=== PATIENT | male | born 1955 | race American Indian/Alaskan Native ===

== ENCOUNTER 2017-03-30 18:09 | Inpatient (IN) | payer OTHER ==
[2017-03-30] MEDS ORDERED: Sodium Chloride 0.9% 1,000 ML IV STA (18:20)
[2017-03-30 18:43] LABS: ALB/GLOB RATIO 1.3 (1.1-1.8); ALKALINE PHOSPHATASE 87 U/L (38-126); ALT/SGPT 97 U/L (7-56); AST/SGOT 128 U/L (17-59); BILIRUBIN,DIRECT 0.4 mg/dL (0.0-0.4); BILIRUBIN,TOTAL 0.6 mg/dL (0.2-1.3); BLOOD UREA NITROGEN 23 mg/dL (7-21); CALCIUM 9.1 mg/dL (8.4-10.5); CARBON DIOXIDE 16 mmol/L (21-33); CHLORIDE 108 mmol/L (98-107); GFR AFRICAN-AMERICAN 58; GLUCOSE,RANDOM 203 mg/dL (70-110); LIPASE 433 U/L (23-300); MAGNESIUM 2.6 mg/dL (1.7-2.2); PHOSPHOROUS 8.8 mg/dL (2.5-4.5); POTASSIUM 3.7 mmol/L (3.6-5.0); SODIUM 145 mmol/L (132-148); TOTAL PROTEIN 6.7 g/dL (5.8-8.3)
[2017-03-30 18:46] LABS: ALCOHOL SERUM < 10 mg/dL (0-10); BASO # 0.03 K/mm3 (0.0-2.0); BASO % 0.3 % (0.0-3.0); EOS # 0.2 (0.0-0.7); EOS % 1.4 % (1.5-5.0); GRAN # 6.51 (1.4-6.5); GRAN % 55.3 % (50.0-68.0); HEMATOCRIT 43.8 % (42.0-52.0); LYMPH # 4.8 (1.2-3.4); LYMPH % 40.4 % (22.0-35.0); MEAN CELL VOLUME 87.3 fl (80.0-105.0); MEAN CORPUSCULAR HEMOGLOBIN 28.9 pg (25.0-35.0); MEAN CORPUSCULAR HGB CONC 33.1 g/dl (31.0-37.0); MEAN PLATELET VOLUME 9.6 fl (7.0-11.0); MONO # 0.3 (0.1-0.6); MONO % 2.6 % (1.0-6.0); RED CELL DISTRIBUTION WIDTH 14.4 % (11.5-14.5); WHITE BLOOD COUNT 11.8 10^3/ul (4.5-11.0)
[2017-03-30 18:50] LABS: INR 1.13 (0.93-1.08); PARTIAL THROMBOPLASTIN TIME 59.7 Seconds (23.7-30.8)
[2017-03-30 18:54] LABS: TROPONIN I < 0.01 ng/mL
[2017-03-30 19:04] LABS: ABG MECHANICAL RATE 18; ARTERIAL BLOOD GAS HCO3 15.7 mmol/L (21-28); ATERIAL BLOOD GAS PEEP 5
[2017-03-30] MEDS ORDERED: Piperacillin/Tazobact 3.375 gm 100 ML IVPB STA (19:09)
[2017-03-30] MEDS ORDERED: Sodium Chloride 0.9% 1,200 ML IV STA (19:09)
--- NOTE | 2017-03-30 19:43 | ED PDOC ---
Arrival/HPI - General Chief Complaint: Cardiac Arrest Time Seen by Provider: 03/30/17 18:17 Historian: Family, EMS - History of Present Illness Narrative History of Present Illness (Text): 03/30/17 19:40 A 61 year old male, whose past medical history includes chronic back pain on Oxycodone, brought into the emergency department by EMS after cardiac arrest. According to family, patient was out shopping with family and later went to help his boss move things. When patient returned home he complained of feeling tired, thirsty and a burning sensation in his feet. gave patient vitamin water and grapes. She reports while patient was eating he appeared very uncomfortable and seemed to have difficulty breathing. Family believed patient was potentially choking on a grape so they tired compressions on the abdomen/ chest which caused him to vomit. They noted the vomit was the same color as the vitamin water and appeared to include residue of grapes. EMS was called and they arrived at 17:34. As per EMS, patient was breathing on his own but agonally. Patient eventually lost pulse and went into cardiac arrest. He was given 2 mg of narcan without any response, a total of 3 epinephrine, 1 bicarbonate and intubated. There was return of spontaneous circulation in the field. Upon arrival to in the ambulance bay, patient lost pulse again and chest compressions were restarted. Upon arrival in the ED, patient regained pulse but remained unresponsive. EMS arrived at 18:11 and patient was evaluated immediately. ROS and further HPI limited due to acuity of condition. PMD: Dr. Pritchard Past Medical History - Provider Review Nursing Documentation Reviewed: Yes - Infectious Disease Hx of Infectious Diseases: None - Cardiac Other/Comment: multiple scars to bilat arm as per unk if pt is using substances - Musculoskeletal/Rheumatological Hx Back Pain: Yes - Psychiatric Hx Substance Use: No (unk) - Anesthesia Hx Anesthesia Reactions: No Family/Social History - Physician Review Nursing Documentation Reviewed: Yes Family/Social History: No Known Family HX Smoking Status: Current Some Days Smoker Hx Alcohol Use: No Hx Substance Use: No (unk) Allergies/Home Meds Allergies/Adverse Reactions: Allergies No Known Allergies Allergy (Verified 03/30/17 19:25) Home Medications: Home Meds Medication Instructions Recorded Confirmed Alprazolam [Xanax] 2 mg PO HS 03/30/17 03/30/17 oxyCODONE [oxyCODONE Immediate 30 mg PO QID 03/30/17 03/30/17 Release Tab] Review of Systems - Review of Systems Systems not reviewed;Unavailable: Acuity of Condition Physical Exam Vital Signs Reviewed: Yes Vital Signs Temp Pulse Resp BP Pulse Ox 03/30/17 21:27 84 19 124/75 100 03/30/17 20:22 88 109/72 100 03/30/17 18:11 96.7 F L 145 H 18 93/43 L 97 Temperature: Afebrile Blood Pressure: Hypotensive (initially) Pulse: Tachycardic Respiratory Rate: Normal Appearance: Positive for: Ill-Appearing, Other (unresponsive) Pain Distress: None Mental Status: Positive for: Comatose Finger Stick Blood Glucose: 215 - Systems Exam Head: Present: Atraumatic, Normocephalic Pupils: Present: Sluggish (4 mm b/L) Mouth: Present: Other (ET tube in place) Respiratory/Chest: Present: Other (no spontaneous BS; equal b/L with bagging). No: Respiratory Distress, Accessory Muscle Use, Decreased Breath Sounds Cardiovascular: Present: Normal S1, S2, Tachycardic. No: Murmurs Abdomen: Present: Normal Bowel Sounds. No: Tenderness, Distention, Peritoneal Signs Upper Extremity: Present: Normal Inspection, Other (Possible track ramirez). No: Cyanosis, Edema Lower Extremity: Present: Normal Inspection. No: Edema Neurological: No: GCS=15 (GCS of 3) Skin: Present: Warm, Dry, Normal Color. No: Rashes Psychiatric: Present: Other (comatose). No: Alert, Oriented x 3 Medical Decision Making ED Course and Treatment: 03/30/17 19:39 Impression: A 61 year old male brought in after cardiac arrest; ROSC obtained in the field but patient is comatose in the ED and remains unresponsive. Total unresponsive time prior to ED arrival was approximately 30 minutes. Plan: -- Head CT -- Chest xray -- Labs -- -Blood and Urine culture - Urinalysis -- IV fluids, Vancomycin and Zosyn -- Reassess and disposition Progress Notes: Report Date : 03/30/2017 20:48:00 EXAM: CT Head Without Intravenous Contrast Dictator : Ajit Maynard MD IMPRESSION: 1. There is a diffuse decrease in the johnson-white differentiation, concerning for global hypoxic ischemic injury. If further evaluation is clinically indicated, an MRI of the brain is recommended. 2. No acute intracranial hemorrhage. 3. Mild atrophy. 4. Paranasal sinus disease is noted above. 5. Additional CT findings described above. 03/30/17 21:14 Patient in the ED with noted history; intubated in the field. ET tube confirmed in place; CXR and labs are nondiagnostic. Initial EKG was rapid afib which spontaneously reverted to normal sinus rhythm in the ED. Lactic acid was elevated at 6.1; code sepsis was called and broad spectrum antibiotics were given and additional IVF given per protocol. CT brain showing possible anoxic brain injury. R femoral central line was placed on inital assessment. Case was discussed with Dr. Matteo Pritchard who will admit the patient to his service. Case also discussed with Dr. Jacobs, ICU attending for ICU admission. - Lab Interpretations Lab Results: 03/30/17 18:16 03/30/17 18:16 Lab Results 03/30/17 19:01: pCO2 43, pO2 637.0 H, HCO3 15.7 L, ABG pH 7.17 L*, ABG Total CO2 17.0 L, ABG O2 Saturation 100.6 H, ABG Base Excess -12.4 L, ABG Potassium 3.6, Glucose 210 H, Lactate 6.1 H*, Mechanical Rate 18, FiO2 100.0, Tidal Volume 500, PEEP 5, Sodium 140.0, Chloride 110.0 H, Arterial Blood Potassium 3.6 03/30/17 18:28: POC Glucose (mg/dL) 215 H 03/30/17 18:16: Salicylates < 1 L, Acetaminophen < 10.0 L 03/30/17 18:16: TSH 3rd Generation 10.80 H, Alcohol, Quantitative < 10 03/30/17 18:16: Sodium 145, Potassium 3.7, Chloride 108 H, Carbon Dioxide 16 L, Anion Gap 25 H, BUN 23 H, Creatinine 1.5, Est GFR ( Amer) 58, Est GFR ( Non-Af Amer) 48, Random Glucose 203 H, Calcium 9.1, Phosphorus 8.8 H, Magnesium 2.6 H, Total Bilirubin 0.6, Direct Bilirubin 0.4, AST 128 H, ALT 97 H, Alkaline Phosphatase 87, Lactate Dehydrogenase 1230 H, Total Creatine Kinase 189, Troponin I < 0.01, Total Protein 6.7, Albumin 3.8, Globulin 3.0, Albumin/ Globulin Ratio 1.3, Lipase 433 H 03/30/17 18:16: PT 12.2 H, INR 1.13 H, APTT 59.7 H 03/30/17 18:16: WBC 11.8 H, RBC 5.02, Hgb 14.5, Hct 43.8, MCV 87.3, MCH 28.9, MCHC 33.1, RDW 14.4, Plt Count 256, MPV 9.6, Gran % 55.3, Lymph % (Auto) 40.4 H , [place] % (Auto) 2.6, Eos % (Auto) 1.4 L, Baso % (Auto) 0.3, Gran # 6.51 H, Lymph # 4.8 H, [place] # 0.3, Eos # 0.2, Baso # 0.03 I have reviewed the lab results: Yes - RAD Interpretation Radiology Orders: 03/30/17 18:18 HEAD W/O CONTRAST [CT] Stat 03/30/17 18:19 CHEST PORTABLE [RAD] Stat - Medication Orders Current Medication Orders: Discontinued Medications Sodium Chloride (Sodium Chloride 0.9%) 1,000 mls @ 999 mls/hr IV .Q1H1M STA Stop: 03/30/17 19:20 Last Admin: 03/30/17 19:51 Dose: 999 mls/hr eMAR Start Stop Document 03/30/17 19:51 EQ (Rec: 03/30/17 19:51 EQ [facility] [id number]) Intravenous Solution Start Date 03/30/17 Start Time 19:51 Vancomycin HCl 1 gm/ Sodium (Chloride) 250 mls @ 133.333 mls/hr IV STAT STA PRN Reason: Protocol Stop: 03/30/17 21:00 Piperacillin Sod/Tazobactam Sod (Zosyn 3.375 In Ns 100ml) 100 mls @ 200 mls/hr IVPB STAT STA PRN Reason: Protocol Stop: 03/30/17 19:38 Last Admin: 03/30/17 19:52 Dose: 200 mls/hr eMAR Start Stop Document 03/30/17 19:52 EQ (Rec: 03/30/17 19:53 EQ [facility] [id number]) Intravenous Solution Start Date 03/30/17 Start Time 19:52 Sodium Chloride (Sodium Chloride 0.9%) 1,200 mls @ 999 mls/hr IV .Q1H13M STA Stop: 03/30/17 20:21 Last Admin: 03/30/17 19:51 Dose: 999 mls/hr eMAR Start Stop Document 03/30/17 19:51 EQ (Rec: 03/30/17 19:51 EQ [id number]) Intravenous Solution Start Date 03/30/17 Start Time 19:51 - Scribe Statement The provider has reviewed the documentation as recorded by the Fernando Real Provider Scribe Attestation: All medical record entries made by the Scribe were at my direction and personally dictated by me. I have reviewed the chart and agree that the record accurately reflects my personal performance of the history, physical exam, medical decision making, and the department course for this patient. I have also personally directed, reviewed, and agree with the discharge instructions and disposition. Disposition/Present on Arrival - Present on Arrival Any Indicators Present on Arrival: No History of DVT/PE: No History of Uncontrolled Diabetes: No Urinary Catheter: No History of Decub. Ulcer: No History Surgical Site Infection Following: None - Disposition Have Diagnosis and Disposition been Completed?: Yes Diagnosis: Cardiac arrest Disposition: HOSPITALIZED Disposition Time: 19:30 Patient Plan: Admission, ICU Condition: CRITICAL Proc: Central Venous Access - Time Performed Time Performed: 18:30 - Time Out Time Out: Side verified, Site verified, Sterile procedures obs. - Procedure Procedure: Central Line placement: Right Technique:: Seldinger technique, Femoral vein (Right side) - Consent obtained Consent obtained: Emergent consent implied - Performed by Performed by: Attending Physician (with resident Dr. Rojo) - Indications Indication(s):: Mult.intravenous meds, Centrally admin. meds, Rapid fluid infusion Contraindications: None Tube type:: Triple lumen - Local Anesthetic Local Anesthetic: Lidocaine: none; patient comatose - Number of Attempts Attempts: 2 - Line sutured in place Line sutured in place:: Yes - Patient tolerated procedure Patient Tolerated Procedure:: Well
[2017-03-30 20:33] LABS: ARTERIAL BLOOD GAS PH 7.17 (7.35-7.45)
--- NOTE | 2017-03-30 20:49 | CT ---
EXAM: CT Head Without Intravenous Contrast EXAM DATE/TIME: 03/30/2017 6:18 PM CLINICAL HISTORY: The patient age is 61 years old and is male; Condition or disease; Other: Cardiac arrest; Additional info: [facility] Facility exam id and description: Ct heads head w/o contrast TECHNIQUE: Axial computed tomography images of the head/brain without intravenous contrast. All CT scans at this facility use one or more dose reduction techniques, viz.: automated exposure control; ma/kV adjustment per patient size (including targeted exams where dose is matched to indication; i.e. head); or iterative reconstruction technique. COMPARISON: No relevant prior studies available. FINDINGS: Artifacts: There is motion artifact on the study. Brain: There is a diffuse decrease in the johnson-white differentiation, concerning for global hypoxic ischemic injury. There is mild prominence of the sulci, compatible with atrophy. No acute intracranial hemorrhage is seen. Midline shift: There is no midline shift. Ventricles: No ventriculomegaly. Bones/joints: The calvarium demonstrates no evidence for a depressed fracture. Soft tissues: No acute abnormality. Vasculature: There is atherosclerotic calcification of the cavernous internal carotid arteries. Sinuses: Air-fluid levels are identified within the bilateral sphenoid sinuses, maxillary sinuses, and frontal sinuses. Mucosal thickening/effusions are identified within the ethmoid air cells. A mucous retention cyst or polyp is visualized within the right maxillary sinus. Mastoid air cells: Effusions are visualized within the left mastoid air cells and aditus ad antrum. Tubes, lines and devices: A feeding tube is visualized within the nasal cavity and pharynx. Fluid is seen within the nasopharynx. IMPRESSION: 1. There is a diffuse decrease in the johnson-white differentiation, concerning for global hypoxic ischemic injury. If further evaluation is clinically indicated, an MRI of the brain is recommended. 2. No acute intracranial hemorrhage. 3. Mild atrophy. 4. Paranasal sinus disease is noted above. 5. Additional CT findings described above. THIS REPORT CONTAINS FINDINGS THAT MAY BE CRITICAL TO PATIENT CARE. The findings were verbally communicated via telephone conference with Jeimy Almonte at 8:47 PM EDT on 03/30/2017. The findings were acknowledged and understood.
--- NOTE | 2017-03-30 21:08 | CP.PCM.CON ---
Addendum entered and electronically signed by Andrez Saldaña DO 03/30/17 22:15 : ICU Consult Note Original Note: <Andrez Saldaña - Last Filed: 03/30/17 22:13> History of Present Illness - History of Present Illness History of Present Illness: CC: Cardiac arrest History as per prior notes and patient family at bedside: 61M with pmh of chronic back pain on oxycodone and restless leg syn presents with cardiac arrest. As per family, the patient was shopping in the morning when his boss called him to help him move some boxes. He went to help for 1-2 hours and when he came home he reportedly had some trouble breathing, very diaphoretic, thirsty, and complained of foot pain. His gave him some vitamin water and grapes as well as Oxycodone for his back pain. She than realized him holding his neck as if he was choking. At this point they called EMS and started doing compressions, and mouth to mouth. Pt chey turned purple and vomited some grape and vitamin water colored vomit. As per EMS and prior notes upon arrival pt was breathing on his own but agonal. Pt chey lost his pulse and went into cardiac arrest. On the field he was given Narcan 2mg, Epi x 3, bicarb x 1, and intubated the patient. Pt lost his pulse on route to the ED and chest compressions was started. Upon arrival patient regained pulse but was unresponsive. ROS is limited due to acuity of condition. PMH: Chronic back pain, Restless legs PSH: None Med: Ativan, Xanax ALL: NKA FH: Brother and sister with DM, No family hx of NM or CVA SH: Former smoker of half PPD for >25 years, Denies any etoh abuse or drugs Review of Systems - Review of Systems Systems not reviewed;Unavailable: Acuity of Condition Past Patient History - Infectious Disease Hx of Infectious Diseases: None - Past Social History Smoking Status: Current Some Days Smoker - CARDIAC Other/Comment: multiple scars to bilat arm as per unk if pt is using substances - MUSCULOSKELETAL/RHEUMATOLOGICAL Hx Back Pain: Yes - PSYCHIATRIC Hx Substance Use: No (unk) - ANESTHESIA Hx Anesthesia Reactions: No Meds Allergies/Adverse Reactions: Allergies Allergy/AdvReac Type Severity Reaction Status Date / Time No Known Allergies Allergy Verified 03/30/17 19:25 Physical Exam - Constitutional Appears: No Acute Distress - Head Exam Head Exam: ATRAUMATIC, NORMOCEPHALIC - Eye Exam Eye Exam: PERRL Pupil Exam: NORMAL ACCOMODATION - ENT Exam ENT Exam: Mucous Membranes Moist - Respiratory Exam Respiratory Exam: Clear to Auscultation Bilateral. absent: Rales, Wheezes - Cardiovascular Exam Cardiovascular Exam: REGULAR RHYTHM, +S1, +S2 - GI/Abdominal Exam GI & Abdominal Exam: Normal Bowel Sounds, Soft. absent: Tenderness - Skin Skin Exam: Dry, Intact, Warm Additional comments: Track ramirez appears on forearm Results - Vital Signs Recent Vital Signs: Last Vital Signs Temp 96.7 F L 03/30/17 18:11 Pulse 88 03/30/17 20:22 Resp 18 03/30/17 18:11 BP 109/72 03/30/17 20:22 Pulse Ox 100 03/30/17 20:22 - Labs Result Diagrams: 03/30/17 18:16 03/30/17 18:16 Assessment & Plan - Assessment and Plan (Free Text) Assessment: 61M with pmh of chronic back pain on oxycodone and restless leg syn presents to the ED with cardiac arrest s/p intubation, Epi x 3 , bicarb x1 with ROSC - Possibly 2/2 NM, choking, CVA, or drug overdose. Neuro: - Currently unresponsive - F/u CT head - diffuse decrease in the johnson-white differentiation, concerning for global hypoxicischemic injury. No acute intracranial hemorrhage. - Neuro consulted for recs CV: - Hemodynamically stable - Maintain MAP >65 - Trops x 1 negative - Cardiology consult for recs - Serial trops and EKG Pulm: - Currently intubated for airway protection - Will wean as tolerated GI: - Stable - Monitor and trend transaminitis - Protonix for ppx Endo: - Maintain blood sugars 140-180 - Elevated TSH - Will repeat in AM Renal: - Stable - Monitor I and O - Replete electrolytes an needed Heme: - Stable ID: - Vanc & Zosyn - Consult ID for recs - F/u septic work up GI/DVT ppx - Protonix and Lovenox / SCDs Case and plan was reviewed and discussed in detail with Dr Jacobs. <Arlene GUSMAN,Pedro Luis - Last Filed: 03/31/17 06:56> Meds - Medications Medications: Current Medications Aspirin (Aspirin Chewable) 81 mg PO DAILY [facility] Clopidogrel Bisulfate (Plavix) 75 mg PO DAILY [facility] Sodium Chloride (Sodium Chloride 0.9%) 1,000 mls @ 125 mls/hr IV .Q8H EMA Last Admin: 03/31/17 06:13 Dose: 125 mls/hr Heparin Sodium/Dextrose (Heparin 25,000 Units/250ml In D5w) 25,000 units in 250 mls @ 7.62 mls/hr IV .Q24H EMA; 12 UNITS/KG/HR PRN Reason: Protocol Last Admin: 03/31/17 03:03 Dose: 12 units/kg/hr, 7.62 mls/hr Sodium Chloride (Sodium Chloride 0.9%) 500 mls @ 500 mls/hr IV .Q1H STA Stop: 03/31/17 07:13 Last Admin: 03/31/17 06:32 Dose: 500 mls/hr Potassium Phosphate 15 mmole/ (Dextrose) 255 mls @ 42.5 mls/hr IVPB ONCE ONE Stop: 03/31/17 12:46 Pantoprazole Sodium (Protonix Inj) 40 mg IVP DAILY [facility] Results - Vital Signs Recent Vital Signs: Last Vital Signs Temp 99.5 F 03/31/17 06:30 Pulse 84 03/31/17 06:30 Resp 21 03/31/17 06:30 BP 115/68 03/31/17 06:00 Pulse Ox 100 03/31/17 06:30 - Labs Result Diagrams: 03/30/17 18:16 03/31/17 00:30 Labs: Laboratory Results - last 24 hr 03/30/17 03/30/17 03/30/17 20:15 20:15 20:50 PT INR APTT pCO2 pO2 HCO3 ABG pH ABG Total CO2 ABG O2 Saturation ABG O2 Content ABG Base Excess ABG Hemoglobin ABG Carboxyhemoglobin POC ABG HHb (Measured) ABG Methemoglobin ABG O2 Capacity VBG pH VBG pCO2 VBG HCO3 VBG Total CO2 VBG O2 Sat (Calc) VBG Base Excess VBG Potassium Hgb O2 Saturation Sodium Chloride Glucose Lactate FiO2 Potassium Carbon Dioxide Anion Gap BUN Creatinine Est GFR ( Amer) Est GFR (Non-Af Amer) Random Glucose Calcium Phosphorus Magnesium Ammonia 12 Troponin I Venous Blood Potassium Urine Color Yellow Urine Appearance Cloudy Urine pH 6.0 Ur Specific [place] >= 1.030 Urine Protein >=300 H Urine Glucose (UA) 100 H Urine Ketones Negative Urine Blood Large H Urine Nitrate Positive H Urine Bilirubin Negative Urine Urobilinogen 1.0 H Ur Leukocyte Esterase Negative Urine RBC 25 - 30 Urine WBC 2 - 5 Ur Epithelial Cells 6 - 8 Urine Bacteria Large Urine Opiates Screen Positive H Urine Methadone Screen Negative Ur Barbiturates Screen Negative Ur Phencyclidine Scrn Negative Ur Amphetamines Screen Negative U Benzodiazepines Scrn Positive H U Oth Cocaine Metabols Positive H U Cannabinoids Screen Negative 03/30/17 03/30/17 03/31/17 20:50 22:37 00:30 PT INR APTT pCO2 pO2 179 H 41 HCO3 ABG pH ABG Total CO2 ABG O2 Saturation ABG O2 Content ABG Base Excess ABG Hemoglobin ABG Carboxyhemoglobin POC ABG HHb (Measured) ABG Methemoglobin ABG O2 Capacity VBG pH 7.10 L* 7.24 L VBG pCO2 22.0 L 47.0 VBG HCO3 6.8 L 20.1 L VBG Total CO2 7.5 L 21.5 L VBG O2 Sat (Calc) 100.6 H 85.0 H VBG Base Excess -21.2 L -7.3 L VBG Potassium 1.0 L* 2.9 L Hgb O2 Saturation Sodium 150.0 H 142.0 Chloride 137.0 H 112.0 H Glucose 26 L* D 105 Lactate 1.7 3.9 H FiO2 21.0 21.0 Potassium Carbon Dioxide Anion Gap BUN Creatinine Est GFR ( Amer) Est GFR (Non-Af Amer) Random Glucose Calcium Phosphorus Magnesium Ammonia Troponin I 1.70 H* D Venous Blood Potassium 1.0 L* 2.9 L Urine Color Urine Appearance Urine pH Ur Specific [place] Urine Protein Urine Glucose (UA) Urine Ketones Urine Blood Urine Nitrate Urine Bilirubin Urine Urobilinogen Ur Leukocyte Esterase Urine RBC Urine WBC Ur Epithelial Cells Urine Bacteria Urine Opiates Screen Urine Methadone Screen Ur Barbiturates Screen Ur Phencyclidine Scrn Ur Amphetamines Screen U Benzodiazepines Scrn U Oth Cocaine Metabols U Cannabinoids Screen 03/31/17 03/31/17 03/31/17 00:30 00:30 00:45 PT INR APTT pCO2 35 pO2 552.0 H HCO3 17.6 L ABG pH 7.31 L ABG Total CO2 18.7 L ABG O2 Saturation 100.0 H ABG O2 Content 22.1 ABG Base Excess -7.8 L ABG Hemoglobin 15.0 ABG Carboxyhemoglobin 1.3 POC ABG HHb (Measured) 0 ABG Methemoglobin 1.1 ABG O2 Capacity 22.1 VBG pH VBG pCO2 VBG HCO3 VBG Total CO2 VBG O2 Sat (Calc) VBG Base Excess VBG Potassium Hgb O2 Saturation 97.7 Sodium 145 Chloride 110 H Glucose Lactate FiO2 100.0 Potassium 3.0 L Carbon Dioxide 22 Anion Gap 16 BUN 26 H Creatinine 1.5 Est GFR ( Amer) 58 Est GFR (Non-Af Amer) 48 Random Glucose 133 H Calcium 8.8 Phosphorus 2.0 L Magnesium 2.1 Ammonia Troponin I Venous Blood Potassium Urine Color Urine Appearance Urine pH Ur Specific [place] Urine Protein Urine Glucose (UA) Urine Ketones Urine Blood Urine Nitrate Urine Bilirubin Urine Urobilinogen Ur Leukocyte Esterase Urine RBC Urine WBC Ur Epithelial Cells Urine Bacteria Urine Opiates Screen Urine Methadone Screen Ur Barbiturates Screen Ur Phencyclidine Scrn Ur Amphetamines Screen U Benzodiazepines Scrn U Oth Cocaine Metabols U Cannabinoids Screen 03/31/17 02:00 PT 14.4 H INR 1.33 H APTT 35.0 H pCO2 pO2 HCO3 ABG pH ABG Total CO2 ABG O2 Saturation ABG O2 Content ABG Base Excess ABG Hemoglobin ABG Carboxyhemoglobin POC ABG HHb (Measured) ABG Methemoglobin ABG O2 Capacity VBG pH VBG pCO2 VBG HCO3 VBG Total CO2 VBG O2 Sat (Calc) VBG Base Excess VBG Potassium Hgb O2 Saturation Sodium Chloride Glucose Lactate FiO2 Potassium Carbon Dioxide Anion Gap BUN Creatinine Est GFR ( Amer) Est GFR (Non-Af Amer) Random Glucose Calcium Phosphorus Magnesium Ammonia Troponin I Venous Blood Potassium Urine Color Urine Appearance Urine pH Ur Specific [place] Urine Protein Urine Glucose (UA) Urine Ketones Urine Blood Urine Nitrate Urine Bilirubin Urine Urobilinogen Ur Leukocyte Esterase Urine RBC Urine WBC Ur Epithelial Cells Urine Bacteria Urine Opiates Screen Urine Methadone Screen Ur Barbiturates Screen Ur Phencyclidine Scrn Ur Amphetamines Screen U Benzodiazepines Scrn U Oth Cocaine Metabols U Cannabinoids Screen Attending/Attestation - Attestation I have personally seen and examined this patient.: Yes I have fully participated in the care of the patient.: Yes I have reviewed all pertinent clinical information: Yes Notes (Text): -I agree with the above ICU consult note completed by the resident physician, with the following additions and/or changes: -The patient is a 61 year old man with a history of chronic low back pain and restless leg syndrome, who is admitted to the ICU for cardiac arrest (PEA) (s/p cardiac resuscitation per ACLS protocol in the field) and sepsis due to UTI. After arrival to the ICU, pt also found to have evidence of anoxic brain injury on CT-head, a urine toxicology positive for cocain and an increasing troponin ( 1.6). Consequently, overnight, Heparin drip (per ACS protocol), ASA and Plavix were started. Since ROCS in the field, he has never regained consciousness. Because of sepsis, he was excluded from the hypothermia protocol. We will check serial trop's and EKG's. Both neurology and cardiology have been consulted. Empiric IV antibiotics have been started and procalcitonin ordered.
[2017-03-30 21:09] LABS: URINE BILIRUBIN NEGATIVE (NEGATIVE); URINE BLOOD LARGE (NEGATIVE); URINE GLUCOSE (UA) 100 mg/dL (NEGATIVE); URINE KETONE NEGATIVE (NEGATIVE); URINE LEUKOCYTE ESTERASE NEGATIVE Leu/uL (NEGATIVE); URINE PROTEIN >=300 mg/dL (<30 mg/dL)
[2017-03-30 21:18] LABS: URINE APPEARANCE CLOUDY (CLEAR); URINE COLOR YELLOW (YELLOW)
[2017-03-30 21:20] LABS: VENOUS BLOOD GAS BASE EXCESS -21.2 mmol/L (0.0-2.0)
[2017-03-30 21:23] LABS: URINE BACTERIA LARGE (NEG); URINE RBC 25 - 30 /hpf (0-2)
[2017-03-30 22:42] LABS: VENOUS BLOOD GAS BASE EXCESS -7.3 mmol/L (0.0-2.0); VENOUS BLOOD PH 7.24 (7.32-7.43)
[2017-03-30 23:47] VITALS: BMI 20.8
[2017-03-31] MEDS: Sodium Chloride 0.9% 1,000 ML IV SCH ×4 (00:06→23:00)
--- NOTE | 2017-03-31 00:45 | PCM.SEPTIC ---
Sepsis Progress Note - Reassessment Type Date of Evaluation: 03/31/17 Time of Evaluation: 00:44 Reassessment Type: Non-invasive reassessment - Non Invasive Reassessment Were the most recent vital sign reviewed: Yes Vital Sign (Latest): Temp Pulse Resp BP Pulse Ox 97.3 F L 86 20 120/72 99 03/30/17 22:27 03/30/17 23:47 03/30/17 22:27 03/30/17 22:27 03/30/17 22:27 Cardiovascular: Yes: Regular Rate, Rhythm. No: Gallop, JVD, Murmur Respiratory: Yes: Normal Breath Sounds, Other (Intubated). No: Accessory Muscle Use, Crackles, Rales, Rhonchi, Respiratory Distress Capillary Refill: Normal (Less than 2 sec) Pulses: Normal Radial, Normal Dorsalis Pedis, Normal Posterior Tibialis Skin: Warm, Dry
[2017-03-31 01:02] LABS: ARTERIAL BLOOD GAS HCO3 17.6 mmol/L (21-28); ARTERIAL BLOOD GAS O2 CAPACITY 22.1 mL/dl (16-24); ARTERIAL BLOOD GAS O2 CONTENT 22.1 ML/dl (15-23); ARTERIAL BLOOD GAS PH 7.31 (7.35-7.45); ARTERIAL BLOOD HGB O2 SAT 97.7 % (95.0-98.0); CARBOXYHEMOGLOBIN 1.3 % (0.5-1.5); HHB 0 % (0-5); METHEMOGLOBIN 1.1 % (0.0-3.0)
[2017-03-31 01:19] LABS: CALCIUM 8.8 mg/dL (8.4-10.5)
[2017-03-31] MEDS ORDERED: Heparin 25,000units in D5W 25,000 UNITS/250 ML BAG IV SCH (02:00)
[2017-03-31 02:11] LABS: MAGNESIUM 2.1 mg/dL (1.7-2.2)
[2017-03-31 02:26] LABS: INR 1.33 (0.93-1.08)
[2017-03-31] MEDS ORDERED: Heparin 25,000units in D5W/250 ML BAG IV SCH (03:00)
[2017-03-31] MEDS ORDERED: Sodium Chloride 0.9% 500 ML IV STA (06:14)
[2017-03-31] MEDS ORDERED: Potassium Phosphate 15 MMOLE in Dextrose 5% In Water 250 ML IVPB ONE (06:47)
[2017-03-31 07:19] LABS: ALB/GLOB RATIO 1.2 (1.1-1.8); ALKALINE PHOSPHATASE 97 U/L (38-126); ALT/SGPT 178 U/L (7-56); AST/SGOT 209 U/L (17-59); BILIRUBIN,TOTAL 0.4 mg/dL (0.2-1.3); BLOOD UREA NITROGEN 26 mg/dL (7-21); CALCIUM 8.7 mg/dL (8.4-10.5); CARBON DIOXIDE 22 mmol/L (21-33); CHLORIDE 111 mmol/L (98-107); CHOLESTEROL 97 mg/dL (130-200); GFR AFRICAN-AMERICAN > 60; GLUCOSE,RANDOM 163 mg/dL (70-110); POTASSIUM 4.2 mmol/L (3.6-5.0); SODIUM 146 mmol/L (132-148); TOTAL PROTEIN 6.7 g/dL (5.8-8.3)
[2017-03-31 07:34] LABS: TROPONIN I 1.48 ng/mL
--- NOTE | 2017-03-31 07:52 | RAD ---
HISTORY: cardiac arrest; ROSC COMPARISON: Not available FINDINGS: LUNGS: No pulmonary infiltrate. Mild diffuse interstitial prominence, nonspecific. PLEURA: No evidence of pleural effusion. Right costophrenic angle not included on this film. CARDIOVASCULAR: No significant congestive change. ET tube positioned 5.1 cm above the tracheal teagan. Nasogastric tube extends to left upper quadrant of the abdomen. OSSEOUS STRUCTURES: No significant abnormalities. VISUALIZED UPPER ABDOMEN: Normal. OTHER FINDINGS: None. IMPRESSION: No acute infiltrate. ET tube and NG tube are appropriately positioned. Mild diffuse interstitial prominence.
[2017-03-31 09:16] LABS: BASO # 0.02 K/mm3 (0.0-2.0); BASO % 0.1 % (0.0-3.0); GRAN # 28.87 (1.4-6.5); GRAN % 92.6 % (50.0-68.0); HEMATOCRIT 42.1 % (42.0-52.0); LYMPH % 3.2 % (22.0-35.0); MEAN CELL VOLUME 81.4 fl (80.0-105.0); MEAN CORPUSCULAR HEMOGLOBIN 29.2 pg (25.0-35.0); MEAN CORPUSCULAR HGB CONC 35.9 g/dl (31.0-37.0); MEAN PLATELET VOLUME 8.9 fl (7.0-11.0); MONO # 1.3 (0.1-0.6); MONO % 4.1 % (1.0-6.0); PLATELET COUNT 277 10^3/uL (120.0-450.0); RED CELL DISTRIBUTION WIDTH 13.9 % (11.5-14.5)
[2017-03-31 09:19] LABS: WHITE BLOOD COUNT 31.2 10^3/ul (4.5-11.0)
[2017-03-31 09:37] LABS: INR 1.21 (0.93-1.08); PARTIAL THROMBOPLASTIN TIME 68.6 Seconds (23.7-30.8)
[2017-03-31] MEDS ORDERED: Enoxaparin 40 mg Syringe SC SCH (10:00)
[2017-03-31 10:53] LABS: BAND 3 % (0-2); NEUTROPHIL 91 % (50.0-70.0)
--- NOTE | 2017-03-31 10:53 | CARD ---
APPROVED REPORT EKG Measurement Heart [id number] CO 142P81 [id number] <Conclusion> Normal sinus rhythm Prolonged QT Tall P Wave - Ch.Lung Disease?
[2017-03-31 10:54] LABS: ANISOCYTOSIS SLIGHT; PLATELET ESTIMATE NORMAL (NORMAL)
--- NOTE | 2017-03-31 11:07 | CARD ---
APPROVED REPORT EKG Measurement Heart [id number] [place] 140P86 [id number] [id number] <Conclusion> Normal sinus rhythm Right atrial enlargement Prolonged QT Tall P Waves- Ch.Lung Disease?
[2017-03-31] MEDS ORDERED: levETIRAcetam 500 MG in Sodium Chloride 0.9% 100 ML IV SCH (11:15)
--- NOTE | 2017-03-31 11:15 | CARD ---
APPROVED REPORT EKG Measurement Heart [id number] <Conclusion> Atrial fibrillation with rapid ventricular response Marked ST abnormality, Correlate Clinically.
--- NOTE | 2017-03-31 11:32 | CP.PCM.CON ---
<Clemencia Pena - Last Filed: 03/31/17 11:21> History of Present Illness - History of Present Illness History of Present Illness: Neurology Consult Note for Cat Ponce PGY2 Reason for consult: Anoxic brain injury This is a 61Y M with PMH chronic back pain and restless legs syndrome who was admitted for cardiac arrest. is at bedside to obtain history. She reports the patient went to go help his boss move boxes for 1-2 hours. When the patient returned home, he was sweating and complaining of SOB, increased thirst and foot pain. His then gave him his prescription Oxycodone for his back pain. The patient was then holding onto his neck as if he were choking. EMS was called and CPR was initiated. During that time, patient had facial discoloration and vomiting. Patient was having agonal breathing and then went into cardiac arrest. In the field he was intubated and given Epi x 3, Bicarb x 1 and Narcan 2mg with return of spontaneous circulation. His pulse was once again lost on the way to the ED. CPR was restarted. In ED, patient had a pulse, but was unresponsive. Head CT showed diffuse decreased bauer-white matter differentiation which is consistent with global hypoxic ischemic injury. Utox was positive for opiates, benzo and cocaine. 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 FH: Siblings- DM Review of Systems - Review of Systems Systems not reviewed;Unavailable: Intubated Past Patient History - Infectious Disease Hx of Infectious Diseases: None - Past Social History Smoking Status: Light Smoker < 10 Cigarettes Daily - CARDIAC Hx Cardiac Disorders: No Other/Comment: multiple scars to bilat arm as per unk if pt is using substances - PULMONARY Hx Respiratory Disorders: No - NEUROLOGICAL Hx Neurological Disorder: No - HEENT Hx HEENT Problems: No - RENAL Hx Chronic Kidney Disease: No - ENDOCRINE/METABOLIC Hx Endocrine Disorders: No - HEMATOLOGICAL/ONCOLOGICAL Hx Blood Disorders: No - INTEGUMENTARY Hx Dermatological Problems: No - MUSCULOSKELETAL/RHEUMATOLOGICAL Hx Back Pain: Yes (chronic) Hx Falls: No Other/Comment: Restless legs- takes Xanax for sleep. Chronic knee pain. foot spurs -injected last month - GASTROINTESTINAL Hx Gastrointestinal Disorders: No - GENITOURINARY/GYNECOLOGICAL Other/Comment: c/o urinary problems today - took AZO pill - PSYCHIATRIC Hx Psychophysiologic Disorder: No Hx Anxiety: No Hx Depression: No Hx Emotional Abuse: No Hx Panic Symptoms: No Hx Substance Use: No - SURGICAL HISTORY Hx Surgeries: No - ANESTHESIA Hx Anesthesia Reactions: No Meds Allergies/Adverse Reactions: Allergies Allergy/AdvReac Type Severity Reaction Status Date / Time No Known Allergies Allergy Verified 03/30/17 19:25 - Medications Medications: Current Medications Aspirin (Aspirin Chewable) 81 mg PO DAILY [facility] Last Admin: 03/31/17 09:53 Dose: 81 mg Clopidogrel Bisulfate (Plavix) 75 mg PO DAILY [facility] Last Admin: 03/31/17 09:53 Dose: 75 mg Sodium Chloride (Sodium Chloride 0.9%) 1,000 mls @ 125 mls/hr IV .Q8H [facility] Last Admin: 03/31/17 06:13 Dose: 125 mls/hr Heparin Sodium/Dextrose (Heparin 25,000 Units/250ml In D5w) 25,000 units in 250 mls @ 7.62 mls/hr IV .Q24H EMA; 12 UNITS/KG/HR PRN Reason: Protocol Last Titration: 03/31/17 09:50 Dose: 0 units/kg/hr, 0 mls/hr Potassium Phosphate 15 mmole/ (Dextrose) 255 mls @ 42.5 mls/hr IVPB ONCE ONE Stop: 03/31/17 12:46 Last Admin: 03/31/17 07:53 Dose: 42.5 mls/hr Levetiracetam 500 mg/ Sodium (Chloride) 105 mls @ 460 mls/hr IV Q12 EMA Pantoprazole Sodium (Protonix Inj) 40 mg IVP DAILY [facility] Last Admin: 03/31/17 09:40 Dose: 40 mg Physical Exam - Constitutional Appears: No Acute Distress - Head Exam Head Exam: ATRAUMATIC, NORMAL INSPECTION, NORMOCEPHALIC - Eye Exam Eye Exam: absent: PERRL Pupil Exam: Fixed (pinpoint). absent: PERRL - ENT Exam ENT Exam: Mucous Membranes Moist - Respiratory Exam Respiratory Exam: NORMAL BREATHING PATTERN. absent: Rales, Rhonchi, Wheezes - Cardiovascular Exam Cardiovascular Exam: REGULAR RHYTHM, +S1, +S2. absent: Gallop, Rubs, Systolic Murmur - GI/Abdominal Exam GI & Abdominal Exam: Normal Bowel Sounds, Soft. absent: Rebound, Rigid, Tenderness - Extremities Exam Extremities exam: Negative for: pedal edema - Neurological Exam Additional comments: Negative for brain stem reflexes which includes pupillary, corneal, gag, and dolls eye reflex. No withdrawal to pain. Patient is moving is mouth but not to sound or speech. - Skin Skin Exam: Dry, Warm Results - Vital Signs Recent Vital Signs: Last Vital Signs Temp 99.7 F H 03/31/17 08:30 Pulse 81 03/31/17 08:30 Resp 20 03/31/17 07:20 BP 149/74 03/31/17 08:00 Pulse Ox 100 03/31/17 08:30 - Labs Result Diagrams: 03/31/17 09:13 03/31/17 06:00 Labs: Laboratory Results - last 24 hr 03/30/17 03/30/17 03/30/17 20:15 20:15 20:50 WBC RBC Hgb Hct MCV MCH MCHC RDW Plt Count MPV Gran % Lymph % (Auto) [place] % (Auto) Eos % (Auto) Baso % (Auto) Gran # Lymph # [place] # Eos # Baso # Neutrophils % (Manual) Band Neutrophils % Lymphocytes % (Manual) Monocytes % (Manual) Platelet Evaluation Anisocytosis (manual) PT INR APTT pCO2 pO2 HCO3 ABG pH ABG Total CO2 ABG O2 Saturation ABG O2 Content ABG Base Excess ABG Hemoglobin ABG Carboxyhemoglobin POC ABG HHb (Measured) ABG Methemoglobin ABG O2 Capacity VBG pH VBG pCO2 VBG HCO3 VBG Total CO2 VBG O2 Sat (Calc) VBG Base Excess VBG Potassium Hgb O2 Saturation Sodium Chloride Glucose Lactate FiO2 Potassium Carbon Dioxide Anion Gap BUN Creatinine Est GFR ( Amer) Est GFR (Non-Af Amer) Random Glucose Calcium Phosphorus Magnesium Total Bilirubin AST ALT Alkaline Phosphatase Ammonia 12 Troponin I Total Protein Albumin Globulin Albumin/Globulin Ratio Triglycerides Cholesterol LDL Cholesterol Direct HDL Cholesterol TSH 3rd Generation Venous Blood Potassium Urine Color Yellow Urine Appearance Cloudy Urine pH 6.0 Ur Specific [place] >= 1.030 Urine Protein >=300 H Urine Glucose (UA) 100 H Urine Ketones Negative Urine Blood Large H Urine Nitrate Positive H Urine Bilirubin Negative Urine Urobilinogen 1.0 H Ur Leukocyte Esterase Negative Urine RBC 25 - 30 Urine WBC 2 - 5 Ur Epithelial Cells 6 - 8 Urine Bacteria Large Urine Opiates Screen Positive H Urine Methadone Screen Negative Ur Barbiturates Screen Negative Ur Phencyclidine Scrn Negative Ur Amphetamines Screen Negative U Benzodiazepines Scrn Positive H U Oth Cocaine Metabols Positive H U Cannabinoids Screen Negative 03/30/17 03/30/17 03/31/17 20:50 22:37 00:30 WBC RBC Hgb Hct MCV MCH MCHC RDW Plt Count MPV Gran % Lymph % (Auto) [place] % (Auto) Eos % (Auto) Baso % (Auto) Gran # Lymph # [place] # Eos # Baso # Neutrophils % (Manual) Band Neutrophils % Lymphocytes % (Manual) Monocytes % (Manual) Platelet Evaluation Anisocytosis (manual) PT INR APTT pCO2 pO2 179 H 41 HCO3 ABG pH ABG Total CO2 ABG O2 Saturation ABG O2 Content ABG Base Excess ABG Hemoglobin ABG Carboxyhemoglobin POC ABG HHb (Measured) ABG Methemoglobin ABG O2 Capacity VBG pH 7.10 L* 7.24 L VBG pCO2 22.0 L 47.0 VBG HCO3 6.8 L 20.1 L VBG Total CO2 7.5 L 21.5 L VBG O2 Sat (Calc) 100.6 H 85.0 H VBG Base Excess -21.2 L -7.3 L VBG Potassium 1.0 L* 2.9 L Hgb O2 Saturation Sodium 150.0 H 142.0 Chloride 137.0 H 112.0 H Glucose 26 L* D 105 Lactate 1.7 3.9 H FiO2 21.0 21.0 Potassium Carbon Dioxide Anion Gap BUN Creatinine Est GFR ( Amer) Est GFR (Non-Af Amer) Random Glucose Calcium Phosphorus Magnesium Total Bilirubin AST ALT Alkaline Phosphatase Ammonia Troponin I 1.70 H* D Total Protein Albumin Globulin Albumin/Globulin Ratio Triglycerides Cholesterol LDL Cholesterol Direct HDL Cholesterol TSH 3rd Generation Venous Blood Potassium 1.0 L* 2.9 L Urine Color Urine Appearance Urine pH Ur Specific [place] Urine Protein Urine Glucose (UA) Urine Ketones Urine Blood Urine Nitrate Urine Bilirubin Urine Urobilinogen Ur Leukocyte Esterase Urine RBC Urine WBC Ur Epithelial Cells Urine Bacteria Urine Opiates Screen Urine Methadone Screen Ur Barbiturates Screen Ur Phencyclidine Scrn Ur Amphetamines Screen U Benzodiazepines Scrn U Oth Cocaine Metabols U Cannabinoids Screen 03/31/17 03/31/17 03/31/17 00:30 00:30 00:45 WBC RBC Hgb Hct MCV MCH MCHC RDW Plt Count MPV Gran % Lymph % (Auto) [place] % (Auto) Eos % (Auto) Baso % (Auto) Gran # Lymph # [place] # Eos # Baso # Neutrophils % (Manual) Band Neutrophils % Lymphocytes % (Manual) Monocytes % (Manual) Platelet Evaluation Anisocytosis (manual) PT INR APTT pCO2 35 pO2 552.0 H HCO3 17.6 L ABG pH 7.31 L ABG Total CO2 18.7 L ABG O2 Saturation 100.0 H ABG O2 Content 22.1 ABG Base Excess -7.8 L ABG Hemoglobin 15.0 ABG Carboxyhemoglobin 1.3 POC ABG HHb (Measured) 0 ABG Methemoglobin 1.1 ABG O2 Capacity 22.1 VBG pH VBG pCO2 VBG HCO3 VBG Total CO2 VBG O2 Sat (Calc) VBG Base Excess VBG Potassium Hgb O2 Saturation 97.7 Sodium 145 Chloride 110 H Glucose Lactate FiO2 100.0 Potassium 3.0 L Carbon Dioxide 22 Anion Gap 16 BUN 26 H Creatinine 1.5 Est GFR ( Amer) 58 Est GFR (Non-Af Amer) 48 Random Glucose 133 H Calcium 8.8 Phosphorus 2.0 L Magnesium 2.1 Total Bilirubin AST ALT Alkaline Phosphatase Ammonia Troponin I Total Protein Albumin Globulin Albumin/Globulin Ratio Triglycerides Cholesterol LDL Cholesterol Direct HDL Cholesterol TSH 3rd Generation Venous Blood Potassium Urine Color Urine Appearance Urine pH Ur Specific [place] Urine Protein Urine Glucose (UA) Urine Ketones Urine Blood Urine Nitrate Urine Bilirubin Urine Urobilinogen Ur Leukocyte Esterase Urine RBC Urine WBC Ur Epithelial Cells Urine Bacteria Urine Opiates Screen Urine Methadone Screen Ur Barbiturates Screen Ur Phencyclidine Scrn Ur Amphetamines Screen U Benzodiazepines Scrn U Oth Cocaine Metabols U Cannabinoids Screen 03/31/17 03/31/17 03/31/17 02:00 06:00 06:00 WBC RBC Hgb Hct MCV MCH MCHC RDW Plt Count MPV Gran % Lymph % (Auto) [place] % (Auto) Eos % (Auto) Baso % (Auto) Gran # Lymph # [place] # Eos # Baso # Neutrophils % (Manual) Band Neutrophils % Lymphocytes % (Manual) Monocytes % (Manual) Platelet Evaluation Anisocytosis (manual) PT 14.4 H INR 1.33 H APTT 35.0 H pCO2 pO2 HCO3 ABG pH ABG Total CO2 ABG O2 Saturation ABG O2 Content ABG Base Excess ABG Hemoglobin ABG Carboxyhemoglobin POC ABG HHb (Measured) ABG Methemoglobin ABG O2 Capacity VBG pH VBG pCO2 VBG HCO3 VBG Total CO2 VBG O2 Sat (Calc) VBG Base Excess VBG Potassium Hgb O2 Saturation Sodium 146 Chloride 111 H Glucose Lactate FiO2 Potassium 4.2 Carbon Dioxide 22 Anion Gap 17 BUN 26 H Creatinine 1.4 Est GFR ( Amer) > 60 Est GFR (Non-Af Amer) 52 Random Glucose 163 H Calcium 8.7 Phosphorus Magnesium Total Bilirubin 0.4 AST 209 H D ALT 178 H Alkaline Phosphatase 97 Ammonia Troponin I 1.48 H* Total Protein 6.7 Albumin 3.7 Globulin 3.0 Albumin/Globulin Ratio 1.2 Triglycerides 44 Cholesterol 97 L LDL Cholesterol Direct 33 HDL Cholesterol 50 TSH 3rd Generation 1.06 Venous Blood Potassium Urine Color Urine Appearance Urine pH Ur Specific [place] Urine Protein Urine Glucose (UA) Urine Ketones Urine Blood Urine Nitrate Urine Bilirubin Urine Urobilinogen Ur Leukocyte Esterase Urine RBC Urine WBC Ur Epithelial Cells Urine Bacteria Urine Opiates Screen Urine Methadone Screen Ur Barbiturates Screen Ur Phencyclidine Scrn Ur Amphetamines Screen U Benzodiazepines Scrn U Oth Cocaine Metabols U Cannabinoids Screen 03/31/17 03/31/17 09:13 09:13 WBC 31.2 H* D RBC 5.17 Hgb 15.1 Hct 42.1 MCV 81.4 D MCH 29.2 MCHC 35.9 RDW 13.9 Plt Count 277 MPV 8.9 Gran % 92.6 H Lymph % (Auto) 3.2 L [place] % (Auto) 4.1 Eos % (Auto) 0.0 L Baso % (Auto) 0.1 Gran # 28.87 H Lymph # 1.0 L [place] # 1.3 H Eos # 0.0 Baso # 0.02 Neutrophils % (Manual) 91 H Band Neutrophils % 3 H Lymphocytes % (Manual) 4 L Monocytes % (Manual) 2 Platelet Evaluation Normal Anisocytosis (manual) Slight PT 13.1 H INR 1.21 H APTT 68.6 H pCO2 pO2 HCO3 ABG pH ABG Total CO2 ABG O2 Saturation ABG O2 Content ABG Base Excess ABG Hemoglobin ABG Carboxyhemoglobin POC ABG HHb (Measured) ABG Methemoglobin ABG O2 Capacity VBG pH VBG pCO2 VBG HCO3 VBG Total CO2 VBG O2 Sat (Calc) VBG Base Excess VBG Potassium Hgb O2 Saturation Sodium Chloride Glucose Lactate FiO2 Potassium Carbon Dioxide Anion Gap BUN Creatinine Est GFR ( Amer) Est GFR (Non-Af Amer) Random Glucose Calcium Phosphorus Magnesium Total Bilirubin AST ALT Alkaline Phosphatase Ammonia Troponin I Total Protein Albumin Globulin Albumin/Globulin Ratio Triglycerides Cholesterol LDL Cholesterol Direct HDL Cholesterol TSH 3rd Generation Venous Blood Potassium Urine Color Urine Appearance Urine pH Ur Specific [place] Urine Protein Urine Glucose (UA) Urine Ketones Urine Blood Urine Nitrate Urine Bilirubin Urine Urobilinogen Ur Leukocyte Esterase Urine RBC Urine WBC Ur Epithelial Cells Urine Bacteria Urine Opiates Screen Urine Methadone Screen Ur Barbiturates Screen Ur Phencyclidine Scrn Ur Amphetamines Screen U Benzodiazepines Scrn U Oth Cocaine Metabols U Cannabinoids Screen Assessment & Plan - Assessment and Plan (Free Text) Assessment: This is a 61Y M with PMH chronic back pain and restless legs syndrome who was admitted for cardiac arrest. Head CT showed diffuse decreased bauer-white matter differentiation which is consistent with global hypoxic ischemic injury. Utox was positive for opiates, benzo and cocaine. Plan: - Will order MRI to further evaluate anoxic brain injury - EEG ordered - Keppra 500mg BID for seizure prophylaxis After results of MRI and EEG obtained, we will be able to prognosticate the patient. Case seen, discussed and reviewed with Dr. Rico. Cat Pena PGY2 - Date & Time Date: 03/31/17 Time: 11:36 <Ezio Rico - Last Filed: 03/31/17 12:32> Meds - Medications Medications: Current Medications Aspirin (Aspirin Chewable) 81 mg PO DAILY [facility] Last Admin: 03/31/17 09:53 Dose: 81 mg Clopidogrel Bisulfate (Plavix) 75 mg PO DAILY [facility] Last Admin: 03/31/17 09:53 Dose: 75 mg Sodium Chloride (Sodium Chloride 0.9%) 1,000 mls @ 125 mls/hr IV .Q8H [facility] Last Admin: 03/31/17 06:13 Dose: 125 mls/hr Potassium Phosphate 15 mmole/ (Dextrose) 255 mls @ 42.5 mls/hr IVPB ONCE ONE Stop: 03/31/17 12:46 Last Admin: 03/31/17 07:53 Dose: 42.5 mls/hr Levetiracetam 500 mg/ Sodium (Chloride) 105 mls @ 460 mls/hr IV Q12 EMA Last Admin: 03/31/17 11:50 Dose: 460 mls/hr Dexmedetomidine HCl (Precedex 4 Mcg/Ml (100 Ml)) 400 mcg in 100 mls @ 3.175 mls /hr IV .Q24H PRN; Protocol; 0.2 MCG/KG/HR PRN Reason: Sedation Vancomycin HCl (Vancomycin 1gm) 1 gm in 250 mls @ 167 mls/hr IVPB DAILY EMA PRN Reason: Protocol Cefepime HCl (Maxipime 1gm) 1 gm in 100 mls @ 100 mls/hr IVPB Q12 EMA PRN Reason: Protocol Pantoprazole Sodium (Protonix Inj) 40 mg IVP DAILY EMA Last Admin: 03/31/17 09:40 Dose: 40 mg Results - Vital Signs Recent Vital Signs: Last Vital Signs Temp 99.7 F H 03/31/17 08:30 Pulse 81 03/31/17 08:30 Resp 20 03/31/17 07:20 BP 149/74 03/31/17 08:00 Pulse Ox 100 03/31/17 08:30 - Labs Result Diagrams: 03/31/17 09:13 03/31/17 06:00 Labs: Laboratory Results - last 24 hr 03/30/17 03/30/17 03/30/17 20:15 20:15 20:50 WBC RBC Hgb Hct MCV MCH MCHC RDW Plt Count MPV Gran % Lymph % (Auto) [place] % (Auto) Eos % (Auto) Baso % (Auto) Gran # Lymph # [place] # Eos # Baso # Neutrophils % (Manual) Band Neutrophils % Lymphocytes % (Manual) Monocytes % (Manual) Platelet Evaluation Anisocytosis (manual) PT INR APTT pCO2 pO2 HCO3 ABG pH ABG Total CO2 ABG O2 Saturation ABG O2 Content ABG Base Excess ABG Hemoglobin ABG Carboxyhemoglobin POC ABG HHb (Measured) ABG Methemoglobin ABG O2 Capacity VBG pH VBG pCO2 VBG HCO3 VBG Total CO2 VBG O2 Sat (Calc) VBG Base Excess VBG Potassium Hgb O2 Saturation Sodium Chloride Glucose Lactate FiO2 Potassium Carbon Dioxide Anion Gap BUN Creatinine Est GFR ( Amer) Est GFR (Non-Af Amer) Random Glucose Hemoglobin A1c Calcium Phosphorus Magnesium Total Bilirubin AST ALT Alkaline Phosphatase Ammonia 12 Troponin I Total Protein Albumin Globulin Albumin/Globulin Ratio Triglycerides Cholesterol LDL Cholesterol Direct HDL Cholesterol Procalcitonin TSH 3rd Generation Venous Blood Potassium Urine Color Yellow Urine Appearance Cloudy Urine pH 6.0 Ur Specific [place] >= 1.030 Urine Protein >=300 H Urine Glucose (UA) 100 H Urine Ketones Negative Urine Blood Large H Urine Nitrate Positive H Urine Bilirubin Negative Urine Urobilinogen 1.0 H Ur Leukocyte Esterase Negative Urine RBC 25 - 30 Urine WBC 2 - 5 Ur Epithelial Cells 6 - 8 Urine Bacteria Large Urine Opiates Screen Positive H Urine Methadone Screen Negative Ur Barbiturates Screen Negative Ur Phencyclidine Scrn Negative Ur Amphetamines Screen Negative U Benzodiazepines Scrn Positive H U Oth Cocaine Metabols Positive H U Cannabinoids Screen Negative 03/30/17 03/30/17 03/31/17 20:50 22:37 00:30 WBC RBC Hgb Hct MCV MCH MCHC RDW Plt Count MPV Gran % Lymph % (Auto) [place] % (Auto) Eos % (Auto) Baso % (Auto) Gran # Lymph # [place] # Eos # Baso # Neutrophils % (Manual) Band Neutrophils % Lymphocytes % (Manual) Monocytes % (Manual) Platelet Evaluation Anisocytosis (manual) PT INR APTT pCO2 pO2 179 H 41 HCO3 ABG pH ABG Total CO2 ABG O2 Saturation ABG O2 Content ABG Base Excess ABG Hemoglobin ABG Carboxyhemoglobin POC ABG HHb (Measured) ABG Methemoglobin ABG O2 Capacity VBG pH 7.10 L* 7.24 L VBG pCO2 22.0 L 47.0 VBG HCO3 6.8 L 20.1 L VBG Total CO2 7.5 L 21.5 L VBG O2 Sat (Calc) 100.6 H 85.0 H VBG Base Excess -21.2 L -7.3 L VBG Potassium 1.0 L* 2.9 L Hgb O2 Saturation Sodium 150.0 H 142.0 Chloride 137.0 H 112.0 H Glucose 26 L* D 105 Lactate 1.7 3.9 H FiO2 21.0 21.0 Potassium Carbon Dioxide Anion Gap BUN Creatinine Est GFR ( Amer) Est GFR (Non-Af Amer) Random Glucose Hemoglobin A1c Calcium Phosphorus Magnesium Total Bilirubin AST ALT Alkaline Phosphatase Ammonia Troponin I 1.70 H* D Total Protein Albumin Globulin Albumin/Globulin Ratio Triglycerides Cholesterol LDL Cholesterol Direct HDL Cholesterol Procalcitonin TSH 3rd Generation Venous Blood Potassium 1.0 L* 2.9 L Urine Color Urine Appearance Urine pH Ur Specific [place] Urine Protein Urine Glucose (UA) Urine Ketones Urine Blood Urine Nitrate Urine Bilirubin Urine Urobilinogen Ur Leukocyte Esterase Urine RBC Urine WBC Ur Epithelial Cells Urine Bacteria Urine Opiates Screen Urine Methadone Screen Ur Barbiturates Screen Ur Phencyclidine Scrn Ur Amphetamines Screen U Benzodiazepines Scrn U Oth Cocaine Metabols U Cannabinoids Screen 03/31/17 03/31/17 03/31/17 00:30 00:30 00:45 WBC RBC Hgb Hct MCV MCH MCHC RDW Plt Count MPV Gran % Lymph % (Auto) [place] % (Auto) Eos % (Auto) Baso % (Auto) Gran # Lymph # [place] # Eos # Baso # Neutrophils % (Manual) Band Neutrophils % Lymphocytes % (Manual) Monocytes % (Manual) Platelet Evaluation Anisocytosis (manual) PT INR APTT pCO2 35 pO2 552.0 H HCO3 17.6 L ABG pH 7.31 L ABG Total CO2 18.7 L ABG O2 Saturation 100.0 H ABG O2 Content 22.1 ABG Base Excess -7.8 L ABG Hemoglobin 15.0 ABG Carboxyhemoglobin 1.3 POC ABG HHb (Measured) 0 ABG Methemoglobin 1.1 ABG O2 Capacity 22.1 VBG pH VBG pCO2 VBG HCO3 VBG Total CO2 VBG O2 Sat (Calc) VBG Base Excess VBG Potassium Hgb O2 Saturation 97.7 Sodium 145 Chloride 110 H Glucose Lactate FiO2 100.0 Potassium 3.0 L Carbon Dioxide 22 Anion Gap 16 BUN 26 H Creatinine 1.5 Est GFR ( Amer) 58 Est GFR (Non-Af Amer) 48 Random Glucose 133 H Hemoglobin A1c Calcium 8.8 Phosphorus 2.0 L Magnesium 2.1 Total Bilirubin AST ALT Alkaline Phosphatase Ammonia Troponin I Total Protein Albumin Globulin Albumin/Globulin Ratio Triglycerides Cholesterol LDL Cholesterol Direct HDL Cholesterol Procalcitonin TSH 3rd Generation Venous Blood Potassium Urine Color Urine Appearance Urine pH Ur Specific [place] Urine Protein Urine Glucose (UA) Urine Ketones Urine Blood Urine Nitrate Urine Bilirubin Urine Urobilinogen Ur Leukocyte Esterase Urine RBC Urine WBC Ur Epithelial Cells Urine Bacteria Urine Opiates Screen Urine Methadone Screen Ur Barbiturates Screen Ur Phencyclidine Scrn Ur Amphetamines Screen U Benzodiazepines Scrn U Oth Cocaine Metabols U Cannabinoids Screen 03/31/17 03/31/17 03/31/17 02:00 06:00 06:00 WBC RBC Hgb Hct MCV MCH MCHC RDW Plt Count MPV Gran % Lymph % (Auto) [place] % (Auto) Eos % (Auto) Baso % (Auto) Gran # Lymph # [place] # Eos # Baso # Neutrophils % (Manual) Band Neutrophils % Lymphocytes % (Manual) Monocytes % (Manual) Platelet Evaluation Anisocytosis (manual) PT 14.4 H INR 1.33 H APTT 35.0 H pCO2 pO2 HCO3 ABG pH ABG Total CO2 ABG O2 Saturation ABG O2 Content ABG Base Excess ABG Hemoglobin ABG Carboxyhemoglobin POC ABG HHb (Measured) ABG Methemoglobin ABG O2 Capacity VBG pH VBG pCO2 VBG HCO3 VBG Total CO2 VBG O2 Sat (Calc) VBG Base Excess VBG Potassium Hgb O2 Saturation Sodium 146 Chloride 111 H Glucose Lactate FiO2 Potassium 4.2 Carbon Dioxide 22 Anion Gap 17 BUN 26 H Creatinine 1.4 Est GFR ( Amer) > 60 Est GFR (Non-Af Amer) 52 Random Glucose 163 H Hemoglobin A1c 4.9 Calcium 8.7 Phosphorus Magnesium Total Bilirubin 0.4 AST 209 H D ALT 178 H Alkaline Phosphatase 97 Ammonia Troponin I 1.48 H* Total Protein 6.7 Albumin 3.7 Globulin 3.0 Albumin/Globulin Ratio 1.2 Triglycerides 44 Cholesterol 97 L LDL Cholesterol Direct 33 HDL Cholesterol 50 Procalcitonin TSH 3rd Generation Venous Blood Potassium Urine Color Urine Appearance Urine pH Ur Specific [place] Urine Protein Urine Glucose (UA) Urine Ketones Urine Blood Urine Nitrate Urine Bilirubin Urine Urobilinogen Ur Leukocyte Esterase Urine RBC Urine WBC Ur Epithelial Cells Urine Bacteria Urine Opiates Screen Urine Methadone Screen Ur Barbiturates Screen Ur Phencyclidine Scrn Ur Amphetamines Screen U Benzodiazepines Scrn U Oth Cocaine Metabols U Cannabinoids Screen 03/31/17 03/31/17 03/31/17 06:00 06:00 09:13 WBC RBC Hgb Hct MCV MCH MCHC RDW Plt Count MPV Gran % Lymph % (Auto) [place] % (Auto) Eos % (Auto) Baso % (Auto) Gran # Lymph # [place] # Eos # Baso # Neutrophils % (Manual) Band Neutrophils % Lymphocytes % (Manual) Monocytes % (Manual) Platelet Evaluation Anisocytosis (manual) PT 13.1 H INR 1.21 H APTT 68.6 H pCO2 pO2 HCO3 ABG pH ABG Total CO2 ABG O2 Saturation ABG O2 Content ABG Base Excess ABG Hemoglobin ABG Carboxyhemoglobin POC ABG HHb (Measured) ABG Methemoglobin ABG O2 Capacity VBG pH VBG pCO2 VBG HCO3 VBG Total CO2 VBG O2 Sat (Calc) VBG Base Excess VBG Potassium Hgb O2 Saturation Sodium Chloride Glucose Lactate FiO2 Potassium Carbon Dioxide Anion Gap BUN Creatinine Est GFR ( Amer) Est GFR (Non-Af Amer) Random Glucose Hemoglobin A1c Calcium Phosphorus Magnesium Total Bilirubin AST ALT Alkaline Phosphatase Ammonia Troponin I Total Protein Albumin Globulin Albumin/Globulin Ratio Triglycerides Cholesterol LDL Cholesterol Direct HDL Cholesterol Procalcitonin 36.04 H TSH 3rd Generation 1.06 Venous Blood Potassium Urine Color Urine Appearance Urine pH Ur Specific [place] Urine Protein Urine Glucose (UA) Urine Ketones Urine Blood Urine Nitrate Urine Bilirubin Urine Urobilinogen Ur Leukocyte Esterase Urine RBC Urine WBC Ur Epithelial Cells Urine Bacteria Urine Opiates Screen Urine Methadone Screen Ur Barbiturates Screen Ur Phencyclidine Scrn Ur Amphetamines Screen U Benzodiazepines Scrn U Oth Cocaine Metabols U Cannabinoids Screen 03/31/17 09:13 WBC 31.2 H* D RBC 5.17 Hgb 15.1 Hct 42.1 MCV 81.4 D MCH 29.2 MCHC 35.9 RDW 13.9 Plt Count 277 MPV 8.9 Gran % 92.6 H Lymph % (Auto) 3.2 L [place] % (Auto) 4.1 Eos % (Auto) 0.0 L Baso % (Auto) 0.1 Gran # 28.87 H Lymph # 1.0 L [place] # 1.3 H Eos # 0.0 Baso # 0.02 Neutrophils % (Manual) 91 H Band Neutrophils % 3 H Lymphocytes % (Manual) 4 L Monocytes % (Manual) 2 Platelet Evaluation Normal Anisocytosis (manual) Slight PT INR APTT pCO2 pO2 HCO3 ABG pH ABG Total CO2 ABG O2 Saturation ABG O2 Content ABG Base Excess ABG Hemoglobin ABG Carboxyhemoglobin POC ABG HHb (Measured) ABG Methemoglobin ABG O2 Capacity VBG pH VBG pCO2 VBG HCO3 VBG Total CO2 VBG O2 Sat (Calc) VBG Base Excess VBG Potassium Hgb O2 Saturation Sodium Chloride Glucose Lactate FiO2 Potassium Carbon Dioxide Anion Gap BUN Creatinine Est GFR ( Amer) Est GFR (Non-Af Amer) Random Glucose Hemoglobin A1c Calcium Phosphorus Magnesium Total Bilirubin AST ALT Alkaline Phosphatase Ammonia Troponin I Total Protein Albumin Globulin Albumin/Globulin Ratio Triglycerides Cholesterol LDL Cholesterol Direct HDL Cholesterol Procalcitonin TSH 3rd Generation Venous Blood Potassium Urine Color Urine Appearance Urine pH Ur Specific Boling Urine Protein Urine Glucose (UA) Urine Ketones Urine Blood Urine Nitrate Urine Bilirubin Urine Urobilinogen Ur Leukocyte Esterase Urine RBC Urine WBC Ur Epithelial Cells Urine Bacteria Urine Opiates Screen Urine Methadone Screen Ur Barbiturates Screen Ur Phencyclidine Scrn Ur Amphetamines Screen U Benzodiazepines Scrn U Oth Cocaine Metabols U Cannabinoids Screen Attending/Attestation - Attestation I have personally seen and examined this patient.: Yes I have fully participated in the care of the patient.: Yes I have reviewed all pertinent clinical information: Yes
--- NOTE | 2017-03-31 11:39 | CP.PCM.PN ---
Subjective - Date & Time of Evaluation Date of Evaluation: 03/31/17 Time of Evaluation: 07:10 - Subjective Subjective: Patient seen and examined. Signou received from overnight Dr Jacobs, Patient is 61yo male with chronic back problem on opiates, presented s/p cardiac arrest, PEA arrest, unknown down time or CPR time. Currently intubated, not on any sedation, with poor neurological function; no gag reflex, no corneal reflex, Dolls eyes. Does over breath the ventilator Objective - Vital Signs/Intake and Output Vital Signs (last 24 hours): Temp Pulse Resp BP Pulse Ox 99.7 F H 81 20 149/74 100 03/31/17 08:30 03/31/17 08:30 03/31/17 07:20 03/31/17 08:00 03/31/17 08:30 Intake and Output: 03/31/17 03/31/17 06:59 18:59 Intake Total 1530 150 Output Total 100 Balance 1430 150 - Medications Medications: Current Medications Aspirin (Aspirin Chewable) 81 mg PO DAILY [facility] Last Admin: 03/31/17 09:53 Dose: 81 mg Clopidogrel Bisulfate (Plavix) 75 mg PO DAILY [facility] Last Admin: 03/31/17 09:53 Dose: 75 mg Sodium Chloride (Sodium Chloride 0.9%) 1,000 mls @ 125 mls/hr IV .Q8H EMA Last Admin: 03/31/17 06:13 Dose: 125 mls/hr Heparin Sodium/Dextrose (Heparin 25,000 Units/250ml In D5w) 25,000 units in 250 mls @ 7.62 mls/hr IV .Q24H EMA; 12 UNITS/KG/HR PRN Reason: Protocol Last Titration: 03/31/17 09:50 Dose: 0 units/kg/hr, 0 mls/hr Potassium Phosphate 15 mmole/ (Dextrose) 255 mls @ 42.5 mls/hr IVPB ONCE ONE Stop: 03/31/17 12:46 Last Admin: 03/31/17 07:53 Dose: 42.5 mls/hr Levetiracetam 500 mg/ Sodium (Chloride) 105 mls @ 460 mls/hr IV Q12 EMA Pantoprazole Sodium (Protonix Inj) 40 mg IVP DAILY [facility] Last Admin: 03/31/17 09:40 Dose: 40 mg - Labs Labs: 03/31/17 09:13 03/31/17 06:00 PT 13.1 Seconds (9.9-11.8) H 03/31/17 09:13 INR 1.21 (0.93-1.08) H 03/31/17 09:13 APTT 68.6 Seconds (23.7-30.8) H 03/31/17 09:13 - Constitutional Appears: Well, Non-toxic, No Acute Distress - Head Exam Head Exam: NORMAL INSPECTION - Eye Exam Eye Exam: Normal appearance Additional comments: no corneal reflex - ENT Exam ENT Exam: Mucous Membranes Moist - Respiratory Exam Respiratory Exam: Clear to Ausculation Bilateral, NORMAL BREATHING PATTERN - Cardiovascular Exam Cardiovascular Exam: REGULAR RHYTHM, RRR, +S1, +S2 - GI/Abdominal Exam GI & Abdominal Exam: Soft, Normal Bowel Sounds - Extremities Exam Extremities Exam: Normal Inspection - Neurological Exam Additional comments: NO Corneal, NO gag reflex Overbreathes ventilator +Dolls Eyes Assessment and Plan - Assessment and Plan (Free Text) Assessment: 61yo male a/w sp Cardiac Arrest, Severe Sepsis Cardiac Arrest x 2 (PEA) s/p ROSC Sepsis UTI Polysubstance Abuse (+cocaine, BZD, Opiates) Elevated Troponin - currently afebrile, HD stable, off pressors - good oxygenation on ventilator, over breathes the ventilator - unclear etiology of PEA arrest, ?drug use - elevated troponin, EKG non sichemic, likely 2/2 CPR, cardiac arrest - neurological exam with poor function, no gag reflex, no corneals, CT head with hypoxic brain injury Recommend: - cont with ventilator support, low tidal vol ventilation, decrease FiO2 - obtain CXR today - Abx as per ID, would cover with broad spectrum abx ( fever, increasing WBC) - cardiology eval - ECHO - would consider discontinuing heparin, elevated troponin (downtrending now) likely 2/2 CPR, and cardiac arrest - replete K, Mg, Phos - Check HIV, hep panel - EEG - MRI - keep off sedation - follow up neurology - DVT ppx - GI ppx Critical care time 45 minutes
--- NOTE | 2017-03-31 11:51 | CP.PCM.PN ---
Subjective - Date & Time of Evaluation Date of Evaluation: 03/31/17 Time of Evaluation: 07:10 - Subjective Subjective: ADDENDUM to daily progress note: Patient with cardiac arrest yesterday at ~1800, no hypothermic protocol initiated 2/2 severe sepsis (fever, WBC 31k, +UA). Objective - Vital Signs/Intake and Output Vital Signs (last 24 hours): Temp Pulse Resp BP Pulse Ox 99.7 F H 81 20 149/74 100 03/31/17 08:30 03/31/17 08:30 03/31/17 07:20 03/31/17 08:00 03/31/17 08:30 Intake and Output: 03/31/17 03/31/17 06:59 18:59 Intake Total 1530 150 Output Total 100 Balance 1430 150 - Medications Medications: Current Medications Aspirin (Aspirin Chewable) 81 mg PO DAILY [facility] Last Admin: 03/31/17 09:53 Dose: 81 mg Clopidogrel Bisulfate (Plavix) 75 mg PO DAILY [facility] Last Admin: 03/31/17 09:53 Dose: 75 mg Sodium Chloride (Sodium Chloride 0.9%) 1,000 mls @ 125 mls/hr IV .Q8H EMA Last Admin: 03/31/17 06:13 Dose: 125 mls/hr Heparin Sodium/Dextrose (Heparin 25,000 Units/250ml In D5w) 25,000 units in 250 mls @ 7.62 mls/hr IV .Q24H EMA; 12 UNITS/KG/HR PRN Reason: Protocol Last Titration: 03/31/17 09:50 Dose: 0 units/kg/hr, 0 mls/hr Potassium Phosphate 15 mmole/ (Dextrose) 255 mls @ 42.5 mls/hr IVPB ONCE ONE Stop: 03/31/17 12:46 Last Admin: 03/31/17 07:53 Dose: 42.5 mls/hr Levetiracetam 500 mg/ Sodium (Chloride) 105 mls @ 460 mls/hr IV Q12 EMA Pantoprazole Sodium (Protonix Inj) 40 mg IVP DAILY [facility] Last Admin: 03/31/17 09:40 Dose: 40 mg - Labs Labs: 03/31/17 09:13 03/31/17 06:00 PT 13.1 Seconds (9.9-11.8) H 03/31/17 09:13 INR 1.21 (0.93-1.08) H 03/31/17 09:13 APTT 68.6 Seconds (23.7-30.8) H 03/31/17 09:13
[2017-03-31] MEDS ORDERED: Dexmedetomidine HCl 4mcg/ml 400 MCG/100 ML BOTTLE IV PRN (12:09)
[2017-03-31] MEDS ORDERED: Vancomycin 1gm in NS 250ml 1 GM/250 ML BAG IVPB SCH (12:15)
[2017-03-31] MEDS: Cefepime 1gm in NS 100ml 1 GM/100 ML BAG IVPB SCH ×2 (12:31→21:49)
--- NOTE | 2017-03-31 13:59 | RAD ---
HISTORY: intubated, f/u COMPARISON: 03/30/2017 FINDINGS: LUNGS: No active pulmonary disease. PLEURA: No significant pleural effusion identified, no pneumothorax apparent. CARDIOVASCULAR: Normal. OSSEOUS STRUCTURES: No significant abnormalities. VISUALIZED UPPER ABDOMEN: Normal. OTHER FINDINGS: Endotracheal and nasogastric tubes in satisfactory position IMPRESSION: No active disease.
--- NOTE | 2017-03-31 15:12 | HP ---
HISTORY OF PRESENT ILLNESS: The patient is a 61-year-old male who presented to the Emergency Department on 03/30/2017 after cardiac arrest. The patient was intubated in the field. He is now in the Intensive Care Unit on mechanical ventilation. He is unresponsive. No history can be obtained. PAST MEDICAL HISTORY: Negative for diabetes, hypertension, heart disease or cancer. The patient has a history of degenerative joint disease with chronic pain of the shoulders and herniated disks of the lumbar spine. PAST SURGICAL HISTORY: The patient has no significant past surgical history. MEDICATIONS: He was currently taking oxycodone 30 mg 4 times daily for pain. ALLERGIES: THE PATIENT HAS NO KNOWN DRUG ALLERGIES. SOCIAL HISTORY: He has a history of smoking one-half pack per day for greater than 30 years. No history of alcohol or drug abuse. FAMILY HISTORY: Significant only for his father having cancer of the prostate. PHYSICAL EXAMINATION GENERAL: The patient is a thin black male, on the ventilator, unresponsive. VITAL SIGNS: Blood pressure 149/74, temperature 99.7, pulse 75, respiratory rate 14. HEENT: Pupils are nonreactive. NECK: Supple. No thyromegaly, no adenopathy. LUNGS: Showed good air entry bilaterally. Endotracheal tube is intact. The patient is on the ventilator. ABDOMEN: Soft. Bowel sounds are hypoactive. EXTREMITIES: Without cyanosis, clubbing or edema. NEUROLOGIC: The patient is unresponsive to deep painful stimuli. SKIN: Warm and dry. LABORATORY DATA: WBC is 31.2, hemoglobin 15.1, hematocrit 42.1. Sodium 146, potassium 4.2, chloride 111, CO2 of 22, BUN 26, creatinine 1.4, glucose is 163. AST 209, ALT 178. Troponin is elevated at 1.48. Procalcitonin 36.04. Toxicology screen was positive for opiates, benzodiazepines and cocaine metabolites. Chest x-ray showed no active disease. CT scan of the head showed no bleed. There was diffuse decrease in johnson-white differentiation consistent with possible global hypoxic ischemic brain injury. IMPRESSION: 1. Cardiac arrest. 2. Possible sepsis, rule out urosepsis. 3. History of chronic obstructive pulmonary disease secondary to tobacco. 4. Degenerative joint disease with opioid dependence, possible substance abuse positive for cocaine. PLAN: The patient remains intubated, continue supportive care, IV antibiotics, Infectious Disease and ICU consultation. Prognosis is very poor. Family is aware. CYDNEY Duff MD
--- NOTE | 2017-03-31 21:14 | CON ---
DATE: REASON FOR CONSULTATION: Cardiac arrest. HISTORY OF PRESENT ILLNESS: The patient is a 61-year-old -[place] male who according to has no prior cardiac history. The patient was witnessed to have cardia arrest by his . The patient was called by his boss at work to come and do few hours of lifting boxes, after the patient finished work he went home, and he reported to his that his weak and diaphoretic, the brought him some grape to eat, however, he choked on grape, became unresponsive. His stepson was doing Heimlich maneuver and the started CPR, EMS was activated, the patient was intubated, and brought to the emergency room. The patient tested positive for opiates, benzodiazepine, and cocaine. SOCIAL HISTORY: The patient is a smoker. MEDICATIONS: Aspirin 81 mg once a day, intravenous heparin infusion and a therapeutic regimen for acute coronary syndrome, Plavix 75 mg once a day, potassium phosphate given as intravenous dose of 15 mmol, Protonix 40 mg at 10 mL daily, and normal saline 25 mL an hour. REVIEW OF SYSTEMS: No reported seizures, no reported ventricular tachycardia. PHYSICAL EXAMINATION GENERAL: The patient is a middle-aged male who is unresponsive on event. VITAL SIGNS: Blood pressure 149/74, heart rate 80, temperature 99.5. HEENT: No pallor or icterus. CHEST: Minimal rhonchi. HEART: S1 and S2 regular. ABDOMEN: Positive bowel sounds. EXTREMITIES: No edema. LABORATORY DATA: SMA-7; sodium 146, potassium 4.2, chloride 111, CO2 22, glucose 168, BUN 26, creatinine 1.4, and troponin is 1.7 and 1.48. Lipid profile is within normal limit except for LDL direct, cholesterol of 97. Urine drug screen is positive for opiates, benzodiazepine, and cocaine. Hemoglobin and hematocrit 15.1 and 42.1, white count 31.2000, platelet count 177. EKG revealed sinus rhythm and prolonged QT interval. CT scan without contrast revealed diffuse in the johnson and white differentiation concerning for global hypoxic ischemic injury. No acute intracranial hemorrhage. ASSESSMENT: 1. Status post cardiac arrest. The patient was resuscitated after total three doses of IV epinephrine and one dose of sodium bicarbonate. However, respiratory arrest preceded cardiac arrest. 2. Borderline troponin elevation rule out infraction. 3. Prolonged QT interval. 4. Cocaine abuse. 5. Consider underlying sepsis. 6. Rule out ischemic cardiomyopathy. RECOMMENDATIONS: Continue current aspirin, Plavix, and intravenous heparin. The patient is also a good candidate for beta-blockers. Obtain at bedside echocardiography study. Neurology consult will be followed. Frankie Macias MD
[2017-03-31] MEDS: levETIRAcetam 500mg IVPB 500 MG/100 ML BAG IV SCH (21:50)
--- NOTE | 2017-04-01 00:19 | CON ---
DATE: 03/31/2017 LOCATION: The patient is seen earlier today; 129, bed 7. CHIEF COMPLAINT: Respiratory failure and cardiac arrest. HISTORY OF PRESENT ILLNESS: This 61-year-old male with a history of chronic back pain, who is on oxycodone, was brought to the emergency room, cardiac arrest. The patient is intubated on a ventilator. History is reviewed. The patient had another cardiac arrest and currently intubated on a ventilator, unresponsive. PAST MEDICAL HISTORY: Significant for chronic back pain. PAST SURGICAL HISTORY: Noncontributory. ALLERGIES: THE PATIENT HAS NO KNOWN ALLERGIES. MEDICATIONS AT HOME: Reveals the patient to be on Xanax and oxycodone. PHYSICAL EXAMINATION: GENERAL: The patient is intubated on a ventilator, unresponsive. VITAL SIGNS: Temperature of 99.7; pulse is 78; blood pressure is 140/70, it was 93/43; respiratory rate, on a vent. HEENT: Reveals ET tube to be in place. NECK: Supple. LUNGS: Have decreased breath sounds. HEART: Normal S1, S2. ABDOMEN: Soft, nontender. No organomegaly. No rebound or guarding. LABORATORY EXAMINATION: Reveals a white count of 31,000, it was 11,800. The patient has 92% granulocytosis and 3% bandemia. Coagulation is noted. Chemistries reveal a BUN of 26, creatinine of 1.5. The patient has elevated LFTs. Troponin is 1.48 and procalcitonin is 36. Urinalysis reveals 2 to 5 wbc's, large bacteria. Toxicology reveals opiates are positive, cocaine is positive, benzodiazepine is positive. The patient has a chest x-ray from yesterday. No infiltrates noted. ASSESSMENT AND PLAN: This is a 61-year-old male with chronic back pain, on oxycodone and Xanax, admitted after cardiac arrest with cocaine with #1, SIRS, systemic inflammatory response syndrome with respiratory failure, intubated on the ventilator with cardiac arrest after cocaine use. Currently blood cultures and urine cultures are ordered. The patient was perfectly well up to the time that the patient had the incidence. The patient is currently on cefepime and a dose of vancomycin was given. We will check on the pancultures, HIV. Overall prognosis quite poor. From the history and examination, the patient has less likely the infectious etiology and cardiac arrest post-cocaine use; however, he is at risk for developing nosocomial infections. We will follow closely with you. Prognosis is quite poor. Jose Daniel Milner MD
[2017-04-01 06:37] LABS: BASO # 0.01 K/mm3 (0.0-2.0); BASO % 0.1 % (0.0-3.0); EOS % 0.1 % (1.5-5.0); GRAN # 17.43 (1.4-6.5); GRAN % 89.2 % (50.0-68.0); HEMATOCRIT 33.8 % (42.0-52.0); LYMPH # 1.1 (1.2-3.4); LYMPH % 5.4 % (22.0-35.0); MEAN CELL VOLUME 79.7 fl (80.0-105.0); MEAN CORPUSCULAR HEMOGLOBIN 28.3 pg (25.0-35.0); MEAN CORPUSCULAR HGB CONC 35.5 g/dl (31.0-37.0); MEAN PLATELET VOLUME 9.6 fl (7.0-11.0); MONO % 5.2 % (1.0-6.0); RED CELL DISTRIBUTION WIDTH 13.9 % (11.5-14.5); WHITE BLOOD COUNT 19.5 10^3/ul (4.5-11.0)
[2017-04-01 06:54] LABS: ARTERIAL BLOOD GAS HCO3 17.8 mmol/L (21-28); ARTERIAL BLOOD GAS O2 CAPACITY 17.1 mL/dl (16-24); ARTERIAL BLOOD GAS O2 CONTENT 16.9 ML/dl (15-23); ARTERIAL BLOOD GAS PH 7.46 (7.35-7.45); ARTERIAL BLOOD HGB O2 SAT 95.7 % (95.0-98.0); CARBOXYHEMOGLOBIN 1.7 % (0.5-1.5); HHB 1.1 % (0-5); METHEMOGLOBIN 1.6 % (0.0-3.0)
[2017-04-01 07:00] LABS: ALKALINE PHOSPHATASE 75 U/L (38-126); ALT/SGPT 842 U/L (7-56); BILIRUBIN,TOTAL 0.5 mg/dL (0.2-1.3); BLOOD UREA NITROGEN 20 mg/dL (7-21); CALCIUM 8.5 mg/dL (8.4-10.5); CARBON DIOXIDE 20 mmol/L (21-33); CHLORIDE 119 mmol/L (98-107); GFR AFRICAN-AMERICAN > 60; GLUCOSE,RANDOM 108 mg/dL (70-110); MAGNESIUM 2.1 mg/dL (1.7-2.2); PHOSPHOROUS 2.4 mg/dL (2.5-4.5); POTASSIUM 3.7 mmol/L (3.6-5.0); SODIUM 147 mmol/L (132-148); TOTAL PROTEIN 5.6 g/dL (5.8-8.3)
[2017-04-01 07:22] LABS: AST/SGOT 1019 U/L (17-59)
[2017-04-01] MEDS: Sodium Chloride 0.9% 1,000 ML IV SCH (08:26)
[2017-04-01] MEDS: Sodium Chloride 0.45% 1,000 ML IV SCH ×2 (10:00→21:43)
[2017-04-01] MEDS: levETIRAcetam 500mg IVPB 500 MG/100 ML BAG IV SCH ×2 (10:03→21:43)
[2017-04-01] MEDS: Cefepime 1gm in NS 100ml 1 GM/100 ML BAG IVPB SCH ×2 (10:04→21:43)
--- NOTE | 2017-04-01 10:43 | RAD ---
HISTORY: intubated, f/u COMPARISON: 03/31/2017 FINDINGS: LUNGS: Minimal infiltrate and effusion at the left lung base. PLEURA: No significant pleural effusion identified, no pneumothorax apparent. CARDIOVASCULAR: Normal. OSSEOUS STRUCTURES: No significant abnormalities. VISUALIZED UPPER ABDOMEN: Normal. OTHER FINDINGS: Endotracheal and nasogastric tube in satisfactory position IMPRESSION: Minimal infiltrate and effusion at the left lung base
--- NOTE | 2017-04-01 11:14 | CP.PCM.PN ---
Subjective - Date & Time of Evaluation Date of Evaluation: 04/01/17 Time of Evaluation: 10:40 - Subjective Subjective: remains unresponsive on ventilator Objective - Vital Signs/Intake and Output Vital Signs (last 24 hours): Temp Pulse Resp BP Pulse Ox 97.0 F L 70 30 H 113/63 100 04/01/17 08:00 04/01/17 08:00 03/31/17 13:00 04/01/17 08:00 04/01/17 08:00 Intake and Output: 04/01/17 04/01/17 06:59 18:59 Intake Total 1700 Output Total 450 Balance 1250 - Medications Medications: Current Medications Aspirin (Aspirin Chewable) 81 mg PO DAILY [facility] Last Admin: 04/01/17 10:03 Dose: 81 mg Clopidogrel Bisulfate (Plavix) 75 mg PO DAILY [facility] Last Admin: 04/01/17 10:03 Dose: 75 mg Sodium Chloride (Sodium Chloride 0.9%) 1,000 mls @ 125 mls/hr IV .Q8H [facility] Last Admin: 04/01/17 08:26 Dose: 125 mls/hr Dexmedetomidine HCl (Precedex 4 Mcg/Ml (100 Ml)) 400 mcg in 100 mls @ 3.175 mls /hr IV .Q24H PRN; Protocol; 0.2 MCG/KG/HR PRN Reason: Sedation Cefepime HCl (Maxipime 1gm) 1 gm in 100 mls @ 100 mls/hr IVPB Q12 EMA PRN Reason: Protocol Last Admin: 04/01/17 10:04 Dose: 100 mls/hr Levetiracetam (Keppra 500mg Ivpb) 500 mg in 100 mls @ 460 mls/hr IV Q12 [facility] Last Admin: 04/01/17 10:03 Dose: 460 mls/hr Sodium Chloride (Sodium Chloride 0.45%) 1,000 mls @ 100 mls/hr IV .Q10H [facility] Last Admin: 04/01/17 10:00 Dose: 100 mls/hr Pantoprazole Sodium (Protonix Inj) 40 mg IVP DAILY [facility] Last Admin: 04/01/17 10:03 Dose: 40 mg - Labs Labs: 04/01/17 05:30 04/01/17 05:30 PT 13.1 Seconds (9.9-11.8) H 03/31/17 09:13 INR 1.21 (0.93-1.08) H 03/31/17 09:13 APTT 68.6 Seconds (23.7-30.8) H 03/31/17 09:13 - Respiratory Exam Respiratory Exam: Rhonchi - Cardiovascular Exam Cardiovascular Exam: REGULAR RHYTHM - GI/Abdominal Exam GI & Abdominal Exam: Soft, Hypoactive Bowel Sounds - Extremities Exam Extremities Exam: Normal Inspection - Neurological Exam Neurological Exam: Altered - Skin Skin Exam: Dry, Warm Assessment and Plan (1) Cardiac arrest Status: Acute - Assessment and Plan (Free Text) Plan: continue supportive care, IV Abx, prognosis very poor
--- NOTE | 2017-04-01 11:45 | PN ---
DATE: 04/01/2017 SUBJECTIVE: The patient seen in room 129, bed 7. The patient early this morning in CCU, the patient is intubated on a ventilator, unresponsive, poor condition. PHYSICAL EXAMINATION: VITAL SIGNS: Temperature of 97, blood pressure is 116/60, respiratory rate on a vent, and heart rate of 82. HEENT: Reveals ET tube in place. NECK: Supple. LUNGS: Decreased breath sounds. HEART: Normal S1, S2. ABDOMEN: Soft, nontender. No rebound. No guarding. LABORATORY EXAMINATION: Reveals a white count is down to 19,000, hemoglobin of 12, platelets of 238. Chemistries reveal a BUN of 20, creatinine of 0.9. The troponin is elevated at 1.48. Procalcitonin is 36, and the LFTs are elevated. Urinalysis reveals 2 to 5 wbc's. Toxicology is reviewed, positive cocaine. Hepatitis profile is negative. RPR is negative. HIV is pending. Microbiology reveals the blood cultures are negative. Chest x-ray from yesterday is reported as no active pulmonary disease. Dr. Pritchard's history and physical examination is noted. Review of orders reveals the HIV is pending, urine culture is pending, MRSA screening is pending, urine for Legionella antigen is pending. The patient is on cefepime and vancomycin. ASSESSMENT AND PLAN: Reveals a 61-year-old male with chronic back pain, on oxycodone and Xanax, admitted after cardiac arrest after cocaine use with systemic inflammatory response syndrome, respiratory failure, intubated on a ventilator status post cardiac arrest; at this point, comatose, unresponsive with negative blood cultures and negative chest x-ray. We will discontinue the vancomycin. We will continue with the cefepime pending urine cultures, today is day #2 of cefepime. If the urine cultures are negative, we will discontinue the cefepime also. The patient is at risk for developing nosocomial infections. Overall prognosis quite poor for this patient who is unresponsive. Jose Daniel Milner MD
--- NOTE | 2017-04-01 13:55 | CP.CCUPN ---
<Jeremy Alfaro - Last Filed: 04/01/17 13:52> CCU Subjective - Physician Review Subjective (Free Text): 04/01/17 13:52 Patient seen and examined at bedside in the ICU. Remains intubated and unresponsive. No acute events reported overnight. Today on exam, no new notable findings, still has bilateral pinpoint pupils not responsive to light, no gag reflex, and no corneal reflex. Only sign of neurologic activity is overbreathing the ventilator. Pending MRI this AM for neurologic prognostication. CCU Objective - Vital Signs / Intake & Output Intake and Output (Last 8hrs): Intake & Output 03/31/17 04/01/17 04/01/17 22:59 06:59 14:59 Intake Total 1880 1700 Output Total 430 450 Balance 1450 1250 Intake: IV 1880 1700 Left Hand 20 Right Femoral 1860 1700 Output: Urine 430 450 2-way Urethral 430 450 Other: # Bowel Movements 0 2 - Physical Exam Physical Exam Limitations: Positive for: Other (unresponsive, not following any commands) Head: Positive for: Atraumatic, Normocephalic, Other (head rotated to right, resists attempts to rotate to neutral position or leftwards) Pupils: Positive for: Non-Reactive, Pinpoint. Negative for: PERRL Extroacular Muscles: Positive for: Other (uprolled eyes, move in line with head , no tracking of anyone in room, tries to close eyelids when manually openned, no corneal reflexes). Negative for: EOMI Conjunctiva: Positive for: Other (dirty sclera, but anicteric). Negative for: Injected, Icteric Mouth: Positive for: Moist Mucous Membranes, Other (ET tube in place) Nose (External): Positive for: Atraumatic, Other (NGT in place). Negative for: Abrasion, Contusion, Laceration Neck: Positive for: Trachea Midline. Negative for: Normal Range of Motion ( rotated to right, resists leftward motion, attempts to return head to neutral position), JVD Respiratory/Chest: Positive for: Good Air Exchange, Rhonchi (diffusely ronchorous in all auscultated galloway, inspiratory and expiratory), Other ( intubated and mechanically ventilated, able overbreath the ventilator). Negative for: Clear to Auscultation, Accessory Muscle Use, Wheezes, Decreased Breath Sounds, Rales Cardiovascular: Positive for: Regular Rate and Rhythm, Normal S1, S2. Negative for: Murmurs Abdomen: Positive for: Normal Bowel Sounds. Negative for: Tenderness, Distention, Peritoneal Signs Upper Extremity: Positive for: NORMAL PULSES (+2 radials bilaterally), Other ( Possible track ramirez along bilateral arms). Negative for: Cyanosis, Edema, Swelling, Erythema, Deformity Lower Extremity: Positive for: Normal Inspection, NORMAL PULSES (+1 dorsalis pedis bilaterally). Negative for: Edema, Cyanosis, Swelling, Erythema, Deformity Neurological: Positive for: Other (intubated, non-responsive, no voluntary or spontaneous movements, possible cerebrate positioning, holding head rotated right and resisting rotation leftward). Negative for: GCS=15 (GCS of 3 (E1 V1t M1)), CN II-XII Intact, Speech Normal, Motor Func Grossly Intact Skin: Positive for: Warm, Dry, Normal Color. Negative for: Rashes Psychiatric: Positive for: Other (intubated, unresponsive). Negative for: Alert , Oriented x 3, Normal Insight, Normal Concentration, Normal Affect, Normal Mood - Medications Active Medications: Active Medications Generic Name Dose Route Start Last Admin Trade Name Freq PRN Reason Stop Dose Admin Aspirin 81 mg 03/31/17 10:00 04/01/17 10:03 Aspirin Chewable PO 81 mg DAILY EMA Administration Clopidogrel Bisulfate 75 mg 03/31/17 10:00 04/01/17 10:03 Plavix PO 75 mg DAILY EMA Administration Dexmedetomidine HCl 400 mcg in 100 mls @ 3.175 mls/hr 03/31/17 12:09 Precedex 4 Mcg/Ml (100 Ml) IV .Q24H PRN Sedation Protocol 0.2 MCG/KG/HR Cefepime HCl 1 gm in 100 mls @ 100 mls/hr 03/31/17 12:15 04/01/17 10:04 Maxipime 1gm IVPB 100 mls/hr Q12 EMA Administration Protocol Levetiracetam 500 mg in 100 mls @ 460 mls/hr 03/31/17 17:33 04/01/17 10:03 Keppra 500mg Ivpb IV 460 mls/hr Q12 EMA Administration Sodium Chloride 1,000 mls @ 100 mls/hr 04/01/17 09:30 04/01/17 10:00 Sodium Chloride 0.45% IV 100 mls/hr .Q10H EMA Administration Pantoprazole Sodium 40 mg 03/31/17 10:00 04/01/17 10:03 Protonix Inj IVP 40 mg DAILY EMA Administration - Patient Studies Lab Studies: Microbiology Studies 03/30/17 22:44 MRSA Culture (Admit) - Final Naris MRSA NOT DETECTED Lab Studies 04/01/17 04/01/17 04/01/17 Range/Units 06:35 05:30 05:30 WBC 19.5 H D (4.5-11.0) 10^3/ul RBC 4.24 (3.5-6.1) 10^6/uL Hgb 12.0 L D (14.0-18.0) g/dL Hct 33.8 L (42.0-52.0) % MCV 79.7 L (80.0-105.0) fl MCH 28.3 (25.0-35.0) pg MCHC 35.5 (31.0-37.0) g/dl RDW 13.9 (11.5-14.5) % Plt Count 238 (120.0-450.0) 10^3/uL MPV 9.6 (7.0-11.0) fl Gran % 89.2 H (50.0-68.0) % Lymph % (Auto) 5.4 L (22.0-35.0) % Cassia % (Auto) 5.2 (1.0-6.0) % Eos % (Auto) 0.1 L (1.5-5.0) % Baso % (Auto) 0.1 (0.0-3.0) % Gran # 17.43 H (1.4-6.5) Lymph # 1.1 L (1.2-3.4) Cassia # 1.0 H (0.1-0.6) Eos # 0.0 (0.0-0.7) Baso # 0.01 (0.0-2.0) K/mm3 pCO2 25 L (35-45) mm/Hg pO2 115.0 H (80-100) mm/Hg HCO3 17.8 L (21-28) mmol/L ABG pH 7.46 H (7.35-7.45) ABG Total CO2 18.6 L (22-28) mmol.L ABG O2 Saturation 98.9 H (95-98) % ABG O2 Content 16.9 (15-23) ML/dl ABG Base Excess -4.5 L (-2.0-3.0) mmol/L ABG Hemoglobin 12.4 (11.7-17.4) g/dL ABG Carboxyhemoglobin 1.7 H (0.5-1.5) % POC ABG HHb (Measured) 1.1 (0-5) % ABG Methemoglobin 1.6 (0.0-3.0) % ABG O2 Capacity 17.1 (16-24) mL/dl Hgb O2 Saturation 95.7 (95.0-98.0) % FiO2 40.0 % Sodium 147 (132-148) mmol/L Potassium 3.7 (3.6-5.0) mmol/L Chloride 119 H (98-107) mmol/L Carbon Dioxide 20 L (21-33) mmol/L Anion Gap 12 (10-20) BUN 20 (7-21) mg/dL Creatinine 0.9 (0.8-1.5) mg/dL Est GFR ( Amer) > 60 Est GFR (Non-Af Amer) > 60 Random Glucose 108 (70-110) mg/dL Calcium 8.5 (8.4-10.5) mg/dL Phosphorus 2.4 L (2.5-4.5) mg/dL Magnesium 2.1 (1.7-2.2) mg/dL Total Bilirubin 0.5 (0.2-1.3) mg/dL AST 1019 H (17-59) U/L ALT 842 H (7-56) U/L Alkaline Phosphatase 75 (38-126) U/L Total Protein 5.6 L (5.8-8.3) g/dL Albumin 2.9 L (3.0-4.8) g/dL Globulin 2.8 gm/dL Albumin/Globulin Ratio 1.0 L (1.1-1.8) RPR (NONREACTIVE) Hepatitis A IgM Ab (NEGATIVE) Hep Bs Antigen (NEGATIVE) Hep B Core IgM Ab (NEGATIVE) Hepatitis C Antibody (NEGATIVE) Ur L.pneumophila Ag (NEGATIVE) 03/31/17 03/31/1717 Range/Units 19:52 13:02 12:12 WBC (4.5-11.0) 10^3/ul RBC (3.5-6.1) 10^6/uL Hgb (14.0-18.0) g/dL Hct (42.0-52.0) % MCV (80.0-105.0) fl MCH (25.0-35.0) pg MCHC (31.0-37.0) g/dl RDW (11.5-14.5) % Plt Count (120.0-450.0) 10^3/uL MPV (7.0-11.0) fl Gran % (50.0-68.0) % Lymph % (Auto) (22.0-35.0) % Cassia % (Auto) (1.0-6.0) % Eos % (Auto) (1.5-5.0) % Baso % (Auto) (0.0-3.0) % Gran # (1.4-6.5) Lymph # (1.2-3.4) Cassia # (0.1-0.6) Eos # (0.0-0.7) Baso # (0.0-2.0) K/mm3 pCO2 (35-45) mm/Hg pO2 (80-100) mm/Hg HCO3 (21-28) mmol/L ABG pH (7.35-7.45) ABG Total CO2 (22-28) mmol.L ABG O2 Saturation (95-98) % ABG O2 Content (15-23) ML/dl ABG Base Excess (-2.0-3.0) mmol/L ABG Hemoglobin (11.7-17.4) g/dL ABG Carboxyhemoglobin (0.5-1.5) % POC ABG HHb (Measured) (0-5) % ABG Methemoglobin (0.0-3.0) % ABG O2 Capacity (16-24) mL/dl Hgb O2 Saturation (95.0-98.0) % FiO2 % Sodium (132-148) mmol/L Potassium (3.6-5.0) mmol/L Chloride (98-107) mmol/L Carbon Dioxide (21-33) mmol/L Anion Gap (10-20) BUN (7-21) mg/dL Creatinine (0.8-1.5) mg/dL Est GFR ( Amer) Est GFR (Non-Af Amer) Random Glucose (70-110) mg/dL Calcium (8.4-10.5) mg/dL Phosphorus (2.5-4.5) mg/dL Magnesium (1.7-2.2) mg/dL Total Bilirubin (0.2-1.3) mg/dL AST (17-59) U/L ALT (7-56) U/L Alkaline Phosphatase (38-126) U/L Total Protein (5.8-8.3) g/dL Albumin (3.0-4.8) g/dL Globulin gm/dL Albumin/Globulin Ratio (1.1-1.8) RPR Nonreactive (NONREACTIVE) Hepatitis A IgM Ab Negative (NEGATIVE) Hep Bs Antigen Negative (NEGATIVE) Hep B Core IgM Ab Negative (NEGATIVE) Hepatitis C Antibody Negative (NEGATIVE) Ur L.pneumophila Ag Negative (NEGATIVE) Laboratory Results - last 24 hr 03/31/17 03/31/17 03/31/17 12:12 13:02 19:52 WBC RBC Hgb Hct MCV MCH MCHC RDW Plt Count MPV Gran % Lymph % (Auto) Cassia % (Auto) Eos % (Auto) Baso % (Auto) Gran # Lymph # Cassia # Eos # Baso # pCO2 pO2 HCO3 ABG pH ABG Total CO2 ABG O2 Saturation ABG O2 Content ABG Base Excess ABG Hemoglobin ABG Carboxyhemoglobin POC ABG HHb (Measured) ABG Methemoglobin ABG O2 Capacity Hgb O2 Saturation FiO2 Sodium Potassium Chloride Carbon Dioxide Anion Gap BUN Creatinine Est GFR ( Amer) Est GFR (Non-Af Amer) Random Glucose Calcium Phosphorus Magnesium Total Bilirubin AST ALT Alkaline Phosphatase Total Protein Albumin Globulin Albumin/Globulin Ratio RPR Nonreactive Hepatitis A IgM Ab Negative Hep Bs Antigen Negative Hep B Core IgM Ab Negative Hepatitis C Antibody Negative Ur L.pneumophila Ag Negative 04/01/17 04/01/17 04/01/17 05:30 05:30 06:35 WBC 19.5 H D RBC 4.24 Hgb 12.0 L D Hct 33.8 L MCV 79.7 L MCH 28.3 MCHC 35.5 RDW 13.9 Plt Count 238 MPV 9.6 Gran % 89.2 H Lymph % (Auto) 5.4 L Cassia % (Auto) 5.2 Eos % (Auto) 0.1 L Baso % (Auto) 0.1 Gran # 17.43 H Lymph # 1.1 L Cassia # 1.0 H Eos # 0.0 Baso # 0.01 pCO2 25 L pO2 115.0 H HCO3 17.8 L ABG pH 7.46 H ABG Total CO2 18.6 L ABG O2 Saturation 98.9 H ABG O2 Content 16.9 ABG Base Excess -4.5 L ABG Hemoglobin 12.4 ABG Carboxyhemoglobin 1.7 H POC ABG HHb (Measured) 1.1 ABG Methemoglobin 1.6 ABG O2 Capacity 17.1 Hgb O2 Saturation 95.7 FiO2 40.0 Sodium 147 Potassium 3.7 Chloride 119 H Carbon Dioxide 20 L Anion Gap 12 BUN 20 Creatinine 0.9 Est GFR ( Amer) > 60 Est GFR (Non-Af Amer) > 60 Random Glucose 108 Calcium 8.5 Phosphorus 2.4 L Magnesium 2.1 Total Bilirubin 0.5 AST 1019 H ALT 842 H Alkaline Phosphatase 75 Total Protein 5.6 L Albumin 2.9 L Globulin 2.8 Albumin/Globulin Ratio 1.0 L RPR Hepatitis A IgM Ab Hep Bs Antigen Hep B Core IgM Ab Hepatitis C Antibody Ur L.pneumophila Ag Fingerstick Blood Sugar Results: 215 Review of Systems - Review of Systems Systems not reviewed;Unavailable: Intubated Assessment/Plan - Assessment and Plan (Free Text) Assessment: This is a 61 yo M with PMH of chronic back pain on oxycodone and restless leg syndrome who went into PEA cardiac arrest at home, s/p CPR and Epi x3, bicarb x1 , and Narcanx1 with ROSC, s/p intubation, and repeat cardiac arrest on arrival to ED with ROSC after chest compressions. Arrest is likely 2/2 cocaine use, as UDS was notably positive for cocaine and opiates, and patient had likely tract ramirez on both arms, but family denies any drug use. He has remained completely unresponsive since arrival, with head CT notable for diffuse hypoxic/ischemic injury, and his prognosis is very poor. Plan: Neuro: -Remains completely unresponsive, no corneal reflex, no gag reflex, and pinpoint pupils not reactive to light; only neurologic activity noted is overbreathing the ventilator -CT head notable for diffuse decreased johnson-white differentiation, concern for global hypoxic/ischemic injury; No acute intracranial hemorrhage. -MRI brain w/wo contrast (pending scan) and EEG (obtained, pending read) as per Neuro, f/u -Neuro (Dr. Rico) consulted, appreciate all recs; poor prognosis given lack of reflexes and CT scan, obtain MRI and EEG to determine neurologic prognosis -Possible decerebrete posturing CV: -Hemodynamically stable, HR 70's-80s and MAP >65 consistently -Trops downtrending (last was 1.48, peaked at 1.70), unsurprising level in setting of cardiac arrest and CPR x2, but will obtain Echo -Cardiology consult for recs -Likely cardiac arrest 2/2 cocaine abuse Pulm: -Currently intubated for airway protection -AM ABG reviewed, acidosis resolved, mildly alkalotic today, weaned to FiO2 req of 40% -Protective lung ventilation strategies, VAP bundle, low-tidal volumes -head of bed to 30 degrees, aspiration precautions GI: -NPO -Protonix for ppx -Transaminitis worsened, possibly 2/2 substance abuse vs hepatitis vs shock liver 2/2 cardiac arrest x2; hepatitis panel negative; continue to monitor Renal: -Cr improved to 0.9 -Monitor I and Os -Replete electrolytes an needed -Switched to 1/2NS 100cc/hr Heme: -Hgb decreased to 12.0 from 15.1 -no signs of acute hemorrhage, and remains hemodynamically stable, more likely 2 /2 dilution from IVF -SCDs for DVT ppx ID: -Vanc & Cefepime for abx coverage -ID (Dr. Milner) consulted, appreciate all recs -Urine cultures pending, blood cx negative at 24hrs Endo: -Maintain blood sugars 140-180 -Elevated TSH on admit, repeat wnl so elevated TSH may just be lab error, no further workup needed Dispo: ICU, mechanically ventilated, minimal neurologic activity, pending MRI and EEG read for neurologic prognostication FEN: NPO, 1/2NS 100cc/hr Access: Peripheral IV, Femoral TLC (to be removed) Consults: Neuro, Cardio, ID Ppx: Protonix for GI, SCDs for DVT Code Status: Full Code Patient seen, reviewed, and discussed with attending, Dr. Limon. <Benito Limon - Last Filed: 04/01/17 15:24> CCU Objective - Vital Signs / Intake & Output Intake and Output (Last 8hrs): Intake & Output 04/01/17 04/01/17 04/01/17 06:59 14:59 22:59 Intake Total 1700 Output Total 450 Balance 1250 Intake: IV 1700 Right Femoral 1700 Output: Urine 450 2-way Urethral 450 Other: # Bowel Movements 2 - Medications Active Medications: Active Medications Generic Name Dose Route Start Last Admin Trade Name Freq PRN Reason Stop Dose Admin Aspirin 81 mg 03/31/17 10:00 04/01/17 10:03 Aspirin Chewable PO 81 mg DAILY EMA Administration Clopidogrel Bisulfate 75 mg 03/31/17 10:00 04/01/17 10:03 Plavix PO 75 mg DAILY EMA Administration Dexmedetomidine HCl 400 mcg in 100 mls @ 3.175 mls/hr 03/31/17 12:09 14:19 Precedex 4 Mcg/Ml (100 Ml) IV 0.2 mcg/kg/hr .Q24H PRN 3.175 mls/hr Sedation Administration Protocol 0.2 MCG/KG/HR Cefepime HCl 1 gm in 100 mls @ 100 mls/hr 03/31/17 12:15 04/01/17 10:04 Maxipime 1gm IVPB 100 mls/hr Q12 EMA Administration Protocol Levetiracetam 500 mg in 100 mls @ 460 mls/hr 03/31/17 17:33 04/01/17 10:03 Keppra 500mg Ivpb IV 460 mls/hr Q12 EMA Administration Sodium Chloride 1,000 mls @ 100 mls/hr 04/01/17 09:30 04/01/17 10:00 Sodium Chloride 0.45% IV 100 mls/hr .Q10H EMA Administration Pantoprazole Sodium 40 mg 03/31/17 10:00 04/01/17 10:03 Protonix Inj IVP 40 mg DAILY EMA Administration - Patient Studies Lab Studies: Microbiology Studies 03/30/17 22:44 MRSA Culture (Admit) - Final Naris MRSA NOT DETECTED Lab Studies 04/01/17 04/01/17 04/01/17 Range/Units 06:35 05:30 05:30 WBC 19.5 H D (4.5-11.0) 10^3/ul RBC 4.24 (3.5-6.1) 10^6/uL Hgb 12.0 L D (14.0-18.0) g/dL Hct 33.8 L (42.0-52.0) % MCV 79.7 L (80.0-105.0) fl MCH 28.3 (25.0-35.0) pg MCHC 35.5 (31.0-37.0) g/dl RDW 13.9 (11.5-14.5) % Plt Count 238 (120.0-450.0) 10^3/uL MPV 9.6 (7.0-11.0) fl Gran % 89.2 H (50.0-68.0) % Lymph % (Auto) 5.4 L (22.0-35.0) % Cassia % (Auto) 5.2 (1.0-6.0) % Eos % (Auto) 0.1 L (1.5-5.0) % Baso % (Auto) 0.1 (0.0-3.0) % Gran # 17.43 H (1.4-6.5) Lymph # 1.1 L (1.2-3.4) Cassia # 1.0 H (0.1-0.6) Eos # 0.0 (0.0-0.7) Baso # 0.01 (0.0-2.0) K/mm3 pCO2 25 L (35-45) mm/Hg pO2 115.0 H (80-100) mm/Hg HCO3 17.8 L (21-28) mmol/L ABG pH 7.46 H (7.35-7.45) ABG Total CO2 18.6 L (22-28) mmol.L ABG O2 Saturation 98.9 H (95-98) % ABG O2 Content 16.9 (15-23) ML/dl ABG Base Excess -4.5 L (-2.0-3.0) mmol/L ABG Hemoglobin 12.4 (11.7-17.4) g/dL ABG Carboxyhemoglobin 1.7 H (0.5-1.5) % POC ABG HHb (Measured) 1.1 (0-5) % ABG Methemoglobin 1.6 (0.0-3.0) % ABG O2 Capacity 17.1 (16-24) mL/dl Hgb O2 Saturation 95.7 (95.0-98.0) % FiO2 40.0 % Sodium 147 (132-148) mmol/L Potassium 3.7 (3.6-5.0) mmol/L Chloride 119 H (98-107) mmol/L Carbon Dioxide 20 L (21-33) mmol/L Anion Gap 12 (10-20) BUN 20 (7-21) mg/dL Creatinine 0.9 (0.8-1.5) mg/dL Est GFR ( Amer) > 60 Est GFR (Non-Af Amer) > 60 Random Glucose 108 (70-110) mg/dL Calcium 8.5 (8.4-10.5) mg/dL Phosphorus 2.4 L (2.5-4.5) mg/dL Magnesium 2.1 (1.7-2.2) mg/dL Total Bilirubin 0.5 (0.2-1.3) mg/dL AST 1019 H (17-59) U/L ALT 842 H (7-56) U/L Alkaline Phosphatase 75 (38-126) U/L Total Protein 5.6 L (5.8-8.3) g/dL Albumin 2.9 L (3.0-4.8) g/dL Globulin 2.8 gm/dL Albumin/Globulin Ratio 1.0 L (1.1-1.8) RPR (NONREACTIVE) Hepatitis A IgM Ab (NEGATIVE) Hep Bs Antigen (NEGATIVE) Hep B Core IgM Ab (NEGATIVE) Hepatitis C Antibody (NEGATIVE) HIV 1&2 Ag/Ab, 4th Gen (Nonreactive) Ur L.pneumophila Ag (NEGATIVE) 03/31/17 03/31/17 03/31/17 Range/Units 19:52 13:30 13:02 WBC (4.5-11.0) 10^3/ul RBC (3.5-6.1) 10^6/uL Hgb (14.0-18.0) g/dL Hct (42.0-52.0) % MCV (80.0-105.0) fl MCH (25.0-35.0) pg MCHC (31.0-37.0) g/dl RDW (11.5-14.5) % Plt Count (120.0-450.0) 10^3/uL MPV (7.0-11.0) fl Gran % (50.0-68.0) % Lymph % (Auto) (22.0-35.0) % Cassia % (Auto) (1.0-6.0) % Eos % (Auto) (1.5-5.0) % Baso % (Auto) (0.0-3.0) % Gran # (1.4-6.5) Lymph # (1.2-3.4) Cassia # (0.1-0.6) Eos # (0.0-0.7) Baso # (0.0-2.0) K/mm3 pCO2 (35-45) mm/Hg pO2 (80-100) mm/Hg HCO3 (21-28) mmol/L ABG pH (7.35-7.45) ABG Total CO2 (22-28) mmol.L ABG O2 Saturation (95-98) % ABG O2 Content (15-23) ML/dl ABG Base Excess (-2.0-3.0) mmol/L ABG Hemoglobin (11.7-17.4) g/dL ABG Carboxyhemoglobin (0.5-1.5) % POC ABG HHb (Measured) (0-5) % ABG Methemoglobin (0.0-3.0) % ABG O2 Capacity (16-24) mL/dl Hgb O2 Saturation (95.0-98.0) % FiO2 % Sodium (132-148) mmol/L Potassium (3.6-5.0) mmol/L Chloride (98-107) mmol/L Carbon Dioxide (21-33) mmol/L Anion Gap (10-20) BUN (7-21) mg/dL Creatinine (0.8-1.5) mg/dL Est GFR ( Amer) Est GFR (Non-Af Amer) Random Glucose (70-110) mg/dL Calcium (8.4-10.5) mg/dL Phosphorus (2.5-4.5) mg/dL Magnesium (1.7-2.2) mg/dL Total Bilirubin (0.2-1.3) mg/dL AST (17-59) U/L ALT (7-56) U/L Alkaline Phosphatase (38-126) U/L Total Protein (5.8-8.3) g/dL Albumin (3.0-4.8) g/dL Globulin gm/dL Albumin/Globulin Ratio (1.1-1.8) RPR (NONREACTIVE) Hepatitis A IgM Ab Negative (NEGATIVE) Hep Bs Antigen Negative (NEGATIVE) Hep B Core IgM Ab Negative (NEGATIVE) Hepatitis C Antibody Negative (NEGATIVE) HIV 1&2 Ag/Ab, 4th Gen Nonreactive (Nonreactive) Ur L.pneumophila Ag Negative (NEGATIVE) 03/31/17 Range/Units 12:12 WBC (4.5-11.0) 10^3/ul RBC (3.5-6.1) 10^6/uL Hgb (14.0-18.0) g/dL Hct (42.0-52.0) % MCV (80.0-105.0) fl MCH (25.0-35.0) pg MCHC (31.0-37.0) g/dl RDW (11.5-14.5) % Plt Count (120.0-450.0) 10^3/uL MPV (7.0-11.0) fl Gran % (50.0-68.0) % Lymph % (Auto) (22.0-35.0) % Cassia % (Auto) (1.0-6.0) % Eos % (Auto) (1.5-5.0) % Baso % (Auto) (0.0-3.0) % Gran # (1.4-6.5) Lymph # (1.2-3.4) Cassia # (0.1-0.6) Eos # (0.0-0.7) Baso # (0.0-2.0) K/mm3 pCO2 (35-45) mm/Hg pO2 (80-100) mm/Hg HCO3 (21-28) mmol/L ABG pH (7.35-7.45) ABG Total CO2 (22-28) mmol.L ABG O2 Saturation (95-98) % ABG O2 Content (15-23) ML/dl ABG Base Excess (-2.0-3.0) mmol/L ABG Hemoglobin (11.7-17.4) g/dL ABG Carboxyhemoglobin (0.5-1.5) % POC ABG HHb (Measured) (0-5) % ABG Methemoglobin (0.0-3.0) % ABG O2 Capacity (16-24) mL/dl Hgb O2 Saturation (95.0-98.0) % FiO2 % Sodium (132-148) mmol/L Potassium (3.6-5.0) mmol/L Chloride (98-107) mmol/L Carbon Dioxide (21-33) mmol/L Anion Gap (10-20) BUN (7-21) mg/dL Creatinine (0.8-1.5) mg/dL Est GFR ( Amer) Est GFR (Non-Af Amer) Random Glucose (70-110) mg/dL Calcium (8.4-10.5) mg/dL Phosphorus (2.5-4.5) mg/dL Magnesium (1.7-2.2) mg/dL Total Bilirubin (0.2-1.3) mg/dL AST (17-59) U/L ALT (7-56) U/L Alkaline Phosphatase (38-126) U/L Total Protein (5.8-8.3) g/dL Albumin (3.0-4.8) g/dL Globulin gm/dL Albumin/Globulin Ratio (1.1-1.8) RPR Nonreactive (NONREACTIVE) Hepatitis A IgM Ab (NEGATIVE) Hep Bs Antigen (NEGATIVE) Hep B Core IgM Ab (NEGATIVE) Hepatitis C Antibody (NEGATIVE) HIV 1&2 Ag/Ab, 4th Gen (Nonreactive) Ur L.pneumophila Ag (NEGATIVE) Laboratory Results - last 24 hr 03/31/17 03/31/17 03/31/17 12:12 13:02 13:30 WBC RBC Hgb Hct MCV MCH MCHC RDW Plt Count MPV Gran % Lymph % (Auto) Cassia % (Auto) Eos % (Auto) Baso % (Auto) Gran # Lymph # Cassia # Eos # Baso # pCO2 pO2 HCO3 ABG pH ABG Total CO2 ABG O2 Saturation ABG O2 Content ABG Base Excess ABG Hemoglobin ABG Carboxyhemoglobin POC ABG HHb (Measured) ABG Methemoglobin ABG O2 Capacity Hgb O2 Saturation FiO2 Sodium Potassium Chloride Carbon Dioxide Anion Gap BUN Creatinine Est GFR ( Amer) Est GFR (Non-Af Amer) Random Glucose Calcium Phosphorus Magnesium Total Bilirubin AST ALT Alkaline Phosphatase Total Protein Albumin Globulin Albumin/Globulin Ratio RPR Nonreactive Hepatitis A IgM Ab Negative Hep Bs Antigen Negative Hep B Core IgM Ab Negative Hepatitis C Antibody Negative HIV 1&2 Ag/Ab, 4th Gen Nonreactive Ur L.pneumophila Ag 03/31/17 04/01/17 04/01/17 19:52 05:30 05:30 WBC 19.5 H D RBC 4.24 Hgb 12.0 L D Hct 33.8 L MCV 79.7 L MCH 28.3 MCHC 35.5 RDW 13.9 Plt Count 238 MPV 9.6 Gran % 89.2 H Lymph % (Auto) 5.4 L Cassia % (Auto) 5.2 Eos % (Auto) 0.1 L Baso % (Auto) 0.1 Gran # 17.43 H Lymph # 1.1 L Cassia # 1.0 H Eos # 0.0 Baso # 0.01 pCO2 pO2 HCO3 ABG pH ABG Total CO2 ABG O2 Saturation ABG O2 Content ABG Base Excess ABG Hemoglobin ABG Carboxyhemoglobin POC ABG HHb (Measured) ABG Methemoglobin ABG O2 Capacity Hgb O2 Saturation FiO2 Sodium 147 Potassium 3.7 Chloride 119 H Carbon Dioxide 20 L Anion Gap 12 BUN 20 Creatinine 0.9 Est GFR ( Amer) > 60 Est GFR (Non-Af Amer) > 60 Random Glucose 108 Calcium 8.5 Phosphorus 2.4 L Magnesium 2.1 Total Bilirubin 0.5 AST 1019 H ALT 842 H Alkaline Phosphatase 75 Total Protein 5.6 L Albumin 2.9 L Globulin 2.8 Albumin/Globulin Ratio 1.0 L RPR Hepatitis A IgM Ab Hep Bs Antigen Hep B Core IgM Ab Hepatitis C Antibody HIV 1&2 Ag/Ab, 4th Gen Ur L.pneumophila Ag Negative 04/01/17 06:35 WBC RBC Hgb Hct MCV MCH MCHC RDW Plt Count MPV Gran % Lymph % (Auto) Cassia % (Auto) Eos % (Auto) Baso % (Auto) Gran # Lymph # Cassia # Eos # Baso # pCO2 25 L pO2 115.0 H HCO3 17.8 L ABG pH 7.46 H ABG Total CO2 18.6 L ABG O2 Saturation 98.9 H ABG O2 Content 16.9 ABG Base Excess -4.5 L ABG Hemoglobin 12.4 ABG Carboxyhemoglobin 1.7 H POC ABG HHb (Measured) 1.1 ABG Methemoglobin 1.6 ABG O2 Capacity 17.1 Hgb O2 Saturation 95.7 FiO2 40.0 Sodium Potassium Chloride Carbon Dioxide Anion Gap BUN Creatinine Est GFR ( Amer) Est GFR (Non-Af Amer) Random Glucose Calcium Phosphorus Magnesium Total Bilirubin AST ALT Alkaline Phosphatase Total Protein Albumin Globulin Albumin/Globulin Ratio RPR Hepatitis A IgM Ab Hep Bs Antigen Hep B Core IgM Ab Hepatitis C Antibody HIV 1&2 Ag/Ab, 4th Gen Ur L.pneumophila Ag Assessment/Plan - Assessment and Plan (Free Text) Plan: Patient seen and examined, with resident, agree with note with following additions/exceptions: 61yo male a/w sp Cardiac Arrest, Severe Sepsis Cardiac Arrest x 2 (PEA) s/p ROSC Sepsis UTI Polysubstance Abuse (+cocaine, BZD, Opiates) Elevated Troponin - currently afebrile, HD stable, off pressors - good oxygenation on ventilator, over breathes the ventilator - unclear etiology of PEA arrest, ?drug use - elevated troponin, EKG non ischemic, likely 2/2 CPR, cardiac arrest - neurological exam with poor function, no gag reflex, no corneals, CT head with hypoxic brain injury, overbreathes the ventilator awaiting MRI brain - patient did not undergo hypothermic protocol 2/2 severe sepsis Recommend: - cont with ventilator support, low tidal vol ventilation - Abx as per ID, broad spectrum abx - cardiology eval - ECHO - replete K, Mg, Phos - Check HIV, hep panel - EEG - MRI - keep off sedation - follow up neurology - advance ETT 3cm - start feeds - FS control - 1/2NS IVF - DVT ppx - GI ppx - palliative care consult - extremely poor prognosis given clinical neurological function, awaiting MRI and EEG for prognostication Critical care time 45 minutes
[2017-04-01] MEDS ORDERED: Propofol 10 mg/ml 1,000 MG/100 ML VIAL IV PRN (16:09)
[2017-04-01] MEDS ORDERED: Gadodiamide 287 MG/ML VIAL (15ML) IV ONE (16:55)
--- NOTE | 2017-04-01 18:07 | PN ---
DATE: SUBJECTIVE: No reported ventricular arrhythmia and no reported hypotension. The patient is deeply comatose. PHYSICAL EXAMINATION: VITAL SIGNS: Blood pressure 115/63, heart rate 70, temperature 97, respirations 20. HEENT: No pallor or icterus. CHEST: Diminished breath sounds over the bases. HEART: S1 and S2 regular. EXTREMITIES: No edema. LABORATORY DATA: Today's SMA-7 is within normal limits except for chloride of 119 and carbon dioxide of 20. AST and ALT are significantly elevated compared to yesterday. White count 19.5, hemoglobin and hematocrit 12 and 33.8, platelet count is 238,000. Repeat EKG yesterday revealed normal sinus rhythm. Right atrial enlargement and prolonged QT interval. ASSESSMENT: 1. Status post cardiac arrest. 2. Cocaine abuse. 3. Rule out anoxic encephalopathy. 5. Borderline troponin elevation. RECOMMENDATIONS: Continue aspirin 81 mg once a day, Keppra mg intravenously q. 12 hours, Maxipime at 1 g intravenously q. 12 hours, Plavix 75 mg once a day. The patient will undergo bedside echocardiogram today. Frankie Macias MD
--- NOTE | 2017-04-01 19:05 | MRI ---
PROCEDURE: MRI of the brain dated 04/01/2017 HISTORY: cardiac arrest COMPARISON: Comparison made with prior CT scan brain 03/30/2017 TECHNIQUE: Multiplanar, multisequence MR images of the brain were obtained with and without intravenous contrast enhancement. . Approximately 15 cc Omniscan injected for this procedure. FINDINGS: HEMORRHAGE: No evidence of acute parenchymal, subarachnoid or extra-axial hemorrhage. No hemosiderin deposition is identified on gradient echo weighted sequence. DWI: There are relatively symmetric areas of restricted diffusion seen within the medial temporal lobes bilaterally and to a lesser degree the superior colliculus. These changes are also seen on FLAIR and T2 weighted sequences however there are no mismatched on signal changes seen on ADC maps. Findings are of uncertain etiology though differential diagnosis would include sequela of chronic ischemia with shine through artifact ; rule out sequela of prior hypoxic event. Herpes encephalitis would be less likely though not excluded. Clinical correlation recommended BRAIN PARENCHYMA: There are no additional areas of abnormal signal seen throughout the remainder of the substance of the brain. No enhancing parenchymal nor extra-axial masses or collections. Ventricular and sulcal size are within range of normal for this patient's stated age. ENHANCEMENT: No abnormal intracranial enhancemen as above. T. VENTRICLES: No obstructive hydrocephalus CRANIUM: Calvarium appears grossly unremarkable ORBITS: Dysconjugate gaze PARANASAL SINUSES/MASTOIDS: There are a subtotal opacification changes of the maxillary ethmoid sinuses extending superiorly into the inferior margin of the frontal sinuses more so on the right. There is subtotal opacification of the sphenoid sinus. Changes are likely due to the presence of endotracheal tube. Ignacio VASCULAR SYSTEM: Skull base flow voids intact. OTHER FINDINGS: None . IMPRESSION: There are abnormal nonenhancing prolonged T2 signal changes within the medial temporal lobes bilaterally and also seen on diffusion imaging the there are mismatched ADC maps. Rule out chronic ischemia with shine through artifact. The possibility of a herpes encephalitis not excluded. Clinical correlation recommended. Note these findings were discussed with ICU physician contract negotiation manager at approximately 6:50 p.m. with written down and read back verification.
--- NOTE | 2017-04-01 19:29 | CARD ---
APPROVED REPORT EXAM: Two-dimensional and M-mode echocardiogram with Doppler and color Doppler. INDICATION CARDIAC ARREST 2D DIMENSIONS Left Atrium (2D)3.0 (1.6-4.0cm)IVSd1.0 (0.7-1.1cm) LVDd4.3 (3.9-5.9cm)PWd1.0 (0.7-1.1cm) LVDs2.8 (2.5-4.0cm)FS (%) 35.9 % LVEF (%)65.7 (>50%) M-Mode DIMENSIONS Aortic Root2.80 (2.2-3.7cm)Aortic Cusp Exc.1.80 (1.5-2.0cm) Aortic Valve AoV Peak Kikqifcw802.0cm/Rubi Peak GR.6mmHg Mitral Valve MV E Xvrlbpta77.6cm/sMV A Nbvtfhpc32.9cm/sE/A ratio0.9 TDI Lateral E' Peak V10.40cm/sMedial E' Peak V7.60cm/sE/Lateral E'7.0 E/Medial E'9.6 Pulmonary Valve PV Peak Xbglnrkb96.1cm/sPV Peak Grad.2mmHg Tricuspid Valve TR Peak Ciaismaq665hv/sRAP [id number] Peak Gr.21mmHg [id number] LEFT VENTRICLE The left ventricle is normal size. There is normal left ventricular wall thickness. The left ventricular function is normal.EF-65% There is normal LV segmental wall motion. Transmitral Doppler flow pattern is Grade III-reversible restrictive diastolic dysfunction. No left ventricle thrombus noted on this study. There is no ventricular septal defect visualized. There is no left ventricular aneurysm. There is no mass noted in the left ventricle. RIGHT VENTRICLE The right ventricle is normal size. There is normal right ventricular wall thickness. The right ventricular systolic function is normal. ATRIA The left atrium size is normal. The right atrium size is normal. The interatrial septum is intact with no evidence for an atrial septal defect. AORTIC VALVE The aortic valve is thickened but opens well. The aortic valve is mildly sclerotic. No aortic regurgitation is present. There is no aortic valvular stenosis. There is no aortic valvular vegetation. MITRAL VALVE The mitral valve is thickened but opens well. Mitral annular calcification is mild. Mitral regurgitation is trace. There is no mitral valve stenosis. There is no evidence of mitral valve prolapse. TRICUSPID VALVE The tricuspid valve is normal in structure. There is trace tricuspid regurgitation.RVSP-31 mmof hg. There is no tricuspid valve stenosis. There is no tricuspid valve prolapse or vegetation. PULMONIC VALVE The pulmonary valve is normal in structure. There is trace pulmonic valvular regurgitation. There is no pulmonic valvular stenosis. GREAT VESSELS The aortic root is normal in size. The ascending aorta is normal in size. The pulmonary artery is normal. The IVC is dilated. PERICARDIAL EFFUSION There is no pleural effusion. There is a trace pericardial effusion. <Conclusion> The left ventricle is normal size. There is normal left ventricular wall thickness. The left ventricular function is normal.EF-65% Mitral regurgitation is trace. There is trace tricuspid regurgitation.RVSP-31 mmof hg. The IVC is dilated. There is a trace pericardial effusion. No Vegetation noted.
[2017-04-02] MEDS: Sodium Chloride 0.45% 1,000 ML IV SCH ×2 (05:03→08:29)
[2017-04-02 06:29] LABS: EOS % 0.2 % (1.5-5.0); GRAN # 14.12 (1.4-6.5); GRAN % 87.4 % (50.0-68.0); HEMATOCRIT 32.7 % (42.0-52.0); LYMPH # 1.1 (1.2-3.4); MEAN CELL VOLUME 78.8 fl (80.0-105.0); MEAN CORPUSCULAR HEMOGLOBIN 28.4 pg (25.0-35.0); MEAN CORPUSCULAR HGB CONC 36.1 g/dl (31.0-37.0); MEAN PLATELET VOLUME 9.4 fl (7.0-11.0); MONO # 0.9 (0.1-0.6); MONO % 5.4 % (1.0-6.0); WHITE BLOOD COUNT 16.2 10^3/ul (4.5-11.0)
[2017-04-02 06:35] LABS: ALB/GLOB RATIO 1.1 (1.1-1.8); ALKALINE PHOSPHATASE 70 U/L (38-126); ALT/SGPT 787 U/L (7-56); AST/SGOT 525 U/L (17-59); BILIRUBIN,TOTAL 0.8 mg/dL (0.2-1.3); BLOOD UREA NITROGEN 19 mg/dL (7-21); CALCIUM 8.9 mg/dL (8.4-10.5); CARBON DIOXIDE 17 mmol/L (21-33); CHLORIDE 119 mmol/L (98-107); GFR AFRICAN-AMERICAN > 60; GLUCOSE,RANDOM 97 mg/dL (70-110); POTASSIUM 3.4 mmol/L (3.6-5.0); SODIUM 145 mmol/L (132-148); TOTAL PROTEIN 5.9 g/dL (5.8-8.3)
[2017-04-02 06:55] LABS: ARTERIAL BLOOD GAS HCO3 17.9 mmol/L (21-28); ARTERIAL BLOOD GAS O2 CAPACITY 16.4 mL/dl (16-24); ARTERIAL BLOOD GAS O2 CONTENT 16.3 ML/dl (15-23); ARTERIAL BLOOD GAS PH 7.48 (7.35-7.45); ARTERIAL BLOOD HGB O2 SAT 97.3 % (95.0-98.0); CARBOXYHEMOGLOBIN 1.5 % (0.5-1.5); HHB 0.5 % (0-5); METHEMOGLOBIN 0.7 % (0.0-3.0)
--- NOTE | 2017-04-02 09:57 | CP.PCM.PN ---
Subjective - Date & Time of Evaluation Date of Evaluation: 04/02/17 Time of Evaluation: 09:25 - Subjective Subjective: remains unresponsive on vent Objective - Vital Signs/Intake and Output Vital Signs (last 24 hours): Temp Pulse Resp BP Pulse Ox 96.3 F L 60 23 137/76 100 04/01/17 22:00 04/02/17 06:00 04/02/17 07:09 04/01/17 22:00 04/02/17 07:09 Intake and Output: 04/02/17 04/02/17 06:59 18:59 Intake Total 50 Balance 50 - Medications Medications: Current Medications Aspirin (Aspirin Chewable) 81 mg PO DAILY [facility] Last Admin: 04/01/17 10:03 Dose: 81 mg Clopidogrel Bisulfate (Plavix) 75 mg PO DAILY [facility] Last Admin: 04/01/17 10:03 Dose: 75 mg Dexmedetomidine HCl (Precedex 4 Mcg/Ml (100 Ml)) 400 mcg in 100 mls @ 3.175 mls /hr IV .Q24H PRN; Protocol; 0.2 MCG/KG/HR PRN Reason: Sedation Last Titration: 04/01/17 19:15 Dose: 0 mcg/kg/hr, 0 mls/hr Levetiracetam (Keppra 500mg Ivpb) 500 mg in 100 mls @ 460 mls/hr IV Q12 EMA Last Admin: 04/01/17 21:43 Dose: 460 mls/hr Sodium Chloride (Sodium Chloride 0.45%) 1,000 mls @ 100 mls/hr IV .Q10H EMA Last Admin: 04/02/17 08:29 Dose: 100 mls/hr Propofol (Diprivan) 1,000 mg in 100 mls @ 1.905 mls/hr IV .Q24H PRN; Protocol; 5 MCG/KG/MIN PRN Reason: TITRATE PER MD ORDER Last Titration: 04/01/17 17:30 Dose: 10 mcg/kg/min, 3.81 mls/hr Pantoprazole Sodium (Protonix Inj) 40 mg IVP DAILY [facility] Last Admin: 04/01/17 10:03 Dose: 40 mg - Labs Labs: 04/02/17 06:15 04/02/17 06:15 PT 13.1 Seconds (9.9-11.8) H 03/31/17 09:13 INR 1.21 (0.93-1.08) H 03/31/17 09:13 APTT 68.6 Seconds (23.7-30.8) H 03/31/17 09:13 - Respiratory Exam Respiratory Exam: Clear to Ausculation Bilateral Additional comments: endotracheal tube intact - Cardiovascular Exam Cardiovascular Exam: REGULAR RHYTHM - GI/Abdominal Exam GI & Abdominal Exam: Soft, Hypoactive Bowel Sounds, Normal Bowel Sounds - Neurological Exam Neurological Exam: Altered - Skin Skin Exam: Dry, Warm Assessment and Plan (1) Cardiac arrest Status: Acute (2) Hypoxic ischemic encephalopathy Status: Acute - Assessment and Plan (Free Text) Plan: continue supportive care, prognosis remains very poor
[2017-04-02] MEDS: levETIRAcetam 500mg IVPB 500 MG/100 ML BAG IV SCH ×2 (10:12→22:00)
--- NOTE | 2017-04-02 10:13 | RAD ---
HISTORY: intubated, f/u Open go the sabine all COMPARISON: No prior. FINDINGS: In situ ETT, tip of which lies approximately 6.9 cm above teagan. NGT is present, tip of which has not been included on this film though distal aspect does lie well below EG junction. LUNGS: Questionable mild left basilar atelectasis and small effusion. PLEURA: No significant pleural effusion identified, no pneumothorax apparent. CARDIOVASCULAR: Normal. OSSEOUS STRUCTURES: No significant abnormalities. VISUALIZED UPPER ABDOMEN: Normal. OTHER FINDINGS: None. IMPRESSION: ETT and NGT as above. Suspect mild left basilar atelectasis and small effusion.
--- NOTE | 2017-04-02 12:39 | CP.CCUPN ---
<Jeremy Alfaro - Last Filed: 04/02/17 12:50> CCU Subjective - Physician Review Subjective (Free Text): 04/02/17 12:50 Patient seen and examined at bedside in the ICU. No change in general condition ; remains intubated and unresponsive. No acute events reported overnight. Bilateral pinpoint pupils not responsive to light, no gag reflex, and no corneal reflex; only sign of neurologic activity is overbreathing the ventilator. This AM, patient experienced an episode of emesis through his NGT, vomitted up his tube-feeds. NGT set to suction, tube feeds held. No hematemesis or bilious emesis noted, abdomen still soft on palpation with some bowel sounds present. CCU Objective - Vital Signs / Intake & Output Vital Signs (Last 4 hours): Vital Signs Temp Pulse BP Pulse Ox 04/02/17 12:00 98.2 F 65 139/74 100 04/02/17 11:00 97.5 F L 61 146/72 100 04/02/17 10:08 97.5 F L 62 137/75 100 04/02/17 10:00 97.7 F 63 100 04/02/17 09:00 97.9 F 63 142/74 100 Intake and Output (Last 8hrs): Intake & Output 04/01/17 04/02/17 04/02/17 22:59 06:59 14:59 Intake Total 1634 16 Output Total 300 Balance 1334 16 Intake: IV 1614 16 Right Femoral 1522 Tube Feeding 20 Output: Urine 300 2-way Urethral 300 Other: # Bowel Movements 1 - Physical Exam Head: Positive for: Atraumatic, Normocephalic, Other Pupils: Positive for: Non-Reactive, Pinpoint. Negative for: PERRL Extroacular Muscles: Positive for: Other (uprolled eyes, move in line with head , no tracking of anyone in room, tries to close eyelids when manually openned, no corneal reflexes). Negative for: EOMI Conjunctiva: Positive for: Other (dirty sclera, but anicteric). Negative for: Injected, Icteric Mouth: Positive for: Moist Mucous Membranes, Other (ET tube in place) Nose (External): Positive for: Atraumatic, Other (NGT in place). Negative for: Abrasion, Contusion, Laceration Neck: Positive for: Trachea Midline. Negative for: Normal Range of Motion ( rotated to right, resists leftward motion, attempts to return head to neutral position), JVD Respiratory/Chest: Positive for: Good Air Exchange, Rhonchi (diffusely ronchorous in all auscultated galloway, inspiratory and expiratory), Other ( intubated and mechanically ventilated, able overbreath the ventilator). Negative for: Clear to Auscultation, Accessory Muscle Use, Wheezes, Decreased Breath Sounds, Rales Cardiovascular: Positive for: Regular Rate and Rhythm, Normal S1, S2. Negative for: Murmurs Abdomen: Positive for: Normal Bowel Sounds. Negative for: Tenderness, Distention, Peritoneal Signs Upper Extremity: Positive for: NORMAL PULSES (+2 radials bilaterally), Other ( Possible track ramirez along bilateral arms). Negative for: Cyanosis, Edema, Swelling, Erythema, Deformity Lower Extremity: Positive for: Normal Inspection, NORMAL PULSES (+1 dorsalis pedis bilaterally). Negative for: Edema, Cyanosis, Swelling, Erythema, Deformity Neurological: Positive for: Other (intubated, non-responsive, no voluntary or spontaneous movements, possible cerebrate positioning, holding head rotated right and resisting rotation leftward). Negative for: GCS=15 (GCS of 3 (E1 V1t M1)), CN II-XII Intact, Speech Normal, Motor Func Grossly Intact Skin: Positive for: Warm, Dry, Normal Color. Negative for: Rashes Psychiatric: Positive for: Other (intubated, unresponsive). Negative for: Alert , Oriented x 3, Normal Insight, Normal Concentration, Normal Affect, Normal Mood - Medications Active Medications: Active Medications Generic Name Dose Route Start Last Admin Trade Name Freq PRN Reason Stop Dose Admin Aspirin 81 mg 03/31/17 10:04/02/17 10:10 Aspirin Chewable PO Not Given DAILY [facility] Clopidogrel Bisulfate 75 mg 03/31/17 10:00 04/02/17 10:10 Plavix PO Not Given DAILY [facility] Dexmedetomidine HCl 400 mcg in 100 mls @ 3.175 mls/hr 03/31/17 12:09 19:15 Precedex 4 Mcg/Ml (100 Ml) IV 0 mcg/kg/hr .Q24H PRN 0 mls/hr Sedation Titration Protocol 0.2 MCG/KG/HR Levetiracetam 500 mg in 100 mls @ 460 mls/hr 03/31/17 17:33 04/02/17 10:12 Keppra 500mg Ivpb IV 460 mls/hr Q12 EMA Administration Sodium Chloride 1,000 mls @ 100 mls/hr 04/01/17 09:30 04/02/17 08:29 Sodium Chloride 0.45% IV 100 mls/hr .Q10H EMA Administration Propofol 1,000 mg in 100 mls @ 1.905 mls/hr 04/01/17 16:09 04/02/17 10:20 Diprivan IV 0 mcg/kg/min .Q24H PRN 0 mls/hr TITRATE PER MD ORDER Titration Protocol 5 MCG/KG/MIN Potassium Chloride 20 meq in 100 mls @ 50 mls/hr 04/02/17 10:30 04/02/17 10: 39 Potassium Chloride 20 Meq/100 Ml IVPB 04/02/17 14:29 50 mls/hr Q2H EMA Administration Pantoprazole Sodium 40 mg 03/31/17 10:00 04/02/17 10:12 Protonix Inj IVP 40 mg DAILY EMA Administration - Patient Studies Lab Studies: Microbiology Studies 04/01/17 17:45 C. difficile Antigen & Toxin A,B (M - Final Stool 03/30/17 20:45 Urine Culture - Final Urine,Singh No Growth (<1,000 CFU/ML) 03/30/17 22:44 MRSA Culture (Admit) - Final Naris MRSA NOT DETECTED Lab Studies 04/02/17 04/02/17 04/02/17 Range/Units 06:45 06:15 06:15 WBC 16.2 H (4.5-11.0) 10^3/ul RBC 4.15 (3.5-6.1) 10^6/uL Hgb 11.8 L (14.0-18.0) g/dL Hct 32.7 L (42.0-52.0) % MCV 78.8 L (80.0-105.0) fl MCH 28.4 (25.0-35.0) pg MCHC 36.1 (31.0-37.0) g/dl RDW 14.0 (11.5-14.5) % Plt Count 217 (120.0-450.0) 10^3/uL MPV 9.4 (7.0-11.0) fl Gran % 87.4 H (50.0-68.0) % Lymph % (Auto) 7.0 L (22.0-35.0) % Deuel % (Auto) 5.4 (1.0-6.0) % Eos % (Auto) 0.2 L (1.5-5.0) % Baso % (Auto) 0.0 (0.0-3.0) % Gran # 14.12 H (1.4-6.5) Lymph # 1.1 L (1.2-3.4) Deuel # 0.9 H (0.1-0.6) Eos # 0.0 (0.0-0.7) Baso # 0.00 (0.0-2.0) K/mm3 pCO2 24 L (35-45) mm/Hg pO2 114.0 H (80-100) mm/Hg HCO3 17.9 L (21-28) mmol/L ABG pH 7.48 H (7.35-7.45) ABG Total CO2 18.6 L (22-28) mmol.L ABG O2 Saturation 99.5 H (95-98) % ABG O2 Content 16.3 (15-23) ML/dl ABG Base Excess -4.1 L (-2.0-3.0) mmol/L ABG Hemoglobin 11.8 (11.7-17.4) g/dL ABG Carboxyhemoglobin 1.5 (0.5-1.5) % POC ABG HHb (Measured) 0.5 (0-5) % ABG Methemoglobin 0.7 (0.0-3.0) % ABG O2 Capacity 16.4 (16-24) mL/dl Hgb O2 Saturation 97.3 (95.0-98.0) % FiO2 40.0 % Sodium 145 (132-148) mmol/L Potassium 3.4 L (3.6-5.0) mmol/L Chloride 119 H (98-107) mmol/L Carbon Dioxide 17 L (21-33) mmol/L Anion Gap 12 (10-20) BUN 19 (7-21) mg/dL Creatinine 0.7 L (0.8-1.5) mg/dL Est GFR ( Amer) > 60 Est GFR (Non-Af Amer) > 60 POC Glucose (mg/dL) (65-110) mg/dL Random Glucose 97 (70-110) mg/dL Calcium 8.9 (8.4-10.5) mg/dL Total Bilirubin 0.8 (0.2-1.3) mg/dL AST 525 H D (17-59) U/L ALT 787 H (7-56) U/L Alkaline Phosphatase 70 (38-126) U/L Total Protein 5.9 (5.8-8.3) g/dL Albumin 3.0 (3.0-4.8) g/dL Globulin 2.8 gm/dL Albumin/Globulin Ratio 1.1 (1.1-1.8) HIV 1&2 Ag/Ab, 4th Gen (Nonreactive) 04/01/17 03/31/17 Range/Units 16:10 13:30 WBC (4.5-11.0) 10^3/ul RBC (3.5-6.1) 10^6/uL Hgb (14.0-18.0) g/dL Hct (42.0-52.0) % MCV (80.0-105.0) fl MCH (25.0-35.0) pg MCHC (31.0-37.0) g/dl RDW (11.5-14.5) % Plt Count (120.0-450.0) 10^3/uL MPV (7.0-11.0) fl Gran % (50.0-68.0) % Lymph % (Auto) (22.0-35.0) % Deuel % (Auto) (1.0-6.0) % Eos % (Auto) (1.5-5.0) % Baso % (Auto) (0.0-3.0) % Gran # (1.4-6.5) Lymph # (1.2-3.4) Deuel # (0.1-0.6) Eos # (0.0-0.7) Baso # (0.0-2.0) K/mm3 pCO2 (35-45) mm/Hg pO2 (80-100) mm/Hg HCO3 (21-28) mmol/L ABG pH (7.35-7.45) ABG Total CO2 (22-28) mmol.L ABG O2 Saturation (95-98) % ABG O2 Content (15-23) ML/dl ABG Base Excess (-2.0-3.0) mmol/L ABG Hemoglobin (11.7-17.4) g/dL ABG Carboxyhemoglobin (0.5-1.5) % POC ABG HHb (Measured) (0-5) % ABG Methemoglobin (0.0-3.0) % ABG O2 Capacity (16-24) mL/dl Hgb O2 Saturation (95.0-98.0) % FiO2 % Sodium (132-148) mmol/L Potassium (3.6-5.0) mmol/L Chloride (98-107) mmol/L Carbon Dioxide (21-33) mmol/L Anion Gap (10-20) BUN (7-21) mg/dL Creatinine (0.8-1.5) mg/dL Est GFR ( Amer) Est GFR (Non-Af Amer) POC Glucose (mg/dL) 111 H (65-110) mg/dL Random Glucose (70-110) mg/dL Calcium (8.4-10.5) mg/dL Total Bilirubin (0.2-1.3) mg/dL AST (17-59) U/L ALT (7-56) U/L Alkaline Phosphatase (38-126) U/L Total Protein (5.8-8.3) g/dL Albumin (3.0-4.8) g/dL Globulin gm/dL Albumin/Globulin Ratio (1.1-1.8) HIV 1&2 Ag/Ab, 4th Gen Nonreactive (Nonreactive) Laboratory Results - last 24 hr 03/31/17 04/01/17 04/02/17 13:30 16:10 06:15 WBC 16.2 H RBC 4.15 Hgb 11.8 L Hct 32.7 L MCV 78.8 L MCH 28.4 MCHC 36.1 RDW 14.0 Plt Count 217 MPV 9.4 Gran % 87.4 H Lymph % (Auto) 7.0 L Deuel % (Auto) 5.4 Eos % (Auto) 0.2 L Baso % (Auto) 0.0 Gran # 14.12 H Lymph # 1.1 L Deuel # 0.9 H Eos # 0.0 Baso # 0.00 pCO2 pO2 HCO3 ABG pH ABG Total CO2 ABG O2 Saturation ABG O2 Content ABG Base Excess ABG Hemoglobin ABG Carboxyhemoglobin POC ABG HHb (Measured) ABG Methemoglobin ABG O2 Capacity Hgb O2 Saturation FiO2 Sodium Potassium Chloride Carbon Dioxide Anion Gap BUN Creatinine Est GFR ( Amer) Est GFR (Non-Af Amer) POC Glucose (mg/dL) 111 H Random Glucose Calcium Total Bilirubin AST ALT Alkaline Phosphatase Total Protein Albumin Globulin Albumin/Globulin Ratio HIV 1&2 Ag/Ab, 4th Gen Nonreactive 04/02/17 04/02/17 06:15 06:45 WBC RBC Hgb Hct MCV MCH MCHC RDW Plt Count MPV Gran % Lymph % (Auto) Deuel % (Auto) Eos % (Auto) Baso % (Auto) Gran # Lymph # Deuel # Eos # Baso # pCO2 24 L pO2 114.0 H HCO3 17.9 L ABG pH 7.48 H ABG Total CO2 18.6 L ABG O2 Saturation 99.5 H ABG O2 Content 16.3 ABG Base Excess -4.1 L ABG Hemoglobin 11.8 ABG Carboxyhemoglobin 1.5 POC ABG HHb (Measured) 0.5 ABG Methemoglobin 0.7 ABG O2 Capacity 16.4 Hgb O2 Saturation 97.3 FiO2 40.0 Sodium 145 Potassium 3.4 L Chloride 119 H Carbon Dioxide 17 L Anion Gap 12 BUN 19 Creatinine 0.7 L Est GFR ( Amer) > 60 Est GFR (Non-Af Amer) > 60 POC Glucose (mg/dL) Random Glucose 97 Calcium 8.9 Total Bilirubin 0.8 AST 525 H D ALT 787 H Alkaline Phosphatase 70 Total Protein 5.9 Albumin 3.0 Globulin 2.8 Albumin/Globulin Ratio 1.1 HIV 1&2 Ag/Ab, 4th Gen Fingerstick Blood Sugar Results: 215 Review of Systems - Review of Systems Systems not reviewed;Unavailable: Intubated Assessment/Plan - Assessment and Plan (Free Text) Assessment: This is a 61 yo M with PMH of chronic back pain on oxycodone and restless leg syndrome who went into PEA cardiac arrest at home, s/p CPR and Epi x3, bicarb x1 , and Narcanx1 with ROSC, s/p intubation, and repeat cardiac arrest on arrival to ED with ROSC after chest compressions. Arrest is likely 2/2 cocaine use, as UDS was notably positive for cocaine and opiates, and patient had likely tract ramirez on both arms, but family denies any drug use. He has remained completely unresponsive since arrival, with head CT notable for diffuse hypoxic/ischemic injury, MRI notable for ischemic injury vs herpes encephalitis, and his prognosis is very poor. Plan: Neuro: -Remains completely unresponsive, no corneal reflex, no gag reflex, and pinpoint pupils not reactive to light; only neurologic activity noted is overbreathing the ventilator; unchanged from prior exams -CT head notable for diffuse decreased johnson-white differentiation, concern for global hypoxic/ischemic injury; No acute intracranial hemorrhage. -EEG obtained, pending read, f/u -MRI brain read as chronic ischemic injury vs herpes encephalitis; as per ID unlikely herpes encephalitis, pt presentation prior to this episode inconsistent with normal presentation of herpes encephalitis. -Neuro (Dr. Rico) consulted, appreciate all recs; poor prognosis given lack of reflexes and CT scan, MRI and EEG obtained to determine neurologic prognosis -Possible decerebrete posturing yesterday, absent today CV: -Hemodynamically stable, HR 70's-80s and MAP >65 consistently -Trops downtrending (last was 1.48, peaked at 1.70), unsurprising level in setting of cardiac arrest and CPR x2, but will obtain Echo -Echo notable for EF 65.7%, normal LV size/wall thickness, trace MR, trace TR with RVSP 31, dilated IVC, trace pericardial effusion,, no vegetations -Cardiology consult for recs -Likely cardiac arrest 2/2 cocaine abuse Pulm: -Currently intubated for airway protection -AM ABG reviewed, mild increase in pH from 7.46 to 7.48, otherwise unchanged -Protective lung ventilation strategies, VAP bundle, low-tidal volumes -head of bed to 30 degrees, aspiration precautions GI: -NPO -Protonix for ppx -Transaminitis improved, possibly 2/2 substance abuse vs hepatitis vs shock liver 2/2 cardiac arrest x2; hepatitis panel negative; continue to monitor -Holding tube feeds 2/2 emesis episode -C diff toxin test ordered, negative for toxin and antigen Renal: -Cr improved to 0.7 -Monitor I and Os -Replete electrolytes an needed -Switched to NS 50cc/hr Heme: -Hgb decreased from 12.0 to 11.8 -no signs of acute hemorrhage, and remains hemodynamically stable, more likely 2 /2 dilution from IVF -SCDs for DVT ppx ID: -Vanc & Cefepime for abx coverage -ID (Dr. Milner) consulted, appreciate all recs -Urine cultures pending, blood cx negative at 48hrs -C diff toxin test ordered, negative for toxin and antigen Endo: -Maintain blood sugars 140-180 -Elevated TSH on admit, repeat wnl so elevated TSH may just be lab error, no further workup needed Dispo: ICU, mechanically ventilated, minimal neurologic activity, pending Neuro' s input on MRI and EEG read for neurologic prognostication FEN: NPO, NS 50cc/hr Access: Peripheral IV, Femoral TLC (to be removed) Consults: Neuro, Cardio, ID Ppx: Protonix for GI, SCDs for DVT Code Status: Full Code Patient seen, reviewed, and discussed with attending, Dr. Wolf <Maryann GUSMAN,Counts Include [facility] H - Last Filed: 04/02/17 14:56> CCU Objective - Vital Signs / Intake & Output Vital Signs (Last 4 hours): Vital Signs Temp Pulse BP Pulse Ox 04/02/17 14:00 61 04/02/17 12:00 98.2 F 65 139/74 100 04/02/17 11:00 97.5 F L 61 146/72 100 Intake and Output (Last 8hrs): Intake & Output 04/01/17 04/02/17 04/02/17 22:59 06:59 14:59 Intake Total 1634 16 Output Total 300 Balance 1334 16 Weight 140 lb Intake: IV 1614 16 Right Femoral 1522 Tube Feeding 20 Output: Urine 300 2-way Urethral 300 Other: # Bowel Movements 1 - Medications Active Medications: Active Medications Generic Name Dose Route Start Last Admin Trade Name Freq PRN Reason Stop Dose Admin Aspirin 81 mg 03/31/17 10:00 04/02/17 10:10 Aspirin Chewable PO Not Given DAILY [facility] Chlorhexidine Gluconate 15 ml 04/02/17 14:30 Peridex PO Q4H [facility] Clopidogrel Bisulfate 75 mg 03/31/17 10:00 04/02/17 10:10 Plavix PO Not Given DAILY [facility] Enoxaparin Sodium 40 mg 04/03/17 10:00 Lovenox SC DAILY EMA Protocol Dexmedetomidine HCl 400 mcg in 100 mls @ 3.175 mls/hr 03/31/17 12:09 19:15 Precedex 4 Mcg/Ml (100 Ml) IV 0 mcg/kg/hr .Q24H PRN 0 mls/hr Sedation Titration Protocol 0.2 MCG/KG/HR Levetiracetam 500 mg in 100 mls @ 460 mls/hr 03/31/17 17:33 04/02/17 10:12 Keppra 500mg Ivpb IV 460 mls/hr Q12 EMA Administration Propofol 1,000 mg in 100 mls @ 1.905 mls/hr 04/01/17 16:09 04/02/17 10:20 Diprivan IV 0 mcg/kg/min .Q24H PRN 0 mls/hr TITRATE PER MD ORDER Titration Protocol 5 MCG/KG/MIN Sodium Chloride 1,000 mls @ 50 mls/hr 04/02/17 13:00 Sodium Chloride 0.9% IV .Q20H EMA Pantoprazole Sodium 40 mg 03/31/17 10:00 04/02/17 10:12 Protonix Inj IVP 40 mg DAILY EMA Administration - Patient Studies Lab Studies: Microbiology Studies 04/01/17 17:45 C. difficile Antigen & Toxin A,B (M - Final Stool 03/30/17 20:45 Urine Culture - Final Urine,Singh No Growth (<1,000 CFU/ML) 03/30/17 22:44 MRSA Culture (Admit) - Final Naris MRSA NOT DETECTED Lab Studies 04/02/17 04/02/17 04/02/17 Range/Units 14:23 06:45 06:15 WBC (4.5-11.0) 10^3/ul RBC (3.5-6.1) 10^6/uL Hgb (14.0-18.0) g/dL Hct (42.0-52.0) % MCV (80.0-105.0) fl MCH (25.0-35.0) pg MCHC (31.0-37.0) g/dl RDW (11.5-14.5) % Plt Count (120.0-450.0) 10^3/uL MPV (7.0-11.0) fl Gran % (50.0-68.0) % Lymph % (Auto) (22.0-35.0) % Deuel % (Auto) (1.0-6.0) % Eos % (Auto) (1.5-5.0) % Baso % (Auto) (0.0-3.0) % Gran # (1.4-6.5) Lymph # (1.2-3.4) Deuel # (0.1-0.6) Eos # (0.0-0.7) Baso # (0.0-2.0) K/mm3 pCO2 24 L (35-45) mm/Hg pO2 114.0 H (80-100) mm/Hg HCO3 17.9 L (21-28) mmol/L ABG pH 7.48 H (7.35-7.45) ABG Total CO2 18.6 L (22-28) mmol.L ABG O2 Saturation 99.5 H (95-98) % ABG O2 Content 16.3 (15-23) ML/dl ABG Base Excess -4.1 L (-2.0-3.0) mmol/L ABG Hemoglobin 11.8 (11.7-17.4) g/dL ABG Carboxyhemoglobin 1.5 (0.5-1.5) % POC ABG HHb (Measured) 0.5 (0-5) % ABG Methemoglobin 0.7 (0.0-3.0) % ABG O2 Capacity 16.4 (16-24) mL/dl Hgb O2 Saturation 97.3 (95.0-98.0) % FiO2 40.0 % Sodium 145 145 (132-148) mmol/L Potassium 3.8 3.4 L (3.6-5.0) mmol/L Chloride 118 H 119 H (98-107) mmol/L Carbon Dioxide 19 L 17 L (21-33) mmol/L Anion Gap 12 12 (10-20) BUN 18 19 (7-21) mg/dL Creatinine 0.8 0.7 L (0.8-1.5) mg/dL Est GFR ( Amer) > 60 > 60 Est GFR (Non-Af Amer) > 60 > 60 POC Glucose (mg/dL) (65-110) mg/dL Random Glucose 89 97 (70-110) mg/dL Calcium 8.7 8.9 (8.4-10.5) mg/dL Total Bilirubin 0.8 (0.2-1.3) mg/dL AST 525 H D (17-59) U/L ALT 787 H (7-56) U/L Alkaline Phosphatase 70 (38-126) U/L Total Protein 5.9 (5.8-8.3) g/dL Albumin 3.0 (3.0-4.8) g/dL Globulin 2.8 gm/dL Albumin/Globulin Ratio 1.1 (1.1-1.8) 04/02/17 04/01/17 Range/Units 06:15 16:10 WBC 16.2 H (4.5-11.0) 10^3/ul RBC 4.15 (3.5-6.1) 10^6/uL Hgb 11.8 L (14.0-18.0) g/dL Hct 32.7 L (42.0-52.0) % MCV 78.8 L (80.0-105.0) fl MCH 28.4 (25.0-35.0) pg MCHC 36.1 (31.0-37.0) g/dl RDW 14.0 (11.5-14.5) % Plt Count 217 (120.0-450.0) 10^3/uL MPV 9.4 (7.0-11.0) fl Gran % 87.4 H (50.0-68.0) % Lymph % (Auto) 7.0 L (22.0-35.0) % Deuel % (Auto) 5.4 (1.0-6.0) % Eos % (Auto) 0.2 L (1.5-5.0) % Baso % (Auto) 0.0 (0.0-3.0) % Gran # 14.12 H (1.4-6.5) Lymph # 1.1 L (1.2-3.4) Deuel # 0.9 H (0.1-0.6) Eos # 0.0 (0.0-0.7) Baso # 0.00 (0.0-2.0) K/mm3 pCO2 (35-45) mm/Hg pO2 (80-100) mm/Hg HCO3 (21-28) mmol/L ABG pH (7.35-7.45) ABG Total CO2 (22-28) mmol.L ABG O2 Saturation (95-98) % ABG O2 Content (15-23) ML/dl ABG Base Excess (-2.0-3.0) mmol/L ABG Hemoglobin (11.7-17.4) g/dL ABG Carboxyhemoglobin (0.5-1.5) % POC ABG HHb (Measured) (0-5) % ABG Methemoglobin (0.0-3.0) % ABG O2 Capacity (16-24) mL/dl Hgb O2 Saturation (95.0-98.0) % FiO2 % Sodium (132-148) mmol/L Potassium (3.6-5.0) mmol/L Chloride (98-107) mmol/L Carbon Dioxide (21-33) mmol/L Anion Gap (10-20) BUN (7-21) mg/dL Creatinine (0.8-1.5) mg/dL Est GFR ( Amer) Est GFR (Non-Af Amer) POC Glucose (mg/dL) 111 H (65-110) mg/dL Random Glucose (70-110) mg/dL Calcium (8.4-10.5) mg/dL Total Bilirubin (0.2-1.3) mg/dL AST (17-59) U/L ALT (7-56) U/L Alkaline Phosphatase (38-126) U/L Total Protein (5.8-8.3) g/dL Albumin (3.0-4.8) g/dL Globulin gm/dL Albumin/Globulin Ratio (1.1-1.8) Laboratory Results - last 24 hr 04/01/17 04/02/17 04/02/17 16:10 06:15 06:15 WBC 16.2 H RBC 4.15 Hgb 11.8 L Hct 32.7 L MCV 78.8 L MCH 28.4 MCHC 36.1 RDW 14.0 Plt Count 217 MPV 9.4 Gran % 87.4 H Lymph % (Auto) 7.0 L Deuel % (Auto) 5.4 Eos % (Auto) 0.2 L Baso % (Auto) 0.0 Gran # 14.12 H Lymph # 1.1 L Deuel # 0.9 H Eos # 0.0 Baso # 0.00 pCO2 pO2 HCO3 ABG pH ABG Total CO2 ABG O2 Saturation ABG O2 Content ABG Base Excess ABG Hemoglobin ABG Carboxyhemoglobin POC ABG HHb (Measured) ABG Methemoglobin ABG O2 Capacity Hgb O2 Saturation FiO2 Sodium 145 Potassium 3.4 L Chloride 119 H Carbon Dioxide 17 L Anion Gap 12 BUN 19 Creatinine 0.7 L Est GFR ( Amer) > 60 Est GFR (Non-Af Amer) > 60 POC Glucose (mg/dL) 111 H Random Glucose 97 Calcium 8.9 Total Bilirubin 0.8 AST 525 H D ALT 787 H Alkaline Phosphatase 70 Total Protein 5.9 Albumin 3.0 Globulin 2.8 Albumin/Globulin Ratio 1.1 04/02/17 04/02/17 06:45 14:23 WBC RBC Hgb Hct MCV MCH MCHC RDW Plt Count MPV Gran % Lymph % (Auto) Deuel % (Auto) Eos % (Auto) Baso % (Auto) Gran # Lymph # Deuel # Eos # Baso # pCO2 24 L pO2 114.0 H HCO3 17.9 L ABG pH 7.48 H ABG Total CO2 18.6 L ABG O2 Saturation 99.5 H ABG O2 Content 16.3 ABG Base Excess -4.1 L ABG Hemoglobin 11.8 ABG Carboxyhemoglobin 1.5 POC ABG HHb (Measured) 0.5 ABG Methemoglobin 0.7 ABG O2 Capacity 16.4 Hgb O2 Saturation 97.3 FiO2 40.0 Sodium 145 Potassium 3.8 Chloride 118 H Carbon Dioxide 19 L Anion Gap 12 BUN 18 Creatinine 0.8 Est GFR ( Amer) > 60 Est GFR (Non-Af Amer) > 60 POC Glucose (mg/dL) Random Glucose 89 Calcium 8.7 Total Bilirubin AST ALT Alkaline Phosphatase Total Protein Albumin Globulin Albumin/Globulin Ratio Attending/Attestation - Attestation I have personally seen and examined this patient.: Yes I have fully participated in the care of the patient.: Yes I have reviewed all pertinent clinical information: Yes Notes (Text): 04/02/17 14:50 61 y/o M s/p cardiac arrest . Intubated and off sedation. Minimal neurological response. Does initiate breaths and tolerates PS for < 10Min. No withdrawl from painful stimuli no cognitive improvement. > 48 hr Minimal neuro improvement . Minimal GAG, minimal pupilary reflex. Unlikely Herpes encephalitis. No signs of seizure like activity . Need family meeting in the event the patient does not awaken and cant be extubated. Discussion about trach / PEG placement. dvtp cc time 55 min
[2017-04-02] MEDS: Sodium Chloride 0.9% 1,000 ML IV SCH (13:00)
--- NOTE | 2017-04-02 14:30 | CARD ---
APPROVED REPORT EKG Measurement Heart [id number] <Conclusion> Normal sinus rhythm with sinus arrhythmia Normal ECG
[2017-04-02 14:41] LABS: BLOOD UREA NITROGEN 18 mg/dL (7-21); CALCIUM 8.7 mg/dL (8.4-10.5); CARBON DIOXIDE 19 mmol/L (21-33); CHLORIDE 118 mmol/L (98-107); GFR AFRICAN-AMERICAN > 60; GLUCOSE,RANDOM 89 mg/dL (70-110); POTASSIUM 3.8 mmol/L (3.6-5.0); SODIUM 145 mmol/L (132-148)
--- NOTE | 2017-04-02 14:57 | PN ---
DATE: 04/02/[address] Frankie Macias. REASON FOR CONSULTATION: Status post cardiac arrest, rule out anoxic encephalopathy, and borderline troponin positive. SUBJECTIVE: The patient remains on the vent, on IV fluid, comatose. OBJECTIVE/PHYSICAL EXAMINATION: As follows: GENERAL: Not in apparent distress, on vent. He had a recent large vomitus and remains unresponsive. VITAL SIGNS: Temperature is afebrile, heart rate is 65, and blood pressure is 139/74. HEENT: PERRLA. Extraocular muscles are intact. NECK: Supple. No carotid bruit or thyromegaly. CHEST: Clear to auscultation. HEART: S1 and S2 regular. ABDOMEN: Soft. EXTREMITIES: Clubbing and cyanosis negative. LABORATORY DATA: Blood workup as follows: WBC of 6, hemoglobin of 11.8, hematocrit of 32.7, and platelet count of 217. Chemistry shows sodium of 145, potassium of 3.4, chloride of 119, carbon dioxide of 17, anion gap of 12, BUN of 49, and creatinine is 0.7. AST is 529, ALT is 787, total protein is 5.9, albumin is 2.8 and albumin-globulin ratio is 1.1. DIAGNOSTIC DATA: The patient had echocardiography done yesterday dated 04/01/2017 that shows ejection fraction of 65%, trace mitral regurgitation, trace tricuspid regurgitation, and no vegetation noted. The patient had MRI of the brain done yesterday to rule out chronic ischemic changes, possibility of herpes encephalitis cannot be excluded. IMPRESSION: Status post cardiac arrest, respiratory failure, preserved left ventricular function, trace mitral regurgitation, trace tricuspid regurgitation, history of cocaine abuse, possible anoxic encephalopathy, toxicology screen is positive for benzodiazepine and cocaine and opiates. Troponin is 1.47 probably secondary to hemodynamic instability. RECOMMENDATIONS: The patient is getting normal saline, cut down the fluid to 75 mL an hour. Continue supportive care and supplement potassium. Repeat the lab in the morning. Follow up CPK and troponin. 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 Supportive care and possibly anoxic encephalopathy. Monitor electrolytes closely and I will follow with you. Continue broad-spectrum antibiotics and we will follow with you. Plan to start NG feeding with the patient's large vomitus, also we will hold for now and I will continue IV fluids. I will cut down the normal saline to 50 mL an hour. We will discontinue half normal 100 mL an hour. DVT prophylaxis if okay with neurologist. Thank you Dr. Pritchard for providing us the opportunity in taking care of the patient, Suresh Ramirez. Mayda Hodges MD
[2017-04-02] MEDS: Chlorhexidine 0.12% Oral Sol 480 ml Bot PO SCH ×3 (17:25→22:00)
--- NOTE | 2017-04-02 19:04 | PN ---
DATE: 04/02/2017 NEUROLOGY FOLLOWUP CHIEF COMPLAINT: Status post cardiac arrest. SUBJECTIVE: The patient seen and examined at bedside, remains intubated and unresponsive. Bilateral pinpoint pupils, no light reflex, no corneal reflex, no gag, no doll's eye. Only sign of neurological activity, still remains in the ventilator. MRI of the brain is consistent with hypoxic ischemic injury and anoxic. EEG just shows diffuse slowing with polymorphic deltas indicating severe bilateral cerebellar dysfunction. PAST MEDICAL HISTORY: History of chronic back pain and restless legs, on opiates. SOCIAL HISTORY: Currently cocaine abuse, smoker. Occasional EtOH use. REVIEW OF SYSTEMS: Difficult to obtain due to the patient's mental status. ALLERGIES: NO KNOWN DRUG ALLERGIES. MEDICATIONS: Reviewed via nurse's reconciliation sheet. PHYSICAL EXAMINATION: VITAL SIGNS: Temperature of 98.2, pulse rate of 65, blood pressure of 139/74, being med managed. GENERAL: The patient is intubated, on sedation. HEART: S1 and S2, normal rate and rhythm. No murmurs, rubs, or gallops. NECK: Supple. No JVD. No adenopathy noted. LUNGS: Diffuse breath sounds bilaterally. ABDOMEN: Soft, nontender, and nondistended. Bowel sounds are present. EXTREMITIES: No clubbing. No cyanosis. Peripheral pulses 1+ felt bilaterally. NEUROLOGIC: The patient is intubated, on sedation. Difficult to assess speech or mental at this time. The patient has no corneal, no gag, no light reflex, no doll's eye reflex. There is only trigger in the vent. No spontaneous movement of the extremities. Does not withdraw on localized or noxious stimulus at all. Toes are upgoing bilaterally. DTRs are 1+ throughout. Coordination and gait defer for now. LABORATORY DATA: Sodium 145, potassium 2.8, chloride 118, carbon dioxide of 19, BUN of 18, and creatinine 0.8, random glucose of 89. ASSESSMENT AND PLAN: This is a 61-year-old man with past medical history of chronic back pain, on oxycodone; restless legs who went into pulseless electrical activity; cardiac arrest at home, status post CPR and epi x3 and bicarb x1 with return of spontaneous circulation, status post intubation, repeated cardiac arrest on arrival in the ER, and return of spontaneous circulation after chest compressions. U-tox is positive for cocaine. Cardiac arrest is likely secondary to cocaine use and positive opiates overuse. MRI of the brain is consistent with anoxic/hypoxic ischemic injury. EEG just showed severe bilateral cerebral dysfunction with polymorphic delta. Currently, the patient's mental status is considered as anoxic/hypoxic ischemic brain injury secondary to cardiac arrest. At this time, the patient is completely unresponsive, no corneal and no gag reflex. Pinpoint pupils not reactive to light and only the thing he is doing is triggering the vent. At this time prognosis is poor. Consider palliative care. Monitor electrolytes and correct accordingly, and continue current present medical management. Ezio Rico MD
--- NOTE | 2017-04-02 19:09 | EEG ---
DATE: 04/02/2017 CONDITION OF THE RECORDING: Sleep. DIAGNOSIS: Seizure. MEDICATIONS: Reviewed via nurse reconciliation sheet. INTERPRETATION: This is a 16-channel international recording. The background activity of this tracing was composed of mostly 4 cycles per second. There was limited amount of beta activity of 16-20 cycles per second seen in this recording. There was increased amount of theta activity 5-7 cycles per seconds seen in this tracing but mostly there were periods of delta activity with polymorphic delta type. Drowsiness was characterized mostly by theta and delta and sleep was characterized by vertex transient, sleep spindle, bilateral slowing. Photic stimulation showed no change in the tracing. There was evidence of intermittent polymorphic delta. CONCLUSION: An abnormal EEG due to presence of polymorphic delta as well as diffuse slowing throughout the EEG consistent with severe bilateral cerebral dysfunction. Please clinically correlate. Thank you. Ezio Rico MD
[2017-04-03] MEDS: Chlorhexidine 0.12% Oral Sol 480 ml Bot PO SCH ×6 (02:30→22:30)
[2017-04-03 06:11] LABS: BASO # 0.01 K/mm3 (0.0-2.0); BASO % 0.1 % (0.0-3.0); EOS % 0.2 % (1.5-5.0); GRAN # 11.7 (1.4-6.5); HEMATOCRIT 32.9 % (42.0-52.0); LYMPH # 1.5 (1.2-3.4); LYMPH % 10.3 % (22.0-35.0); MEAN CELL VOLUME 78.3 fl (80.0-105.0); MEAN CORPUSCULAR HEMOGLOBIN 27.9 pg (25.0-35.0); MEAN CORPUSCULAR HGB CONC 35.6 g/dl (31.0-37.0); MEAN PLATELET VOLUME 8.9 fl (7.0-11.0); MONO # 0.9 (0.1-0.6); MONO % 6.4 % (1.0-6.0); RED CELL DISTRIBUTION WIDTH 13.8 % (11.5-14.5); WHITE BLOOD COUNT 14.1 10^3/ul (4.5-11.0)
[2017-04-03 06:22] LABS: ALKALINE PHOSPHATASE 72 U/L (38-126); ALT/SGPT 516 U/L (7-56); AST/SGOT 206 U/L (17-59); BILIRUBIN,TOTAL 0.6 mg/dL (0.2-1.3); BLOOD UREA NITROGEN 16 mg/dL (7-21); CALCIUM 8.6 mg/dL (8.4-10.5); CARBON DIOXIDE 21 mmol/L (21-33); CHLORIDE 122 mmol/L (98-107); GFR AFRICAN-AMERICAN > 60; GLUCOSE,RANDOM 101 mg/dL (70-110); POTASSIUM 3.3 mmol/L (3.6-5.0); SODIUM 150 mmol/L (132-148); TOTAL PROTEIN 5.9 g/dL (5.8-8.3)
[2017-04-03 06:31] LABS: TROPONIN I 0.04 ng/mL
[2017-04-03 06:47] LABS: ARTERIAL BLOOD GAS HCO3 17.8 mmol/L (21-28); ARTERIAL BLOOD GAS O2 CAPACITY 14.8 mL/dl (16-24); ARTERIAL BLOOD GAS O2 CONTENT 14.7 ML/dl (15-23); ARTERIAL BLOOD GAS PH 7.46 (7.35-7.45); ARTERIAL BLOOD HGB O2 SAT 96.2 % (95.0-98.0); CARBOXYHEMOGLOBIN 1.7 % (0.5-1.5); HHB 0.7 % (0-5); METHEMOGLOBIN 1.4 % (0.0-3.0)
[2017-04-03] MEDS: levETIRAcetam 500mg IVPB 500 MG/100 ML BAG IV SCH ×2 (09:27→21:55)
[2017-04-03] MEDS: Enoxaparin 40 mg Syringe SC SCH (09:27)
--- NOTE | 2017-04-03 09:32 | CP.CCUPN ---
<Jeremy Alfaro - Last Filed: 04/03/17 10:08> CCU Subjective - Physician Review Subjective (Free Text): 04/03/17 09:27 Patient seen and examined at bedside in the ICU. No change in general condition ; remains intubated and unresponsive. No acute events reported overnight. Bilateral pinpoint pupils not responsive to light, no gag reflex, and no corneal reflex; only sign of neurologic activity is overbreathing the ventilator. Attending had discussion with family at bedside regarding pt's poor prognosis, and options moving forward. Patient's family to discuss among themselves and with patient's mother, before making a decision. CCU Objective - Vital Signs / Intake & Output Vital Signs (Last 4 hours): Vital Signs Temp Pulse BP Pulse Ox 04/03/17 08:00 98.4 F 104 H 98 04/03/17 07:00 98.4 F 118 H 134/70 99 04/03/17 06:00 98.6 F 64 135/70 99 Intake and Output (Last 8hrs): Intake & Output 04/02/17 04/03/17 04/03/17 22:59 06:59 14:59 Intake Total 1502 892 Output Total 750 300 Balance 752 592 Intake: IV 1322 572 Left Hand 400 22 Right Forearm 922 550 Tube Feeding 180 20 Other 300 Output: Urine 250 300 2-way Urethral 250 300 Emesis 100 Other 400 Other: # Bowel Movements 0 - Physical Exam Head: Positive for: Atraumatic, Normocephalic, Other Pupils: Positive for: Non-Reactive, Pinpoint. Negative for: PERRL Extroacular Muscles: Positive for: Other (uprolled eyes, move in line with head , no tracking of anyone in room, no corneal reflexes). Negative for: EOMI Conjunctiva: Positive for: Other (dirty sclera, but anicteric). Negative for: Injected, Icteric Mouth: Positive for: Moist Mucous Membranes, Other (ET tube in place) Nose (External): Positive for: Atraumatic, Other (NGT in place). Negative for: Abrasion, Contusion, Laceration Neck: Positive for: Normal Range of Motion (no active ROM by patient, passive ROM intact), Trachea Midline. Negative for: JVD Respiratory/Chest: Positive for: Good Air Exchange, Rhonchi (diffusely ronchorous in all auscultated [place], inspiratory and expiratory, no change from prior exams), Other (intubated and mechanically ventilated, able overbreath the ventilator). Negative for: Clear to Auscultation, Accessory Muscle Use, Wheezes, Decreased Breath Sounds, Rales Cardiovascular: Positive for: Regular Rate and Rhythm, Normal S1, S2. Negative for: Murmurs, Irregular Rhythm, Tachycardic, Bradycardic Abdomen: Positive for: Normal Bowel Sounds. Negative for: Tenderness, Distention, Peritoneal Signs Upper Extremity: Positive for: NORMAL PULSES (+2 radials bilaterally), Other ( Possible track ramirez along bilateral arms). Negative for: Cyanosis, Edema, Swelling, Erythema, Deformity Lower Extremity: Positive for: Normal Inspection, NORMAL PULSES (+1 dorsalis pedis bilaterally). Negative for: Edema, Cyanosis, Swelling, Erythema, Deformity Neurological: Positive for: Other (intubated, non-responsive, no voluntary or spontaneous movements). Negative for: GCS=15 (GCS of 3 (E1 V1t M1)), CN II-XII Intact, Speech Normal, Motor Func Grossly Intact Skin: Positive for: Warm, Dry, Normal Color. Negative for: Rashes Psychiatric: Positive for: Other (intubated, unresponsive). Negative for: Alert , Oriented x 3, Normal Insight, Normal Concentration, Normal Affect, Normal Mood - Medications Active Medications: Active Medications Generic Name Dose Route Start Last Admin Trade Name Freq PRN Reason Stop Dose Admin Aspirin 81 mg 03/31/17 10:00 04/02/17 10:10 Aspirin Chewable PO Not Given DAILY [facility] Chlorhexidine Gluconate 15 ml 04/02/17 14:30 04/03/17 06:41 Peridex PO 15 analia Q4H EMA Administration Clopidogrel Bisulfate 75 mg 03/31/17 10:00 04/02/17 10:10 Plavix PO Not Given DAILY [facility] Enoxaparin Sodium 40 mg 04/03/17 10:00 Lovenox SC DAILY [facility] Protocol Dexmedetomidine HCl 400 mcg in 100 mls @ 3.175 mls/hr 03/31/17 12:09 19:15 Precedex 4 Mcg/Ml (100 Ml) IV 0 mcg/kg/hr .Q24H PRN 0 mls/hr Sedation Titration Protocol 0.2 MCG/KG/HR Levetiracetam 500 mg in 100 mls @ 460 mls/hr 03/31/17 17:33 04/02/17 22:00 Keppra 500mg Ivpb IV 460 mls/hr Q12 EMA Administration Propofol 1,000 mg in 100 mls @ 1.905 mls/hr 04/01/17 16:09 04/02/17 14:00 Diprivan IV 5 mcg/kg/min .Q24H PRN 1.905 mls/hr TITRATE PER MD ORDER Titration Protocol 5 MCG/KG/MIN Sodium Chloride 1,000 mls @ 50 mls/hr 04/02/17 13:00 04/02/17 13:00 Sodium Chloride 0.9% IV 50 mls/hr .Q20H EMA Administration Potassium Chloride 20 meq in 100 mls @ 50 mls/hr 04/03/17 07:45 04/03/17 08: 36 Potassium Chloride 20 Meq/100 Ml IVPB 04/03/17 11:44 50 mls/hr Q2H EMA Administration Pantoprazole Sodium 40 mg 03/31/17 10:00 04/02/17 10:12 Protonix Inj IVP 40 mg DAILY EMA Administration - Patient Studies Lab Studies: Microbiology Studies 04/01/17 17:45 C. difficile Antigen & Toxin A,B (M - Final Stool Lab Studies 04/03/17 04/03/17 04/03/17 Range/Units 06:30 05:45 05:45 WBC (4.5-11.0) 10^3/ul RBC (3.5-6.1) 10^6/uL Hgb (14.0-18.0) g/dL Hct (42.0-52.0) % MCV (80.0-105.0) fl MCH (25.0-35.0) pg MCHC (31.0-37.0) g/dl RDW (11.5-14.5) % Plt Count (120.0-450.0) 10^3/uL MPV (7.0-11.0) fl Gran % (50.0-68.0) % Lymph % (Auto) (22.0-35.0) % [place] % (Auto) (1.0-6.0) % Eos % (Auto) (1.5-5.0) % Baso % (Auto) (0.0-3.0) % Gran # (1.4-6.5) Lymph # (1.2-3.4) [place] # (0.1-0.6) Eos # (0.0-0.7) Baso # (0.0-2.0) K/mm3 pCO2 25 L (35-45) mm/Hg pO2 132.0 H (80-100) mm/Hg HCO3 17.8 L (21-28) mmol/L ABG pH 7.46 H (7.35-7.45) ABG Total CO2 18.6 L (22-28) mmol.L ABG O2 Saturation 99.3 H (95-98) % ABG O2 Content 14.7 L (15-23) ML/dl ABG Base Excess -4.8 L (-2.0-3.0) mmol/L ABG Hemoglobin 10.7 L (11.7-17.4) g/dL ABG Carboxyhemoglobin 1.7 H (0.5-1.5) % POC ABG HHb (Measured) 0.7 (0-5) % ABG Methemoglobin 1.4 (0.0-3.0) % ABG O2 Capacity 14.8 L (16-24) mL/dl Hgb O2 Saturation 96.2 (95.0-98.0) % FiO2 40.0 % Sodium 150 H (132-148) mmol/L Potassium 3.3 L (3.6-5.0) mmol/L Chloride 122 H (98-107) mmol/L Carbon Dioxide 21 (21-33) mmol/L Anion Gap 10 (10-20) BUN 16 (7-21) mg/dL Creatinine 0.8 (0.8-1.5) mg/dL Est GFR ( Amer) > 60 Est GFR (Non-Af Amer) > 60 Random Glucose 101 (70-110) mg/dL Calcium 8.6 (8.4-10.5) mg/dL Phosphorus 2.0 L (2.5-4.5) mg/dL Magnesium 2.0 (1.7-2.2) mg/dL Total Bilirubin 0.6 (0.2-1.3) mg/dL AST 206 H D (17-59) U/L ALT 516 H (7-56) U/L Alkaline Phosphatase 72 (38-126) U/L Lactate Dehydrogenase 1335 H (333-699) U/L Total Creatine Kinase 99 (35-230) U/L Troponin I 0.04 D ng/mL Total Protein 5.9 (5.8-8.3) g/dL Albumin 3.0 (3.0-4.8) g/dL Globulin 2.9 gm/dL Albumin/Globulin Ratio 1.0 L (1.1-1.8) TSH 3rd Generation 0.55 (0.46-4.68) mIU/mL Pneumocystis Source S. pneumoniae Antigen 04/03/17 04/02/17 03/31/17 Range/Units 05:45 14:23 12:09 WBC 14.1 H (4.5-11.0) 10^3/ul RBC 4.20 (3.5-6.1) 10^6/uL Hgb 11.7 L (14.0-18.0) g/dL Hct 32.9 L (42.0-52.0) % MCV 78.3 L (80.0-105.0) fl MCH 27.9 (25.0-35.0) pg MCHC 35.6 (31.0-37.0) g/dl RDW 13.8 (11.5-14.5) % Plt Count 240 (120.0-450.0) 10^3/uL MPV 8.9 (7.0-11.0) fl Gran % 83.0 H (50.0-68.0) % Lymph % (Auto) 10.3 L (22.0-35.0) % [place] % (Auto) 6.4 H (1.0-6.0) % Eos % (Auto) 0.2 L (1.5-5.0) % Baso % (Auto) 0.1 (0.0-3.0) % Gran # 11.70 H (1.4-6.5) Lymph # 1.5 (1.2-3.4) [place] # 0.9 H (0.1-0.6) Eos # 0.0 (0.0-0.7) Baso # 0.01 (0.0-2.0) K/mm3 pCO2 (35-45) mm/Hg pO2 (80-100) mm/Hg HCO3 (21-28) mmol/L ABG pH (7.35-7.45) ABG Total CO2 (22-28) mmol.L ABG O2 Saturation (95-98) % ABG O2 Content (15-23) ML/dl ABG Base Excess (-2.0-3.0) mmol/L ABG Hemoglobin (11.7-17.4) g/dL ABG Carboxyhemoglobin (0.5-1.5) % POC ABG HHb (Measured) (0-5) % ABG Methemoglobin (0.0-3.0) % ABG O2 Capacity (16-24) mL/dl Hgb O2 Saturation (95.0-98.0) % FiO2 % Sodium 145 (132-148) mmol/L Potassium 3.8 (3.6-5.0) mmol/L Chloride 118 H (98-107) mmol/L Carbon Dioxide 19 L (21-33) mmol/L Anion Gap 12 (10-20) BUN 18 (7-21) mg/dL Creatinine 0.8 (0.8-1.5) mg/dL Est GFR ( Amer) > 60 Est GFR (Non-Af Amer) > 60 Random Glucose 89 (70-110) mg/dL Calcium 8.7 (8.4-10.5) mg/dL Phosphorus (2.5-4.5) mg/dL Magnesium (1.7-2.2) mg/dL Total Bilirubin (0.2-1.3) mg/dL AST (17-59) U/L ALT (7-56) U/L Alkaline Phosphatase (38-126) U/L Lactate Dehydrogenase (333-699) U/L Total Creatine Kinase (35-230) U/L Troponin I ng/mL Total Protein (5.8-8.3) g/dL Albumin (3.0-4.8) g/dL Globulin gm/dL Albumin/Globulin Ratio (1.1-1.8) TSH 3rd Generation (0.46-4.68) mIU/mL Pneumocystis Source Serum S. pneumoniae Antigen Not detected Laboratory Results - last 24 hr 03/31/17 04/02/17 04/03/17 12:09 14:23 05:45 WBC 14.1 H RBC 4.20 Hgb 11.7 L Hct 32.9 L MCV 78.3 L MCH 27.9 MCHC 35.6 RDW 13.8 Plt Count 240 MPV 8.9 Gran % 83.0 H Lymph % (Auto) 10.3 L [place] % (Auto) 6.4 H Eos % (Auto) 0.2 L Baso % (Auto) 0.1 Gran # 11.70 H Lymph # 1.5 [place] # 0.9 H Eos # 0.0 Baso # 0.01 pCO2 pO2 HCO3 ABG pH ABG Total CO2 ABG O2 Saturation ABG O2 Content ABG Base Excess ABG Hemoglobin ABG Carboxyhemoglobin POC ABG HHb (Measured) ABG Methemoglobin ABG O2 Capacity Hgb O2 Saturation FiO2 Sodium 145 Potassium 3.8 Chloride 118 H Carbon Dioxide 19 L Anion Gap 12 BUN 18 Creatinine 0.8 Est GFR ( Amer) > 60 Est GFR (Non-Af Amer) > 60 Random Glucose 89 Calcium 8.7 Phosphorus Magnesium Total Bilirubin AST ALT Alkaline Phosphatase Lactate Dehydrogenase Total Creatine Kinase Troponin I Total Protein Albumin Globulin Albumin/Globulin Ratio TSH 3rd Generation Pneumocystis Source Serum S. pneumoniae Antigen Not detected 04/03/17 04/03/17 04/03/17 05:45 05:45 06:30 WBC RBC Hgb Hct MCV MCH MCHC RDW Plt Count MPV Gran % Lymph % (Auto) [place] % (Auto) Eos % (Auto) Baso % (Auto) Gran # Lymph # [place] # Eos # Baso # pCO2 25 L pO2 132.0 H HCO3 17.8 L ABG pH 7.46 H ABG Total CO2 18.6 L ABG O2 Saturation 99.3 H ABG O2 Content 14.7 L ABG Base Excess -4.8 L ABG Hemoglobin 10.7 L ABG Carboxyhemoglobin 1.7 H POC ABG HHb (Measured) 0.7 ABG Methemoglobin 1.4 ABG O2 Capacity 14.8 L Hgb O2 Saturation 96.2 FiO2 40.0 Sodium 150 H Potassium 3.3 L Chloride 122 H Carbon Dioxide 21 Anion Gap 10 BUN 16 Creatinine 0.8 Est GFR ( Amer) > 60 Est GFR (Non-Af Amer) > 60 Random Glucose 101 Calcium 8.6 Phosphorus 2.0 L Magnesium 2.0 Total Bilirubin 0.6 AST 206 H D ALT 516 H Alkaline Phosphatase 72 Lactate Dehydrogenase 1335 H Total Creatine Kinase 99 Troponin I 0.04 D Total Protein 5.9 Albumin 3.0 Globulin 2.9 Albumin/Globulin Ratio 1.0 L TSH 3rd Generation 0.55 Pneumocystis Source S. pneumoniae Antigen Fingerstick Blood Sugar Results: 215 Review of Systems - Review of Systems Systems not reviewed;Unavailable: Intubated Assessment/Plan - Assessment and Plan (Free Text) Assessment: This is a 61 yo M with PMH of chronic back pain on oxycodone and restless leg syndrome who went into PEA cardiac arrest at home, s/p CPR and Epi x3, bicarb x1 , and Narcanx1 with ROSC, s/p intubation, and repeat cardiac arrest on arrival to ED with ROSC after chest compressions. Arrest is likely 2/2 cocaine use, as UDS was notably positive for cocaine and opiates, and patient had likely tract ramirez on both arms, but family denies any drug use. He has remained completely unresponsive since arrival, with head CT notable for diffuse hypoxic/ischemic injury, MRI notable for ischemic injury vs herpes encephalitis, and his prognosis is very poor. Family discussing options for moving forward given this poor prognosis, pending family decision tomorrow. Plan: Neuro: -Remains completely unresponsive, no corneal reflex, no gag reflex, and pinpoint pupils not reactive to light; only neurologic activity noted is overbreathing the ventilator; unchanged from prior exams -CT head notable for diffuse decreased johnson-white differentiation, concern for global hypoxic/ischemic injury; No acute intracranial hemorrhage. -EEG obtained, pending read, f/u -MRI brain read as chronic ischemic injury vs herpes encephalitis; as per ID unlikely herpes encephalitis, pt presentation prior to this episode inconsistent with normal presentation of herpes encephalitis. -Neuro (Dr. Rico) consulted, appreciate all recs; poor prognosis given lack of reflexes and CT scan, MRI and EEG obtained to determine neurologic prognosis CV: -Hemodynamically stable, HR 70's-80s and MAP >65 consistently -Trops downtrending (last was 1.48, peaked at 1.70), unsurprising level in setting of cardiac arrest and CPR x2, but will obtain Echo -Echo notable for EF 65.7%, normal LV size/wall thickness, trace MR, trace TR with RVSP 31, dilated IVC, trace pericardial effusion,, no vegetations -Cardiology consult for recs -Likely cardiac arrest 2/2 cocaine abuse Pulm: -Currently intubated for airway protection -AM ABG reviewed, mild decrease in pH to 7.46 from 7.48, otherwise unchanged -Protective lung ventilation strategies, VAP bundle, low-tidal volumes -head of bed to 30 degrees, aspiration precautions GI: -NPO -Protonix for ppx -Transaminitis improved, possibly 2/2 substance abuse vs hepatitis vs shock liver 2/2 cardiac arrest x2; hepatitis panel negative; continue to monitor -Holding tube feeds 2/2 emesis episode -C diff toxin test ordered, negative for toxin and antigen Renal: -Cr improved, 0,8 today -Monitor I and Os -Replete electrolytes an needed -NS 50cc/hr Heme: -Hgb stable, 11.7 today -no signs of hemorrhage -SCDs for DVT ppx ID: -Vanc & Cefepime for abx coverage -ID (Dr. Milner) consulted, appreciate all recs -Urine cultures pending, blood cx negative at 72hrs -C diff toxin test ordered, negative for toxin and antigen Endo: -Maintain blood sugars 140-180 -Elevated TSH on admit, repeat wnl so elevated TSH may just be lab error, no further workup needed Dispo: ICU, mechanically ventilated, minimal neurologic activity, pending Neuro' s input on MRI and EEG read for neurologic prognostication but expected poor prognosis given no improvement of neurologic status since admission; pending family decision on whether or not to continue forward with management FEN: NPO, NS 50cc/hr Access: Peripheral IV Consults: Neuro, Cardio, ID Ppx: Protonix for GI, SCDs for DVT Code Status: Full Code Patient seen, reviewed, and discussed with attending, Dr. Wolf <Maryann GUSMAN,[facility] - Last Filed: 04/03/17 11:21> CCU Objective - Vital Signs / Intake & Output Vital Signs (Last 4 hours): Vital Signs Temp Pulse Pulse Ox 04/03/17 08:00 98.4 F 104 H 98 Intake and Output (Last 8hrs): Intake & Output 04/02/17 04/03/17 04/03/17 22:59 06:59 14:59 Intake Total 1502 892 Output Total 750 300 Balance 752 592 Intake: IV 1322 572 Left Hand 400 22 Right Forearm 922 550 Tube Feeding 180 20 Other 300 Output: Urine 250 300 2-way Urethral 250 300 Emesis 100 Other 400 Other: # Bowel Movements 0 - Medications Active Medications: Active Medications Generic Name Dose Route Start Last Admin Trade Name Freq PRN Reason Stop Dose Admin Aspirin 81 mg 03/31/17 10:00 04/03/17 09:27 Aspirin Chewable PO 81 mg DAILY EMA Administration Chlorhexidine Gluconate 15 ml 04/02/17 14:30 04/03/17 06:41 Peridex PO 15 analia Q4H EMA Administration Clopidogrel Bisulfate 75 mg 03/31/17 10:00 04/03/17 09:27 Plavix PO 75 mg DAILY EMA Administration Enoxaparin Sodium 40 mg 04/03/17 10:00 04/03/17 09:27 Lovenox SC 40 mg DAILY EMA Administration Protocol Dexmedetomidine HCl 400 mcg in 100 mls @ 3.175 mls/hr 03/31/17 12:09 19:15 Precedex 4 Mcg/Ml (100 Ml) IV 0 mcg/kg/hr .Q24H PRN 0 mls/hr Sedation Titration Protocol 0.2 MCG/KG/HR Levetiracetam 500 mg in 100 mls @ 460 mls/hr 03/31/17 17:33 04/03/17 09:27 Keppra 500mg Ivpb IV 460 mls/hr Q12 EMA Administration Propofol 1,000 mg in 100 mls @ 1.905 mls/hr 04/01/17 16:09 04/02/17 14:00 Diprivan IV 5 mcg/kg/min .Q24H PRN 1.905 mls/hr TITRATE PER MD ORDER Titration Protocol 5 MCG/KG/MIN Sodium Chloride 1,000 mls @ 50 mls/hr 04/02/17 13:00 04/02/17 13:00 Sodium Chloride 0.9% IV 50 mls/hr .Q20H EMA Administration Potassium Chloride 20 meq in 100 mls @ 50 mls/hr 04/03/17 07:45 04/03/17 08: 36 Potassium Chloride 20 Meq/100 Ml IVPB 04/03/17 11:44 50 mls/hr Q2H EMA Administration Pantoprazole Sodium 40 mg 03/31/17 10:00 04/03/17 09:27 Protonix Inj IVP 40 mg DAILY EMA Administration - Patient Studies Lab Studies: Microbiology Studies 04/01/17 17:45 C. difficile Antigen & Toxin A,B (M - Final Stool Lab Studies 04/03/17 04/03/17 04/03/17 Range/Units 06:30 05:45 05:45 WBC (4.5-11.0) 10^3/ul RBC (3.5-6.1) 10^6/uL Hgb (14.0-18.0) g/dL Hct (42.0-52.0) % MCV (80.0-105.0) fl MCH (25.0-35.0) pg MCHC (31.0-37.0) g/dl RDW (11.5-14.5) % Plt Count (120.0-450.0) 10^3/uL MPV (7.0-11.0) fl Gran % (50.0-68.0) % Lymph % (Auto) (22.0-35.0) % [place] % (Auto) (1.0-6.0) % Eos % (Auto) (1.5-5.0) % Baso % (Auto) (0.0-3.0) % Gran # (1.4-6.5) Lymph # (1.2-3.4) [place] # (0.1-0.6) Eos # (0.0-0.7) Baso # (0.0-2.0) K/mm3 pCO2 25 L (35-45) mm/Hg pO2 132.0 H (80-100) mm/Hg HCO3 17.8 L (21-28) mmol/L ABG pH 7.46 H (7.35-7.45) ABG Total CO2 18.6 L (22-28) mmol.L ABG O2 Saturation 99.3 H (95-98) % ABG O2 Content 14.7 L (15-23) ML/dl ABG Base Excess -4.8 L (-2.0-3.0) mmol/L ABG Hemoglobin 10.7 L (11.7-17.4) g/dL ABG Carboxyhemoglobin 1.7 H (0.5-1.5) % POC ABG HHb (Measured) 0.7 (0-5) % ABG Methemoglobin 1.4 (0.0-3.0) % ABG O2 Capacity 14.8 L (16-24) mL/dl Hgb O2 Saturation 96.2 (95.0-98.0) % FiO2 40.0 % Sodium 150 H (132-148) mmol/L Potassium 3.3 L (3.6-5.0) mmol/L Chloride 122 H (98-107) mmol/L Carbon Dioxide 21 (21-33) mmol/L Anion Gap 10 (10-20) BUN 16 (7-21) mg/dL Creatinine 0.8 (0.8-1.5) mg/dL Est GFR ( Amer) > 60 Est GFR (Non-Af Amer) > 60 POC Glucose (mg/dL) (65-110) mg/dL Random Glucose 101 (70-110) mg/dL Calcium 8.6 (8.4-10.5) mg/dL Phosphorus 2.0 L (2.5-4.5) mg/dL Magnesium 2.0 (1.7-2.2) mg/dL Total Bilirubin 0.6 (0.2-1.3) mg/dL AST 206 H D (17-59) U/L ALT 516 H (7-56) U/L Alkaline Phosphatase 72 (38-126) U/L Lactate Dehydrogenase 1335 H (333-699) U/L Total Creatine Kinase 99 (35-230) U/L Troponin I 0.04 D ng/mL Total Protein 5.9 (5.8-8.3) g/dL Albumin 3.0 (3.0-4.8) g/dL Globulin 2.9 gm/dL Albumin/Globulin Ratio 1.0 L (1.1-1.8) TSH 3rd Generation 0.55 (0.46-4.68) mIU/mL Pneumocystis Source S. pneumoniae Antigen 04/03/17 04/02/17 04/02/17 Range/Units 05:45 14:23 08:06 WBC 14.1 H (4.5-11.0) 10^3/ul RBC 4.20 (3.5-6.1) 10^6/uL Hgb 11.7 L (14.0-18.0) g/dL Hct 32.9 L (42.0-52.0) % MCV 78.3 L (80.0-105.0) fl MCH 27.9 (25.0-35.0) pg MCHC 35.6 (31.0-37.0) g/dl RDW 13.8 (11.5-14.5) % Plt Count 240 (120.0-450.0) 10^3/uL MPV 8.9 (7.0-11.0) fl Gran % 83.0 H (50.0-68.0) % Lymph % (Auto) 10.3 L (22.0-35.0) % [place] % (Auto) 6.4 H (1.0-6.0) % Eos % (Auto) 0.2 L (1.5-5.0) % Baso % (Auto) 0.1 (0.0-3.0) % Gran # 11.70 H (1.4-6.5) Lymph # 1.5 (1.2-3.4) [place] # 0.9 H (0.1-0.6) Eos # 0.0 (0.0-0.7) Baso # 0.01 (0.0-2.0) K/mm3 pCO2 (35-45) mm/Hg pO2 (80-100) mm/Hg HCO3 (21-28) mmol/L ABG pH (7.35-7.45) ABG Total CO2 (22-28) mmol.L ABG O2 Saturation (95-98) % ABG O2 Content (15-23) ML/dl ABG Base Excess (-2.0-3.0) mmol/L ABG Hemoglobin (11.7-17.4) g/dL ABG Carboxyhemoglobin (0.5-1.5) % POC ABG HHb (Measured) (0-5) % ABG Methemoglobin (0.0-3.0) % ABG O2 Capacity (16-24) mL/dl Hgb O2 Saturation (95.0-98.0) % FiO2 % Sodium 145 (132-148) mmol/L Potassium 3.8 (3.6-5.0) mmol/L Chloride 118 H (98-107) mmol/L Carbon Dioxide 19 L (21-33) mmol/L Anion Gap 12 (10-20) BUN 18 (7-21) mg/dL Creatinine 0.8 (0.8-1.5) mg/dL Est GFR ( Amer) > 60 Est GFR (Non-Af Amer) > 60 POC Glucose (mg/dL) 77 (65-110) mg/dL Random Glucose 89 (70-110) mg/dL Calcium 8.7 (8.4-10.5) mg/dL Phosphorus (2.5-4.5) mg/dL Magnesium (1.7-2.2) mg/dL Total Bilirubin (0.2-1.3) mg/dL AST (17-59) U/L ALT (7-56) U/L Alkaline Phosphatase (38-126) U/L Lactate Dehydrogenase (333-699) U/L Total Creatine Kinase (35-230) U/L Troponin I ng/mL Total Protein (5.8-8.3) g/dL Albumin (3.0-4.8) g/dL Globulin gm/dL Albumin/Globulin Ratio (1.1-1.8) TSH 3rd Generation (0.46-4.68) mIU/mL Pneumocystis Source S. pneumoniae Antigen 03/31/17 Range/Units 12:09 WBC (4.5-11.0) 10^3/ul RBC (3.5-6.1) 10^6/uL Hgb (14.0-18.0) g/dL Hct (42.0-52.0) % MCV (80.0-105.0) fl MCH (25.0-35.0) pg MCHC (31.0-37.0) g/dl RDW (11.5-14.5) % Plt Count (120.0-450.0) 10^3/uL MPV (7.0-11.0) fl Gran % (50.0-68.0) % Lymph % (Auto) (22.0-35.0) % [place] % (Auto) (1.0-6.0) % Eos % (Auto) (1.5-5.0) % Baso % (Auto) (0.0-3.0) % Gran # (1.4-6.5) Lymph # (1.2-3.4) [place] # (0.1-0.6) Eos # (0.0-0.7) Baso # (0.0-2.0) K/mm3 pCO2 (35-45) mm/Hg pO2 (80-100) mm/Hg HCO3 (21-28) mmol/L ABG pH (7.35-7.45) ABG Total CO2 (22-28) mmol.L ABG O2 Saturation (95-98) % ABG O2 Content (15-23) ML/dl ABG Base Excess (-2.0-3.0) mmol/L ABG Hemoglobin (11.7-17.4) g/dL ABG Carboxyhemoglobin (0.5-1.5) % POC ABG HHb (Measured) (0-5) % ABG Methemoglobin (0.0-3.0) % ABG O2 Capacity (16-24) mL/dl Hgb O2 Saturation (95.0-98.0) % FiO2 % Sodium (132-148) mmol/L Potassium (3.6-5.0) mmol/L Chloride (98-107) mmol/L Carbon Dioxide (21-33) mmol/L Anion Gap (10-20) BUN (7-21) mg/dL Creatinine (0.8-1.5) mg/dL Est GFR ( Amer) Est GFR (Non-Af Amer) POC Glucose (mg/dL) (65-110) mg/dL Random Glucose (70-110) mg/dL Calcium (8.4-10.5) mg/dL Phosphorus (2.5-4.5) mg/dL Magnesium (1.7-2.2) mg/dL Total Bilirubin (0.2-1.3) mg/dL AST (17-59) U/L ALT (7-56) U/L Alkaline Phosphatase (38-126) U/L Lactate Dehydrogenase (333-699) U/L Total Creatine Kinase (35-230) U/L Troponin I ng/mL Total Protein (5.8-8.3) g/dL Albumin (3.0-4.8) g/dL Globulin gm/dL Albumin/Globulin Ratio (1.1-1.8) TSH 3rd Generation (0.46-4.68) mIU/mL Pneumocystis Source Serum S. pneumoniae Antigen Not detected Laboratory Results - last 24 hr 03/31/17 04/02/17 04/02/17 12:09 08:06 14:23 WBC RBC Hgb Hct MCV MCH MCHC RDW Plt Count MPV Gran % Lymph % (Auto) [place] % (Auto) Eos % (Auto) Baso % (Auto) Gran # Lymph # [place] # Eos # Baso # pCO2 pO2 HCO3 ABG pH ABG Total CO2 ABG O2 Saturation ABG O2 Content ABG Base Excess ABG Hemoglobin ABG Carboxyhemoglobin POC ABG HHb (Measured) ABG Methemoglobin ABG O2 Capacity Hgb O2 Saturation FiO2 Sodium 145 Potassium 3.8 Chloride 118 H Carbon Dioxide 19 L Anion Gap 12 BUN 18 Creatinine 0.8 Est GFR ( Amer) > 60 Est GFR (Non-Af Amer) > 60 POC Glucose (mg/dL) 77 Random Glucose 89 Calcium 8.7 Phosphorus Magnesium Total Bilirubin AST ALT Alkaline Phosphatase Lactate Dehydrogenase Total Creatine Kinase Troponin I Total Protein Albumin Globulin Albumin/Globulin Ratio TSH 3rd Generation Pneumocystis Source Serum S. pneumoniae Antigen Not detected 04/03/17 04/03/17 04/03/17 05:45 05:45 05:45 WBC 14.1 H RBC 4.20 Hgb 11.7 L Hct 32.9 L MCV 78.3 L MCH 27.9 MCHC 35.6 RDW 13.8 Plt Count 240 MPV 8.9 Gran % 83.0 H Lymph % (Auto) 10.3 L [place] % (Auto) 6.4 H Eos % (Auto) 0.2 L Baso % (Auto) 0.1 Gran # 11.70 H Lymph # 1.5 [place] # 0.9 H Eos # 0.0 Baso # 0.01 pCO2 pO2 HCO3 ABG pH ABG Total CO2 ABG O2 Saturation ABG O2 Content ABG Base Excess ABG Hemoglobin ABG Carboxyhemoglobin POC ABG HHb (Measured) ABG Methemoglobin ABG O2 Capacity Hgb O2 Saturation FiO2 Sodium 150 H Potassium 3.3 L Chloride 122 H Carbon Dioxide 21 Anion Gap 10 BUN 16 Creatinine 0.8 Est GFR ( Amer) > 60 Est GFR (Non-Af Amer) > 60 POC Glucose (mg/dL) Random Glucose 101 Calcium 8.6 Phosphorus 2.0 L Magnesium 2.0 Total Bilirubin 0.6 AST 206 H D ALT 516 H Alkaline Phosphatase 72 Lactate Dehydrogenase 1335 H Total Creatine Kinase 99 Troponin I 0.04 D Total Protein 5.9 Albumin 3.0 Globulin 2.9 Albumin/Globulin Ratio 1.0 L TSH 3rd Generation 0.55 Pneumocystis Source S. pneumoniae Antigen 04/03/17 06:30 WBC RBC Hgb Hct MCV MCH MCHC RDW Plt Count MPV Gran % Lymph % (Auto) [place] % (Auto) Eos % (Auto) Baso % (Auto) Gran # Lymph # [place] # Eos # Baso # pCO2 25 L pO2 132.0 H HCO3 17.8 L ABG pH 7.46 H ABG Total CO2 18.6 L ABG O2 Saturation 99.3 H ABG O2 Content 14.7 L ABG Base Excess -4.8 L ABG Hemoglobin 10.7 L ABG Carboxyhemoglobin 1.7 H POC ABG HHb (Measured) 0.7 ABG Methemoglobin 1.4 ABG O2 Capacity 14.8 L Hgb O2 Saturation 96.2 FiO2 40.0 Sodium Potassium Chloride Carbon Dioxide Anion Gap BUN Creatinine Est GFR ( Amer) Est GFR (Non-Af Amer) POC Glucose (mg/dL) Random Glucose Calcium Phosphorus Magnesium Total Bilirubin AST ALT Alkaline Phosphatase Lactate Dehydrogenase Total Creatine Kinase Troponin I Total Protein Albumin Globulin Albumin/Globulin Ratio TSH 3rd Generation Pneumocystis Source S. pneumoniae Antigen Attending/Attestation - Attestation I have personally seen and examined this patient.: Yes I have fully participated in the care of the patient.: Yes I have reviewed all pertinent clinical information: Yes Notes (Text): 04/03/17 11:19 61 y/o M s/p cardiac arrest > 72 hrs w/o any neurological improvement. Minimal CN function and ability to to spont take breaths. Off all sedation. No signs of seizure activity. Can do EEG on Tuesday to confirm. MRi done Family meetign to take place today to determine goals of care. Palliative care, neurology following the patient. cc time 55 min
--- NOTE | 2017-04-03 09:41 | PN ---
DATE: 04/03/2017 SUBJECTIVE: The patient is in bed, in no acute distress, nontoxic. PHYSICAL EXAMINATION: GENERAL: On exam, temperature is 98.0, blood pressure is 130/60, respiratory rate of 18, heart rate of 64. HEENT: Unremarkable. NECK: Supple. LUNGS: Decreased breath sounds. HEART: Normal S1 and S2. ABDOMEN: Soft and nontender. LABORATORY EXAMINATION: Reveals a white count of 14,000, hemoglobin of 11, platelets of 240, and the chemistries are noted sodium of 150, and procalcitonin 36. C. diff is negative. Review of orders reveals the patient is off of antibiotics. Dr. Ezio Rico's note is reviewed. ASSESSMENT/PLAN: This is a 61-year-old male seen in the Intensive Care Unit/Critical Care Unit this morning unresponsive, comatose, intubated with a history of chronic back pain; on oxycodone and Xanax, admitted after a cardiac arrest after cocaine use, now with systemic inflammatory response syndrome and respiratory failure, intubated on the ventilator, unresponsive. Currently off of antibiotics. All cultures negative. No evidence of infection. MRI is noted. Herpes encephalitis as mentioned in the MRI. This patient does not have herpes encephalitis; however, he does have a very high risk of developing nosocomial infections. Overall prognosis is quite poor for this patient who is comatose, unresponsive, intubated, status post cardiac arrest secondary to cocaine use. Jose Daniel Milner MD
--- NOTE | 2017-04-03 09:51 | CP.PCM.PN ---
Subjective - Date & Time of Evaluation Date of Evaluation: 04/03/17 Time of Evaluation: 09:30 - Subjective Subjective: remains unresponsive on vent Objective - Vital Signs/Intake and Output Vital Signs (last 24 hours): Temp Pulse Resp BP Pulse Ox 98.4 F 104 H 23 134/70 98 04/03/17 08:00 04/03/17 08:00 04/02/17 07:09 04/03/17 07:00 04/03/17 08:00 Intake and Output: 04/03/17 04/03/17 06:59 18:59 Intake Total 892 Output Total 300 Balance 592 - Medications Medications: Current Medications Aspirin (Aspirin Chewable) 81 mg PO DAILY [facility] Last Admin: 04/03/17 09:27 Dose: 81 mg Chlorhexidine Gluconate (Peridex) 15 ml PO Q4H [facility] Last Admin: 04/03/17 06:41 Dose: 15 analia Clopidogrel Bisulfate (Plavix) 75 mg PO DAILY [facility] Last Admin: 04/03/17 09:27 Dose: 75 mg Enoxaparin Sodium (Lovenox) 40 mg SC DAILY [facility] PRN Reason: Protocol Last Admin: 04/03/17 09:27 Dose: 40 mg Dexmedetomidine HCl (Precedex 4 Mcg/Ml (100 Ml)) 400 mcg in 100 mls @ 3.175 mls /hr IV .Q24H PRN; Protocol; 0.2 MCG/KG/HR PRN Reason: Sedation Last Titration: 04/01/17 19:15 Dose: 0 mcg/kg/hr, 0 mls/hr Levetiracetam (Keppra 500mg Ivpb) 500 mg in 100 mls @ 460 mls/hr IV Q12 [facility] Last Admin: 04/03/17 09:27 Dose: 460 mls/hr Propofol (Diprivan) 1,000 mg in 100 mls @ 1.905 mls/hr IV .Q24H PRN; Protocol; 5 MCG/KG/MIN PRN Reason: TITRATE PER MD ORDER Last Titration: 04/02/17 14:00 Dose: 5 mcg/kg/min, 1.905 mls/hr Sodium Chloride (Sodium Chloride 0.9%) 1,000 mls @ 50 mls/hr IV .Q20H [facility] Last Admin: 04/02/17 13:00 Dose: 50 mls/hr Potassium Chloride (Potassium Chloride 20 Meq/100 Ml) 20 meq in 100 mls @ 50 mls/hr IVPB Q2H [facility] Stop: 04/03/17 11:44 Last Admin: 04/03/17 08:36 Dose: 50 mls/hr Pantoprazole Sodium (Protonix Inj) 40 mg IVP DAILY [facility] Last Admin: 04/03/17 09:27 Dose: 40 mg - Labs Labs: 04/03/17 05:45 04/03/17 05:45 PT 13.1 Seconds (9.9-11.8) H 03/31/17 09:13 INR 1.21 (0.93-1.08) H 03/31/17 09:13 APTT 68.6 Seconds (23.7-30.8) H 03/31/17 09:13 - Respiratory Exam Respiratory Exam: Clear to Ausculation Bilateral Additional comments: endotracheal tube intact, good air entry bilat - GI/Abdominal Exam GI & Abdominal Exam: Soft, Hypoactive Bowel Sounds - Extremities Exam Extremities Exam: Normal Inspection - Neurological Exam Neurological Exam: Altered - Skin Skin Exam: Dry, Warm Assessment and Plan (1) Cardiac arrest Status: Acute (2) Hypoxic ischemic encephalopathy Status: Acute - Assessment and Plan (Free Text) Plan: continue supportive care, prognosis remains very poor
--- NOTE | 2017-04-03 12:36 | RAD ---
HISTORY: intubated, f/u COMPARISON: No prior. FINDINGS: In situ ETT, tip of which lies approximately 3.97 cm above teagan. NGT is present tip of which lies left mid abdomen. LUNGS: Slightly improved opacity left lower lobe that may represent some combination of atelectasis and or infiltrate with small residual left effusion. . PLEURA: No significant pleural effusion identified, no pneumothorax apparent. CARDIOVASCULAR: Heart size is within range of normal. OSSEOUS STRUCTURES: No significant abnormalities. VISUALIZED UPPER ABDOMEN: Normal. OTHER FINDINGS: None. IMPRESSION: ETT and NGT as above. Slightly improved opacity left lower lobe that may represent some combination of atelectasis and or infiltrate with small residual left effusion. .
[2017-04-03] MEDS: Sodium Chloride 0.9% 1,000 ML IV SCH (12:56)
[2017-04-03] MEDS: Sodium Chloride 0.45% 1,000 ML IV SCH (15:40)
[2017-04-03] MEDS: Famotidine 20mg/50ml 20 MG/50 ML BAG IVPB SCH (22:17)
--- NOTE | 2017-04-03 22:31 | PN ---
DATE: 04/03/2017 COVERING: Dr. Frankie Macias. REASON FOR CONSULTATION: Status post cardiac arrest, rule out anoxic encephalopathy, and borderline troponin positive. SUBJECTIVE: The patient remains on vent, on IV fluid, comatose. Family is at the bedside. PHYSICAL EXAMINATION: VITAL SIGNS: Temperature afebrile, heart rate 50, blood pressure 152/85. HEENT: PERRLA and extraocular muscles are intact. NECK: Supple. No carotid bruit or thyromegaly. CHEST: Clear to auscultation. HEART: S1 and S2 regular. ABDOMEN: Soft. EXTREMITIES: Clubbing and cyanosis negative. LABORATORY DATA: Blood workup as follows: WBC , hemoglobin , hematocrit 32.9, platelet count 240. Chemistry shows sodium 150, potassium 3.3, chloride 130, carbon dioxide 21, anion gap of 11, BUN 16, creatinine 0.8. Troponin 0.04. IMPRESSION: Hyponatremia status post cardiac arrest, anoxic encephalopathy, history of substance abuse. The patient's echocardiography showed ejection fraction 65%, trace mitral regurgitation, trace tricuspid regurgitation, no vegetation noted. MRI of the brain done yesterday, rule out chronic ischemic changes, possibly herpes encephalitis cannot be excluded. Status post CPR, history of trace mitral and trace tricuspid regurgitation, history of substance abuse, rule out anoxic encephalopathy. RECOMMENDATIONS: Hyponatremia, change IV fluid to half normal. Supplement electrolytes as needed. Continue supportive care. Overall, the patient's condition is critical. Long-term prognosis is guarded.. Continue DVT prophylaxis. Continue aspirin and Plavix. Monitor electrolytes. We will follow with you. Critical and long-term prognosis is guarded. We will transfer care tomorrow to Dr. Macias. Thank you Dr. Macias providing us the opportunity in taking care of the patient, Suresh. Mayda Hodges MD
[2017-04-04] MEDS: Chlorhexidine 0.12% Oral Sol 480 ml Bot PO SCH ×6 (02:30→21:53)
[2017-04-04] MEDS: Sodium Chloride 0.45% 1,000 ML IV SCH ×2 (05:45→18:49)
[2017-04-04 06:34] LABS: ARTERIAL BLOOD GAS HCO3 20.1 mmol/L (21-28); ARTERIAL BLOOD GAS O2 CAPACITY 16.1 mL/dl (16-24); ARTERIAL BLOOD GAS O2 CONTENT 15.6 ML/dl (15-23); ARTERIAL BLOOD GAS PH 7.48 (7.35-7.45); ARTERIAL BLOOD HGB O2 SAT 94.1 % (95.0-98.0); CARBOXYHEMOGLOBIN 1.7 % (0.5-1.5); HHB 3.3 % (0-5); METHEMOGLOBIN 0.9 % (0.0-3.0)
[2017-04-04 07:52] LABS: EOS # 0.1 (0.0-0.7); EOS % 1.1 % (1.5-5.0); GRAN # 10.08 (1.4-6.5); GRAN % 81.7 % (50.0-68.0); HEMATOCRIT 35.4 % (42.0-52.0); LYMPH # 1.3 (1.2-3.4); LYMPH % 10.9 % (22.0-35.0); MEAN CELL VOLUME 78.7 fl (80.0-105.0); MEAN CORPUSCULAR HGB CONC 35.6 g/dl (31.0-37.0); MEAN PLATELET VOLUME 9.4 fl (7.0-11.0); MONO # 0.8 (0.1-0.6); MONO % 6.3 % (1.0-6.0); RED CELL DISTRIBUTION WIDTH 13.9 % (11.5-14.5); WHITE BLOOD COUNT 12.3 10^3/ul (4.5-11.0)
[2017-04-04 08:03] LABS: CHLORIDE 122 mmol/L (98-107)
[2017-04-04 08:05] LABS: ALKALINE PHOSPHATASE 75 U/L (38-126); ALT/SGPT 343 U/L (7-56); AST/SGOT 135 U/L (17-59); BILIRUBIN,TOTAL 0.7 mg/dL (0.2-1.3); BLOOD UREA NITROGEN 17 mg/dL (7-21); CALCIUM 8.7 mg/dL (8.4-10.5); CARBON DIOXIDE 24 mmol/L (21-33); GFR AFRICAN-AMERICAN > 60; GLUCOSE,RANDOM 94 mg/dL (70-110); POTASSIUM 3.4 mmol/L (3.6-5.0); SODIUM 154 mmol/L (132-148); TOTAL PROTEIN 6.1 g/dL (5.8-8.3)
[2017-04-04 08:14] LABS: TROPONIN I 0.02 ng/mL
--- NOTE | 2017-04-04 08:46 | RAD ---
HISTORY: intubated, f/u COMPARISON: 04/03/2017 FINDINGS: LUNGS: Evaluation somewhat limited due to oblique positioning. No infiltrate. PLEURA: No significant pleural effusion identified, no pneumothorax apparent. CARDIOVASCULAR: Normal heart size. ET tube and NG tube unchanged. OSSEOUS STRUCTURES: No significant abnormalities. VISUALIZED UPPER ABDOMEN: Normal. OTHER FINDINGS: None. IMPRESSION: No active disease.
[2017-04-04] MEDS: levETIRAcetam 500mg IVPB 500 MG/100 ML BAG IV SCH ×2 (09:39→21:49)
[2017-04-04] MEDS: Enoxaparin 40 mg Syringe SC SCH (09:39)
[2017-04-04] MEDS: Famotidine 20mg/50ml 20 MG/50 ML BAG IVPB SCH ×2 (09:39→22:41)
--- NOTE | 2017-04-04 10:05 | PN ---
DATE: 04/02/2017 SUBJECTIVE: The patient was seen in the CCU 129, bed 7. The patient is unresponsive and comatose. PHYSICAL EXAMINATION: VITAL SIGNS: On exam, temperature is 96, blood pressure is 130/70, and respiratory rate on the vent. HEENT: Examination of HEENT reveals ET tube in place. NECK: Supple. LUNGS: Have decreased breath sounds. HEART: Normal S1 and S2. GASTROINTESTINAL: Abdominal examination is soft. LABORATORY DATA: Examination reveals a white count of 16,200, hemoglobin of 11, and platelets of 217. The patient's BUN is 19 and creatinine of 0.7. LFTs are improving. Procalcitonin is noted and toxicology is noted. Microbiology reveals the blood cultures are negative. Urine cultures are negative. DIAGNOSTIC DATA: The patient had an MRI of the and yesterday which was read by Dr. Rolo Roldan and review of the MRI reveals restricted diffusion, temporal lobes bilaterally and chronic ischemia and most likely from hypoxic events, herpes encephalitis would be less likely, though not excluded. ASSESSMENT AND PLAN: This is a 61-year-old male with chronic back pain, on oxycodone and Xanax with a cardiac arrest after cocaine use with systemic inflammatory response syndrome and respiratory failure, intubated at this point, unresponsive after cardiac arrest and the cultures are negative. I highly doubt herpes encephalitis, MRI findings, the history is not consistent and this is not a behavior herpes encephalitis patient. The patient was fine until the day of admission when he had cocaine and a cardiac arrest. He had no central nervous systems complaints that day and so far the blood cultures and urine cultures are negative. Overall prognosis quite poor for this patient who was comatose and status post cardiac arrest. We will discontinue the cefepime and case discussed with Dr. Jeremy Alfaro. The patient is at high risk of developing nosocomial infections. This is not herpes encephalitis. Jose Daniel Milner MD
--- NOTE | 2017-04-04 10:26 | CP.PCM.CON ---
History of Present Illness - History of Present Illness History of Present Illness: Palliative consult requested by Dr Jayshree Pritchard Reason: Goals of care 61 year old male with history of back pain, substance abuse who had difficulty breathing and became unresponsive at home. Intubated in the field, lost pulse twice during ACLS. CT of head showed diffuse decrease in white/bauer matter consistent with global anoxia. MRI of Brain revealed abnormal non enhancing prolonged T2 signal changes within temporal lobes, also seen mismatched ADC maps. EEG reports abnormal polymorphic delta waves and diffuse slowing through out study consistent with severer bilateral cerebral dysfunction. The patient has no gag or corneal reflex, pupils are fixed. PMHx: multiple substance abuse, former alcoholic, restless leg syndrome, chronic back pain. Social History: Former smoker, former alcoholic, multiple substance abuse. , lives with spouse and youngest son. Family History: Non contributory. Advance Care Planning: The patient did not have an Advanced Directive Reviews of Systems: As per HPI, unable to obtain intubated, anoxic encephalopathy Past Patient History - Infectious Disease Hx of Infectious Diseases: None - Past Social History Smoking Status: Light Smoker < 10 Cigarettes Daily - CARDIAC Hx Cardiac Disorders: No Other/Comment: multiple scars to bilat arm as per unk if pt is using substances - PULMONARY Hx Respiratory Disorders: No - NEUROLOGICAL Hx Neurological Disorder: No - HEENT Hx HEENT Problems: No - RENAL Hx Chronic Kidney Disease: No - ENDOCRINE/METABOLIC Hx Endocrine Disorders: No - HEMATOLOGICAL/ONCOLOGICAL Hx Blood Disorders: No - INTEGUMENTARY Hx Dermatological Problems: No - MUSCULOSKELETAL/RHEUMATOLOGICAL Hx Back Pain: Yes (chronic) Hx Falls: No Other/Comment: Restless legs- takes Xanax for sleep. Chronic knee pain. foot spurs -injected last month - GASTROINTESTINAL Hx Gastrointestinal Disorders: No - GENITOURINARY/GYNECOLOGICAL Other/Comment: c/o urinary problems today - took AZO pill - PSYCHIATRIC Hx Psychophysiologic Disorder: No Hx Anxiety: No Hx Depression: No Hx Emotional Abuse: No Hx Panic Symptoms: No Hx Substance Use: No - SURGICAL HISTORY Hx Surgeries: No - ANESTHESIA Hx Anesthesia Reactions: No Meds Allergies/Adverse Reactions: Allergies Allergy/AdvReac Type Severity Reaction Status Date / Time No Known Allergies Allergy Verified 03/30/17 19:25 - Medications Medications: Current Medications Aspirin (Aspirin Chewable) 81 mg PO DAILY [facility] Last Admin: 04/04/17 09:39 Dose: 81 mg Chlorhexidine Gluconate (Peridex) 15 ml PO Q4H [facility] Last Admin: 04/04/17 06:08 Dose: 15 analia Clopidogrel Bisulfate (Plavix) 75 mg PO DAILY [facility] Last Admin: 04/04/17 09:39 Dose: 75 mg Enoxaparin Sodium (Lovenox) 40 mg SC DAILY [facility] PRN Reason: Protocol Last Admin: 04/04/17 09:39 Dose: 40 mg Dexmedetomidine HCl (Precedex 4 Mcg/Ml (100 Ml)) 400 mcg in 100 mls @ 3.175 mls /hr IV .Q24H PRN; Protocol; 0.2 MCG/KG/HR PRN Reason: Sedation Last Titration: 04/01/17 19:15 Dose: 0 mcg/kg/hr, 0 mls/hr Levetiracetam (Keppra 500mg Ivpb) 500 mg in 100 mls @ 460 mls/hr IV Q12 [facility] Last Admin: 04/04/17 09:39 Dose: 460 mls/hr Propofol (Diprivan) 1,000 mg in 100 mls @ 1.905 mls/hr IV .Q24H PRN; Protocol; 5 MCG/KG/MIN PRN Reason: TITRATE PER MD ORDER Last Titration: 04/03/17 11:15 Dose: 0 mcg/kg/min, 0 mls/hr Sodium Chloride (Sodium Chloride 0.45%) 1,000 mls @ 75 mls/hr IV .[id number] [facility] Last Admin: 04/04/17 05:45 Dose: 75 mls/hr Famotidine (Pepcid 20mg/50ml Premix) 20 mg in 50 mls @ 100 mls/hr IVPB Q12 [facility] Last Admin: 04/04/17 09:39 Dose: 100 mls/hr Potassium Chloride (Potassium Chloride 20 Meq/100 Ml) 20 meq in 100 mls @ 50 mls/hr IVPB Q2H [facility] Stop: 04/04/17 13:44 Last Admin: 04/04/17 10:09 Dose: 50 mls/hr Physical Exam - Constitutional Appears: Chronically Ill - Head Exam Head Exam: NORMAL INSPECTION - Eye Exam Pupil Exam: Fixed Additional comments: not responsive to light - ENT Exam ENT Exam: Mucous Membranes Moist Additional comments: no gag reflex - Neck Exam Neck exam: Positive for: Normal Inspection - Respiratory Exam Respiratory Exam: Clear to Auscultation Bilateral - Cardiovascular Exam Cardiovascular Exam: REGULAR RHYTHM, +S1, +S2 - GI/Abdominal Exam GI & Abdominal Exam: Diminished Bowel Sounds, Soft - Extremities Exam Extremities exam: Positive for: normal capillary refill, normal inspection - Back Exam Back exam: NORMAL INSPECTION - Skin Skin Exam: Dry, Warm - Additional Findings Additional findings: Pallaitve performance scale rating Results - Vital Signs Recent Vital Signs: Last Vital Signs Temp 98.2 F 04/04/17 04:00 Pulse 57 L 04/04/17 06:00 Resp 23 04/02/17 07:09 BP 159/80 H 04/04/17 04:00 Pulse Ox 99 04/04/17 04:00 - Labs Result Diagrams: 04/04/17 07:00 04/04/17 07:38 Labs: Laboratory Results - last 24 hr 04/02/17 04/04/17 04/04/17 08:06 06:24 07:00 WBC 12.3 H RBC 4.50 Hgb 12.6 L Hct 35.4 L MCV 78.7 L MCH 28.0 MCHC 35.6 RDW 13.9 Plt Count 270 MPV 9.4 Gran % 81.7 H Lymph % (Auto) 10.9 L [place] % (Auto) 6.3 H Eos % (Auto) 1.1 L Baso % (Auto) 0.0 Gran # 10.08 H Lymph # 1.3 [place] # 0.8 H Eos # 0.1 Baso # 0.00 pCO2 27 L pO2 62.0 L HCO3 20.1 L ABG pH 7.48 H ABG Total CO2 20.9 L ABG O2 Saturation 96.6 ABG O2 Content 15.6 ABG Base Excess -2.3 L ABG Hemoglobin 11.8 ABG Carboxyhemoglobin 1.7 H POC ABG HHb (Measured) 3.3 ABG Methemoglobin 0.9 ABG O2 Capacity 16.1 Hgb O2 Saturation 94.1 L FiO2 35.0 Sodium Potassium Chloride Carbon Dioxide Anion Gap BUN Creatinine Est GFR ( Amer) Est GFR (Non-Af Amer) POC Glucose (mg/dL) 77 Random Glucose Calcium Total Bilirubin AST ALT Alkaline Phosphatase Lactate Dehydrogenase Total Creatine Kinase Troponin I Total Protein Albumin Globulin Albumin/Globulin Ratio 04/04/17 07:38 WBC RBC Hgb Hct MCV MCH MCHC RDW Plt Count MPV Gran % Lymph % (Auto) [place] % (Auto) Eos % (Auto) Baso % (Auto) Gran # Lymph # [place] # Eos # Baso # pCO2 pO2 HCO3 ABG pH ABG Total CO2 ABG O2 Saturation ABG O2 Content ABG Base Excess ABG Hemoglobin ABG Carboxyhemoglobin POC ABG HHb (Measured) ABG Methemoglobin ABG O2 Capacity Hgb O2 Saturation FiO2 Sodium 154 H Potassium 3.4 L Chloride 122 H Carbon Dioxide 24 Anion Gap 11 BUN 17 Creatinine 0.8 Est GFR ( Amer) > 60 Est GFR (Non-Af Amer) > 60 POC Glucose (mg/dL) Random Glucose 94 Calcium 8.7 Total Bilirubin 0.7 AST 135 H D ALT 343 H Alkaline Phosphatase 75 Lactate Dehydrogenase 1645 H Total Creatine Kinase 113 Troponin I 0.02 D Total Protein 6.1 Albumin 3.1 Globulin 3.0 Albumin/Globulin Ratio 1.0 L Assessment & Plan - Assessment and Plan (Free Text) Assessment: 61 year old male with history of substance abuse, back pain who was admitted s/ p cardiopulmonary arrest with severe anoxic brain injury,respiratory failure, seizure disorder. The patient has no corneal or gag reflex, pupils are pinpoint. He does not respond to painful stimuli. He does over breath the ventilator. Patients Melissa at bedside. and I had a very lengthy discussion regarding her husbands illness. She verbalized understanding that meaningful hope for recovery is slim. She understands that at best her will be bed bound, totally dependent on others for daily living needs and that he will require ventilator and feeding tube. I affirmed that he will have to be cared for in a LTAC. states she knows this but that her would have wanted to continue all life prolonging measures even in this situation. I did explain that hospice/ end of life care was also an option in the future if she felt the burdens of care outweigh the benefit of prolonging life. Encouraged / family to align with a palliative care provider within LTAC for future guidance and counseling. Psychosocial support given. Spiritual support offered. Time spent in goals of care discussion and palliative counseling, 40 minutes Plan: Palliative counseling, goals of care planning
--- NOTE | 2017-04-04 11:28 | CP.PCM.PN ---
Subjective - Date & Time of Evaluation Date of Evaluation: 04/04/17 Time of Evaluation: 11:20 - Subjective Subjective: Continues to be on the ventilator, no fevers overnight. Objective - Vital Signs/Intake and Output Vital Signs (last 24 hours): Temp Pulse Resp BP Pulse Ox 98.2 F 57 L 23 159/80 H 99 04/04/17 04:00 04/04/17 06:00 04/02/17 07:09 04/04/17 04:00 04/04/17 04:00 Intake and Output: 04/04/17 04/04/17 06:59 18:59 Intake Total 1450 Output Total 150 Balance 1300 - Medications Medications: Current Medications Aspirin (Aspirin Chewable) 81 mg PO DAILY [facility] Last Admin: 04/04/17 09:39 Dose: 81 mg Chlorhexidine Gluconate (Peridex) 15 ml PO Q4H [facility] Last Admin: 04/04/17 06:08 Dose: 15 analia Clopidogrel Bisulfate (Plavix) 75 mg PO DAILY [facility] Last Admin: 04/04/17 09:39 Dose: 75 mg Enoxaparin Sodium (Lovenox) 40 mg SC DAILY [facility] PRN Reason: Protocol Last Admin: 04/04/17 09:39 Dose: 40 mg Dexmedetomidine HCl (Precedex 4 Mcg/Ml (100 Ml)) 400 mcg in 100 mls @ 3.175 mls /hr IV .Q24H PRN; Protocol; 0.2 MCG/KG/HR PRN Reason: Sedation Last Titration: 04/01/17 19:15 Dose: 0 mcg/kg/hr, 0 mls/hr Levetiracetam (Keppra 500mg Ivpb) 500 mg in 100 mls @ 460 mls/hr IV Q12 [facility] Last Admin: 04/04/17 09:39 Dose: 460 mls/hr Propofol (Diprivan) 1,000 mg in 100 mls @ 1.905 mls/hr IV .Q24H PRN; Protocol; 5 MCG/KG/MIN PRN Reason: TITRATE PER MD ORDER Last Titration: 04/03/17 11:15 Dose: 0 mcg/kg/min, 0 mls/hr Sodium Chloride (Sodium Chloride 0.45%) 1,000 mls @ 75 mls/hr IV .[id number] [facility] Last Admin: 04/04/17 05:45 Dose: 75 mls/hr Famotidine (Pepcid 20mg/50ml Premix) 20 mg in 50 mls @ 100 mls/hr IVPB Q12 [facility] Last Admin: 04/04/17 09:39 Dose: 100 mls/hr - Labs Labs: 04/04/17 07:00 04/04/17 07:38 PT 13.1 Seconds (9.9-11.8) H 03/31/17 09:13 INR 1.21 (0.93-1.08) H 03/31/17 09:13 APTT 68.6 Seconds (23.7-30.8) H 03/31/17 09:13 - Constitutional Appears: Other (Intubated, sedated) - ENT Exam Additional comments: ET tube in place - Neck Exam Neck Exam: absent: Meningismus - Respiratory Exam Respiratory Exam: Decreased Breath Sounds - Cardiovascular Exam Cardiovascular Exam: +S1, +S2 - GI/Abdominal Exam GI & Abdominal Exam: Soft. absent: Tenderness Assessment and Plan - Assessment and Plan (Free Text) Plan: Assessment Systemic Inflammatory Response Syndrome, probably stress reaction after cardiac arrest related to cocaine use, currently with ventilator-dependent respiratory failure chronic back pain Plan Will continue to monitor off antibiotics since he is at risk for nosocomial infections MRI brain findings noted - medial temporal lobe affectation more likely ischemic in nature, unlikely herpes encephalitis - no treatment for herpes necessary at the moment Overall prognosis is poor
--- NOTE | 2017-04-04 11:54 | CP.PCM.PN ---
<Clemencia Pena - Last Filed: 04/04/17 11:50> Subjective - Date & Time of Evaluation Date of Evaluation: 04/04/17 Time of Evaluation: 11:50 - Subjective Subjective: Neurology Progress Note for Cat Ponce PGY2 Patient seen and examined at bedside. As per nursing, there were no acute overnight events. Patient is intubated and not sedated. ROS could not be obtained. As per family, they would like to proceed with trach and peg after long discussion about prognosis. Objective - Vital Signs/Intake and Output Vital Signs (last 24 hours): Temp Pulse Resp BP Pulse Ox 97.5 F L 57 L 25 H 143/64 100 04/04/17 11:00 04/04/17 11:00 04/04/17 10:00 04/04/17 11:00 04/04/17 11:00 Intake and Output: 04/04/17 04/04/17 06:59 18:59 Intake Total 1450 Output Total 150 Balance 1300 - Medications Medications: Current Medications Aspirin (Aspirin Chewable) 81 mg PO DAILY [facility] Last Admin: 04/04/17 09:39 Dose: 81 mg Chlorhexidine Gluconate (Peridex) 15 ml PO Q4H [facility] Last Admin: 04/04/17 10:49 Dose: 1 analia Clopidogrel Bisulfate (Plavix) 75 mg PO DAILY [facility] Last Admin: 04/04/17 09:39 Dose: 75 mg Enoxaparin Sodium (Lovenox) 40 mg SC DAILY [facility] PRN Reason: Protocol Last Admin: 04/04/17 09:39 Dose: 40 mg Dexmedetomidine HCl (Precedex 4 Mcg/Ml (100 Ml)) 400 mcg in 100 mls @ 3.175 mls /hr IV .Q24H PRN; Protocol; 0.2 MCG/KG/HR PRN Reason: Sedation Last Titration: 04/01/17 19:15 Dose: 0 mcg/kg/hr, 0 mls/hr Levetiracetam (Keppra 500mg Ivpb) 500 mg in 100 mls @ 460 mls/hr IV Q12 [facility] Last Admin: 04/04/17 09:39 Dose: 460 mls/hr Propofol (Diprivan) 1,000 mg in 100 mls @ 1.905 mls/hr IV .Q24H PRN; Protocol; 5 MCG/KG/MIN PRN Reason: TITRATE PER MD ORDER Last Titration: 04/03/17 11:15 Dose: 0 mcg/kg/min, 0 mls/hr Sodium Chloride (Sodium Chloride 0.45%) 1,000 mls @ 75 mls/hr IV .[id number] [facility] Last Admin: 04/04/17 05:45 Dose: 75 mls/hr Famotidine (Pepcid 20mg/50ml Premix) 20 mg in 50 mls @ 100 mls/hr IVPB Q12 [facility] Last Admin: 04/04/17 09:39 Dose: 100 mls/hr Potassium Chloride (Potassium Chloride 20 Meq/100 Ml) 20 meq in 100 mls @ 50 mls/hr IVPB Q2H [facility] Stop: 04/04/17 13:44 Last Admin: 04/04/17 10:09 Dose: 50 mls/hr - Labs Labs: 04/04/17 07:00 04/04/17 07:38 PT 13.1 Seconds (9.9-11.8) H 03/31/17 09:13 INR 1.21 (0.93-1.08) H 03/31/17 09:13 APTT 68.6 Seconds (23.7-30.8) H 03/31/17 09:13 - Constitutional Appears: No Acute Distress - Head Exam Head Exam: ATRAUMATIC, NORMAL INSPECTION, NORMOCEPHALIC - Eye Exam Pupil Exam: Fixed - ENT Exam ENT Exam: Mucous Membranes Moist - Respiratory Exam Respiratory Exam: Clear to Ausculation Bilateral, NORMAL BREATHING PATTERN. absent: Rales, Rhonchi, Wheezes - Cardiovascular Exam Cardiovascular Exam: REGULAR RHYTHM, +S1, +S2. absent: Gallop, Rubs, Murmur - GI/Abdominal Exam GI & Abdominal Exam: Soft, Normal Bowel Sounds. absent: Tenderness - Neurological Exam Neurological Exam: absent: Alert, Awake Additional comments: Negative for brain stem reflexes which includes pupillary, corneal, gag, and dolls eye reflex. No withdrawal to pain. Assessment and Plan - Assessment and Plan (Free Text) Assessment: This is a 61Y M with PMH chronic back pain and restless legs syndrome who was admitted for cardiac arrest. Head CT showed diffuse decreased bauer-white matter differentiation which is consistent with global hypoxic ischemic injury. Utox was positive for opiates, benzo and cocaine. EEG showed severe bilateral cerebral dysfunction. MRI brain showed anoxic brain injury. Plan: - Continue Keppra 500mg BID - Palliative care consulted - Proceed with trach and peg as per family Patient is in persistent vegetative state. The likelihood of meaningful recovery is unlikely. Prognosis is poor. Case seen, discussed and reviewed with Dr. Rico. Cat Pena PGY2 <Ezio Rico - Last Filed: 04/04/17 13:09> Objective - Vital Signs/Intake and Output Vital Signs (last 24 hours): Temp Pulse Resp BP Pulse Ox 97.5 F L 57 L 25 H 143/64 100 04/04/17 11:00 04/04/17 11:00 04/04/17 10:00 04/04/17 11:00 04/04/17 11:00 Intake and Output: 04/04/17 04/04/17 06:59 18:59 Intake Total 1450 Output Total 150 Balance 1300 - Medications Medications: Current Medications Aspirin (Aspirin Chewable) 81 mg PO DAILY [facility] Last Admin: 04/04/17 09:39 Dose: 81 mg Chlorhexidine Gluconate (Peridex) 15 ml PO Q4H [facility] Last Admin: 04/04/17 10:49 Dose: 1 analia Clopidogrel Bisulfate (Plavix) 75 mg PO DAILY [facility] Last Admin: 04/04/17 09:39 Dose: 75 mg Enoxaparin Sodium (Lovenox) 40 mg SC DAILY [facility] PRN Reason: Protocol Last Admin: 04/04/17 09:39 Dose: 40 mg Dexmedetomidine HCl (Precedex 4 Mcg/Ml (100 Ml)) 400 mcg in 100 mls @ 3.175 mls /hr IV .Q24H PRN; Protocol; 0.2 MCG/KG/HR PRN Reason: Sedation Last Titration: 04/01/17 19:15 Dose: 0 mcg/kg/hr, 0 mls/hr Levetiracetam (Keppra 500mg Ivpb) 500 mg in 100 mls @ 460 mls/hr IV Q12 [facility] Last Admin: 04/04/17 09:39 Dose: 460 mls/hr Propofol (Diprivan) 1,000 mg in 100 mls @ 1.905 mls/hr IV .Q24H PRN; Protocol; 5 MCG/KG/MIN PRN Reason: TITRATE PER MD ORDER Last Titration: 04/03/17 11:15 Dose: 0 mcg/kg/min, 0 mls/hr Sodium Chloride (Sodium Chloride 0.45%) 1,000 mls @ 75 mls/hr IV .[id number] [facility] Last Admin: 04/04/17 05:45 Dose: 75 mls/hr Famotidine (Pepcid 20mg/50ml Premix) 20 mg in 50 mls @ 100 mls/hr IVPB Q12 [facility] Last Admin: 04/04/17 09:39 Dose: 100 mls/hr Potassium Chloride (Potassium Chloride 20 Meq/100 Ml) 20 meq in 100 mls @ 50 mls/hr IVPB Q2H [facility] Stop: 04/04/17 13:44 Last Admin: 04/04/17 10:09 Dose: 50 mls/hr - Labs Labs: 04/04/17 07:00 04/04/17 07:38 PT 13.1 Seconds (9.9-11.8) H 03/31/17 09:13 INR 1.21 (0.93-1.08) H 03/31/17 09:13 APTT 68.6 Seconds (23.7-30.8) H 03/31/17 09:13 Attending/Attestation - Attestation I have personally seen and examined this patient.: Yes I have fully participated in the care of the patient.: Yes I have reviewed all pertinent clinical information, including history, physical exam and plan: Yes
--- NOTE | 2017-04-04 12:53 | CP.CCUPN ---
<Jeremy Alfaro - Last Filed: 04/04/17 12:49> CCU Subjective - Physician Review Subjective (Free Text): 04/04/17 12:49 Patient seen and examined at bedside in the ICU. No change in general condition ; remains intubated and unresponsive. No acute events reported overnight. Bilateral pinpoint pupils not responsive to light, no gag reflex, and no corneal reflex; only sign of neurologic activity is overbreathing the ventilator. As per family discussion, family wishes to pursue all measures; Surgery consulted for Trach/G-tube. CCU Objective - Vital Signs / Intake & Output Vital Signs (Last 4 hours): Vital Signs Temp Pulse Resp BP Pulse Ox 04/04/17 11:00 97.5 F L 57 L 143/64 100 04/04/17 10:00 97.5 F L 55 L 25 H 135/72 100 04/04/17 09:00 97.5 F L 56 L 26 H 139/73 99 Intake and Output (Last 8hrs): Intake & Output 04/03/17 04/04/17 04/04/17 22:59 06:59 14:59 Intake Total 1004 1450 Output Total 75 150 Balance 929 1300 Intake: IV 1004 825 Left Hand 4 Right Forearm 1000 825 Oral 275 Other 350 Output: Urine 75 150 2-way Urethral 75 150 Other: # Bowel Movements 1 1 - Physical Exam Head: Positive for: Atraumatic, Normocephalic, Other Pupils: Positive for: Non-Reactive, Pinpoint. Negative for: PERRL Extroacular Muscles: Positive for: Other (uprolled eyes, move in line with head , no tracking of anyone in room, no corneal reflexes). Negative for: EOMI Conjunctiva: Positive for: Other (dirty sclera, but anicteric). Negative for: Injected, Icteric Mouth: Positive for: Moist Mucous Membranes, Other (ET tube in place) Nose (External): Positive for: Atraumatic, Other (NGT in place). Negative for: Abrasion, Contusion, Laceration Neck: Positive for: Normal Range of Motion (no active ROM by patient, passive ROM intact), Trachea Midline. Negative for: JVD Respiratory/Chest: Positive for: Good Air Exchange, Rhonchi (diffusely ronchorous in all auscultated galloway, inspiratory and expiratory, no change from prior exams), Other (intubated and mechanically ventilated, able overbreath the ventilator). Negative for: Clear to Auscultation, Accessory Muscle Use, Wheezes, Decreased Breath Sounds, Rales Cardiovascular: Positive for: Regular Rate and Rhythm, Normal S1, S2. Negative for: Murmurs, Irregular Rhythm, Tachycardic, Bradycardic Abdomen: Positive for: Normal Bowel Sounds. Negative for: Tenderness, Distention, Peritoneal Signs Upper Extremity: Positive for: NORMAL PULSES (+2 radials bilaterally), Other ( Possible track ramirez along bilateral arms). Negative for: Cyanosis, Edema, Swelling, Erythema, Deformity Lower Extremity: Positive for: Normal Inspection, NORMAL PULSES (+1 dorsalis pedis bilaterally). Negative for: Edema, Cyanosis, Swelling, Erythema, Deformity Neurological: Positive for: Other (intubated, non-responsive, no voluntary or spontaneous movements). Negative for: GCS=15 (GCS of 3 (E1 V1t M1)), CN II-XII Intact, Speech Normal, Motor Func Grossly Intact Skin: Positive for: Warm, Dry, Normal Color. Negative for: Rashes Psychiatric: Positive for: Other (intubated, unresponsive). Negative for: Alert , Oriented x 3, Normal Insight, Normal Concentration, Normal Affect, Normal Mood - Medications Active Medications: Active Medications Generic Name Dose Route Start Last Admin Trade Name Freq PRN Reason Stop Dose Admin Aspirin 81 mg 03/31/17 10:00 04/04/17 09:39 Aspirin Chewable PO 81 mg DAILY [facility] Administration Chlorhexidine Gluconate 15 ml 04/02/17 14:30 04/04/17 10:49 Peridex PO 1 analia Q4H [facility] Administration Clopidogrel Bisulfate 75 mg 03/31/17 10:00 04/04/17 09:39 Plavix PO 75 mg DAILY [facility] Administration Enoxaparin Sodium 40 mg 04/03/17 10:00 04/04/17 09:39 Lovenox SC 40 mg DAILY [facility] Administration Protocol Dexmedetomidine HCl 400 mcg in 100 mls @ 3.175 mls/hr 03/31/17 12:09 19:15 Precedex 4 Mcg/Ml (100 Ml) IV 0 mcg/kg/hr .Q24H PRN 0 mls/hr Sedation Titration Protocol 0.2 MCG/KG/HR Levetiracetam 500 mg in 100 mls @ 460 mls/hr 03/31/17 17:33 04/04/17 09:39 Keppra 500mg Ivpb IV 460 mls/hr Q12 E[facility] Administration Propofol 1,000 mg in 100 mls @ 1.905 mls/hr 04/01/17 16:09 04/03/17 11:15 Diprivan IV 0 mcg/kg/min .Q24H PRN 0 mls/hr TITRATE PER MD ORDER Titration Protocol 5 MCG/KG/MIN Sodium Chloride 1,000 mls @ 75 mls/hr 04/03/17 15:15 04/04/17 05:45 Sodium Chloride 0.45% IV 75 mls/hr .[id number] E[facility] Administration Famotidine 20 mg in 50 mls @ 100 mls/hr 04/03/17 22:00 04/04/17 09:39 Pepcid 20mg/50ml Premix IVPB 100 mls/hr Q12 E[facility] Administration Potassium Chloride 20 meq in 100 mls @ 50 mls/hr 04/04/17 09:45 04/04/17 10: 09 Potassium Chloride 20 Meq/100 Ml IVPB 04/04/17 13:44 50 mls/hr Q2H E[facility] Administration - Patient Studies Lab Studies: Lab Studies 04/04/17 04/04/17 04/04/17 Range/Units 07:38 07:00 06:24 WBC 12.3 H (4.5-11.0) 10^3/ul RBC 4.50 (3.5-6.1) 10^6/uL Hgb 12.6 L (14.0-18.0) g/dL Hct 35.4 L (42.0-52.0) % MCV 78.7 L (80.0-105.0) fl MCH 28.0 (25.0-35.0) pg MCHC 35.6 (31.0-37.0) g/dl RDW 13.9 (11.5-14.5) % Plt Count 270 (120.0-450.0) 10^3/uL MPV 9.4 (7.0-11.0) fl Gran % 81.7 H (50.0-68.0) % Lymph % (Auto) 10.9 L (22.0-35.0) % Benzie % (Auto) 6.3 H (1.0-6.0) % Eos % (Auto) 1.1 L (1.5-5.0) % Baso % (Auto) 0.0 (0.0-3.0) % Gran # 10.08 H (1.4-6.5) Lymph # 1.3 (1.2-3.4) Benzie # 0.8 H (0.1-0.6) Eos # 0.1 (0.0-0.7) Baso # 0.00 (0.0-2.0) K/mm3 pCO2 27 L (35-45) mm/Hg pO2 62.0 L (80-100) mm/Hg HCO3 20.1 L (21-28) mmol/L ABG pH 7.48 H (7.35-7.45) ABG Total CO2 20.9 L (22-28) mmol.L ABG O2 Saturation 96.6 (95-98) % ABG O2 Content 15.6 (15-23) ML/dl ABG Base Excess -2.3 L (-2.0-3.0) mmol/L ABG Hemoglobin 11.8 (11.7-17.4) g/dL ABG Carboxyhemoglobin 1.7 H (0.5-1.5) % POC ABG HHb (Measured) 3.3 (0-5) % ABG Methemoglobin 0.9 (0.0-3.0) % ABG O2 Capacity 16.1 (16-24) mL/dl Hgb O2 Saturation 94.1 L (95.0-98.0) % FiO2 35.0 % Sodium 154 H (132-148) mmol/L Potassium 3.4 L (3.6-5.0) mmol/L Chloride 122 H (98-107) mmol/L Carbon Dioxide 24 (21-33) mmol/L Anion Gap 11 (10-20) BUN 17 (7-21) mg/dL Creatinine 0.8 (0.8-1.5) mg/dL Est GFR ( Amer) > 60 Est GFR (Non-Af Amer) > 60 Random Glucose 94 (70-110) mg/dL Calcium 8.7 (8.4-10.5) mg/dL Total Bilirubin 0.7 (0.2-1.3) mg/dL AST 135 H D (17-59) U/L ALT 343 H (7-56) U/L Alkaline Phosphatase 75 (38-126) U/L Lactate Dehydrogenase 1645 H (333-699) U/L Total Creatine Kinase 113 (35-230) U/L Troponin I 0.02 D ng/mL Total Protein 6.1 (5.8-8.3) g/dL Albumin 3.1 (3.0-4.8) g/dL Globulin 3.0 gm/dL Albumin/Globulin Ratio 1.0 L (1.1-1.8) Laboratory Results - last 24 hr 04/04/17 04/04/17 04/04/17 06:24 07:00 07:38 WBC 12.3 H RBC 4.50 Hgb 12.6 L Hct 35.4 L MCV 78.7 L MCH 28.0 MCHC 35.6 RDW 13.9 Plt Count 270 MPV 9.4 Gran % 81.7 H Lymph % (Auto) 10.9 L Benzie % (Auto) 6.3 H Eos % (Auto) 1.1 L Baso % (Auto) 0.0 Gran # 10.08 H Lymph # 1.3 Benzie # 0.8 H Eos # 0.1 Baso # 0.00 pCO2 27 L pO2 62.0 L HCO3 20.1 L ABG pH 7.48 H ABG Total CO2 20.9 L ABG O2 Saturation 96.6 ABG O2 Content 15.6 ABG Base Excess -2.3 L ABG Hemoglobin 11.8 ABG Carboxyhemoglobin 1.7 H POC ABG HHb (Measured) 3.3 ABG Methemoglobin 0.9 ABG O2 Capacity 16.1 Hgb O2 Saturation 94.1 L FiO2 35.0 Sodium 154 H Potassium 3.4 L Chloride 122 H Carbon Dioxide 24 Anion Gap 11 BUN 17 Creatinine 0.8 Est GFR ( Amer) > 60 Est GFR (Non-Af Amer) > 60 Random Glucose 94 Calcium 8.7 Total Bilirubin 0.7 AST 135 H D ALT 343 H Alkaline Phosphatase 75 Lactate Dehydrogenase 1645 H Total Creatine Kinase 113 Troponin I 0.02 D Total Protein 6.1 Albumin 3.1 Globulin 3.0 Albumin/Globulin Ratio 1.0 L Fingerstick Blood Sugar Results: 215 Review of Systems - Review of Systems Systems not reviewed;Unavailable: Intubated Assessment/Plan - Assessment and Plan (Free Text) Assessment: This is a 61 yo M with PMH of chronic back pain on oxycodone and restless leg syndrome who went into PEA cardiac arrest at home, s/p CPR and Epi x3, bicarb x1 , and Narcanx1 with ROSC, s/p intubation, and repeat cardiac arrest on arrival to ED with ROSC after chest compressions. Arrest is likely 2/2 cocaine use, as UDS was notably positive for cocaine and opiates, and patient had likely tract ramirez on both arms, but family denies any drug use. He has remained completely unresponsive since arrival, with head CT notable for diffuse hypoxic/ischemic injury, MRI notable for ischemic injury vs herpes encephalitis, and his prognosis is very poor. Family wishes to pursue all measures, pending Trach/G- tube, possibly tomorrow. 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 -EEG notable for diffuse slowing consistent with bilateral cerebral dysfxn. -MRI brain read as chronic ischemic injury vs herpes encephalitis; as per ID unlikely herpes encephalitis, pt presentation prior to this episode inconsistent with normal presentation of herpes encephalitis. -Neuro (Dr. Rico) consulted, appreciate all recs; poor prognosis given lack of reflexes and CT scan, MRI and EEG obtained to determine neurologic prognosis CV: -Hemodynamically stable, HR 70's-80s and MAP >65 consistently -Trops downtrending (last was 1.48, peaked at 1.70), unsurprising level in setting of cardiac arrest and CPR x2, but will obtain Echo -Echo notable for EF 65.7%, normal LV size/wall thickness, trace MR, trace TR with RVSP 31, dilated IVC, trace pericardial effusion,, no vegetations -Cardiology consult for recs -Likely cardiac arrest 2/2 cocaine abuse Pulm: -Currently intubated for airway protection -AM ABG reviewed, mild decrease in pH to 7.46 from 7.48, otherwise unchanged -Protective lung ventilation strategies, VAP bundle, low-tidal volumes -head of bed to 30 degrees, aspiration precautions GI: -NPO -Protonix for ppx -Transaminitis improved, possibly 2/2 substance abuse vs hepatitis vs shock liver 2/2 cardiac arrest x2; hepatitis panel negative; continue to monitor -Holding tube feeds 2/2 emesis episode -C diff toxin test ordered, negative for toxin and antigen Renal: -Cr stable at 0.8 -Monitor I and Os -Replete electrolytes an needed -1/2NS 75cc/hr Heme: -Hgb stable, 12.6 today -no signs of hemorrhage -SCDs for DVT ppx ID: -Vanc & Cefepime for empiric abx coverage -ID (Dr. Milner) consulted, appreciate all recs -Urine culture negative, blood cx negative at 4 days -C diff toxin test ordered, negative for toxin and antigen Endo: -Maintain blood sugars 140-180 -Elevated TSH on admit, repeat wnl so elevated TSH may just be lab error, no further workup needed Dispo: ICU, mechanically ventilated, minimal neurologic activity, pending Neuro' s input on MRI and EEG read for neurologic prognostication but expected poor prognosis given no improvement of neurologic status since admission; forward with management FEN: NPO, NS 50cc/hr Access: Peripheral IV Consults: Neuro, Cardio, ID Ppx: Protonix for GI, SCDs for DVT Code Status: Full Code Patient seen, reviewed, and discussed with attending, Dr. Christopher <Tc Liang - Last Filed: 04/04/17 18:56> CCU Objective - Vital Signs / Intake & Output Vital Signs (Last 4 hours): Vital Signs Temp Pulse BP Pulse Ox 04/04/17 16:00 51 L 157/106 H 100 04/04/17 15:00 97.7 F 56 L 131/76 99 Intake and Output (Last 8hrs): Intake & Output 04/04/17 04/04/17 04/04/17 06:59 14:59 22:59 Intake Total 1450 Output Total 150 Balance 1300 Intake: IV 825 Right Forearm 825 Oral 275 Other 350 Output: Urine 150 2-way Urethral 150 Other: # Bowel Movements 1 - Medications Active Medications: Active Medications Generic Name Dose Route Start Last Admin Trade Name Freq PRN Reason Stop Dose Admin Aspirin 81 mg 03/31/17 10:00 04/04/17 09:39 Aspirin Chewable PO 81 mg DAILY [facility] Administration Chlorhexidine Gluconate 15 ml 04/02/17 14:30 04/04/17 13:52 Peridex PO 1 analia Q4H [facility] Administration Clopidogrel Bisulfate 75 mg 03/31/17 10:00 04/04/17 09:39 Plavix PO 75 mg DAILY [facility] Administration Enoxaparin Sodium 40 mg 04/03/17 10:00 04/04/17 09:39 Lovenox SC 40 mg DAILY [facility] Administration Protocol Dexmedetomidine HCl 400 mcg in 100 mls @ 3.175 mls/hr 03/31/17 12:09 19:15 Precedex 4 Mcg/Ml (100 Ml) IV 0 mcg/kg/hr .Q24H PRN 0 mls/hr Sedation Titration Protocol 0.2 MCG/KG/HR Levetiracetam 500 mg in 100 mls @ 460 mls/hr 03/31/17 17:33 04/04/17 09:39 Keppra 500mg Ivpb IV 460 mls/hr Q12 EMA Administration Propofol 1,000 mg in 100 mls @ 1.905 mls/hr 04/01/17 16:09 04/03/17 11:15 Diprivan IV 0 mcg/kg/min .Q24H PRN 0 mls/hr TITRATE PER MD ORDER Titration Protocol 5 MCG/KG/MIN Sodium Chloride 1,000 mls @ 75 mls/hr 04/03/17 15:15 04/04/17 05:45 Sodium Chloride 0.45% IV 75 mls/hr .[id number] EMA Administration Famotidine 20 mg in 50 mls @ 100 mls/hr 04/03/17 22:00 04/04/17 09:39 Pepcid 20mg/50ml Premix IVPB 100 mls/hr Q12 EMA Administration - Patient Studies Lab Studies: Lab Studies 04/04/17 04/04/17 04/04/17 Range/Units 07:38 07:00 06:24 WBC 12.3 H (4.5-11.0) 10^3/ul RBC 4.50 (3.5-6.1) 10^6/uL Hgb 12.6 L (14.0-18.0) g/dL Hct 35.4 L (42.0-52.0) % MCV 78.7 L (80.0-105.0) fl MCH 28.0 (25.0-35.0) pg MCHC 35.6 (31.0-37.0) g/dl RDW 13.9 (11.5-14.5) % Plt Count 270 (120.0-450.0) 10^3/uL MPV 9.4 (7.0-11.0) fl Gran % 81.7 H (50.0-68.0) % Lymph % (Auto) 10.9 L (22.0-35.0) % Benzie % (Auto) 6.3 H (1.0-6.0) % Eos % (Auto) 1.1 L (1.5-5.0) % Baso % (Auto) 0.0 (0.0-3.0) % Gran # 10.08 H (1.4-6.5) Lymph # 1.3 (1.2-3.4) Benzie # 0.8 H (0.1-0.6) Eos # 0.1 (0.0-0.7) Baso # 0.00 (0.0-2.0) K/mm3 pCO2 27 L (35-45) mm/Hg pO2 62.0 L (80-100) mm/Hg HCO3 20.1 L (21-28) mmol/L ABG pH 7.48 H (7.35-7.45) ABG Total CO2 20.9 L (22-28) mmol.L ABG O2 Saturation 96.6 (95-98) % ABG O2 Content 15.6 (15-23) ML/dl ABG Base Excess -2.3 L (-2.0-3.0) mmol/L ABG Hemoglobin 11.8 (11.7-17.4) g/dL ABG Carboxyhemoglobin 1.7 H (0.5-1.5) % POC ABG HHb (Measured) 3.3 (0-5) % ABG Methemoglobin 0.9 (0.0-3.0) % ABG O2 Capacity 16.1 (16-24) mL/dl Hgb O2 Saturation 94.1 L (95.0-98.0) % FiO2 35.0 % Sodium 154 H (132-148) mmol/L Potassium 3.4 L (3.6-5.0) mmol/L Chloride 122 H (98-107) mmol/L Carbon Dioxide 24 (21-33) mmol/L Anion Gap 11 (10-20) BUN 17 (7-21) mg/dL Creatinine 0.8 (0.8-1.5) mg/dL Est GFR ( Amer) > 60 Est GFR (Non-Af Amer) > 60 Random Glucose 94 (70-110) mg/dL Calcium 8.7 (8.4-10.5) mg/dL Total Bilirubin 0.7 (0.2-1.3) mg/dL AST 135 H D (17-59) U/L ALT 343 H (7-56) U/L Alkaline Phosphatase 75 (38-126) U/L Lactate Dehydrogenase 1645 H (333-699) U/L Total Creatine Kinase 113 (35-230) U/L Troponin I 0.02 D ng/mL Total Protein 6.1 (5.8-8.3) g/dL Albumin 3.1 (3.0-4.8) g/dL Globulin 3.0 gm/dL Albumin/Globulin Ratio 1.0 L (1.1-1.8) Laboratory Results - last 24 hr 04/04/17 04/04/17 04/04/17 06:24 07:00 07:38 WBC 12.3 H RBC 4.50 Hgb 12.6 L Hct 35.4 L MCV 78.7 L MCH 28.0 MCHC 35.6 RDW 13.9 Plt Count 270 MPV 9.4 Gran % 81.7 H Lymph % (Auto) 10.9 L Benzie % (Auto) 6.3 H Eos % (Auto) 1.1 L Baso % (Auto) 0.0 Gran # 10.08 H Lymph # 1.3 Benzie # 0.8 H Eos # 0.1 Baso # 0.00 pCO2 27 L pO2 62.0 L HCO3 20.1 L ABG pH 7.48 H ABG Total CO2 20.9 L ABG O2 Saturation 96.6 ABG O2 Content 15.6 ABG Base Excess -2.3 L ABG Hemoglobin 11.8 ABG Carboxyhemoglobin 1.7 H POC ABG HHb (Measured) 3.3 ABG Methemoglobin 0.9 ABG O2 Capacity 16.1 Hgb O2 Saturation 94.1 L FiO2 35.0 Sodium 154 H Potassium 3.4 L Chloride 122 H Carbon Dioxide 24 Anion Gap 11 BUN 17 Creatinine 0.8 Est GFR ( Amer) > 60 Est GFR (Non-Af Amer) > 60 Random Glucose 94 Calcium 8.7 Total Bilirubin 0.7 AST 135 H D ALT 343 H Alkaline Phosphatase 75 Lactate Dehydrogenase 1645 H Total Creatine Kinase 113 Troponin I 0.02 D Total Protein 6.1 Albumin 3.1 Globulin 3.0 Albumin/Globulin Ratio 1.0 L Attending/Attestation - Attestation I have personally seen and examined this patient.: Yes I have fully participated in the care of the patient.: Yes I have reviewed all pertinent clinical information: Yes Notes (Text): 04/04/17 18:55 61 yo male with s/p cardiac arrest, now in vent dependent respiratory failure. waiting for trach/peg. protective lung ventilation strategy. HOB>35. maintain euvolemia, euglycemia, normothermia. ccm time 40 min
--- NOTE | 2017-04-04 13:54 | PN ---
DATE: SUBJECTIVE: The patient is still deeply comatose. PHYSICAL EXAMINATION: VITAL SIGNS: Blood pressure of 159/80, heart rate of 67, and temperature of 98.2. HEENT: No pallor or icterus. CHEST: Bilateral rhonchi. HEART: S1 and S2 regular. EXTREMITIES: No edema. LABORATORY DATA: SMA-7; sodium of 154, potassium of 3.4, chloride of 122, CO2 of 24, glucose of 94, BUN of 17, and creatinine of 0.8. Hemoglobin and hematocrit of 12.6 and 35.4, white count of 12.3, and platelet count of 170,000. DIAGNOSTIC DATA: Today's chest x-ray; no active disease. EEG presence of polymorphic delta as well as diffuse slowing throughout the EEG consistent with severe bilateral cerebral dysfunction. Echocardiographic study, normal ejection fraction. ASSESSMENT: 1. Status post cardiorespiratory arrest. 2. Cocaine abuse. 3. Anoxic encephalopathy. CONDITION: Continue current aspirin, Keppra, subcutaneous Lovenox, half normal saline at 75 mL per hour as well as potassium replacement 40 mEq today. The plan is to perform tracheostomy as well as gastrostomy tube feeding. Frankie Macias MD
--- NOTE | 2017-04-04 14:32 | CP.PCM.CON ---
History of Present Illness - History of Present Illness History of Present Illness: Surgery 61M w PMH of Polysubstance abuse, Smoker is admitted in ICU for ischemic brain injury. Surgery is consulted to evaluate for tracheostomy and gatrostomy tube. History is taken from chart and family. Per family, Pt was choking after eating grapes. CPR is performed. Pt is brought to ED. Pt was found to have IL, CVA. Pt has been intubated since 03/30. CT of head showed diffuse decrease in white/ bauer matter consistent with global anoxia. MRI of Brain revealed abnormal non enhancing prolonged T2 signal changes within temporal lobes, also seen mismatched ADC maps. EEG reports abnormal polymorphic delta waves and diffuse slowing through out study consistent with severer bilateral cerebral dysfunction. Family agreed for tracheostomy and gastrostomy tube for feeding and signed consent. Review of Systems - Review of Systems Systems not reviewed;Unavailable: Altered Mental Status, Intubated Past Patient History - Infectious Disease Hx of Infectious Diseases: None - Past Social History Smoking Status: Light Smoker < 10 Cigarettes Daily - CARDIAC Hx Cardiac Disorders: No Other/Comment: multiple scars to bilat arm as per unk if pt is using substances - PULMONARY Hx Respiratory Disorders: No - NEUROLOGICAL Hx Neurological Disorder: No - HEENT Hx HEENT Problems: No - RENAL Hx Chronic Kidney Disease: No - ENDOCRINE/METABOLIC Hx Endocrine Disorders: No - HEMATOLOGICAL/ONCOLOGICAL Hx Blood Disorders: No - INTEGUMENTARY Hx Dermatological Problems: No - MUSCULOSKELETAL/RHEUMATOLOGICAL Hx Back Pain: Yes (chronic) Hx Falls: No Other/Comment: Restless legs- takes Xanax for sleep. Chronic knee pain. foot spurs -injected last month - GASTROINTESTINAL Hx Gastrointestinal Disorders: No - GENITOURINARY/GYNECOLOGICAL Other/Comment: c/o urinary problems today - took AZO pill - PSYCHIATRIC Hx Psychophysiologic Disorder: No Hx Anxiety: No Hx Depression: No Hx Emotional Abuse: No Hx Panic Symptoms: No Hx Substance Use: No - SURGICAL HISTORY Hx Surgeries: No - ANESTHESIA Hx Anesthesia Reactions: No Meds Allergies/Adverse Reactions: Allergies Allergy/AdvReac Type Severity Reaction Status Date / Time No Known Allergies Allergy Verified 03/30/17 19:25 - Medications Medications: Current Medications Aspirin (Aspirin Chewable) 81 mg PO DAILY [facility] Last Admin: 04/04/17 09:39 Dose: 81 mg Chlorhexidine Gluconate (Peridex) 15 ml PO Q4H [facility] Last Admin: 04/04/17 13:52 Dose: 1 analia Clopidogrel Bisulfate (Plavix) 75 mg PO DAILY [facility] Last Admin: 04/04/17 09:39 Dose: 75 mg Enoxaparin Sodium (Lovenox) 40 mg SC DAILY [facility] PRN Reason: Protocol Last Admin: 04/04/17 09:39 Dose: 40 mg Dexmedetomidine HCl (Precedex 4 Mcg/Ml (100 Ml)) 400 mcg in 100 mls @ 3.175 mls /hr IV .Q24H PRN; Protocol; 0.2 MCG/KG/HR PRN Reason: Sedation Last Titration: 04/01/17 19:15 Dose: 0 mcg/kg/hr, 0 mls/hr Levetiracetam (Keppra 500mg Ivpb) 500 mg in 100 mls @ 460 mls/hr IV Q12 [facility] Last Admin: 04/04/17 09:39 Dose: 460 mls/hr Propofol (Diprivan) 1,000 mg in 100 mls @ 1.905 mls/hr IV .Q24H PRN; Protocol; 5 MCG/KG/MIN PRN Reason: TITRATE PER MD ORDER Last Titration: 04/03/17 11:15 Dose: 0 mcg/kg/min, 0 mls/hr Sodium Chloride (Sodium Chloride 0.45%) 1,000 mls @ 75 mls/hr IV .[id number] [facility] Last Admin: 04/04/17 05:45 Dose: 75 mls/hr Famotidine (Pepcid 20mg/50ml Premix) 20 mg in 50 mls @ 100 mls/hr IVPB Q12 [facility] Last Admin: 04/04/17 09:39 Dose: 100 mls/hr Physical Exam - Constitutional Appears: In Acute Distress - Head Exam Head Exam: ATRAUMATIC, NORMAL INSPECTION, NORMOCEPHALIC - ENT Exam ENT Exam: Mucous Membranes Moist Additional comments: Intubated. - Neck Exam Neck exam: Positive for: Normal Inspection - Respiratory Exam Respiratory Exam: Respiratory Distress Additional comments: Intubated. - Cardiovascular Exam Cardiovascular Exam: REGULAR RHYTHM, +S1, +S2 - GI/Abdominal Exam GI & Abdominal Exam: Soft. absent: Distended, Tenderness - Extremities Exam Extremities exam: Positive for: normal inspection - Back Exam Back exam: NORMAL INSPECTION - Neurological Exam Neurological exam: Altered Results - Vital Signs Recent Vital Signs: Last Vital Signs Temp 97.5 F L 04/04/17 13:18 Pulse 57 L 04/04/17 13:18 Resp 27 H 04/04/17 13:18 BP 123/67 04/04/17 13:18 Pulse Ox 99 04/04/17 13:18 - Labs Result Diagrams: 04/04/17 07:00 04/04/17 07:38 Labs: Laboratory Results - last 24 hr 04/04/17 04/04/17 04/04/17 06:24 07:00 07:38 WBC 12.3 H RBC 4.50 Hgb 12.6 L Hct 35.4 L MCV 78.7 L MCH 28.0 MCHC 35.6 RDW 13.9 Plt Count 270 MPV 9.4 Gran % 81.7 H Lymph % (Auto) 10.9 L [place] % (Auto) 6.3 H Eos % (Auto) 1.1 L Baso % (Auto) 0.0 Gran # 10.08 H Lymph # 1.3 [place] # 0.8 H Eos # 0.1 Baso # 0.00 pCO2 27 L pO2 62.0 L HCO3 20.1 L ABG pH 7.48 H ABG Total CO2 20.9 L ABG O2 Saturation 96.6 ABG O2 Content 15.6 ABG Base Excess -2.3 L ABG Hemoglobin 11.8 ABG Carboxyhemoglobin 1.7 H POC ABG HHb (Measured) 3.3 ABG Methemoglobin 0.9 ABG O2 Capacity 16.1 Hgb O2 Saturation 94.1 L FiO2 35.0 Sodium 154 H Potassium 3.4 L Chloride 122 H Carbon Dioxide 24 Anion Gap 11 BUN 17 Creatinine 0.8 Est GFR ( Amer) > 60 Est GFR (Non-Af Amer) > 60 Random Glucose 94 Calcium 8.7 Total Bilirubin 0.7 AST 135 H D ALT 343 H Alkaline Phosphatase 75 Lactate Dehydrogenase 1645 H Total Creatine Kinase 113 Troponin I 0.02 D Total Protein 6.1 Albumin 3.1 Globulin 3.0 Albumin/Globulin Ratio 1.0 L Assessment & Plan - Assessment and Plan (Free Text) Assessment: Ischemic brain injury, respiratory failure s/p intubation since 03/30 on vent Will plan OR this week for tracheostomy and gastrostomy tube ICU managment AYDEE Helton
--- NOTE | 2017-04-04 15:33 | CP.PCM.PN ---
Subjective - Date & Time of Evaluation Date of Evaluation: 04/04/17 Time of Evaluation: 09:30 - Subjective Subjective: remains unresponsive on vent Objective - Vital Signs/Intake and Output Vital Signs (last 24 hours): Temp Pulse Resp BP Pulse Ox 97.5 F L 57 L 27 H 123/67 99 04/04/17 13:18 04/04/17 13:18 04/04/17 13:18 04/04/17 13:18 04/04/17 13:18 Intake and Output: 04/04/17 04/04/17 06:59 18:59 Intake Total 1450 Output Total 150 Balance 1300 - Medications Medications: Current Medications Aspirin (Aspirin Chewable) 81 mg PO DAILY [facility] Last Admin: 04/04/17 09:39 Dose: 81 mg Chlorhexidine Gluconate (Peridex) 15 ml PO Q4H [facility] Last Admin: 04/04/17 13:52 Dose: 1 analia Clopidogrel Bisulfate (Plavix) 75 mg PO DAILY [facility] Last Admin: 04/04/17 09:39 Dose: 75 mg Enoxaparin Sodium (Lovenox) 40 mg SC DAILY [facility] PRN Reason: Protocol Last Admin: 04/04/17 09:39 Dose: 40 mg Dexmedetomidine HCl (Precedex 4 Mcg/Ml (100 Ml)) 400 mcg in 100 mls @ 3.175 mls /hr IV .Q24H PRN; Protocol; 0.2 MCG/KG/HR PRN Reason: Sedation Last Titration: 04/01/17 19:15 Dose: 0 mcg/kg/hr, 0 mls/hr Levetiracetam (Keppra 500mg Ivpb) 500 mg in 100 mls @ 460 mls/hr IV Q12 [facility] Last Admin: 04/04/17 09:39 Dose: 460 mls/hr Propofol (Diprivan) 1,000 mg in 100 mls @ 1.905 mls/hr IV .Q24H PRN; Protocol; 5 MCG/KG/MIN PRN Reason: TITRATE PER MD ORDER Last Titration: 04/03/17 11:15 Dose: 0 mcg/kg/min, 0 mls/hr Sodium Chloride (Sodium Chloride 0.45%) 1,000 mls @ 75 mls/hr IV .[id number] [facility] Last Admin: 04/04/17 05:45 Dose: 75 mls/hr Famotidine (Pepcid 20mg/50ml Premix) 20 mg in 50 mls @ 100 mls/hr IVPB Q12 [facility] Last Admin: 04/04/17 09:39 Dose: 100 mls/hr - Labs Labs: 04/04/17 07:00 04/04/17 07:38 PT 13.1 Seconds (9.9-11.8) H 03/31/17 09:13 INR 1.21 (0.93-1.08) H 03/31/17 09:13 APTT 68.6 Seconds (23.7-30.8) H 03/31/17 09:13 - Respiratory Exam Respiratory Exam: Clear to Ausculation Bilateral Additional comments: endotracheal tube intact, good air entry bilaterally - Cardiovascular Exam Cardiovascular Exam: REGULAR RHYTHM - GI/Abdominal Exam GI & Abdominal Exam: Soft, Normal Bowel Sounds Additional comments: NGT intact, enteral feeding infusing - Extremities Exam Extremities Exam: Normal Inspection - Neurological Exam Neurological Exam: Altered - Skin Skin Exam: Dry, Warm Assessment and Plan (1) Cardiac arrest Status: Acute (2) Hypoxic ischemic encephalopathy Status: Acute - Assessment and Plan (Free Text) Plan: continue supportive care, prognosis remains very poor, family aware
[2017-04-04 19:50] LABS: BLOOD UREA NITROGEN 19 mg/dL (7-21); CALCIUM 9.1 mg/dL (8.4-10.5); CARBON DIOXIDE 23 mmol/L (21-33); CHLORIDE 120 mmol/L (95-110); GFR AFRICAN-AMERICAN > 60; GLUCOSE,RANDOM 108 mg/dL (70-110); POTASSIUM 3.6 mmol/L (3.6-5.0); SODIUM 151 mmol/L (132-148)
[2017-04-05] MEDS: Chlorhexidine 0.12% Oral Sol 480 ml Bot PO SCH ×6 (02:30→22:23)
[2017-04-05 06:25] LABS: EOS # 0.4 (0.0-0.7); EOS % 3.2 % (1.5-5.0); GRAN # 9.11 (1.4-6.5); GRAN % 77.8 % (50.0-68.0); LYMPH # 1.4 (1.2-3.4); MEAN CELL VOLUME 78.8 fl (80.0-105.0); MEAN CORPUSCULAR HEMOGLOBIN 28.1 pg (25.0-35.0); MEAN CORPUSCULAR HGB CONC 35.6 g/dl (31.0-37.0); MEAN PLATELET VOLUME 9.5 fl (7.0-11.0); MONO # 0.8 (0.1-0.6); WHITE BLOOD COUNT 11.7 10^3/ul (4.5-11.0)
[2017-04-05 06:42] LABS: ALKALINE PHOSPHATASE 75 U/L (38-126); ALT/SGPT 265 U/L (7-56); AST/SGOT 115 U/L (17-59); BILIRUBIN,TOTAL 0.6 mg/dL (0.2-1.3); BLOOD UREA NITROGEN 19 mg/dL (7-21); CALCIUM 8.7 mg/dL (8.4-10.5); CARBON DIOXIDE 24 mmol/L (21-33); CHLORIDE 119 mmol/L (98-107); GFR AFRICAN-AMERICAN > 60; GLUCOSE,RANDOM 102 mg/dL (70-110); POTASSIUM 3.3 mmol/L (3.6-5.0); SODIUM 151 mmol/L (132-148); TOTAL PROTEIN 5.9 g/dL (5.8-8.3)
[2017-04-05 06:53] LABS: TROPONIN I 0.02 ng/mL
[2017-04-05] MEDS ORDERED: Potassium Chloride 40 mEq/30 ml LIQ UD PO ONE (07:55)
[2017-04-05 08:18] LABS: ARTERIAL BLOOD GAS HCO3 23.1 mmol/L (21-28); ARTERIAL BLOOD GAS O2 CAPACITY 15.9 mL/dl (16-24); ARTERIAL BLOOD GAS O2 CONTENT 15.8 ML/dl (15-23); ARTERIAL BLOOD GAS PH 7.48 (7.35-7.45); CARBOXYHEMOGLOBIN 1.6 % (0.5-1.5); HHB 0.5 % (0-5); METHEMOGLOBIN 0.9 % (0.0-3.0)
[2017-04-05 08:48] LABS: PHOSPHOROUS 3.3 mg/dL (2.5-4.5)
[2017-04-05] MEDS: Enoxaparin 40 mg Syringe SC SCH (09:22)
[2017-04-05] MEDS: levETIRAcetam 500mg IVPB 500 MG/100 ML BAG IV SCH ×2 (09:24→21:42)
[2017-04-05] MEDS: Famotidine 20mg/50ml 20 MG/50 ML BAG IVPB SCH ×2 (09:24→21:41)
--- NOTE | 2017-04-05 09:48 | RAD ---
HISTORY: intubated, f/u COMPARISON: 04/04/2017 FINDINGS: LUNGS: Pneumomediastinum is now seen. There is also air in the right supraclavicular fossa. This is most likely due to barotrauma related to intubation and ventilation. The endotracheal tube and nasogastric tube are in satisfactory position. There is no evidence of pneumothorax. PLEURA: No significant pleural effusion identified, no pneumothorax apparent. CARDIOVASCULAR: Normal. OSSEOUS STRUCTURES: No significant abnormalities. VISUALIZED UPPER ABDOMEN: Normal. OTHER FINDINGS: None. IMPRESSION: Pneumomediastinum is now seen. There is also air in the right supraclavicular fossa. This is most likely due to barotrauma related to intubation and ventilation. The endotracheal tube and nasogastric tube are in satisfactory position. There is no evidence of pneumothorax.
--- NOTE | 2017-04-05 10:46 | CP.PCM.PN ---
Subjective - Date & Time of Evaluation Date of Evaluation: 04/05/17 Time of Evaluation: 09:50 - Subjective Subjective: Continues to be intubated and sedated, no fevers overnight. Objective - Vital Signs/Intake and Output Vital Signs (last 24 hours): Temp Pulse Resp BP Pulse Ox 98.4 F 60 27 H 124/68 100 04/05/17 03:00 04/05/17 04:34 04/04/17 13:18 04/05/17 03:00 04/05/17 03:00 - Medications Medications: Current Medications Aspirin (Aspirin Chewable) 81 mg PO DAILY [facility] Last Admin: 04/04/17 09:39 Dose: 81 mg Chlorhexidine Gluconate (Peridex) 15 ml PO Q4H [facility] Last Admin: 04/04/17 21:53 Dose: 15 analia Clopidogrel Bisulfate (Plavix) 75 mg PO DAILY [facility] Last Admin: 04/04/17 09:39 Dose: 75 mg Enoxaparin Sodium (Lovenox) 40 mg SC DAILY [facility] PRN Reason: Protocol Last Admin: 04/04/17 09:39 Dose: 40 mg Dexmedetomidine HCl (Precedex 4 Mcg/Ml (100 Ml)) 400 mcg in 100 mls @ 3.175 mls /hr IV .Q24H PRN; Protocol; 0.2 MCG/KG/HR PRN Reason: Sedation Last Titration: 04/01/17 19:15 Dose: 0 mcg/kg/hr, 0 mls/hr Levetiracetam (Keppra 500mg Ivpb) 500 mg in 100 mls @ 460 mls/hr IV Q12 [facility] Last Admin: 04/04/17 21:49 Dose: 460 mls/hr Propofol (Diprivan) 1,000 mg in 100 mls @ 1.905 mls/hr IV .Q24H PRN; Protocol; 5 MCG/KG/MIN PRN Reason: TITRATE PER MD ORDER Last Titration: 04/03/17 11:15 Dose: 0 mcg/kg/min, 0 mls/hr Sodium Chloride (Sodium Chloride 0.45%) 1,000 mls @ 75 mls/hr IV .[id number] [facility] Last Admin: 04/04/17 18:49 Dose: 75 mls/hr Famotidine (Pepcid 20mg/50ml Premix) 20 mg in 50 mls @ 100 mls/hr IVPB Q12 [facility] Last Admin: 04/04/17 22:41 Dose: 100 mls/hr - Labs Labs: 04/05/17 05:20 04/05/17 05:20 PT 13.1 Seconds (9.9-11.8) H 03/31/17 09:13 INR 1.21 (0.93-1.08) H 03/31/17 09:13 APTT 68.6 Seconds (23.7-30.8) H 03/31/17 09:13 - Constitutional Appears: Other (intubated, sedated) - ENT Exam Additional comments: ET tube in place - Respiratory Exam Respiratory Exam: Decreased Breath Sounds - Cardiovascular Exam Cardiovascular Exam: +S1, +S2 - GI/Abdominal Exam GI & Abdominal Exam: Soft. absent: Tenderness Assessment and Plan - Assessment and Plan (Free Text) Plan: Assessment Systemic Inflammatory Response Syndrome, probably stress reaction after cardiac arrest related to cocaine use, currently with ventilator-dependent respiratory failure chronic back pain Plan Will continue to monitor off antibiotics since he is at risk for hospital- acquired infections MRI brain findings noted - medial temporal lobe affectation more likely ischemic in nature, unlikely herpes encephalitis - no treatment for herpes necessary at the moment Overall prognosis is poor
--- NOTE | 2017-04-05 11:28 | CP.CCUPN ---
<Jeremy Alfaro - Last Filed: 04/05/17 15:09> CCU Subjective - Physician Review Subjective (Free Text): 04/05/17 11:01 Patient seen and examined at bedside in the ICU. No change in general condition ; remains intubated and unresponsive, off sedation for ~48 hrs. No acute events reported overnight. Bilateral pinpoint pupils not responsive to light, no gag reflex, and no corneal reflex; only sign of neurologic activity is overbreathing the ventilator. Was pending Trach/G-tube today, but was found to have Pneumomediastinum on CXR today, Surgical team notified. CCU Objective - Vital Signs / Intake & Output Vital Signs (Last 4 hours): Vital Signs Resp Pulse Ox 04/05/17 08:36 22 100 Intake and Output (Last 8hrs): Intake & Output 04/04/17 04/05/17 04/05/17 22:59 06:59 14:59 Intake Total 1600 1255 Output Total 1050 310 Balance 550 945 Weight 63.503 kg Intake: IV 1150 825 Left Hand 200 Right Forearm 950 825 Tube Feeding 450 TPN/PPN 180 Other 250 Output: Urine 850 300 2-way Urethral 850 300 Emesis 0 Other 200 10 Other: # Bowel Movements 1 1 - Physical Exam Head: Positive for: Atraumatic, Normocephalic, Other Pupils: Positive for: Non-Reactive, Pinpoint. Negative for: PERRL Extroacular Muscles: Positive for: Other (uprolled eyes, move in line with head , no tracking of anyone in room, no corneal reflexes). Negative for: EOMI Conjunctiva: Positive for: Other (dirty sclera, but anicteric). Negative for: Injected, Icteric Mouth: Positive for: Moist Mucous Membranes, Other (ET tube in place) Nose (External): Positive for: Atraumatic, Other (NGT in place). Negative for: Abrasion, Contusion, Laceration Neck: Positive for: Normal Range of Motion (no active ROM by patient, passive ROM intact), Trachea Midline. Negative for: JVD Respiratory/Chest: Positive for: Good Air Exchange, Rhonchi (diffusely ronchorous in all auscultated galloway, inspiratory and expiratory, no change from prior exams), Other (intubated and mechanically ventilated, able overbreath the ventilator). Negative for: Clear to Auscultation, Accessory Muscle Use, Wheezes, Decreased Breath Sounds, Rales Cardiovascular: Positive for: Normal S1, S2, Peripheal Pulses Present (+2 radials/+1 dorsalis pedis bilaterally), Bradycardic (55's on bedside monitor, baseline for patient is mid-50's to low 70's.), Other (No Althea's sign). Negative for: Murmurs, Irregular Rhythm, Tachycardic, Rub, Gallop Abdomen: Positive for: Normal Bowel Sounds. Negative for: Tenderness, Distention, Peritoneal Signs Upper Extremity: Positive for: NORMAL PULSES (+2 radials bilaterally), Other ( Possible track ramirez along bilateral arms). Negative for: Cyanosis, Edema, Swelling, Erythema, Deformity Lower Extremity: Positive for: Normal Inspection, NORMAL PULSES (+1 dorsalis pedis bilaterally). Negative for: Edema, Cyanosis, Swelling, Erythema, Deformity Neurological: Positive for: Other (intubated, non-responsive, no voluntary or spontaneous movements). Negative for: GCS=15 (GCS of 3 (E1 V1t M1)), CN II-XII Intact, Speech Normal, Motor Func Grossly Intact Skin: Positive for: Warm, Dry, Normal Color. Negative for: Rashes Psychiatric: Positive for: Other (intubated, unresponsive). Negative for: Alert , Oriented x 3, Normal Insight, Normal Concentration, Normal Affect, Normal Mood - Medications Active Medications: Active Medications Generic Name Dose Route Start Last Admin Trade Name Freq PRN Reason Stop Dose Admin Aspirin 81 mg 03/31/17 10:00 04/05/17 09:22 Aspirin Chewable PO Not Given DAILY [facility] Chlorhexidine Gluconate 15 ml 04/02/17 14:30 04/05/17 06:30 Peridex PO 15 analia Q4H [facility] Administration Clopidogrel Bisulfate 75 mg 03/31/17 10:00 04/05/17 09:22 Plavix PO Not Given DAILY [facility] Enoxaparin Sodium 40 mg 04/03/17 10:00 04/05/17 09:22 Lovenox SC Not Given DAILY [facility] Protocol Levetiracetam 500 mg in 100 mls @ 460 mls/hr 03/31/17 17:33 04/05/17 09:24 Keppra 500mg Ivpb IV 460 mls/hr Q12 EMA Administration Famotidine 20 mg in 50 mls @ 100 mls/hr 04/03/17 22:00 04/05/17 09:24 Pepcid 20mg/50ml Premix IVPB 100 mls/hr Q12 EMA Administration Potassium Chloride 20 meq in 100 mls @ 50 mls/hr 04/05/17 08:00 04/05/17 08: 27 Potassium Chloride 20 Meq/100 Ml IVPB 04/05/17 11:59 50 mls/hr Q2H EMA Administration Dextrose 1,000 mls @ 100 mls/hr 04/05/17 08:00 04/05/17 08:25 Dextrose 5% In Water 1000 Ml IV 100 mls/hr .Q10H EMA Administration - Patient Studies Lab Studies: Lab Studies 04/05/17 04/05/17 04/05/17 Range/Units 08:30 08:16 05:20 WBC (4.5-11.0) 10^3/ul RBC (3.5-6.1) 10^6/uL Hgb (14.0-18.0) g/dL Hct (42.0-52.0) % MCV (80.0-105.0) fl MCH (25.0-35.0) pg MCHC (31.0-37.0) g/dl RDW (11.5-14.5) % Plt Count (120.0-450.0) 10^3/uL MPV (7.0-11.0) fl Gran % (50.0-68.0) % Lymph % (Auto) (22.0-35.0) % Metcalfe % (Auto) (1.0-6.0) % Eos % (Auto) (1.5-5.0) % Baso % (Auto) (0.0-3.0) % Gran # (1.4-6.5) Lymph # (1.2-3.4) Metcalfe # (0.1-0.6) Eos # (0.0-0.7) Baso # (0.0-2.0) K/mm3 pCO2 31 L (35-45) mm/Hg pO2 131.0 H (80-100) mm/Hg HCO3 23.1 (21-28) mmol/L ABG pH 7.48 H (7.35-7.45) ABG Total CO2 24.1 (22-28) mmol.L ABG O2 Saturation 99.5 H (95-98) % ABG O2 Content 15.8 (15-23) ML/dl ABG Base Excess 0.2 (-2.0-3.0) mmol/L ABG Hemoglobin 11.4 L (11.7-17.4) g/dL ABG Carboxyhemoglobin 1.6 H (0.5-1.5) % POC ABG HHb (Measured) 0.5 (0-5) % ABG Methemoglobin 0.9 (0.0-3.0) % ABG O2 Capacity 15.9 L (16-24) mL/dl Hgb O2 Saturation 97.0 (95.0-98.0) % FiO2 40.0 % Sodium 151 H (132-148) mmol/L Potassium 3.3 L (3.6-5.0) mmol/L Chloride 119 H (95-110) mmol/L Carbon Dioxide 24 (21-33) mmol/L Anion Gap 11 (10-20) BUN 19 (7-21) mg/dL Creatinine 0.8 (0.8-1.5) mg/dL Est GFR ( Amer) > 60 Est GFR (Non-Af Amer) > 60 Random Glucose 102 (70-110) mg/dL Calcium 8.7 (8.4-10.5) mg/dL Phosphorus 3.3 (2.5-4.5) mg/dL Magnesium 2.0 (1.7-2.2) mg/dL Total Bilirubin 0.6 (0.2-1.3) mg/dL AST 115 H (17-59) U/L ALT 265 H (7-56) U/L Alkaline Phosphatase 75 (38-126) U/L Lactate Dehydrogenase 1611 H (333-699) U/L Total Creatine Kinase 192 (35-230) U/L Troponin I 0.02 ng/mL Total Protein 5.9 (5.8-8.3) g/dL Albumin 3.0 (3.0-4.8) g/dL Globulin 3.0 gm/dL Albumin/Globulin Ratio 1.0 L (1.1-1.8) 04/05/17 04/04/17 Range/Units 05:20 19:25 WBC 11.7 H (4.5-11.0) 10^3/ul RBC 4.06 (3.5-6.1) 10^6/uL Hgb 11.4 L (14.0-18.0) g/dL Hct 32.0 L (42.0-52.0) % MCV 78.8 L (80.0-105.0) fl MCH 28.1 (25.0-35.0) pg MCHC 35.6 (31.0-37.0) g/dl RDW 14.0 (11.5-14.5) % Plt Count 274 (120.0-450.0) 10^3/uL MPV 9.5 (7.0-11.0) fl Gran % 77.8 H (50.0-68.0) % Lymph % (Auto) 12.0 L (22.0-35.0) % Metcalfe % (Auto) 7.0 H (1.0-6.0) % Eos % (Auto) 3.2 (1.5-5.0) % Baso % (Auto) 0.0 (0.0-3.0) % Gran # 9.11 H (1.4-6.5) Lymph # 1.4 (1.2-3.4) Metcalfe # 0.8 H (0.1-0.6) Eos # 0.4 (0.0-0.7) Baso # 0.00 (0.0-2.0) K/mm3 pCO2 (35-45) mm/Hg pO2 (80-100) mm/Hg HCO3 (21-28) mmol/L ABG pH (7.35-7.45) ABG Total CO2 (22-28) mmol.L ABG O2 Saturation (95-98) % ABG O2 Content (15-23) ML/dl ABG Base Excess (-2.0-3.0) mmol/L ABG Hemoglobin (11.7-17.4) g/dL ABG Carboxyhemoglobin (0.5-1.5) % POC ABG HHb (Measured) (0-5) % ABG Methemoglobin (0.0-3.0) % ABG O2 Capacity (16-24) mL/dl Hgb O2 Saturation (95.0-98.0) % FiO2 % Sodium 151 H (132-148) mmol/L Potassium 3.6 (3.6-5.0) mmol/L Chloride 120 H (95-110) mmol/L Carbon Dioxide 23 (21-33) mmol/L Anion Gap 12 (10-20) BUN 19 (7-21) mg/dL Creatinine 0.8 (0.8-1.5) mg/dL Est GFR ( Amer) > 60 Est GFR (Non-Af Amer) > 60 Random Glucose 108 (70-110) mg/dL Calcium 9.1 (8.4-10.5) mg/dL Phosphorus (2.5-4.5) mg/dL Magnesium (1.7-2.2) mg/dL Total Bilirubin (0.2-1.3) mg/dL AST (17-59) U/L ALT (7-56) U/L Alkaline Phosphatase (38-126) U/L Lactate Dehydrogenase (333-699) U/L Total Creatine Kinase (35-230) U/L Troponin I ng/mL Total Protein (5.8-8.3) g/dL Albumin (3.0-4.8) g/dL Globulin gm/dL Albumin/Globulin Ratio (1.1-1.8) Laboratory Results - last 24 hr 04/04/17 04/05/17 04/05/17 19:25 05:20 05:20 WBC 11.7 H RBC 4.06 Hgb 11.4 L Hct 32.0 L MCV 78.8 L MCH 28.1 MCHC 35.6 RDW 14.0 Plt Count 274 MPV 9.5 Gran % 77.8 H Lymph % (Auto) 12.0 L Metcalfe % (Auto) 7.0 H Eos % (Auto) 3.2 Baso % (Auto) 0.0 Gran # 9.11 H Lymph # 1.4 Metcalfe # 0.8 H Eos # 0.4 Baso # 0.00 pCO2 pO2 HCO3 ABG pH ABG Total CO2 ABG O2 Saturation ABG O2 Content ABG Base Excess ABG Hemoglobin ABG Carboxyhemoglobin POC ABG HHb (Measured) ABG Methemoglobin ABG O2 Capacity Hgb O2 Saturation FiO2 Sodium 151 H 151 H Potassium 3.6 3.3 L Chloride 120 H 119 H Carbon Dioxide 23 24 Anion Gap 12 11 BUN 19 19 Creatinine 0.8 0.8 Est GFR ( Amer) > 60 > 60 Est GFR (Non-Af Amer) > 60 > 60 Random Glucose 108 102 Calcium 9.1 8.7 Phosphorus Magnesium Total Bilirubin 0.6 AST 115 H ALT 265 H Alkaline Phosphatase 75 Lactate Dehydrogenase 1611 H Total Creatine Kinase 192 Troponin I 0.02 Total Protein 5.9 Albumin 3.0 Globulin 3.0 Albumin/Globulin Ratio 1.0 L 04/05/17 04/05/17 08:16 08:30 WBC RBC Hgb Hct MCV MCH MCHC RDW Plt Count MPV Gran % Lymph % (Auto) Metcalfe % (Auto) Eos % (Auto) Baso % (Auto) Gran # Lymph # Metcalfe # Eos # Baso # pCO2 31 L pO2 131.0 H HCO3 23.1 ABG pH 7.48 H ABG Total CO2 24.1 ABG O2 Saturation 99.5 H ABG O2 Content 15.8 ABG Base Excess 0.2 ABG Hemoglobin 11.4 L ABG Carboxyhemoglobin 1.6 H POC ABG HHb (Measured) 0.5 ABG Methemoglobin 0.9 ABG O2 Capacity 15.9 L Hgb O2 Saturation 97.0 FiO2 40.0 Sodium Potassium Chloride Carbon Dioxide Anion Gap BUN Creatinine Est GFR ( Amer) Est GFR (Non-Af Amer) Random Glucose Calcium Phosphorus 3.3 Magnesium 2.0 Total Bilirubin AST ALT Alkaline Phosphatase Lactate Dehydrogenase Total Creatine Kinase Troponin I Total Protein Albumin Globulin Albumin/Globulin Ratio Fingerstick Blood Sugar Results: 215 Review of Systems - Review of Systems Systems not reviewed;Unavailable: Intubated Assessment/Plan - Assessment and Plan (Free Text) Assessment: This is a 61 yo M with PMH of chronic back pain on oxycodone and restless leg syndrome on xanax who went into PEA cardiac arrest at home, s/p CPR and Epi x3, bicarb x1, and Narcan x1 with ROSC, s/p intubation, and repeat cardiac arrest on arrival to ED with ROSC after chest compressions. Arrest is likely 2/2 cocaine use, as UDS was notably positive for cocaine, opiates, and benzos, and patient had likely tract ramirez on both arms. He has remained completely unresponsive since arrival, with head CT notable for diffuse hypoxic/ischemic injury, MRI notable for ischemic injury vs herpes encephalitis, and his prognosis is very poor. Was pending Trach/G-tube, but now found to have pneumomediastinum on AM CXR. 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 -EEG notable for diffuse slowing consistent with bilateral cerebral dysfxn. -MRI brain read as chronic ischemic injury vs herpes encephalitis; as per ID unlikely herpes encephalitis, pt presentation prior to this episode inconsistent with normal presentation of herpes encephalitis. -Neuro (Dr. Rico) consulted, appreciate all recs; poor prognosis given lack of reflexes and CT scan, MRI and EEG obtained to determine neurologic prognosis CV: -Hemodynamically stable, HR 70's-80s and MAP >65 consistently -Trops downtrending (last was 1.48, peaked at 1.70), unsurprising level in setting of cardiac arrest and CPR x2, but will obtain Echo -Echo notable for EF 65.7%, normal LV size/wall thickness, trace MR, trace TR with RVSP 31, dilated IVC, trace pericardial effusion,, no vegetations -Cardiology consult for recs -Likely cardiac arrest 2/2 cocaine abuse Pulm: -Currently intubated for airway protection -AM ABG reviewed, improved oxygenation on 40% FiO2 vs 35% FiO2, pO2 now 131 ( was 62) -CXR today reviewed, read as pneumomediastinum without pneumothorax, and air in the right supraclavicular fossa, likely 2/2 barotrauma from intubation and mechanical ventilation; Surgery notified, no Trach/G-tube today, recs consulting CT Surgery -CT Surgery (Dr. Rosales) consulted, appreciate all recs -Protective lung ventilation strategies, VAP bundle, low-tidal volumes -head of bed to 30 degrees, aspiration precautions GI: -NPO -Protonix for ppx -Transaminitis improved, possibly 2/2 substance abuse vs hepatitis vs shock liver 2/2 cardiac arrest x2; hepatitis panel negative; continue to monitor -Tube feeds held in light of current radiologic findings -C diff toxin test ordered, negative for toxin and antigen Renal: -Cr stable at 0.8 -Hypernatremia improved to 151, switched from 1/2NS to D5W 100cc/hr -Monitor I and Os -Replete electrolytes as needed Heme: -Hgb stable, 11.4 today -no signs of hemorrhage -SCDs for DVT ppx ID: -ID (Dr. Milner) consulted, appreciate all recs; monitor off abx for now -Urine culture negative, blood cx negative at 5 days -Negative for C. Diff toxin and antigen Endo: -Maintain blood sugars 140-180 Dispo: ICU, mechanically ventilated, minimal neurologic activity, pending Trach/ G-tube and then fci placement as per family's wishes; now found to have Pneumomediastinum on CXR, Trach/G-tube on hold, pending CT Surgeon's input FEN: NPO, D5W 100cc/hr, holding all tube feeds at present Access: Peripheral IV Consults: Neuro, Cardio, ID Ppx: Protonix for GI, SCDs for DVT Code Status: Full Code Patient seen, reviewed, and discussed with attending, Dr. Wolf. <Maryann GUSMAN,[facility] - Last Filed: 04/05/17 15:57> CCU Objective - Vital Signs / Intake & Output Vital Signs (Last 4 hours): Vital Signs Temp Pulse 04/05/17 13:00 97.9 F 04/05/17 12:00 55 L Intake and Output (Last 8hrs): Intake & Output 04/05/17 04/05/17 04/05/17 06:59 14:59 22:59 Intake Total 1255 Output Total 310 Balance 945 Weight 140 lb Intake: IV 825 Right Forearm 825 TPN/PPN 180 Other 250 Output: Urine 300 2-way Urethral 300 Emesis 0 Other 10 Other: # Bowel Movements 1 - Medications Active Medications: Active Medications Generic Name Dose Route Start Last Admin Trade Name Freq PRN Reason Stop Dose Admin Aspirin 81 mg 03/31/17 10:00 04/05/17 09:22 Aspirin Chewable PO Not Given DAILY [facility] Chlorhexidine Gluconate 15 ml 04/02/17 14:30 04/05/17 11:28 Peridex PO 1 analia Q4H E[facility] Administration Clopidogrel Bisulfate 75 mg 03/31/17 10:00 04/05/17 09:22 Plavix PO Not Given DAILY [facility] Enoxaparin Sodium 40 mg 04/03/17 10:00 04/05/17 09:22 Lovenox SC Not Given DAILY [facility] Protocol Levetiracetam 500 mg in 100 mls @ 460 mls/hr 03/31/17 17:33 04/05/17 09:24 Keppra 500mg Ivpb IV 460 mls/hr Q12 EMA Administration Famotidine 20 mg in 50 mls @ 100 mls/hr 04/03/17 22:00 04/05/17 09:24 Pepcid 20mg/50ml Premix IVPB 100 mls/hr Q12 EMA Administration Dextrose 1,000 mls @ 100 mls/hr 04/05/17 08:00 04/05/17 08:25 Dextrose 5% In Water 1000 Ml IV 100 mls/hr .Q10H EMA Administration - Patient Studies Lab Studies: Lab Studies 04/05/17 04/05/17 04/05/17 Range/Units 08:30 08:16 05:20 WBC (4.5-11.0) 10^3/ul RBC (3.5-6.1) 10^6/uL Hgb (14.0-18.0) g/dL Hct (42.0-52.0) % MCV (80.0-105.0) fl MCH (25.0-35.0) pg MCHC (31.0-37.0) g/dl RDW (11.5-14.5) % Plt Count (120.0-450.0) 10^3/uL MPV (7.0-11.0) fl Gran % (50.0-68.0) % Lymph % (Auto) (22.0-35.0) % Metcalfe % (Auto) (1.0-6.0) % Eos % (Auto) (1.5-5.0) % Baso % (Auto) (0.0-3.0) % Gran # (1.4-6.5) Lymph # (1.2-3.4) Metcalfe # (0.1-0.6) Eos # (0.0-0.7) Baso # (0.0-2.0) K/mm3 pCO2 31 L (35-45) mm/Hg pO2 131.0 H (80-100) mm/Hg HCO3 23.1 (21-28) mmol/L ABG pH 7.48 H (7.35-7.45) ABG Total CO2 24.1 (22-28) mmol.L ABG O2 Saturation 99.5 H (95-98) % ABG O2 Content 15.8 (15-23) ML/dl ABG Base Excess 0.2 (-2.0-3.0) mmol/L ABG Hemoglobin 11.4 L (11.7-17.4) g/dL ABG Carboxyhemoglobin 1.6 H (0.5-1.5) % POC ABG HHb (Measured) 0.5 (0-5) % ABG Methemoglobin 0.9 (0.0-3.0) % ABG O2 Capacity 15.9 L (16-24) mL/dl Hgb O2 Saturation 97.0 (95.0-98.0) % FiO2 40.0 % Sodium 151 H (132-148) mmol/L Potassium 3.3 L (3.6-5.0) mmol/L Chloride 119 H (95-110) mmol/L Carbon Dioxide 24 (21-33) mmol/L Anion Gap 11 (10-20) BUN 19 (7-21) mg/dL Creatinine 0.8 (0.8-1.5) mg/dL Est GFR ( Amer) > 60 Est GFR (Non-Af Amer) > 60 Random Glucose 102 (70-110) mg/dL Calcium 8.7 (8.4-10.5) mg/dL Phosphorus 3.3 (2.5-4.5) mg/dL Magnesium 2.0 (1.7-2.2) mg/dL Total Bilirubin 0.6 (0.2-1.3) mg/dL AST 115 H (17-59) U/L ALT 265 H (7-56) U/L Alkaline Phosphatase 75 (38-126) U/L Lactate Dehydrogenase 1611 H (333-699) U/L Total Creatine Kinase 192 (35-230) U/L Troponin I 0.02 ng/mL Total Protein 5.9 (5.8-8.3) g/dL Albumin 3.0 (3.0-4.8) g/dL Globulin 3.0 gm/dL Albumin/Globulin Ratio 1.0 L (1.1-1.8) 04/05/17 04/04/17 Range/Units 05:20 19:25 WBC 11.7 H (4.5-11.0) 10^3/ul RBC 4.06 (3.5-6.1) 10^6/uL Hgb 11.4 L (14.0-18.0) g/dL Hct 32.0 L (42.0-52.0) % MCV 78.8 L (80.0-105.0) fl MCH 28.1 (25.0-35.0) pg MCHC 35.6 (31.0-37.0) g/dl RDW 14.0 (11.5-14.5) % Plt Count 274 (120.0-450.0) 10^3/uL MPV 9.5 (7.0-11.0) fl Gran % 77.8 H (50.0-68.0) % Lymph % (Auto) 12.0 L (22.0-35.0) % Metcalfe % (Auto) 7.0 H (1.0-6.0) % Eos % (Auto) 3.2 (1.5-5.0) % Baso % (Auto) 0.0 (0.0-3.0) % Gran # 9.11 H (1.4-6.5) Lymph # 1.4 (1.2-3.4) Metcalfe # 0.8 H (0.1-0.6) Eos # 0.4 (0.0-0.7) Baso # 0.00 (0.0-2.0) K/mm3 pCO2 (35-45) mm/Hg pO2 (80-100) mm/Hg HCO3 (21-28) mmol/L ABG pH (7.35-7.45) ABG Total CO2 (22-28) mmol.L ABG O2 Saturation (95-98) % ABG O2 Content (15-23) ML/dl ABG Base Excess (-2.0-3.0) mmol/L ABG Hemoglobin (11.7-17.4) g/dL ABG Carboxyhemoglobin (0.5-1.5) % POC ABG HHb (Measured) (0-5) % ABG Methemoglobin (0.0-3.0) % ABG O2 Capacity (16-24) mL/dl Hgb O2 Saturation (95.0-98.0) % FiO2 % Sodium 151 H (132-148) mmol/L Potassium 3.6 (3.6-5.0) mmol/L Chloride 120 H (95-110) mmol/L Carbon Dioxide 23 (21-33) mmol/L Anion Gap 12 (10-20) BUN 19 (7-21) mg/dL Creatinine 0.8 (0.8-1.5) mg/dL Est GFR ( Amer) > 60 Est GFR (Non-Af Amer) > 60 Random Glucose 108 (70-110) mg/dL Calcium 9.1 (8.4-10.5) mg/dL Phosphorus (2.5-4.5) mg/dL Magnesium (1.7-2.2) mg/dL Total Bilirubin (0.2-1.3) mg/dL AST (17-59) U/L ALT (7-56) U/L Alkaline Phosphatase (38-126) U/L Lactate Dehydrogenase (333-699) U/L Total Creatine Kinase (35-230) U/L Troponin I ng/mL Total Protein (5.8-8.3) g/dL Albumin (3.0-4.8) g/dL Globulin gm/dL Albumin/Globulin Ratio (1.1-1.8) Laboratory Results - last 24 hr 04/04/17 04/05/17 04/05/17 19:25 05:20 05:20 WBC 11.7 H RBC 4.06 Hgb 11.4 L Hct 32.0 L MCV 78.8 L MCH 28.1 MCHC 35.6 RDW 14.0 Plt Count 274 MPV 9.5 Gran % 77.8 H Lymph % (Auto) 12.0 L Metcalfe % (Auto) 7.0 H Eos % (Auto) 3.2 Baso % (Auto) 0.0 Gran # 9.11 H Lymph # 1.4 Metcalfe # 0.8 H Eos # 0.4 Baso # 0.00 pCO2 pO2 HCO3 ABG pH ABG Total CO2 ABG O2 Saturation ABG O2 Content ABG Base Excess ABG Hemoglobin ABG Carboxyhemoglobin POC ABG HHb (Measured) ABG Methemoglobin ABG O2 Capacity Hgb O2 Saturation FiO2 Sodium 151 H 151 H Potassium 3.6 3.3 L Chloride 120 H 119 H Carbon Dioxide 23 24 Anion Gap 12 11 BUN 19 19 Creatinine 0.8 0.8 Est GFR ( Amer) > 60 > 60 Est GFR (Non-Af Amer) > 60 > 60 Random Glucose 108 102 Calcium 9.1 8.7 Phosphorus Magnesium Total Bilirubin 0.6 AST 115 H ALT 265 H Alkaline Phosphatase 75 Lactate Dehydrogenase 1611 H Total Creatine Kinase 192 Troponin I 0.02 Total Protein 5.9 Albumin 3.0 Globulin 3.0 Albumin/Globulin Ratio 1.0 L 04/05/17 04/05/17 08:16 08:30 WBC RBC Hgb Hct MCV MCH MCHC RDW Plt Count MPV Gran % Lymph % (Auto) Metcalfe % (Auto) Eos % (Auto) Baso % (Auto) Gran # Lymph # Metcalfe # Eos # Baso # pCO2 31 L pO2 131.0 H HCO3 23.1 ABG pH 7.48 H ABG Total CO2 24.1 ABG O2 Saturation 99.5 H ABG O2 Content 15.8 ABG Base Excess 0.2 ABG Hemoglobin 11.4 L ABG Carboxyhemoglobin 1.6 H POC ABG HHb (Measured) 0.5 ABG Methemoglobin 0.9 ABG O2 Capacity 15.9 L Hgb O2 Saturation 97.0 FiO2 40.0 Sodium Potassium Chloride Carbon Dioxide Anion Gap BUN Creatinine Est GFR ( Amer) Est GFR (Non-Af Amer) Random Glucose Calcium Phosphorus 3.3 Magnesium 2.0 Total Bilirubin AST ALT Alkaline Phosphatase Lactate Dehydrogenase Total Creatine Kinase Troponin I Total Protein Albumin Globulin Albumin/Globulin Ratio Attending/Attestation - Attestation I have personally seen and examined this patient.: Yes I have fully participated in the care of the patient.: Yes I have reviewed all pertinent clinical information: Yes Notes (Text): 04/05/17 15:55 61 y/o M s/p cardiac arrest w/ anoxic brain injury Minimal cranial nerve functions restored. Ability to briefly PS.. appx 10 minutes. Off sedation for > 48 hrs. Family aware of the poor prognosis . Awaiting Trach / PEG placement. Incidental finding of Pneumomediastinum on CT chest. No intervention needed. No PTX. Surgery aware, wants to hold off on Trach placement. CT surgery consulted, unclear if they are available. dvt p ppi cc time 55 min
--- NOTE | 2017-04-05 13:07 | CP.PCM.PN ---
Subjective - Date & Time of Evaluation Date of Evaluation: 04/05/17 Time of Evaluation: 09:30 - Subjective Subjective: remains unresponsive on vent Objective - Vital Signs/Intake and Output Vital Signs (last 24 hours): Temp Pulse Resp BP Pulse Ox 97.5 F L 56 L 22 132/78 100 04/05/17 07:00 04/05/17 07:00 04/05/17 08:36 04/05/17 07:00 04/05/17 08:36 Intake and Output: 04/05/17 04/05/17 06:59 18:59 Intake Total 1255 Output Total 310 Balance 945 - Medications Medications: Current Medications Aspirin (Aspirin Chewable) [address] [facility] Last Admin: 04/05/17 09:22 Dose: Not Given Chlorhexidine Gluconate (Peridex) [address] [facility] Last Admin: 04/05/17 11:28 Dose: 1 analia Clopidogrel Bisulfate (Plavix) [address] [facility] Last Admin: 04/05/17 09:22 Dose: Not Given Enoxaparin Sodium (Lovenox) [address] [facility] PRN Reason: Protocol Last Admin: 04/05/17 09:22 Dose: Not Given Levetiracetam (Keppra 500mg Ivpb) 500 mg in 100 mls @ 460 mls/hr IV Q12 EMA Last Admin: 04/05/17 09:24 Dose: 460 mls/hr Famotidine (Pepcid 20mg/50ml Premix) 20 mg in 50 mls @ 100 mls/hr IVPB Q12 EMA Last Admin: 04/05/17 09:24 Dose: 100 mls/hr Dextrose (Dextrose 5% In Water 1000 Ml) 1,000 mls @ 100 mls/hr IV .Q10H EMA Last Admin: 04/05/17 08:25 Dose: 100 mls/hr - Labs Labs: 04/05/17 05:20 04/05/17 05:20 PT 13.1 Seconds (9.9-11.8) H 03/31/17 09:13 INR 1.21 (0.93-1.08) H 03/31/17 09:13 APTT 68.6 Seconds (23.7-30.8) H 03/31/17 09:13 - Respiratory Exam Respiratory Exam: Clear to Ausculation Bilateral Additional comments: endotracheal tube intact, good air entry bilaterally - GI/Abdominal Exam GI & Abdominal Exam: Soft, Normal Bowel Sounds Additional comments: nasogastric tube intact, enteral feeding infusing - Extremities Exam Extremities Exam: Pedal Edema - Neurological Exam Neurological Exam: Altered - Skin Skin Exam: Dry, Warm Assessment and Plan (1) Cardiac arrest Status: Acute (2) Hypoxic ischemic encephalopathy Status: Acute - Assessment and Plan (Free Text) Plan: continue supportive care, possible trach, LTACH eval, prognosis remains very poor, family aware
--- NOTE | 2017-04-05 14:25 | CT ---
PROCEDURE: CT Chest without contrast HISTORY: pneumomediastinum COMPARISON: None. TECHNIQUE: Contiguous axial images were obtained through the chest without intravenous contrast enhancement. Sagittal and coronal reconstructions were performed. Radiation dose (DLP): 481.58 mGy-cm. This CT exam was performed using one or more of the following dose reduction techniques: Automated exposure control, adjustment of the mA and/or kV according to patient size, and/or use of iterative reconstruction technique. FINDINGS: LUNGS: There is no pulmonary consolidation. There is no pulmonary mass. MEDIASTINUM: Unremarkable thoracic aorta. No aneurysm. Normal sized heart. Main pulmonary artery unremarkable. No vascular congestion. No lymphadenopathy. Endotracheal tube terminates approximately 4.7 cm above the tracheal teagan. Nasogastric tube noted PLEURA: Small left pneumothorax both at the lung apex and at the left lung base anteriorly. There is a pneumomediastinum. There is gas dissecting from the mediastinum cephalad into the subcutaneous soft tissues of the neck, surrounding the great vessels. There is subcutaneous gas seen about the superior chest wall. Gas also dissects anteriorly into the peritoneal cavity, anterior to the left lobe of the liver, likely through fascial planes of the anterior chest/abdominal wall. This does not raise concern for bowel perforation. There is small left pleural effusion. There is subsegmental atelectasis of the left lower lobe. There is trace fluid about the left lung apex. BONES: Multiple nondisplaced right rib fractures including the 4th through 7th ribs, anteriorly. UPPER ABDOMEN: Pneumoperitoneum as described above. Noncalcified gallstone. Nasogastric tube extends to gastric lumen. OTHER FINDINGS: None. IMPRESSION: Pneumomediastinum. Small left pneumothorax. Subcutaneous emphysema of the upper chest wall and neck. Strongly suspect pneumoperitoneum dissecting along the anterior chest/abdominal wall from the pneumomediastinum. Multiple nondisplaced right rib fractures anteriorly, including the 4th through 7th ribs. ETT and NG tube in appropriate position. These findings were discussed by telephone with Dr. Alfaro in the CCU at 2:20 p.m. on 04/05/2017.
--- NOTE | 2017-04-05 14:55 | CP.PCM.PN ---
Subjective - Date & Time of Evaluation Date of Evaluation: 04/05/17 Time of Evaluation: 07:30 - Subjective Subjective: General Surgery Consult Note for Dr. Helton Patient seen and examined at bedside. No acute event overnight. Patient intubated and on vent support. Patient had Chest CT which showed pneumomediastinum/pneumothorax/pneumoperitonium. Chest tube being placed for pneumothorax. Objective - Vital Signs/Intake and Output Vital Signs (last 24 hours): Temp Pulse Resp BP Pulse Ox 97.9 F 55 L 22 132/78 100 04/05/17 13:00 04/05/17 12:00 04/05/17 08:36 04/05/17 07:00 04/05/17 08:36 Intake and Output: 04/05/17 04/05/17 06:59 18:59 Intake Total 1255 Output Total 310 Balance 945 - Medications Medications: Current Medications Aspirin (Aspirin Chewable) 81 mg PO DAILY [facility] Last Admin: 04/05/17 09:22 Dose: Not Given Chlorhexidine Gluconate (Peridex) 15 ml PO Q4H [facility] Last Admin: 04/05/17 11:28 Dose: 1 analia Clopidogrel Bisulfate (Plavix) 75 mg PO DAILY [facility] Last Admin: 04/05/17 09:22 Dose: Not Given Enoxaparin Sodium (Lovenox) 40 mg SC DAILY [facility] PRN Reason: Protocol Last Admin: 04/05/17 09:22 Dose: Not Given Levetiracetam (Keppra 500mg Ivpb) 500 mg in 100 mls @ 460 mls/hr IV Q12 [facility] Last Admin: 04/05/17 09:24 Dose: 460 mls/hr Famotidine (Pepcid 20mg/50ml Premix) 20 mg in 50 mls @ 100 mls/hr IVPB Q12 [facility] Last Admin: 04/05/17 09:24 Dose: 100 mls/hr Dextrose (Dextrose 5% In Water 1000 Ml) 1,000 mls @ 100 mls/hr IV .Q10H [facility] Last Admin: 04/05/17 08:25 Dose: 100 mls/hr - Labs Labs: 04/05/17 05:20 04/05/17 05:20 PT 13.1 Seconds (9.9-11.8) H 03/31/17 09:13 INR 1.21 (0.93-1.08) H 03/31/17 09:13 APTT 68.6 Seconds (23.7-30.8) H 03/31/17 09:13 - Constitutional Appears: Chronically Ill, Other (intubated and sedated) - Head Exam Head Exam: ATRAUMATIC, NORMOCEPHALIC - Eye Exam Eye Exam: Normal appearance - ENT Exam ENT Exam: Mucous Membranes Moist - Respiratory Exam Additional comments: intubated and on vent support chest tube inserted on L side - Cardiovascular Exam Cardiovascular Exam: REGULAR RHYTHM - Neurological Exam Neurological Exam: Altered - Psychiatric Exam Psychiatric exam: Flat Affect - Skin Skin Exam: Dry, Warm Assessment and Plan - Assessment and Plan (Free Text) Plan: 61 M with respiratory failure, FTT and pneumothorax/pneumomediastinum/ pneumoperitoneum Pneumomediastinum. Small left pneumothorax. Subcutaneous emphysema of the upper chest wall and neck. Strongly suspect pneumoperitoneum dissecting along the anterior chest/abdominal wall from the pneumomediastinum. Multiple nondisplaced right rib fractures anteriorly, including the 4th through 7th ribs. ETT and NG tube in appropriate position. -Chest tube placed -f/u cxr -Postpone trach/gtube placement -CT surgery consulted -Management as per ICU -Will AYDEE Arzola PGY1
--- NOTE | 2017-04-05 18:09 | PCM.PROC ---
Procedures Attestation:: I certify that I have explained the specified Operation(s) or Procedure(s), risks, benefits and reasonable alternatives to the Patient and/or other person responsible. The opportunity was given to ask questions and all questions answered - Chest Tube Chest Tube Location: Mid-Axillary Left Size of Tube (cm): 24 (advanced 14cm into thorax) Chest Tube Procedure: Chlorhexidine Anesthesia: Lidocaine 1% Incision Made With: #11 blade Post Procedure: sutured to skin, sterile dressing applied, air occlusive dressing Perez of Air [place]: Yes Tube Drainage: none Amount of Initial Drainage: 5 Post Procedure CXR?: Yes Patient Tolerated Procedure: Yes
[2017-04-06] MEDS: Chlorhexidine 0.12% Oral Sol 480 ml Bot PO SCH ×6 (02:30→22:21)
[2017-04-06 05:42] LABS: ARTERIAL BLOOD GAS HCO3 17.1 mmol/L (21-28); ARTERIAL BLOOD GAS O2 CAPACITY 14.2 mL/dl (16-24); ARTERIAL BLOOD GAS O2 CONTENT 14.1 ML/dl (15-23); ARTERIAL BLOOD GAS PH 7.48 (7.35-7.45); ARTERIAL BLOOD HGB O2 SAT 96.9 % (95.0-98.0); CARBOXYHEMOGLOBIN 1.6 % (0.5-1.5); HHB 0.5 % (0-5); METHEMOGLOBIN 1.1 % (0.0-3.0)
[2017-04-06 07:15] LABS: BASO # 0.04 K/mm3 (0.0-2.0); BASO % 0.2 % (0.0-3.0); EOS # 0.4 (0.0-0.7); EOS % 1.6 % (1.5-5.0); GRAN # 20.91 (1.4-6.5); GRAN % 79.8 % (50.0-68.0); HEMATOCRIT 32.9 % (42.0-52.0); LYMPH # 3.1 (1.2-3.4); LYMPH % 11.8 % (22.0-35.0); MEAN CORPUSCULAR HEMOGLOBIN 27.8 pg (25.0-35.0); MEAN CORPUSCULAR HGB CONC 34.3 g/dl (31.0-37.0); MONO # 1.7 (0.1-0.6); MONO % 6.6 % (1.0-6.0); RED CELL DISTRIBUTION WIDTH 14.5 % (11.5-14.5)
[2017-04-06 07:32] LABS: WHITE BLOOD COUNT 26.2 10^3/ul (4.5-11.0)
[2017-04-06 08:21] LABS: ALB/GLOB RATIO 1.1 (1.1-1.8); ALKALINE PHOSPHATASE 74 U/L (38-126); ALT/SGPT 207 U/L (7-56); AST/SGOT 78 U/L (17-59); BILIRUBIN,TOTAL 0.8 mg/dL (0.2-1.3); BLOOD UREA NITROGEN 15 mg/dL (7-21); CALCIUM 8.1 mg/dL (8.4-10.5); CARBON DIOXIDE 21 mmol/L (21-33); CHLORIDE 113 mmol/L (95-110); GFR AFRICAN-AMERICAN > 60; GLUCOSE,RANDOM 112 mg/dL (70-110); MAGNESIUM 1.8 mg/dL (1.7-2.2); PHOSPHOROUS 3.8 mg/dL (2.5-4.5); POTASSIUM 3.6 mmol/L (3.6-5.0); SODIUM 143 mmol/L (132-148); TOTAL PROTEIN 5.5 g/dL (5.8-8.3)
--- NOTE | 2017-04-06 08:26 | RAD ---
HISTORY: s/p left CT placement COMPARISON: Earlier same day FINDINGS: LUNGS: There is a left-sided chest tube. There is no visible pneumothorax. No change in appearance of pneumomediastinum. Endotracheal and nasogastric tubes unchanged PLEURA: No significant pleural effusion identified, no pneumothorax apparent. CARDIOVASCULAR: Normal. OSSEOUS STRUCTURES: No significant abnormalities. VISUALIZED UPPER ABDOMEN: Normal. OTHER FINDINGS: None. IMPRESSION: There is a left-sided chest tube. There is no visible pneumothorax. No change in appearance of pneumomediastinum. Endotracheal and nasogastric tubes unchanged
--- NOTE | 2017-04-06 08:29 | RAD ---
HISTORY: reassess L lung COMPARISON: Earlier same day FINDINGS: LUNGS: There is a small left apical pneumothorax. Chest tube remains in place. There is now diffuse opacification of the left lung. The right lung is clear. There is decrease mediastinal air PLEURA: No significant pleural effusion identified, no pneumothorax apparent. CARDIOVASCULAR: Normal. OSSEOUS STRUCTURES: No significant abnormalities. VISUALIZED UPPER ABDOMEN: Normal. OTHER FINDINGS: None. IMPRESSION: There is a small left apical pneumothorax. Chest tube remains in place. There is now diffuse opacification of the left lung. The right lung is clear. There is decrease mediastinal air
--- NOTE | 2017-04-06 08:35 | RAD ---
HISTORY: intubated, f/u COMPARISON: 04/05/2017 FINDINGS: LUNGS: The patient is rotated to the left. There is a left chest tube and a small left apical pneumothorax. There is increasing opacification of the left lung. The right lung is clear. There is pneumomediastinum as noted previously PLEURA: No significant pleural effusion identified, no pneumothorax apparent. CARDIOVASCULAR: Normal. OSSEOUS STRUCTURES: No significant abnormalities. VISUALIZED UPPER ABDOMEN: Normal. OTHER FINDINGS: None. IMPRESSION: The patient is rotated to the left. There is a left chest tube and a small left apical pneumothorax. There is increasing opacification of the left lung. The right lung is clear. There is pneumomediastinum as noted previously
--- NOTE | 2017-04-06 09:20 | CP.PCM.PN ---
Subjective - Date & Time of Evaluation Date of Evaluation: 04/06/17 Time of Evaluation: 07:15 - Subjective Subjective: General Surgery Consult Note for Dr. Helton Patient seen and examined at bedside. No acute event overnight. He is s/p L sided Chest tube placement POD #1. Patient still intubated and on vent support. ROS unobtainable Objective - Vital Signs/Intake and Output Vital Signs (last 24 hours): Temp Pulse Resp BP Pulse Ox 98.2 F 80 32 H 137/86 100 04/06/17 04:00 04/06/17 06:00 04/06/17 06:00 04/06/17 06:00 04/06/17 06:00 Intake and Output: 04/06/17 04/06/17 06:59 18:59 Intake Total 2925 Output Total 1000 Balance 1925 - Medications Medications: Current Medications Aspirin (Aspirin Chewable) 81 mg PO DAILY [facility] Last Admin: 04/05/17 09:22 Dose: Not Given Chlorhexidine Gluconate (Peridex) 15 ml PO Q4H [facility] Last Admin: 04/06/17 05:59 Dose: 15 analia Clopidogrel Bisulfate (Plavix) 75 mg PO DAILY [facility] Last Admin: 04/05/17 09:22 Dose: Not Given Enoxaparin Sodium (Lovenox) 40 mg SC DAILY [facility] PRN Reason: Protocol Last Admin: 04/05/17 09:22 Dose: Not Given Levetiracetam (Keppra 500mg Ivpb) 500 mg in 100 mls @ 460 mls/hr IV Q12 [facility] Last Admin: 04/05/17 21:42 Dose: 460 mls/hr Famotidine (Pepcid 20mg/50ml Premix) 20 mg in 50 mls @ 100 mls/hr IVPB Q12 [facility] Last Admin: 04/05/17 21:41 Dose: 100 mls/hr Dextrose (Dextrose 5% In Water 1000 Ml) 1,000 mls @ 100 mls/hr IV .Q10H [facility] Last Admin: 04/06/17 05:59 Dose: 100 mls/hr - Labs Labs: 04/06/17 07:00 04/06/17 07:35 PT 13.1 Seconds (9.9-11.8) H 03/31/17 09:13 INR 1.21 (0.93-1.08) H 03/31/17 09:13 APTT 68.6 Seconds (23.7-30.8) H 03/31/17 09:13 - Constitutional Appears: No Acute Distress, Cachectic, Chronically Ill - Head Exam Head Exam: ATRAUMATIC, NORMOCEPHALIC - Eye Exam Eye Exam: Normal appearance - ENT Exam ENT Exam: Mucous Membranes Moist Additional comments: ET tube in place, ng tube in place - Respiratory Exam Additional comments: intubated and on vent support L sided chest tube 240 cc of output - Cardiovascular Exam Cardiovascular Exam: REGULAR RHYTHM - GI/Abdominal Exam GI & Abdominal Exam: Soft. absent: Distended, Firm, Guarding - Neurological Exam Neurological Exam: Altered - Psychiatric Exam Psychiatric exam: Flat Affect - Skin Skin Exam: Dry, Warm Additional comments: track ramirez on upper extremities Assessment and Plan - Assessment and Plan (Free Text) Plan: 61 M with respiratory failure, FTT and pneumothorax/pneumomediastinum/ pneumoperitoneum, s/p L sided chest tube -Chest tube to wall suction -Daily cxr to monitor - today shows white out of R lung, suspected mucous plug -Postpone trach/gtube placement -Management as per ICU -Will DW Dr. Danie Arzola PGY1
--- NOTE | 2017-04-06 09:35 | CP.PCM.PN ---
Subjective - Date & Time of Evaluation Date of Evaluation: 04/06/17 Time of Evaluation: 09:00 - Subjective Subjective: remains on vent, unresponsive Objective - Vital Signs/Intake and Output Vital Signs (last 24 hours): Temp Pulse Resp BP Pulse Ox 98.2 F 80 32 H 137/86 100 04/06/17 04:00 04/06/17 06:00 04/06/17 06:00 04/06/17 06:00 04/06/17 06:00 Intake and Output: 04/06/17 04/06/17 06:59 18:59 Intake Total 2925 Output Total 1000 Balance 1925 - Medications Medications: Current Medications Aspirin (Aspirin Chewable) 81 mg PO DAILY [facility] Last Admin: 04/05/17 09:22 Dose: Not Given Chlorhexidine Gluconate (Peridex) 15 ml PO Q4H [facility] Last Admin: 04/06/17 05:59 Dose: 15 analia Clopidogrel Bisulfate (Plavix) 75 mg PO DAILY [facility] Last Admin: 04/05/17 09:22 Dose: Not Given Enoxaparin Sodium (Lovenox) 40 mg SC DAILY [facility] PRN Reason: Protocol Last Admin: 04/05/17 09:22 Dose: Not Given Levetiracetam (Keppra 500mg Ivpb) 500 mg in 100 mls @ 460 mls/hr IV Q12 [facility] Last Admin: 04/05/17 21:42 Dose: 460 mls/hr Famotidine (Pepcid 20mg/50ml Premix) 20 mg in 50 mls @ 100 mls/hr IVPB Q12 [facility] Last Admin: 04/05/17 21:41 Dose: 100 mls/hr Dextrose (Dextrose 5% In Water 1000 Ml) 1,000 mls @ 100 mls/hr IV .Q10H [facility] Last Admin: 04/06/17 05:59 Dose: 100 mls/hr - Labs Labs: 04/06/17 07:00 04/06/17 07:35 PT 13.1 Seconds (9.9-11.8) H 03/31/17 09:13 INR 1.21 (0.93-1.08) H 03/31/17 09:13 APTT 68.6 Seconds (23.7-30.8) H 03/31/17 09:13 - Respiratory Exam Additional comments: endotracheal tube intact, good air entry bilat, L chest tube intact - Cardiovascular Exam Cardiovascular Exam: REGULAR RHYTHM - GI/Abdominal Exam GI & Abdominal Exam: Soft, Normal Bowel Sounds - Neurological Exam Neurological Exam: Altered - Skin Skin Exam: Dry, Warm Assessment and Plan (1) Cardiac arrest Status: Acute (2) Hypoxic ischemic encephalopathy Status: Acute (3) Pneumothorax Status: Acute - Assessment and Plan (Free Text) Plan: continue supportive care, [prognosis remains very poor
--- NOTE | 2017-04-06 10:16 | CP.PCM.PN ---
Subjective - Date & Time of Evaluation Date of Evaluation: 04/06/17 Time of Evaluation: 09:10 - Subjective Subjective: Continues to be on the ventilator, unresponsive, noted to have pneumomediastinum and pneumothorax, had chest tube placed. No fevers overnight. Objective - Vital Signs/Intake and Output Vital Signs (last 24 hours): Temp Pulse Resp BP Pulse Ox 98.2 F 80 32 H 137/86 100 04/06/17 04:00 04/06/17 06:00 04/06/17 06:00 04/06/17 06:00 04/06/17 06:00 Intake and Output: 04/05/17 04/06/17 18:59 06:59 Intake Total 2925 Output Total 1000 Balance 1925 - Medications Medications: Current Medications Aspirin (Aspirin Chewable) 81 mg PO DAILY [facility] Last Admin: 04/05/17 09:22 Dose: Not Given Chlorhexidine Gluconate (Peridex) 15 ml PO Q4H [facility] Last Admin: 04/06/17 05:59 Dose: 15 analia Clopidogrel Bisulfate (Plavix) 75 mg PO DAILY [facility] Last Admin: 04/05/17 09:22 Dose: Not Given Enoxaparin Sodium (Lovenox) 40 mg SC DAILY [facility] PRN Reason: Protocol Last Admin: 04/05/17 09:22 Dose: Not Given Levetiracetam (Keppra 500mg Ivpb) 500 mg in 100 mls @ 460 mls/hr IV Q12 [facility] Last Admin: 04/05/17 21:42 Dose: 460 mls/hr Famotidine (Pepcid 20mg/50ml Premix) 20 mg in 50 mls @ 100 mls/hr IVPB Q12 [facility] Last Admin: 04/05/17 21:41 Dose: 100 mls/hr Dextrose (Dextrose 5% In Water 1000 Ml) 1,000 mls @ 100 mls/hr IV .Q10H [facility] Last Admin: 04/06/17 05:59 Dose: 100 mls/hr - Labs Labs: 04/05/17 05:20 04/05/17 05:20 PT 13.1 Seconds (9.9-11.8) H 03/31/17 09:13 INR 1.21 (0.93-1.08) H 03/31/17 09:13 APTT 68.6 Seconds (23.7-30.8) H 03/31/17 09:13 - Constitutional Appears: Other (intubated, not responsive) - ENT Exam Additional comments: ET tube in place - Respiratory Exam Respiratory Exam: Decreased Breath Sounds - Cardiovascular Exam Cardiovascular Exam: +S1, +S2 - GI/Abdominal Exam GI & Abdominal Exam: Soft. absent: Tenderness Assessment and Plan - Assessment and Plan (Free Text) Plan: Assessment Systemic Inflammatory Response Syndrome, probably stress reaction after cardiac arrest related to cocaine use and now with newly found pneumothorax and pneumomediastinum S/P chest tube placement, currently with ventilator-dependent respiratory failure chronic back pain Plan Will continue to monitor off antibiotics since he is at risk for healthcare- associated infections; increased WBC count today is more likely from the pneumomediastinum but will repeat septic work up MRI brain findings noted - medial temporal lobe affectation more likely ischemic in nature, unlikely herpes encephalitis - no treatment for herpes necessary at the moment Overall prognosis is poor
[2017-04-06] MEDS: Famotidine 20mg/50ml 20 MG/50 ML BAG IVPB SCH ×2 (10:17→21:35)
[2017-04-06] MEDS: levETIRAcetam 500mg IVPB 500 MG/100 ML BAG IV SCH ×2 (10:17→21:36)
[2017-04-06] MEDS: Enoxaparin 40 mg Syringe SC SCH (10:19)
--- NOTE | 2017-04-06 12:59 | CP.CCUPN ---
<Jeremy Alfaro - Last Filed: 04/06/17 12:48> CCU Subjective - Physician Review Subjective (Free Text): 04/06/17 12:48 Patient seen and examined at bedside in the ICU. No change in general condition ; remains intubated and unresponsive, off sedation for ~72 hrs. No acute events reported overnight. Bilateral pinpoint pupils not responsive to light, no gag reflex, and no corneal reflex; only sign of neurologic activity is overbreathing the ventilator. S/p L-chest tube for L-pneumothorax, CXR today concerning for infiltrate vs mucous plugging vs pleural effusion. CCU Objective - Vital Signs / Intake & Output Vital Signs (Last 4 hours): Vital Signs BP 04/06/17 10:18 128/86 Intake and Output (Last 8hrs): Intake & Output 04/05/17 04/06/17 04/06/17 22:59 06:59 14:59 Intake Total 1525 1400 Output Total 474 526 Balance 1051 874 Intake: IV 1525 1400 Left Hand 1400 Right Forearm 1525 Output: Chest Tube Drainage 124 126 Left Lateral Chest 124 126 Urine 350 400 2-way Urethral 350 400 Other: # Bowel Movements 1 - Physical Exam Head: Positive for: Atraumatic, Normocephalic, Other Pupils: Positive for: Non-Reactive, Pinpoint. Negative for: PERRL Extroacular Muscles: Positive for: Other (uprolled eyes, move in line with head , no tracking of anyone in room, no corneal reflexes). Negative for: EOMI Conjunctiva: Positive for: Other (dirty sclera, but anicteric). Negative for: Injected, Icteric Mouth: Positive for: Moist Mucous Membranes, Other (ET tube in place) Nose (External): Positive for: Atraumatic, Other (NGT in place). Negative for: Abrasion, Contusion, Laceration Neck: Positive for: Trachea Midline, Other (faint crackles in bilateral lateral sides of neck). Negative for: Normal Range of Motion (holds head in leftward position, resists all motion to neutral or right positions, will rotate head back to left lateral position), JVD Respiratory/Chest: Positive for: Good Air Exchange, Rhonchi (diffusely ronchorous in all auscultated [place], inspiratory and expiratory, no change from prior exams), Tachypneic (intermittently tachypnic on ventilator, up to 35- 38 breaths per minute), Other (intubated and mechanically ventilated, able overbreath the ventilator). Negative for: Clear to Auscultation (minimal breath sounds at left upper lobe, absent breath sounds at left lower lobe), Accessory Muscle Use, Wheezes, Decreased Breath Sounds, Rales Cardiovascular: Positive for: Normal S1, S2, Peripheal Pulses Present (+2 radials/+1 dorsalis pedis bilaterally), Tachycardic (90's to 100's on bedside monitor, but regular rhythm), Other (No Althea's sign). Negative for: Regular Rate and Rhythm, Murmurs, Irregular Rhythm, Rub, Gallop Abdomen: Positive for: Other (soft). Negative for: Distention, Normal Bowel Sounds (decreased/faint bowel sounds), Peritoneal Signs Upper Extremity: Positive for: NORMAL PULSES (+2 radials bilaterally), Other ( Possible track ramirez along bilateral arms). Negative for: Cyanosis, Edema, Swelling, Erythema, Deformity Lower Extremity: Positive for: Normal Inspection, NORMAL PULSES (+1 dorsalis pedis bilaterally). Negative for: Edema, Cyanosis, Swelling, Erythema, Deformity Neurological: Positive for: Other (intubated, non-responsive, no voluntary or spontaneous movements). Negative for: GCS=15 (GCS of 3 (E1 V1t M1)), CN II-XII Intact, Speech Normal, Motor Func Grossly Intact Skin: Positive for: Warm, Dry, Normal Color. Negative for: Rashes Psychiatric: Positive for: Other (intubated, unresponsive). Negative for: Alert , Oriented x 3, Normal Insight, Normal Concentration, Normal Affect, Normal Mood - Medications Active Medications: Active Medications Generic Name Dose Route Start Last Admin Trade Name Freq PRN Reason Stop Dose Admin Aspirin 81 mg 03/31/17 10:00 04/06/17 10:22 Aspirin Chewable PO 81 mg DAILY EMA Administration Chlorhexidine Gluconate 15 ml 04/02/17 14:30 04/06/17 10:20 Peridex PO 1 analia Q4H EMA Administration Clopidogrel Bisulfate 75 mg 03/31/17 10:00 04/06/17 10:17 Plavix PO 75 mg DAILY EMA Administration Enoxaparin Sodium 40 mg 04/03/17 10:00 04/06/17 10:19 Lovenox SC 40 mg DAILY EMA Administration Protocol Levetiracetam 500 mg in 100 mls @ 460 mls/hr 03/31/17 17:33 04/06/17 10:17 Keppra 500mg Ivpb IV 460 mls/hr Q12 EMA Administration Famotidine 20 mg in 50 mls @ 100 mls/hr 04/03/17 22:00 04/06/17 10:17 Pepcid 20mg/50ml Premix IVPB 100 mls/hr Q12 EMA Administration Dextrose 1,000 mls @ 100 mls/hr 04/05/17 08:00 04/06/17 05:59 Dextrose 5% In Water 1000 Ml IV 100 mls/hr .Q10H EMA Administration Ampicillin Sodium/Sulbactam 100 mls @ 200 mls/hr 04/06/17 12:45 Sodium 3 gm/ Sodium Chloride IVPB Q6 EMA Protocol - Patient Studies Lab Studies: Lab Studies 04/06/17 04/06/17 04/06/17 Range/Units 07:35 07:00 05:15 WBC 26.2 H* D (4.5-11.0) 10^3/ul RBC 4.06 (3.5-6.1) 10^6/uL Hgb 11.3 L (14.0-18.0) g/dL Hct 32.9 L (42.0-52.0) % MCV 81.0 (80.0-105.0) fl MCH 27.8 (25.0-35.0) pg MCHC 34.3 (31.0-37.0) g/dl RDW 14.5 (11.5-14.5) % Plt Count 279 (120.0-450.0) 10^3/uL MPV 10.0 (7.0-11.0) fl Gran % 79.8 H (50.0-68.0) % Lymph % (Auto) 11.8 L (22.0-35.0) % [place] % (Auto) 6.6 H (1.0-6.0) % Eos % (Auto) 1.6 (1.5-5.0) % Baso % (Auto) 0.2 (0.0-3.0) % Gran # 20.91 H (1.4-6.5) Lymph # 3.1 (1.2-3.4) [place] # 1.7 H (0.1-0.6) Eos # 0.4 (0.0-0.7) Baso # 0.04 (0.0-2.0) K/mm3 pCO2 23 L (35-45) mm/Hg pO2 146.0 H (80-100) mm/Hg HCO3 17.1 L (21-28) mmol/L ABG pH 7.48 H (7.35-7.45) ABG Total CO2 17.8 L (22-28) mmol.L ABG O2 Saturation 99.5 H (95-98) % ABG O2 Content 14.1 L (15-23) ML/dl ABG Base Excess -5.1 L (-2.0-3.0) mmol/L ABG Hemoglobin 10.1 L (11.7-17.4) g/dL ABG Carboxyhemoglobin 1.6 H (0.5-1.5) % POC ABG HHb (Measured) 0.5 (0-5) % ABG Methemoglobin 1.1 (0.0-3.0) % ABG O2 Capacity 14.2 L (16-24) mL/dl Hgb O2 Saturation 96.9 (95.0-98.0) % FiO2 40.0 % Sodium 143 (132-148) mmol/L Potassium 3.6 (3.6-5.0) mmol/L Chloride 113 H (95-110) mmol/L Carbon Dioxide 21 (21-33) mmol/L Anion Gap 13 (10-20) BUN 15 (7-21) mg/dL Creatinine 0.7 L (0.8-1.5) mg/dL Est GFR ( Amer) > 60 Est GFR (Non-Af Amer) > 60 Random Glucose 112 H (70-110) mg/dL Calcium 8.1 L (8.4-10.5) mg/dL Phosphorus 3.8 (2.5-4.5) mg/dL Magnesium 1.8 (1.7-2.2) mg/dL Total Bilirubin 0.8 (0.2-1.3) mg/dL AST 78 H D (17-59) U/L ALT 207 H (7-56) U/L Alkaline Phosphatase 74 (38-126) U/L Total Protein 5.5 L (5.8-8.3) g/dL Albumin 2.9 L (3.0-4.8) g/dL Globulin 2.6 gm/dL Albumin/Globulin Ratio 1.1 (1.1-1.8) Laboratory Results - last 24 hr 04/06/17 04/06/17 04/06/17 05:15 07:00 07:35 WBC 26.2 H* D RBC 4.06 Hgb 11.3 L Hct 32.9 L MCV 81.0 MCH 27.8 MCHC 34.3 RDW 14.5 Plt Count 279 MPV 10.0 Gran % 79.8 H Lymph % (Auto) 11.8 L [place] % (Auto) 6.6 H Eos % (Auto) 1.6 Baso % (Auto) 0.2 Gran # 20.91 H Lymph # 3.1 [place] # 1.7 H Eos # 0.4 Baso # 0.04 pCO2 23 L pO2 146.0 H HCO3 17.1 L ABG pH 7.48 H ABG Total CO2 17.8 L ABG O2 Saturation 99.5 H ABG O2 Content 14.1 L ABG Base Excess -5.1 L ABG Hemoglobin 10.1 L ABG Carboxyhemoglobin 1.6 H POC ABG HHb (Measured) 0.5 ABG Methemoglobin 1.1 ABG O2 Capacity 14.2 L Hgb O2 Saturation 96.9 FiO2 40.0 Sodium 143 Potassium 3.6 Chloride 113 H Carbon Dioxide 21 Anion Gap 13 BUN 15 Creatinine 0.7 L Est GFR ( Amer) > 60 Est GFR (Non-Af Amer) > 60 Random Glucose 112 H Calcium 8.1 L Phosphorus 3.8 Magnesium 1.8 Total Bilirubin 0.8 AST 78 H D ALT 207 H Alkaline Phosphatase 74 Total Protein 5.5 L Albumin 2.9 L Globulin 2.6 Albumin/Globulin Ratio 1.1 Fingerstick Blood Sugar Results: 215 Review of Systems - Review of Systems Systems not reviewed;Unavailable: Intubated Assessment/Plan - Assessment and Plan (Free Text) Assessment: This is a 61 yo M with PMH of chronic back pain on oxycodone and restless leg syndrome on xanax who went into PEA cardiac arrest at home, s/p CPR and Epi x3, bicarb x1, and Narcan x1 with ROSC, s/p intubation, and repeat cardiac arrest on arrival to ED with ROSC after chest compressions. Arrest is likely 2/2 cocaine use, as UDS was notably positive for cocaine, opiates, and benzos, and patient had likely tract ramirez on both arms. He has remained completely unresponsive since arrival, with head CT notable for diffuse hypoxic/ischemic injury, MRI notable for ischemic injury vs herpes encephalitis, and his prognosis is very poor. Was pending Trach/G-tube, but now found to have pneumomediastinum on AM CXR. 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 -EEG notable for diffuse slowing consistent with bilateral cerebral dysfxn. -MRI brain read as chronic ischemic injury vs herpes encephalitis; as per ID unlikely herpes encephalitis, pt presentation prior to this episode inconsistent with normal presentation of herpes encephalitis. -Neuro (Dr. Rico) consulted, appreciate all recs; poor prognosis given lack of reflexes and CT scan, MRI and EEG obtained to determine neurologic prognosis -Maintain normothermia CV: -Borderline tachy today 90's-100's (baseline was 50's-50's), but remains hemodynamically stable, maintaining MAP >65 consistently; may be 2/2 chest tube vs worsening infiltrate; pending Precedex for fighting the vent/tachypnea, will help with the tachycardia as well -Trops downtrending (last was 1.48, peaked at 1.70), unsurprising level in setting of cardiac arrest and CPR x2, but will obtain Echo -Echo notable for EF 65.7%, normal LV size/wall thickness, trace MR, trace TR with RVSP 31, dilated IVC, trace pericardial effusion,, no vegetations -Cardiology consult for recs -Likely cardiac arrest 2/2 cocaine abuse Pulm: -Currently intubated for airway protection -AM ABG reviewed, stable, continue current management -CXR yesterday as read as pneumomediastinum without pneumothorax, and air in the right supraclavicular fossa, likely 2/2 barotrauma from intubation and mechanical ventilation; Surgery notified, Trach/G-tube postponed indefinitely, recs consulting CT Surgery -CT Surgery (Dr. Rosales) consulted, appreciate all recs; s/p chest tube, 200cc bloody drainage in pneumovac this AM, no bubbling but on wall suction -CXR today notable for diffuse opacification throughout the left lung, concerning for worsening infiltrate vs pleural fluid vs mucous plug; holding all feeds, new sepsis workup obtained (blood/urine/sputum cx, procal), empiric coverage with Unasyn for G- and anaerobes, maintain low tidal volumes to prevent worsening pneumomediastinum, increased suctioning by RT -Will obtain repeat CXR this afternoon, reassess L lung status, determine if need to reposition chest tube -Protective lung ventilation strategies, VAP bundle, low-tidal volumes -head of bed to 30 degrees, aspiration precautions GI: -NPO -Protonix for ppx -Transaminitis improved, possibly 2/2 substance abuse vs hepatitis vs shock liver 2/2 cardiac arrest x2; hepatitis panel negative; continue to monitor -Tube feeds held in light of current radiologic findings -C diff toxin test ordered, negative for toxin and antigen Renal: -Cr stable at 0.7 -Hypernatremia improved to 151, switched from 1/2NS to D5W 100cc/hr -Monitor I and Os -Replete electrolytes as needed Heme: -Hgb stable, 11.3 today -no signs of hemorrhage -SCDs for DVT ppx ID: -ID (Dr. Milner) consulted, appreciate all recs -Urine culture negative, blood cx negative at 5 days -Negative for C. Diff toxin and antigen -New leukocytosis of 26.2, but afebrile; may be 2/2 chest tube placement vs new/ worsening pulmonary infiltrate vs microperforation from esophagus 2/2 intubation /elevated pulm pressures (vomiting, bucking the vent, etc) -Empirically covering for G- and anaerobes with Unasyn, obtained new cultures and procal, will follow up Endo: -Maintain blood sugars 140-180 Dispo: ICU, mechanically ventilated, minimal neurologic activity, now found to have Pneumomediastinum on CXR, Trach/G-tube on hold, s/p Chest tube, pending new septic workup FEN: NPO, D5W 100cc/hr, holding all tube feeds at present Access: Peripheral IV Consults: Neuro, Cardio, ID Ppx: Protonix for GI, SCDs for DVT Code Status: Full Code, pending another family discussion in light of worsening status with Palliative Care Patient seen, reviewed, and discussed with attending, Dr. Wolf. <Maryann GUSMAN,Inamul H - Last Filed: 04/06/17 17:19> CCU Objective - Vital Signs / Intake & Output Vital Signs (Last 4 hours): Vital Signs Temp Pulse Resp BP Pulse Ox 04/06/17 14:00 98.8 F 84 37 H 103/75 100 04/06/17 13:36 107 H 123/74 Intake and Output (Last 8hrs): Intake & Output 04/06/17 04/06/17 04/06/17 06:59 14:59 22:59 Intake Total 1400 3 7 Output Total 526 Balance 874 3 7 Intake: IV 1400 3 7 Left Hand 1400 Output: Chest Tube Drainage 126 Left Lateral Chest 126 Urine 400 2-way Urethral 400 - Medications Active Medications: Active Medications Generic Name Dose Route Start Last Admin Trade Name Freq PRN Reason Stop Dose Admin Aspirin 81 mg 03/31/17 10:00 04/06/17 10:22 Aspirin Chewable PO 81 mg DAILY EMA Administration Chlorhexidine Gluconate 15 ml 04/02/17 14:30 04/06/17 10:20 Peridex PO 1 analia Q4H EMA Administration Clopidogrel Bisulfate 75 mg 03/31/17 10:00 04/06/17 10:17 Plavix PO 75 mg DAILY EMA Administration Enoxaparin Sodium 40 mg 04/03/17 10:00 04/06/17 10:19 Lovenox SC 40 mg DAILY EMA Administration Protocol Levetiracetam 500 mg in 100 mls @ 460 mls/hr 03/31/17 17:33 04/06/17 10:17 Keppra 500mg Ivpb IV 460 mls/hr Q12 EMA Administration Famotidine 20 mg in 50 mls @ 100 mls/hr 04/03/17 22:00 04/06/17 10:17 Pepcid 20mg/50ml Premix IVPB 100 mls/hr Q12 EMA Administration Dextrose 1,000 mls @ 100 mls/hr 04/05/17 08:00 04/06/17 05:59 Dextrose 5% In Water 1000 Ml IV 100 mls/hr .Q10H EMA Administration Ampicillin Sodium/Sulbactam 100 mls @ 200 mls/hr 04/06/17 12:45 04/06/17 13: 39 Sodium 3 gm/ Sodium Chloride IVPB 200 mls/hr Q6 EMA Administration Protocol Dexmedetomidine HCl 400 mcg in 100 mls @ 3.175 mls/hr 04/06/17 13:38 16:52 Precedex 4 Mcg/Ml (100 Ml) IV 0.6 mcg/kg/hr .Q24H PRN 9.525 mls/hr Sedation Titration Protocol 0.2 MCG/KG/HR - Patient Studies Lab Studies: Lab Studies 04/06/17 04/06/17 04/06/17 Range/Units 13:45 09:15 07:35 WBC (4.5-11.0) 10^3/ul RBC (3.5-6.1) 10^6/uL Hgb (14.0-18.0) g/dL Hct (42.0-52.0) % MCV (80.0-105.0) fl MCH (25.0-35.0) pg MCHC (31.0-37.0) g/dl RDW (11.5-14.5) % Plt Count (120.0-450.0) 10^3/uL MPV (7.0-11.0) fl Gran % (50.0-68.0) % Lymph % (Auto) (22.0-35.0) % [place] % (Auto) (1.0-6.0) % Eos % (Auto) (1.5-5.0) % Baso % (Auto) (0.0-3.0) % Gran # (1.4-6.5) Lymph # (1.2-3.4) [place] # (0.1-0.6) Eos # (0.0-0.7) Baso # (0.0-2.0) K/mm3 pCO2 (35-45) mm/Hg pO2 (80-100) mm/Hg HCO3 (21-28) mmol/L ABG pH (7.35-7.45) ABG Total CO2 (22-28) mmol.L ABG O2 Saturation (95-98) % ABG O2 Content (15-23) ML/dl ABG Base Excess (-2.0-3.0) mmol/L ABG Hemoglobin (11.7-17.4) g/dL ABG Carboxyhemoglobin (0.5-1.5) % POC ABG HHb (Measured) (0-5) % ABG Methemoglobin (0.0-3.0) % ABG O2 Capacity (16-24) mL/dl Hgb O2 Saturation (95.0-98.0) % FiO2 % Sodium 143 (132-148) mmol/L Potassium 3.6 (3.6-5.0) mmol/L Chloride 113 H (95-110) mmol/L Carbon Dioxide 21 (21-33) mmol/L Anion Gap 13 (10-20) BUN 15 (7-21) mg/dL Creatinine 0.7 L (0.8-1.5) mg/dL Est GFR ( Amer) > 60 Est GFR (Non-Af Amer) > 60 Random Glucose 112 H (70-110) mg/dL Calcium 8.1 L (8.4-10.5) mg/dL Phosphorus 3.8 (2.5-4.5) mg/dL Magnesium 1.8 (1.7-2.2) mg/dL Total Bilirubin 0.8 (0.2-1.3) mg/dL AST 78 H D (17-59) U/L ALT 207 H (7-56) U/L Alkaline Phosphatase 74 (38-126) U/L Total Protein 5.5 L (5.8-8.3) g/dL Albumin 2.9 L (3.0-4.8) g/dL Globulin 2.6 gm/dL Albumin/Globulin Ratio 1.1 (1.1-1.8) Procalcitonin 0.75 H (0.19-0.49) NG/ML Urine Color Yellow (YELLOW) Urine Appearance Clear (CLEAR) Urine pH 6.0 (4.7-8.0) Ur Specific [place] 1.010 (1.005-1.035) Urine Protein Negative (<30 mg/dL) mg/dL Urine Glucose (UA) Negative (NEGATIVE) mg/dL Urine Ketones Negative (NEGATIVE) mg/dL Urine Blood Trace-intact H (NEGATIVE) Urine Nitrate Negative (NEGATIVE) Urine Bilirubin Negative (NEGATIVE) Urine Urobilinogen 0.2 (<1 E.U./dL) E.U./dL Ur Leukocyte Esterase Negative (NEGATIVE) Leonor/uL Urine RBC 1 - 3 (0-2) /hpf Urine WBC 0 - 2 (0-6) /hpf 04/06/17 04/06/17 Range/Units 07:00 05:15 WBC 26.2 H* D (4.5-11.0) 10^3/ul RBC 4.06 (3.5-6.1) 10^6/uL Hgb 11.3 L (14.0-18.0) g/dL Hct 32.9 L (42.0-52.0) % MCV 81.0 (80.0-105.0) fl MCH 27.8 (25.0-35.0) pg MCHC 34.3 (31.0-37.0) g/dl RDW 14.5 (11.5-14.5) % Plt Count 279 (120.0-450.0) 10^3/uL MPV 10.0 (7.0-11.0) fl Gran % 79.8 H (50.0-68.0) % Lymph % (Auto) 11.8 L (22.0-35.0) % [place] % (Auto) 6.6 H (1.0-6.0) % Eos % (Auto) 1.6 (1.5-5.0) % Baso % (Auto) 0.2 (0.0-3.0) % Gran # 20.91 H (1.4-6.5) Lymph # 3.1 (1.2-3.4) [place] # 1.7 H (0.1-0.6) Eos # 0.4 (0.0-0.7) Baso # 0.04 (0.0-2.0) K/mm3 pCO2 23 L (35-45) mm/Hg pO2 146.0 H (80-100) mm/Hg HCO3 17.1 L (21-28) mmol/L ABG pH 7.48 H (7.35-7.45) ABG Total CO2 17.8 L (22-28) mmol.L ABG O2 Saturation 99.5 H (95-98) % ABG O2 Content 14.1 L (15-23) ML/dl ABG Base Excess -5.1 L (-2.0-3.0) mmol/L ABG Hemoglobin 10.1 L (11.7-17.4) g/dL ABG Carboxyhemoglobin 1.6 H (0.5-1.5) % POC ABG HHb (Measured) 0.5 (0-5) % ABG Methemoglobin 1.1 (0.0-3.0) % ABG O2 Capacity 14.2 L (16-24) mL/dl Hgb O2 Saturation 96.9 (95.0-98.0) % FiO2 40.0 % Sodium (132-148) mmol/L Potassium (3.6-5.0) mmol/L Chloride (95-110) mmol/L Carbon Dioxide (21-33) mmol/L Anion Gap (10-20) BUN (7-21) mg/dL Creatinine (0.8-1.5) mg/dL Est GFR ( Amer) Est GFR (Non-Af Amer) Random Glucose (70-110) mg/dL Calcium (8.4-10.5) mg/dL Phosphorus (2.5-4.5) mg/dL Magnesium (1.7-2.2) mg/dL Total Bilirubin (0.2-1.3) mg/dL AST (17-59) U/L ALT (7-56) U/L Alkaline Phosphatase (38-126) U/L Total Protein (5.8-8.3) g/dL Albumin (3.0-4.8) g/dL Globulin gm/dL Albumin/Globulin Ratio (1.1-1.8) Procalcitonin (0.19-0.49) NG/ML Urine Color (YELLOW) Urine Appearance (CLEAR) Urine pH (4.7-8.0) Ur Specific [place] (1.005-1.035) Urine Protein (<30 mg/dL) mg/dL Urine Glucose (UA) (NEGATIVE) mg/dL Urine Ketones (NEGATIVE) mg/dL Urine Blood (NEGATIVE) Urine Nitrate (NEGATIVE) Urine Bilirubin (NEGATIVE) Urine Urobilinogen (<1 E.U./dL) E.U./dL Ur Leukocyte Esterase (NEGATIVE) Leonor/uL Urine RBC (0-2) /hpf Urine WBC (0-6) /hpf Laboratory Results - last 24 hr 04/06/17 04/06/17 04/06/17 05:15 07:00 07:35 WBC 26.2 H* D RBC 4.06 Hgb 11.3 L Hct 32.9 L MCV 81.0 MCH 27.8 MCHC 34.3 RDW 14.5 Plt Count 279 MPV 10.0 Gran % 79.8 H Lymph % (Auto) 11.8 L [place] % (Auto) 6.6 H Eos % (Auto) 1.6 Baso % (Auto) 0.2 Gran # 20.91 H Lymph # 3.1 [place] # 1.7 H Eos # 0.4 Baso # 0.04 pCO2 23 L pO2 146.0 H HCO3 17.1 L ABG pH 7.48 H ABG Total CO2 17.8 L ABG O2 Saturation 99.5 H ABG O2 Content 14.1 L ABG Base Excess -5.1 L ABG Hemoglobin 10.1 L ABG Carboxyhemoglobin 1.6 H POC ABG HHb (Measured) 0.5 ABG Methemoglobin 1.1 ABG O2 Capacity 14.2 L Hgb O2 Saturation 96.9 FiO2 40.0 Sodium 143 Potassium 3.6 Chloride 113 H Carbon Dioxide 21 Anion Gap 13 BUN 15 Creatinine 0.7 L Est GFR ( Amer) > 60 Est GFR (Non-Af Amer) > 60 Random Glucose 112 H Calcium 8.1 L Phosphorus 3.8 Magnesium 1.8 Total Bilirubin 0.8 AST 78 H D ALT 207 H Alkaline Phosphatase 74 Total Protein 5.5 L Albumin 2.9 L Globulin 2.6 Albumin/Globulin Ratio 1.1 Procalcitonin Urine Color Urine Appearance Urine pH Ur Specific [place] Urine Protein Urine Glucose (UA) Urine Ketones Urine Blood Urine Nitrate Urine Bilirubin Urine Urobilinogen Ur Leukocyte Esterase Urine RBC Urine WBC 04/06/17 04/06/17 09:15 13:45 WBC RBC Hgb Hct MCV MCH MCHC RDW Plt Count MPV Gran % Lymph % (Auto) [place] % (Auto) Eos % (Auto) Baso % (Auto) Gran # Lymph # [place] # Eos # Baso # pCO2 pO2 HCO3 ABG pH ABG Total CO2 ABG O2 Saturation ABG O2 Content ABG Base Excess ABG Hemoglobin ABG Carboxyhemoglobin POC ABG HHb (Measured) ABG Methemoglobin ABG O2 Capacity Hgb O2 Saturation FiO2 Sodium Potassium Chloride Carbon Dioxide Anion Gap BUN Creatinine Est GFR ( Amer) Est GFR (Non-Af Amer) Random Glucose Calcium Phosphorus Magnesium Total Bilirubin AST ALT Alkaline Phosphatase Total Protein Albumin Globulin Albumin/Globulin Ratio Procalcitonin 0.75 H Urine Color Yellow Urine Appearance Clear Urine pH 6.0 Ur Specific [place] 1.010 Urine Protein Negative Urine Glucose (UA) Negative Urine Ketones Negative Urine Blood Trace-intact H Urine Nitrate Negative Urine Bilirubin Negative Urine Urobilinogen 0.2 Ur Leukocyte Esterase Negative Urine RBC 1 - 3 Urine WBC 0 - 2 Attending/Attestation - Attestation I have personally seen and examined this patient.: Yes I have fully participated in the care of the patient.: Yes Notes (Text): 04/06/17 17:12 61 y/o M w/ anoxic brain injury s/p cardiac arrest. Intubated off sedation. Minimal neurological function . Can initiate breaths and has minimal CN functions. On empiric abx for increased WBC. CX pending. CXR reviewed small apical L PTX w/ Ct in place but no air leak on CT. May need re-positioning. Pneumomedistinum stable. No change in vent pressures. Family meeting planned for possible DNR status. dvt p ppi cc time 55 min
[2017-04-06] MEDS ORDERED: Metoprolol 1 mg/ml Inj IVP ONE (13:04)
[2017-04-06] MEDS: Ampicillin/Sulbactam 3 GM in Sodium Chloride 0.9% 100 ML IVPB SCH ×3 (13:39→23:39)
--- NOTE | 2017-04-06 13:46 | RAD ---
HISTORY: f/u, intubation COMPARISON: 04/06/2017 FINDINGS: LUNGS: No change in the left-sided infiltrate and small left apical pneumothorax. Chest tube remains in place. Findings of pneumomediastinum have decreased PLEURA: No significant pleural effusion identified, no pneumothorax apparent. CARDIOVASCULAR: Normal. OSSEOUS STRUCTURES: No significant abnormalities. VISUALIZED UPPER ABDOMEN: Normal. OTHER FINDINGS: None. IMPRESSION: No change in the left-sided infiltrate and small left apical pneumothorax. Chest tube remains in place. Findings of pneumomediastinum have decreased
[2017-04-06] MEDS: Dexmedetomidine HCl 4mcg/ml 400 MCG/100 ML BOTTLE IV PRN (14:00)
[2017-04-06 14:24] LABS: URINE BILIRUBIN NEGATIVE (NEGATIVE); URINE BLOOD TRACE-INTACT (NEGATIVE); URINE GLUCOSE (UA) NEGATIVE (NEGATIVE); URINE KETONE NEGATIVE (NEGATIVE); URINE LEUKOCYTE ESTERASE NEGATIVE Leu/uL (NEGATIVE); URINE PROTEIN NEGATIVE mg/dL (<30 mg/dL); URINE UROBILINOGEN 0.2 E.U./dL (<1 E.U./dL)
[2017-04-06 14:41] LABS: URINE APPEARANCE CLEAR (CLEAR); URINE COLOR YELLOW (YELLOW)
[2017-04-06 15:14] LABS: URINE WBC 0 - 2 /hpf (0-6)
[2017-04-06] MEDS ORDERED: Sodium Chloride 0.9% 1,000 ML IV STA (18:50)
[2017-04-07] MEDS: Chlorhexidine 0.12% Oral Sol 480 ml Bot PO SCH ×6 (01:43→21:59)
[2017-04-07] MEDS: Dexmedetomidine HCl 4mcg/ml 400 MCG/100 ML BOTTLE IV PRN ×2 (01:43→20:20)
[2017-04-07] MEDS: Ampicillin/Sulbactam 3 GM in Sodium Chloride 0.9% 100 ML IVPB SCH (05:01)
[2017-04-07 06:07] LABS: ARTERIAL BLOOD GAS HCO3 19.8 mmol/L (21-28); ARTERIAL BLOOD GAS O2 CAPACITY 14.7 mL/dl (16-24); ARTERIAL BLOOD GAS O2 CONTENT 14.6 ML/dl (15-23); ARTERIAL BLOOD GAS PH 7.49 (7.35-7.45); ARTERIAL BLOOD HGB O2 SAT 96.1 % (95.0-98.0); CARBOXYHEMOGLOBIN 2.2 % (0.5-1.5); HHB 0.6 % (0-5)
[2017-04-07] MEDS ORDERED: Vancomycin 1gm in NS 250ml 1 GM/250 ML BAG IVPB STA (06:20)
[2017-04-07 06:42] LABS: MAGNESIUM 1.9 mg/dL (1.7-2.2); PHOSPHOROUS 3.6 mg/dL (2.5-4.5)
[2017-04-07 06:44] LABS: BASO # 0.01 K/mm3 (0.0-2.0); BASO % 0.1 % (0.0-3.0); EOS # 0.3 (0.0-0.7); EOS % 1.6 % (1.5-5.0); GRAN # 14.85 (1.4-6.5); GRAN % 75.8 % (50.0-68.0); HEMATOCRIT 24.9 % (42.0-52.0); LYMPH # 2.4 (1.2-3.4); LYMPH % 12.3 % (22.0-35.0); MEAN CELL VOLUME 79.8 fl (80.0-105.0); MEAN CORPUSCULAR HEMOGLOBIN 28.2 pg (25.0-35.0); MEAN CORPUSCULAR HGB CONC 35.3 g/dl (31.0-37.0); MEAN PLATELET VOLUME 9.4 fl (7.0-11.0); MONO % 10.2 % (1.0-6.0); RED CELL DISTRIBUTION WIDTH 14.8 % (11.5-14.5); WHITE BLOOD COUNT 19.6 10^3/ul (4.5-11.0)
[2017-04-07] MEDS: Meropenem 1g/NS 100mL IVPB 1 GM/100 ML PIGGYBACK IVPB SCH ×3 (06:45→21:58)
--- NOTE | 2017-04-07 06:50 | CP.CCUPN ---
<Jeremy Alfaro - Last Filed: 04/07/17 13:26> CCU Subjective - Physician Review Subjective (Free Text): 04/07/17 06:45 Patient seen and examined at bedside in the ICU. No change in general condition ; remains intubated and unresponsive, back on sedation (Precedex) due to rapid respiratory rate and a need to keep intrathoracic pressures low (due to pneumomediastinum). No acute events reported overnight. Bilateral pinpoint pupils not responsive to light, no gag reflex, and no corneal reflex; only sign of neurologic activity is overbreathing the ventilator. S/p L-chest tube for L- pneumothorax, CXR today concerning for unchanged L-infiltrate and suspected fluid overload. Also notable in AM labs for acute drop in Hgb from 11.3 to 8.8 , no signs of acute bleeding noted. CCU Objective - Vital Signs / Intake & Output Vital Signs (Last 4 hours): Vital Signs Pulse 04/07/17 03:47 62 Intake and Output (Last 8hrs): Intake & Output 04/06/17 04/06/17 04/07/17 14:59 22:59 06:59 Intake Total 3 2302 103 Output Total 1900 Balance 3 402 103 Intake: IV 3 2302 103 Right Forearm 2285 Output: Chest Tube Drainage 0 Left Lateral Chest 0 Urine 1900 2-way Urethral 1900 - Physical Exam Head: Positive for: Atraumatic, Normocephalic, Other Pupils: Positive for: Non-Reactive, Pinpoint. Negative for: PERRL Extroacular Muscles: Positive for: Other (uprolled eyes, move in line with head , no tracking of anyone in room, no corneal reflexes). Negative for: EOMI Conjunctiva: Positive for: Other (dirty sclera, but anicteric). Negative for: Injected, Icteric Mouth: Positive for: Moist Mucous Membranes, Other (ET tube in place) Nose (External): Positive for: Atraumatic, Other (NGT in place). Negative for: Abrasion, Contusion, Laceration Neck: Positive for: Trachea Midline, Other (faint crackles in bilateral lateral sides of neck). Negative for: Normal Range of Motion (holds head in leftward position, resists all motion to neutral or right positions, will rotate head back to left lateral position), JVD Respiratory/Chest: Positive for: Good Air Exchange, Rhonchi (diffusely ronchorous in all auscultated [place], inspiratory and expiratory, no change from prior exams), Tachypneic (intermittently tachypnic on ventilator, up to 35- 38 breaths per minute), Other (intubated and mechanically ventilated, able overbreath the ventilator). Negative for: Clear to Auscultation (minimal breath sounds at left upper lobe, absent breath sounds at left lower lobe), Accessory Muscle Use, Wheezes, Decreased Breath Sounds, Rales Cardiovascular: Positive for: Normal S1, S2, Peripheal Pulses Present (+2 radials/+1 dorsalis pedis bilaterally), Tachycardic (90's to 100's on bedside monitor, but regular rhythm), Other (No Althea's sign). Negative for: Regular Rate and Rhythm, Murmurs, Irregular Rhythm, Rub, Gallop Abdomen: Positive for: Other (soft). Negative for: Distention, Normal Bowel Sounds (decreased/faint bowel sounds), Peritoneal Signs Upper Extremity: Positive for: NORMAL PULSES (+2 radials bilaterally), Other ( Possible track ramirez along bilateral arms). Negative for: Cyanosis, Edema, Swelling, Erythema, Deformity Lower Extremity: Positive for: Normal Inspection, NORMAL PULSES (+1 dorsalis pedis bilaterally). Negative for: Edema, Cyanosis, Swelling, Erythema, Deformity Neurological: Positive for: Other (intubated, non-responsive, no voluntary or spontaneous movements). Negative for: GCS=15 (GCS of 3 (E1 V1t M1)), CN II-XII Intact, Speech Normal, Motor Func Grossly Intact Skin: Positive for: Warm, Dry, Normal Color. Negative for: Rashes Psychiatric: Positive for: Other (intubated, unresponsive). Negative for: Alert , Oriented x 3, Normal Insight, Normal Concentration, Normal Affect, Normal Mood - Medications Active Medications: Active Medications Generic Name Dose Route Start Last Admin Trade Name Freq PRN Reason Stop Dose Admin Aspirin 81 mg 03/31/17 10:00 04/06/17 10:22 Aspirin Chewable PO 81 mg DAILY EMA Administration Chlorhexidine Gluconate 15 ml 04/02/17 14:30 04/07/17 01:43 Peridex PO 1 analia Q4H EMA Administration Clopidogrel Bisulfate 75 mg 03/31/17 10:00 04/06/17 10:17 Plavix PO 75 mg DAILY EMA Administration Enoxaparin Sodium 40 mg 04/03/17 10:00 04/06/17 10:19 Lovenox SC 40 mg DAILY EMA Administration Protocol Furosemide 80 mg 04/07/17 06:39 Lasix IVP 04/07/17 06:40 ONCE ONE Levetiracetam 500 mg in 100 mls @ 460 mls/hr 03/31/17 17:33 04/06/17 21:36 Keppra 500mg Ivpb IV 460 mls/hr Q12 EMA Administration Famotidine 20 mg in 50 mls @ 100 mls/hr 04/03/17 22:00 04/06/17 21:35 Pepcid 20mg/50ml Premix IVPB 100 mls/hr Q12 EMA Administration Dexmedetomidine HCl 400 mcg in 100 mls @ 3.175 mls/hr 04/06/17 13:38 05:17 Precedex 4 Mcg/Ml (100 Ml) IV 0.2 mcg/kg/hr .Q24H PRN 3.175 mls/hr Sedation Titration Protocol 0.2 MCG/KG/HR Meropenem 1g/NS 100mL IVPB 1 gm in 100 mls @ 100 mls/hr 04/07/17 06:30 Meropenem 1g/Ns 100ml Ivpb IVPB 04/14/17 06:31 Q8 EMA Protocol Vancomycin HCl 1 gm in 250 mls @ 167 mls/hr 04/07/17 06:20 Vancomycin 1gm IVPB 04/07/17 07:49 STAT STA Protocol - Patient Studies Lab Studies: Lab Studies 04/07/17 04/07/17 04/06/17 Range/Units 06:10 05:55 13:45 WBC (4.5-11.0) 10^3/ul RBC (3.5-6.1) 10^6/uL Hgb (14.0-18.0) g/dL Hct (42.0-52.0) % MCV (80.0-105.0) fl MCH (25.0-35.0) pg MCHC (31.0-37.0) g/dl RDW (11.5-14.5) % Plt Count (120.0-450.0) 10^3/uL MPV (7.0-11.0) fl Gran % (50.0-68.0) % Lymph % (Auto) (22.0-35.0) % [place] % (Auto) (1.0-6.0) % Eos % (Auto) (1.5-5.0) % Baso % (Auto) (0.0-3.0) % Gran # (1.4-6.5) Lymph # (1.2-3.4) [place] # (0.1-0.6) Eos # (0.0-0.7) Baso # (0.0-2.0) K/mm3 pCO2 26 L (35-45) mm/Hg pO2 126.0 H (80-100) mm/Hg HCO3 19.8 L (21-28) mmol/L ABG pH 7.49 H (7.35-7.45) ABG Total CO2 20.6 L (22-28) mmol.L ABG O2 Saturation 99.4 H (95-98) % ABG O2 Content 14.6 L (15-23) ML/dl ABG Base Excess -2.5 L (-2.0-3.0) mmol/L ABG Hemoglobin 10.6 L (11.7-17.4) g/dL ABG Carboxyhemoglobin 2.2 H (0.5-1.5) % POC ABG HHb (Measured) 0.6 (0-5) % ABG Methemoglobin 1.0 (0.0-3.0) % ABG O2 Capacity 14.7 L (16-24) mL/dl Hgb O2 Saturation 96.1 (95.0-98.0) % FiO2 40.0 % Sodium (132-148) mmol/L Potassium (3.6-5.0) mmol/L Chloride (95-110) mmol/L Carbon Dioxide (21-33) mmol/L Anion Gap (10-20) BUN (7-21) mg/dL Creatinine (0.8-1.5) mg/dL Est GFR ( Amer) Est GFR (Non-Af Amer) Random Glucose (70-110) mg/dL Calcium (8.4-10.5) mg/dL Phosphorus 3.6 (2.5-4.5) mg/dL Magnesium 1.9 (1.7-2.2) mg/dL Total Bilirubin (0.2-1.3) mg/dL AST (17-59) U/L ALT (7-56) U/L Alkaline Phosphatase (38-126) U/L Total Protein (5.8-8.3) g/dL Albumin (3.0-4.8) g/dL Globulin gm/dL Albumin/Globulin Ratio (1.1-1.8) Procalcitonin (0.19-0.49) NG/ML Urine Color Yellow (YELLOW) Urine Appearance Clear (CLEAR) Urine pH 6.0 (4.7-8.0) Ur Specific [place] 1.010 (1.005-1.035) Urine Protein Negative (<30 mg/dL) mg/dL Urine Glucose (UA) Negative (NEGATIVE) mg/dL Urine Ketones Negative (NEGATIVE) mg/dL Urine Blood Trace-intact H (NEGATIVE) Urine Nitrate Negative (NEGATIVE) Urine Bilirubin Negative (NEGATIVE) Urine Urobilinogen 0.2 (<1 E.U./dL) E.U./dL Ur Leukocyte Esterase Negative (NEGATIVE) Leonor/uL Urine RBC 1 - 3 (0-2) /hpf Urine WBC 0 - 2 (0-6) /hpf 04/06/17 04/06/17 04/06/17 Range/Units 09:15 07:35 07:00 WBC 26.2 H* D (4.5-11.0) 10^3/ul RBC 4.06 (3.5-6.1) 10^6/uL Hgb 11.3 L (14.0-18.0) g/dL Hct 32.9 L (42.0-52.0) % MCV 81.0 (80.0-105.0) fl MCH 27.8 (25.0-35.0) pg MCHC 34.3 (31.0-37.0) g/dl RDW 14.5 (11.5-14.5) % Plt Count 279 (120.0-450.0) 10^3/uL MPV 10.0 (7.0-11.0) fl Gran % 79.8 H (50.0-68.0) % Lymph % (Auto) 11.8 L (22.0-35.0) % [place] % (Auto) 6.6 H (1.0-6.0) % Eos % (Auto) 1.6 (1.5-5.0) % Baso % (Auto) 0.2 (0.0-3.0) % Gran # 20.91 H (1.4-6.5) Lymph # 3.1 (1.2-3.4) [place] # 1.7 H (0.1-0.6) Eos # 0.4 (0.0-0.7) Baso # 0.04 (0.0-2.0) K/mm3 pCO2 (35-45) mm/Hg pO2 (80-100) mm/Hg HCO3 (21-28) mmol/L ABG pH (7.35-7.45) ABG Total CO2 (22-28) mmol.L ABG O2 Saturation (95-98) % ABG O2 Content (15-23) ML/dl ABG Base Excess (-2.0-3.0) mmol/L ABG Hemoglobin (11.7-17.4) g/dL ABG Carboxyhemoglobin (0.5-1.5) % POC ABG HHb (Measured) (0-5) % ABG Methemoglobin (0.0-3.0) % ABG O2 Capacity (16-24) mL/dl Hgb O2 Saturation (95.0-98.0) % FiO2 % Sodium 143 (132-148) mmol/L Potassium 3.6 (3.6-5.0) mmol/L Chloride 113 H (95-110) mmol/L Carbon Dioxide 21 (21-33) mmol/L Anion Gap 13 (10-20) BUN 15 (7-21) mg/dL Creatinine 0.7 L (0.8-1.5) mg/dL Est GFR ( Amer) > 60 Est GFR (Non-Af Amer) > 60 Random Glucose 112 H (70-110) mg/dL Calcium 8.1 L (8.4-10.5) mg/dL Phosphorus 3.8 (2.5-4.5) mg/dL Magnesium 1.8 (1.7-2.2) mg/dL Total Bilirubin 0.8 (0.2-1.3) mg/dL AST 78 H D (17-59) U/L ALT 207 H (7-56) U/L Alkaline Phosphatase 74 (38-126) U/L Total Protein 5.5 L (5.8-8.3) g/dL Albumin 2.9 L (3.0-4.8) g/dL Globulin 2.6 gm/dL Albumin/Globulin Ratio 1.1 (1.1-1.8) Procalcitonin 0.75 H (0.19-0.49) NG/ML Urine Color (YELLOW) Urine Appearance (CLEAR) Urine pH (4.7-8.0) Ur Specific [place] (1.005-1.035) Urine Protein (<30 mg/dL) mg/dL Urine Glucose (UA) (NEGATIVE) mg/dL Urine Ketones (NEGATIVE) mg/dL Urine Blood (NEGATIVE) Urine Nitrate (NEGATIVE) Urine Bilirubin (NEGATIVE) Urine Urobilinogen (<1 E.U./dL) E.U./dL Ur Leukocyte Esterase (NEGATIVE) Leonor/uL Urine RBC (0-2) /hpf Urine WBC (0-6) /hpf Laboratory Results - last 24 hr 04/06/17 04/06/17 04/06/17 07:00 07:35 09:15 WBC 26.2 H* D RBC 4.06 Hgb 11.3 L Hct 32.9 L MCV 81.0 MCH 27.8 MCHC 34.3 RDW 14.5 Plt Count 279 MPV 10.0 Gran % 79.8 H Lymph % (Auto) 11.8 L [place] % (Auto) 6.6 H Eos % (Auto) 1.6 Baso % (Auto) 0.2 Gran # 20.91 H Lymph # 3.1 [place] # 1.7 H Eos # 0.4 Baso # 0.04 pCO2 pO2 HCO3 ABG pH ABG Total CO2 ABG O2 Saturation ABG O2 Content ABG Base Excess ABG Hemoglobin ABG Carboxyhemoglobin POC ABG HHb (Measured) ABG Methemoglobin ABG O2 Capacity Hgb O2 Saturation FiO2 Sodium 143 Potassium 3.6 Chloride 113 H Carbon Dioxide 21 Anion Gap 13 BUN 15 Creatinine 0.7 L Est GFR ( Amer) > 60 Est GFR (Non-Af Amer) > 60 Random Glucose 112 H Calcium 8.1 L Phosphorus 3.8 Magnesium 1.8 Total Bilirubin 0.8 AST 78 H D ALT 207 H Alkaline Phosphatase 74 Total Protein 5.5 L Albumin 2.9 L Globulin 2.6 Albumin/Globulin Ratio 1.1 Procalcitonin 0.75 H Urine Color Urine Appearance Urine pH Ur Specific [place] Urine Protein Urine Glucose (UA) Urine Ketones Urine Blood Urine Nitrate Urine Bilirubin Urine Urobilinogen Ur Leukocyte Esterase Urine RBC Urine WBC 04/06/17 04/07/17 04/07/17 13:45 05:55 06:10 WBC RBC Hgb Hct MCV MCH MCHC RDW Plt Count MPV Gran % Lymph % (Auto) [place] % (Auto) Eos % (Auto) Baso % (Auto) Gran # Lymph # [place] # Eos # Baso # pCO2 26 L pO2 126.0 H HCO3 19.8 L ABG pH 7.49 H ABG Total CO2 20.6 L ABG O2 Saturation 99.4 H ABG O2 Content 14.6 L ABG Base Excess -2.5 L ABG Hemoglobin 10.6 L ABG Carboxyhemoglobin 2.2 H POC ABG HHb (Measured) 0.6 ABG Methemoglobin 1.0 ABG O2 Capacity 14.7 L Hgb O2 Saturation 96.1 FiO2 40.0 Sodium Potassium Chloride Carbon Dioxide Anion Gap BUN Creatinine Est GFR ( Amer) Est GFR (Non-Af Amer) Random Glucose Calcium Phosphorus 3.6 Magnesium 1.9 Total Bilirubin AST ALT Alkaline Phosphatase Total Protein Albumin Globulin Albumin/Globulin Ratio Procalcitonin Urine Color Yellow Urine Appearance Clear Urine pH 6.0 Ur Specific [place] 1.010 Urine Protein Negative Urine Glucose (UA) Negative Urine Ketones Negative Urine Blood Trace-intact H Urine Nitrate Negative Urine Bilirubin Negative Urine Urobilinogen 0.2 Ur Leukocyte Esterase Negative Urine RBC 1 - 3 Urine WBC 0 - 2 Fingerstick Blood Sugar Results: 215 Review of Systems - Review of Systems Systems not reviewed;Unavailable: Intubated Assessment/Plan - Assessment and Plan (Free Text) Assessment: This is a 61 yo M with PMH of chronic back pain on oxycodone and restless leg syndrome on xanax who went into PEA cardiac arrest at home, s/p CPR and Epi x3, bicarb x1, and Narcan x1 with ROSC, s/p intubation, and repeat cardiac arrest on arrival to ED with ROSC after chest compressions. Arrest is likely 2/2 cocaine use, as UDS was notably positive for cocaine, opiates, and benzos, and patient had likely tract ramirez on both arms. He has remained completely unresponsive since arrival, with head CT notable for diffuse hypoxic/ischemic injury, MRI notable for ischemic injury vs herpes encephalitis, and his prognosis is very poor. Was pending Trach/G-tube, but now found to have pneumomediastinum and L pneumothorax s/p L chest tube. Plan: Neuro: -Remains completely unresponsive, no corneal reflex, no gag reflex, and pinpoint pupils not reactive to light; only neurologic activity noted is overbreathing the ventilator -Pending Trach/G-tube and jail facility placement as per family's wishes, indefinitely on hold as per Surgery due to pneumomediastinum and pneumothorax -CT head notable for diffuse decreased johnson-white differentiation, concern for global hypoxic/ischemic injury; No acute intracranial hemorrhage. -EEG notable for diffuse slowing consistent with bilateral cerebral dysfxn. -MRI brain read as chronic ischemic injury vs herpes encephalitis; as per ID unlikely herpes encephalitis, pt presentation prior to this episode inconsistent with normal presentation of herpes encephalitis. -Neuro (Dr. Rico) consulted, appreciate all recs; poor prognosis given lack of reflexes and CT scan, MRI and EEG obtained to determine neurologic prognosis -Maintain normothermia CV: -Tachycardia resolved, remains hemodynamically stable, maintaining MAP >65 consistently -Trops downtrending (last was 1.48, peaked at 1.70), unsurprising level in setting of cardiac arrest and CPR x2, but will obtain Echo -Echo notable for EF 65.7%, normal LV size/wall thickness, trace MR, trace TR with RVSP 31, dilated IVC, trace pericardial effusion,, no vegetations -Cardiology consult for recs -Likely cardiac arrest 2/2 cocaine abuse Pulm: -Currently intubated for airway protection -AM ABG reviewed, stable, continue current management -CXR 04/05 as read as pneumomediastinum without pneumothorax, and air in the right supraclavicular fossa, likely 2/2 barotrauma from intubation and mechanical ventilation; Surgery notified, Trach/G-tube postponed indefinitely, recs consulting CT Surgery -CT Surgery (Dr. Rosales) consulted, appreciate all recs; s/p left chest tube, no new drainage in pneumovac this AM, no bubbling but on wall suction -CXR today concerning for fluid overload; otherwise unchanged from CXR yesterday , persistence of diffuse opacification throughout the left lung; new sepsis workup obtained (blood/urine/sputum cx, procal), empiric coverage with Unasyn for G- and anaerobes, maintain low tidal volumes to prevent worsening pneumomediastinum, increased suctioning by RT -Protective lung ventilation strategies, VAP bundle, low-tidal volumes -head of bed to 30 degrees, aspiration precautions GI: -NPO -Protonix for ppx -Transaminitis improved, possibly 2/2 substance abuse vs hepatitis vs shock liver 2/2 cardiac arrest x2; hepatitis panel negative; continue to monitor -Tube feeds held in light of current radiologic findings -C diff toxin test ordered, negative for toxin and antigen Renal: -Cr stable at 0.8 -Hypernatremia resolved, Na 138 today, D5W stopped -Monitor I and Os; only put out 1900cc yesterday after 60mg IV lasix x1, currently net positive fluids; 80mg IV lasix x1 ordered, will monitor -Replete electrolytes as needed Heme: -Hgb dropped from 11.3 to 8.8 overnight, recheck was 9.1, no clear signs of hemorrhage, slightly decreased BP but likely 2/2 precedex sedation -stool occult ordered, UA ordered to assess for blood in urine, type and screen ordered -SCDs for DVT ppx ID: -ID (Dr. Milner) consulted, appreciate all recs -Urine culture negative, blood cx negative at 6 days, repeat cultures negative at 24 hrs -Negative for C. Diff toxin and antigen -New leukocytosis of 21.9, but afebrile; may be 2/2 chest tube placement vs new/ worsening pulmonary infiltrate vs microperforation from esophagus 2/2 intubation /elevated pulm pressures (vomiting, bucking the vent, etc) -Empirically covering for G- and anaerobes with Unasyn, obtained new cultures and procal, will follow up Endo: -Maintain blood sugars 140-180 Dispo: ICU, mechanically ventilated, minimal neurologic activity, now found to have Pneumomediastinum on CXR, Trach/G-tube on hold, s/p Chest tube, pending new septic workup; Pending family discussion tomorrow, and several children are now considering withdrawal of care and comfort measures, pending repeat family meeting with Palliative tomorrow FEN: NPO, holding all tube feeds at present Access: Peripheral IV Consults: Neuro, Cardio, ID Ppx: Protonix for GI, SCDs for DVT Code Status: DNR, pending another family discussion regarding possible hospice/ comfort care with Palliative tomorrow Patient seen, reviewed, and discussed with attending, Dr. Wolf. <Maryann GUSMAN,Inamul H - Last Filed: 04/08/17 15:16> CCU Objective - Vital Signs / Intake & Output Vital Signs (Last 4 hours): Vital Signs Temp Pulse BP Pulse Ox 04/08/17 12:00 98.1 F 76 99/52 L 100 Intake and Output (Last 8hrs): Intake & Output 04/08/17 04/08/17 04/08/17 06:59 14:59 22:59 Intake Total 630 Output Total 760 Balance -130 Weight 140 lb Intake: IV 630 Right Forearm 630 Output: Chest Tube Drainage 60 Left Lateral Chest 60 Urine 700 2-way Urethral 700 - Medications Active Medications: Active Medications Generic Name Dose Route Start Last Admin Trade Name Freq PRN Reason Stop Dose Admin Aspirin 81 mg 03/31/17 10:00 04/08/17 09:20 Aspirin Chewable PO 81 mg DAILY EMA Administration Chlorhexidine Gluconate 15 ml 04/02/17 14:30 04/08/17 13:42 Peridex PO Not Given Q4H EMA Clopidogrel Bisulfate 75 mg 03/31/17 10:00 04/08/17 09:20 Plavix PO 75 mg DAILY EMA Administration Enoxaparin Sodium 40 mg 04/03/17 10:00 04/08/17 09:20 Lovenox SC 40 mg DAILY EMA Administration Protocol Levetiracetam 500 mg in 100 mls @ 460 mls/hr 03/31/17 17:33 04/08/17 09:20 Keppra 500mg Ivpb IV 460 mls/hr Q12 EMA Administration Famotidine 20 mg in 50 mls @ 100 mls/hr 04/03/17 22:00 04/08/17 09:21 Pepcid 20mg/50ml Premix IVPB 100 mls/hr Q12 EMA Administration Dexmedetomidine HCl 400 mcg in 100 mls @ 3.175 mls/hr 04/06/17 13:38 20:20 Precedex 4 Mcg/Ml (100 Ml) IV 0.2 mcg/kg/hr .Q24H PRN 3.175 mls/hr Sedation Administration Protocol 0.2 MCG/KG/HR Meropenem 1g/NS 100mL IVPB 1 gm in 100 mls @ 100 mls/hr 04/07/17 06:30 14:19 Meropenem 1g/Ns 100ml Ivpb IVPB 04/14/17 06:31 100 mls/hr Q8 EMA Administration Protocol - Patient Studies Lab Studies: Microbiology Studies 04/06/17 13:45 Urine Culture - Final Urine,Singh No Growth (<1,000 CFU/ML) 04/06/17 11:30 Blood Culture - Preliminary Blood-Venous NO GROWTH AFTER 48 HOURS 04/06/17 10:40 Blood Culture - Preliminary Blood-Venous NO GROWTH AFTER 48 HOURS 04/06/17 19:48 Gram Stain - Final Trachasp Lab Studies 04/08/17 04/08/17 04/08/17 Range/Units 10:52 05:20 05:20 WBC 15.6 H D (4.5-11.0) 10^3/ul RBC 3.02 L (3.5-6.1) 10^6/uL Hgb 8.5 L (14.0-18.0) g/dL Hct 24.5 L (42.0-52.0) % MCV 81.1 (80.0-105.0) fl MCH 28.1 (25.0-35.0) pg MCHC 34.7 (31.0-37.0) g/dl RDW 15.2 H (11.5-14.5) % Plt Count 361 (120.0-450.0) 10^3/uL MPV 9.3 (7.0-11.0) fl Gran % 74.9 H (50.0-68.0) % Lymph % (Auto) 12.0 L (22.0-35.0) % [place] % (Auto) 10.6 H (1.0-6.0) % Eos % (Auto) 2.4 (1.5-5.0) % Baso % (Auto) 0.1 (0.0-3.0) % Gran # 11.65 H (1.4-6.5) Lymph # 1.9 (1.2-3.4) [place] # 1.7 H (0.1-0.6) Eos # 0.4 (0.0-0.7) Baso # 0.01 (0.0-2.0) K/mm3 PT 13.9 H (9.4-12.5) SECONDS INR 1.26 H (0.93-1.08) APTT 37.5 H (25.1-36.5) Seconds pCO2 (35-45) mm/Hg pO2 (80-100) mm/Hg HCO3 (21-28) mmol/L ABG pH (7.35-7.45) ABG Total CO2 (22-28) mmol.L ABG O2 Saturation (95-98) % ABG O2 Content (15-23) ML/dl ABG Base Excess (-2.0-3.0) mmol/L ABG Hemoglobin (11.7-17.4) g/dL ABG Carboxyhemoglobin (0.5-1.5) % POC ABG HHb (Measured) (0-5) % ABG Methemoglobin (0.0-3.0) % ABG O2 Capacity (16-24) mL/dl Hgb O2 Saturation (95.0-98.0) % FiO2 % Sodium 140 (132-148) mmol/L Potassium 3.9 (3.6-5.0) mmol/L Chloride 107 (98-107) mmol/L Carbon Dioxide 24 (21-33) mmol/L Anion Gap 13 (10-20) BUN 15 (7-21) mg/dL Creatinine 0.9 (0.8-1.5) mg/dL Est GFR ( Amer) > 60 Est GFR (Non-Af Amer) > 60 Random Glucose 90 (70-110) mg/dL Calcium 8.4 (8.4-10.5) mg/dL Phosphorus 2.8 (2.5-4.5) mg/dL Magnesium 2.2 (1.7-2.2) mg/dL Total Bilirubin 0.8 (0.2-1.3) mg/dL AST 67 H (17-59) U/L ALT 105 H (7-56) U/L Alkaline Phosphatase 79 (38-126) U/L Total Protein 5.9 (5.8-8.3) g/dL Albumin 3.0 (3.0-4.8) g/dL Globulin 2.9 gm/dL Albumin/Globulin Ratio 1.0 L (1.1-1.8) 04/08/ Range/Units 05:20 WBC (4.5-11.0) 10^3/ul RBC (3.5-6.1) 10^6/uL Hgb (14.0-18.0) g/dL Hct (42.0-52.0) % MCV (80.0-105.0) fl MCH (25.0-35.0) pg MCHC (31.0-37.0) g/dl RDW (11.5-14.5) % Plt Count (120.0-450.0) 10^3/uL MPV (7.0-11.0) fl Gran % (50.0-68.0) % Lymph % (Auto) (22.0-35.0) % [place] % (Auto) (1.0-6.0) % Eos % (Auto) (1.5-5.0) % Baso % (Auto) (0.0-3.0) % Gran # (1.4-6.5) Lymph # (1.2-3.4) [place] # (0.1-0.6) Eos # (0.0-0.7) Baso # (0.0-2.0) K/mm3 PT (9.4-12.5) SECONDS INR (0.93-1.08) APTT (25.1-36.5) Seconds pCO2 33 L (35-45) mm/Hg pO2 90.0 (80-100) mm/Hg HCO3 23.5 (21-28) mmol/L ABG pH 7.46 H (7.35-7.45) ABG Total CO2 24.5 (22-28) mmol.L ABG O2 Saturation 98.9 H (95-98) % ABG O2 Content 13.5 L (15-23) ML/dl ABG Base Excess 0.0 (-2.0-3.0) mmol/L ABG Hemoglobin 10.0 L (11.7-17.4) g/dL ABG Carboxyhemoglobin 2.3 H (0.5-1.5) % POC ABG HHb (Measured) 1.1 (0-5) % ABG Methemoglobin 1.3 (0.0-3.0) % ABG O2 Capacity 13.7 L (16-24) mL/dl Hgb O2 Saturation 95.2 (95.0-98.0) % FiO2 35.0 % Sodium (132-148) mmol/L Potassium (3.6-5.0) mmol/L Chloride (98-107) mmol/L Carbon Dioxide (21-33) mmol/L Anion Gap (10-20) BUN (7-21) mg/dL Creatinine (0.8-1.5) mg/dL Est GFR ( Amer) Est GFR (Non-Af Amer) Random Glucose (70-110) mg/dL Calcium (8.4-10.5) mg/dL Phosphorus (2.5-4.5) mg/dL Magnesium (1.7-2.2) mg/dL Total Bilirubin (0.2-1.3) mg/dL AST (17-59) U/L ALT (7-56) U/L Alkaline Phosphatase (38-126) U/L Total Protein (5.8-8.3) g/dL Albumin (3.0-4.8) g/dL Globulin gm/dL Albumin/Globulin Ratio (1.1-1.8) Laboratory Results - last 24 hr 04/08/17 04/08/17 04/08/17 05:20 05:20 05:20 WBC 15.6 H D RBC 3.02 L Hgb 8.5 L Hct 24.5 L MCV 81.1 MCH 28.1 MCHC 34.7 RDW 15.2 H Plt Count 361 MPV 9.3 Gran % 74.9 H Lymph % (Auto) 12.0 L [place] % (Auto) 10.6 H Eos % (Auto) 2.4 Baso % (Auto) 0.1 Gran # 11.65 H Lymph # 1.9 [place] # 1.7 H Eos # 0.4 Baso # 0.01 PT INR APTT pCO2 33 L pO2 90.0 HCO3 23.5 ABG pH 7.46 H ABG Total CO2 24.5 ABG O2 Saturation 98.9 H ABG O2 Content 13.5 L ABG Base Excess 0.0 ABG Hemoglobin 10.0 L ABG Carboxyhemoglobin 2.3 H POC ABG HHb (Measured) 1.1 ABG Methemoglobin 1.3 ABG O2 Capacity 13.7 L Hgb O2 Saturation 95.2 FiO2 35.0 Sodium 140 Potassium 3.9 Chloride 107 Carbon Dioxide 24 Anion Gap 13 BUN 15 Creatinine 0.9 Est GFR ( Amer) > 60 Est GFR (Non-Af Amer) > 60 Random Glucose 90 Calcium 8.4 Phosphorus 2.8 Magnesium 2.2 Total Bilirubin 0.8 AST 67 H ALT 105 H Alkaline Phosphatase 79 Total Protein 5.9 Albumin 3.0 Globulin 2.9 Albumin/Globulin Ratio 1.0 L 04/08/17 10:52 WBC RBC Hgb Hct MCV MCH MCHC RDW Plt Count MPV Gran % Lymph % (Auto) [place] % (Auto) Eos % (Auto) Baso % (Auto) Gran # Lymph # [place] # Eos # Baso # PT 13.9 H INR 1.26 H APTT 37.5 H pCO2 pO2 HCO3 ABG pH ABG Total CO2 ABG O2 Saturation ABG O2 Content ABG Base Excess ABG Hemoglobin ABG Carboxyhemoglobin POC ABG HHb (Measured) ABG Methemoglobin ABG O2 Capacity Hgb O2 Saturation FiO2 Sodium Potassium Chloride Carbon Dioxide Anion Gap BUN Creatinine Est GFR ( Amer) Est GFR (Non-Af Amer) Random Glucose Calcium Phosphorus Magnesium Total Bilirubin AST ALT Alkaline Phosphatase Total Protein Albumin Globulin Albumin/Globulin Ratio Critical Care Progress Note - Nutrition Nutrition: Nutrition Category Date Time Status NPO Diet [DIET] Diets 04/07/17 Breakfast Ordered Attending/Attestation - Attestation I have personally seen and examined this patient.: Yes I have fully participated in the care of the patient.: Yes I have reviewed all pertinent clinical information: Yes Notes (Text): 04/08/17 15:15 61 y/o M w/ anoxic brain injury s/p cardiac arrest w/ substance abuse. Pneumomediastinum improving. L CT in place w/ minimal drainage. PTX resolved. No neurological improvement. On precedex for comfort . Monitor electrolytes and CBC. HGB drop with concern for GI bleed. GI following , no intervention planned. Keep HGB > 7. ppi cc time 55 min
--- NOTE | 2017-04-07 07:50 | RAD ---
HISTORY: intubated, f/u COMPARISON: Portable chest 04/06/2017. FINDINGS: Endotracheal and nasogastric tubes are again identified not significantly changed in position. Left chest tube also unchanged in position. LUNGS: Mid to inferior left-sided airspace disease is slightly diminished. None is seen the right once again. PLEURA: Left pleural effusion is diminished with none identified on the right. No pneumothorax bilaterally. CARDIOVASCULAR: Normal. OSSEOUS STRUCTURES: No significant abnormalities. VISUALIZED UPPER ABDOMEN: Normal. OTHER FINDINGS: None. IMPRESSION: Diminishing left-sided airspace disease and pleural effusion as discussed above. Left chest tube unchanged in position.
--- NOTE | 2017-04-07 08:17 | CP.PCM.PN ---
Subjective - Date & Time of Evaluation Date of Evaluation: 04/06/17 Time of Evaluation: 17:00 - Subjective Subjective: Intubated, unresponsive. Objective - Vital Signs/Intake and Output Vital Signs (last 24 hours): Temp Pulse Resp BP Pulse Ox 98.4 F 62 21 99/56 L 100 04/07/17 04:00 04/07/17 03:47 04/07/17 07:09 04/07/17 06:50 04/07/17 07:09 Intake and Output: 04/07/17 04/07/17 06:59 18:59 Intake Total 2828 Output Total 550 Balance 2278 - Medications Medications: Current Medications Aspirin (Aspirin Chewable) 81 mg PO DAILY ON [facility] OF [facility] Last Admin: 04/06/17 10:22 Dose: 81 mg Chlorhexidine Gluconate (Peridex) 15 ml PO Q4H ON [facility] OF [facility] Last Admin: 04/07/17 07:36 Dose: 1 analia Clopidogrel Bisulfate (Plavix) 75 mg PO DAILY ON [facility] OF [facility] Last Admin: 04/06/17 10:17 Dose: 75 mg Enoxaparin Sodium (Lovenox) 40 mg SC DAILY ON [facility] OF [facility] PRN Reason: Protocol Last Admin: 04/06/17 10:19 Dose: 40 mg Levetiracetam (Keppra 500mg Ivpb) 500 mg in 100 mls @ 460 mls/hr IV Q12 ON [facility] OF [facility] Last Admin: 04/06/17 21:36 Dose: 460 mls/hr Famotidine (Pepcid 20mg/50ml Premix) 20 mg in 50 mls @ 100 mls/hr IVPB Q12 ON [facility] OF [facility] Last Admin: 04/06/17 21:35 Dose: 100 mls/hr Dexmedetomidine HCl (Precedex 4 Mcg/Ml (100 Ml)) 400 mcg in 100 mls @ 3.175 mls /hr IV .Q24H PRN; Protocol; 0.2 MCG/KG/HR PRN Reason: Sedation Last Titration: 04/07/17 05:17 Dose: 0.2 mcg/kg/hr, 3.175 mls/hr Meropenem 1g/NS 100mL IVPB (Meropenem 1g/Ns 100ml Ivpb) 1 gm in 100 mls @ 100 mls/hr IVPB Q8 ON [facility] OF [facility] PRN Reason: Protocol Stop: 04/14/17 06:31 Last Admin: 04/07/17 06:45 Dose: 100 mls/hr - Labs Labs: 04/07/17 06:20 04/06/17 07:35 PT 13.1 Seconds (9.9-11.8) H 03/31/17 09:13 INR 1.21 (0.93-1.08) H 03/31/17 09:13 APTT 68.6 Seconds (23.7-30.8) H 03/31/17 09:13 - Constitutional Appears: Chronically Ill - Eye Exam Eye Exam: Normal appearance, PERRL - ENT Exam ENT Exam: Mucous Membranes Moist - Respiratory Exam Respiratory Exam: Decreased Breath Sounds, NORMAL BREATHING PATTERN - Cardiovascular Exam Cardiovascular Exam: Tachycardia, +S1, +S2 - GI/Abdominal Exam GI & Abdominal Exam: Soft, Diminished Bowel Sounds - Extremities Exam Extremities Exam: Normal Capillary Refill, Normal Inspection - Back Exam Back Exam: NORMAL INSPECTION - Skin Skin Exam: Dry, Warm Assessment and Plan - Assessment and Plan (Free Text) Assessment: 61 year old male suspected drug overdose s/p cardiopulmonary arrest who si admitted with anoxic brain injury, respiratory failure, intubated,left pneumothorax, left chest tube. Patient's a son/ brother in law at bedside. Dr Reynoso and I discussed patients medical situation with family. Family made aware that patient has developed left sided airspace and pleural effusion in addition to his underlying anoxic brain injury. Trach and PEG on hold due ayah current medical situation. and I had previously discussed ramifications of Trach and PEG in situations of anoxic brain injury. verbalized understanding and felt that she wanted to move forward with Trach and PEG knowing that meaningful recovery from thsi time of brain injury is poor. In light of patients change is status, and son have decided to make patient a DNR. They are considering terminal extubation but have asked for 24-48 hours before considering moving forward with this plan. Time spent in goals of care discussion and end of life counseling, 45 minutes. Plan: Will assist family with establishing future goals of care and advance care planning DNR
[2017-04-07 08:30] LABS: ALKALINE PHOSPHATASE 67 U/L (38-126); ALT/SGPT 138 U/L (7-56); AST/SGOT 63 U/L (17-59); BLOOD UREA NITROGEN 16 mg/dL (7-21); CARBON DIOXIDE 21 mmol/L (21-33); CHLORIDE 108 mmol/L (98-107); GFR AFRICAN-AMERICAN > 60; GLUCOSE,RANDOM 98 mg/dL (70-110); POTASSIUM 4.2 mmol/L (3.6-5.0); SODIUM 138 mmol/L (132-148); TOTAL PROTEIN 5.5 g/dL (5.8-8.3)
--- NOTE | 2017-04-07 08:35 | CP.PCM.PN ---
Subjective - Date & Time of Evaluation Date of Evaluation: 04/07/17 Time of Evaluation: 07:50 - Subjective Subjective: Continues to be intubated, poorly responsive, no fevers overnight. Objective - Vital Signs/Intake and Output Vital Signs (last 24 hours): Temp Pulse Resp BP Pulse Ox 98.6 F 64 37 H 100/68 100 04/07/17 00:00 04/07/17 00:00 04/06/17 14:00 04/07/17 00:00 04/07/17 00:00 Intake and Output: 04/06/17 04/07/17 18:59 06:59 Intake Total 2305 80 Output Total 1900 Balance 405 80 - Medications Medications: Current Medications Aspirin (Aspirin Chewable) 81 mg PO DAILY [facility] Last Admin: 04/06/17 10:22 Dose: 81 mg Chlorhexidine Gluconate (Peridex) 15 ml PO Q4H [facility] Last Admin: 04/07/17 01:43 Dose: 1 analia Clopidogrel Bisulfate (Plavix) 75 mg PO DAILY [facility] Last Admin: 04/06/17 10:17 Dose: 75 mg Enoxaparin Sodium (Lovenox) 40 mg SC DAILY [facility] PRN Reason: Protocol Last Admin: 04/06/17 10:19 Dose: 40 mg Levetiracetam (Keppra 500mg Ivpb) 500 mg in 100 mls @ 460 mls/hr IV Q12 [facility] Last Admin: 04/06/17 21:36 Dose: 460 mls/hr Famotidine (Pepcid 20mg/50ml Premix) 20 mg in 50 mls @ 100 mls/hr IVPB Q12 [facility] Last Admin: 04/06/17 21:35 Dose: 100 mls/hr Dextrose (Dextrose 5% In Water 1000 Ml) 1,000 mls @ 100 mls/hr IV .Q10H [facility] Last Admin: 04/07/17 02:23 Dose: 100 mls/hr Ampicillin Sodium/Sulbactam (Sodium 3 gm/ Sodium Chloride) 100 mls @ 200 mls/ hr IVPB Q6 [facility] PRN Reason: Protocol Last Admin: 04/07/17 05:01 Dose: 200 mls/hr Dexmedetomidine HCl (Precedex 4 Mcg/Ml (100 Ml)) 400 mcg in 100 mls @ 3.175 mls /hr IV .Q24H PRN; Protocol; 0.2 MCG/KG/HR PRN Reason: Sedation Last Admin: 04/07/17 01:43 Dose: 0.4 mcg/kg/hr, 6.35 mls/hr - Labs Labs: 04/06/17 07:00 04/06/17 07:35 PT 13.1 Seconds (9.9-11.8) H 03/31/17 09:13 INR 1.21 (0.93-1.08) H 03/31/17 09:13 APTT 68.6 Seconds (23.7-30.8) H 03/31/17 09:13 - Constitutional Appears: Other (intubated, poorly responsive) - ENT Exam Additional comments: ET tube in place - Respiratory Exam Respiratory Exam: Decreased Breath Sounds - Cardiovascular Exam Cardiovascular Exam: +S1, +S2 - GI/Abdominal Exam GI & Abdominal Exam: Soft. absent: Tenderness Assessment and Plan - Assessment and Plan (Free Text) Plan: Assessment Systemic Inflammatory Response Syndrome, probably stress reaction after cardiac arrest related to cocaine use and now with newly found pneumothorax and pneumomediastinum S/P chest tube placement, currently with ventilator-dependent respiratory failure, R/O sepsis from new onset left sided HAP chronic back pain Plan increased WBC count more likely from the pneumomediastinum but awaiting repeat septic work up from yesterday and started Merrem; gave a dose of IV Vancomycin as well MRI brain findings noted - medial temporal lobe affectation more likely ischemic in nature, unlikely herpes encephalitis - no treatment for herpes necessary at the moment Overall prognosis is poor
[2017-04-07 08:54] LABS: BASO # 0.01 K/mm3 (0.0-2.0); EOS # 0.4 (0.0-0.7); EOS % 1.8 % (1.5-5.0); GRAN # 16.96 (1.4-6.5); GRAN % 77.7 % (50.0-68.0); HEMATOCRIT 24.9 % (42.0-52.0); LYMPH # 2.4 (1.2-3.4); MEAN CELL VOLUME 78.5 fl (80.0-105.0); MEAN CORPUSCULAR HEMOGLOBIN 28.7 pg (25.0-35.0); MEAN CORPUSCULAR HGB CONC 36.5 g/dl (31.0-37.0); MEAN PLATELET VOLUME 9.3 fl (7.0-11.0); MONO # 2.1 (0.1-0.6); MONO % 9.5 % (1.0-6.0); RED CELL DISTRIBUTION WIDTH 14.5 % (11.5-14.5); WHITE BLOOD COUNT 21.9 10^3/ul (4.5-11.0)
[2017-04-07] MEDS: Famotidine 20mg/50ml 20 MG/50 ML BAG IVPB SCH ×2 (09:39→21:59)
[2017-04-07] MEDS: levETIRAcetam 500mg IVPB 500 MG/100 ML BAG IV SCH ×2 (09:40→22:00)
[2017-04-07] MEDS: Enoxaparin 40 mg Syringe SC SCH (09:41)
--- NOTE | 2017-04-07 10:03 | CP.PCM.PN ---
Subjective - Date & Time of Evaluation Date of Evaluation: 04/07/17 Time of Evaluation: 09:15 - Subjective Subjective: remains unresponsive, on vent Objective - Vital Signs/Intake and Output Vital Signs (last 24 hours): Temp Pulse Resp BP Pulse Ox 98.1 F 62 21 99/56 L 100 04/07/17 08:00 04/07/17 03:47 04/07/17 07:09 04/07/17 06:50 04/07/17 07:09 Intake and Output: 04/07/17 04/07/17 06:59 18:59 Intake Total 2828 Output Total 550 Balance 2278 - Medications Medications: Current Medications Aspirin (Aspirin Chewable) 81 mg PO DAILY [facility] Last Admin: 04/07/17 09:39 Dose: 81 mg Chlorhexidine Gluconate (Peridex) 15 ml PO Q4H [facility] Last Admin: 04/07/17 07:36 Dose: 1 analia Clopidogrel Bisulfate (Plavix) 75 mg PO DAILY [facility] Last Admin: 04/07/17 09:39 Dose: 75 mg Enoxaparin Sodium (Lovenox) 40 mg SC DAILY [facility] PRN Reason: Protocol Last Admin: 04/07/17 09:41 Dose: 40 mg Levetiracetam (Keppra 500mg Ivpb) 500 mg in 100 mls @ 460 mls/hr IV Q12 [facility] Last Admin: 04/07/17 09:40 Dose: 460 mls/hr Famotidine (Pepcid 20mg/50ml Premix) 20 mg in 50 mls @ 100 mls/hr IVPB Q12 [facility] Last Admin: 04/07/17 09:39 Dose: 100 mls/hr Dexmedetomidine HCl (Precedex 4 Mcg/Ml (100 Ml)) 400 mcg in 100 mls @ 3.175 mls /hr IV .Q24H PRN; Protocol; 0.2 MCG/KG/HR PRN Reason: Sedation Last Titration: 04/07/17 05:17 Dose: 0.2 mcg/kg/hr, 3.175 mls/hr Meropenem 1g/NS 100mL IVPB (Meropenem 1g/Ns 100ml Ivpb) 1 gm in 100 mls @ 100 mls/hr IVPB Q8 [facility] PRN Reason: Protocol Stop: 04/14/17 06:31 Last Admin: 04/07/17 06:45 Dose: 100 mls/hr - Labs Labs: 04/07/17 08:45 04/07/17 06:45 PT 13.1 Seconds (9.9-11.8) H 03/31/17 09:13 INR 1.21 (0.93-1.08) H 03/31/17 09:13 APTT 68.6 Seconds (23.7-30.8) H 03/31/17 09:13 - Respiratory Exam Respiratory Exam: Decreased Breath Sounds Additional comments: endotracheal tube intact, L chest tube intact/draining bloody fluid - GI/Abdominal Exam GI & Abdominal Exam: Soft, Normal Bowel Sounds - Neurological Exam Neurological Exam: Altered - Skin Skin Exam: Dry, Warm Assessment and Plan (1) Cardiac arrest Status: Acute (2) Hypoxic ischemic encephalopathy Status: Acute (3) Pneumothorax Status: Acute - Assessment and Plan (Free Text) Plan: continue supportive care, prognosis remains very poor, possible trach/LTAC
[2017-04-07 13:58] LABS: URINE BILIRUBIN NEGATIVE (NEGATIVE); URINE BLOOD NEGATIVE (NEGATIVE); URINE GLUCOSE (UA) NEGATIVE (NEGATIVE); URINE KETONE NEGATIVE (NEGATIVE); URINE LEUKOCYTE ESTERASE NEGATIVE Leu/uL (NEGATIVE); URINE PROTEIN NEGATIVE mg/dL (<30 mg/dL); URINE UROBILINOGEN 0.2 E.U./dL (<1 E.U./dL)
[2017-04-07 14:11] LABS: URINE APPEARANCE CLEAR (CLEAR); URINE COLOR YELLOW (YELLOW)
--- NOTE | 2017-04-07 15:32 | CP.PCM.PN ---
Subjective - Date & Time of Evaluation Date of Evaluation: 04/07/17 Time of Evaluation: 15:29 - Subjective Subjective: Surgery Pt s&e. Pt is intubated. Doesn't follow commands. Pt is DNR now. Chest tube in place. Objective - Vital Signs/Intake and Output Vital Signs (last 24 hours): Temp Pulse Resp BP Pulse Ox 98.1 F 62 21 99/56 L 100 04/07/17 08:00 04/07/17 03:47 04/07/17 07:09 04/07/17 06:50 04/07/17 07:09 Intake and Output: 04/07/17 04/07/17 06:59 18:59 Intake Total 2828 Output Total 550 Balance 2278 - Medications Medications: Current Medications Aspirin (Aspirin Chewable) 81 mg PO DAILY [facility] Last Admin: 04/07/17 09:39 Dose: 81 mg Chlorhexidine Gluconate (Peridex) 15 ml PO Q4H [facility] Last Admin: 04/07/17 10:02 Dose: 1 analia Clopidogrel Bisulfate (Plavix) 75 mg PO DAILY [facility] Last Admin: 04/07/17 09:39 Dose: 75 mg Enoxaparin Sodium (Lovenox) 40 mg SC DAILY [facility] PRN Reason: Protocol Last Admin: 04/07/17 09:41 Dose: 40 mg Levetiracetam (Keppra 500mg Ivpb) 500 mg in 100 mls @ 460 mls/hr IV Q12 [facility] Last Admin: 04/07/17 09:40 Dose: 460 mls/hr Famotidine (Pepcid 20mg/50ml Premix) 20 mg in 50 mls @ 100 mls/hr IVPB Q12 [facility] Last Admin: 04/07/17 09:39 Dose: 100 mls/hr Dexmedetomidine HCl (Precedex 4 Mcg/Ml (100 Ml)) 400 mcg in 100 mls @ 3.175 mls /hr IV .Q24H PRN; Protocol; 0.2 MCG/KG/HR PRN Reason: Sedation Last Titration: 04/07/17 05:17 Dose: 0.2 mcg/kg/hr, 3.175 mls/hr Meropenem 1g/NS 100mL IVPB (Meropenem 1g/Ns 100ml Ivpb) 1 gm in 100 mls @ 100 mls/hr IVPB Q8 [facility] PRN Reason: Protocol Stop: 04/14/17 06:31 Last Admin: 04/07/17 06:45 Dose: 100 mls/hr - Labs Labs: 04/07/17 08:45 04/07/17 06:45 PT 13.1 Seconds (9.9-11.8) H 03/31/17 09:13 INR 1.21 (0.93-1.08) H 03/31/17 09:13 APTT 68.6 Seconds (23.7-30.8) H 03/31/17 09:13 - Constitutional Appears: In Acute Distress - Head Exam Head Exam: ATRAUMATIC, NORMAL INSPECTION, NORMOCEPHALIC - ENT Exam ENT Exam: Mucous Membranes Moist - Respiratory Exam Respiratory Exam: Respiratory Distress. absent: NORMAL BREATHING PATTERN Additional comments: INtubated. Chest tube in place: ss fluids. - GI/Abdominal Exam GI & Abdominal Exam: Soft, Normal Bowel Sounds. absent: Distended, Firm, Guarding, Tenderness - Extremities Exam Extremities Exam: Normal Inspection - Back Exam Back Exam: NORMAL INSPECTION - Neurological Exam Neurological Exam: absent: Alert, Awake, Normal Gait, Oriented x3 - Skin Skin Exam: Dry, Intact, Normal Color, Warm Assessment and Plan - Assessment and Plan (Free Text) Assessment: 61 M with respiratory failure, FTT and pneumothorax/pneumomediastinum/ pneumoperitoneum, s/p L sided chest tube: DNR -Chest tube to wall suction -Daily cxr to monitor -Postpone trach/gtube placement -Management as per ICU -DW Dr. Helton
[2017-04-08] MEDS: Chlorhexidine 0.12% Oral Sol 480 ml Bot PO SCH ×4 (02:30→17:15)
[2017-04-08 05:46] LABS: ARTERIAL BLOOD GAS HCO3 23.5 mmol/L (21-28); ARTERIAL BLOOD GAS O2 CAPACITY 13.7 mL/dl (16-24); ARTERIAL BLOOD GAS O2 CONTENT 13.5 ML/dl (15-23); ARTERIAL BLOOD GAS PH 7.46 (7.35-7.45); ARTERIAL BLOOD HGB O2 SAT 95.2 % (95.0-98.0); CARBOXYHEMOGLOBIN 2.3 % (0.5-1.5); HHB 1.1 % (0-5); METHEMOGLOBIN 1.3 % (0.0-3.0)
[2017-04-08] MEDS: Meropenem 1g/NS 100mL IVPB 1 GM/100 ML PIGGYBACK IVPB SCH ×2 (06:03→14:19)
[2017-04-08 06:32] LABS: BASO # 0.01 K/mm3 (0.0-2.0); BASO % 0.1 % (0.0-3.0); EOS # 0.4 (0.0-0.7); EOS % 2.4 % (1.5-5.0); GRAN # 11.65 (1.4-6.5); GRAN % 74.9 % (50.0-68.0); HEMATOCRIT 24.5 % (42.0-52.0); LYMPH # 1.9 (1.2-3.4); MEAN CELL VOLUME 81.1 fl (80.0-105.0); MEAN CORPUSCULAR HEMOGLOBIN 28.1 pg (25.0-35.0); MEAN CORPUSCULAR HGB CONC 34.7 g/dl (31.0-37.0); MEAN PLATELET VOLUME 9.3 fl (7.0-11.0); MONO # 1.7 (0.1-0.6); MONO % 10.6 % (1.0-6.0); RED CELL DISTRIBUTION WIDTH 15.2 % (11.5-14.5); WHITE BLOOD COUNT 15.6 10^3/ul (4.5-11.0)
[2017-04-08 06:47] LABS: ALKALINE PHOSPHATASE 79 U/L (38-126); ALT/SGPT 105 U/L (7-56); AST/SGOT 67 U/L (17-59); BILIRUBIN,TOTAL 0.8 mg/dL (0.2-1.3); BLOOD UREA NITROGEN 15 mg/dL (7-21); CALCIUM 8.4 mg/dL (8.4-10.5); CARBON DIOXIDE 24 mmol/L (21-33); CHLORIDE 107 mmol/L (98-107); GFR AFRICAN-AMERICAN > 60; GLUCOSE,RANDOM 90 mg/dL (70-110); MAGNESIUM 2.2 mg/dL (1.7-2.2); PHOSPHOROUS 2.8 mg/dL (2.5-4.5); POTASSIUM 3.9 mmol/L (3.6-5.0); SODIUM 140 mmol/L (132-148); TOTAL PROTEIN 5.9 g/dL (5.8-8.3)
--- NOTE | 2017-04-08 09:01 | PN ---
DATE: 04/08/2017 SUBJECTIVE: The patient is in bed, intubated on the ventilator, unresponsive. Uneventful night. OBJECTIVE: VITAL SIGNS: On exam, the patient's temperature is 98, blood pressure is 103/50, respiratory rate of 23 on the vent and heart rate of 78. EXAMINATION OF HEENT: Unremarkable. NECK: Supple. LUNGS: Have decreased breath sounds. HEART EXAM: Normal S1 and S2. ABDOMINAL EXAMINATION: Soft, nontender. No rebound. No guarding. No masses. LABORATORY EXAMINATION: Reveals a white count of 15,600; hemoglobin of 8; platelets of 361. BUN of 15, creatinine of 0.9. Procalcitonin is 0.75. Urinalysis is noted. Serology is noted. Cultures are negative. Chest x-ray Is pending from today. Yesterday's chest x-ray is noted. REVIEW OF ORDERS: Reveals the patient to be on meropenem and vancomycin 1 dose. ASSESSMENT AND PLAN: A 61-year-old male with systemic inflammatory response syndrome, status post cardiac arrest, cocaine use with a pneumothorax with the chest tube in. The patient also with a pneumomediastinum, currently is intubated on a ventilator and new onset of healthcare-associated pneumonia, on vancomycin and meropenem day #2. Overall prognosis s quite poor. We will check on the final culture results. The patient's procalcitonin was 0.75 from 18. We will follow with you. Prognosis is poor. Jose Daniel Milner MD
--- NOTE | 2017-04-08 09:18 | CP.PCM.PN ---
Subjective - Date & Time of Evaluation Date of Evaluation: 04/08/17 Time of Evaluation: 09:15 - Subjective Subjective: Surgery Pt s&e. Intubated. CP in place. 60cc SS. Doesn't follow command Objective - Vital Signs/Intake and Output Vital Signs (last 24 hours): Temp Pulse Resp BP Pulse Ox 98.6 F 80 23 107/64 100 04/08/17 08:00 04/08/17 08:00 04/08/17 06:57 04/08/17 08:00 04/08/17 08:00 Intake and Output: 04/08/17 04/08/17 06:59 18:59 Intake Total 707 Output Total 760 Balance -53 - Medications Medications: Current Medications Aspirin (Aspirin Chewable) 81 mg PO DAILY [facility] Last Admin: 04/07/17 09:39 Dose: 81 mg Chlorhexidine Gluconate (Peridex) 15 ml PO Q4H [facility] Last Admin: 04/08/17 06:03 Dose: 15 analia Clopidogrel Bisulfate (Plavix) 75 mg PO DAILY [facility] Last Admin: 04/07/17 09:39 Dose: 75 mg Enoxaparin Sodium (Lovenox) 40 mg SC DAILY [facility] PRN Reason: Protocol Last Admin: 04/07/17 09:41 Dose: 40 mg Levetiracetam (Keppra 500mg Ivpb) 500 mg in 100 mls @ 460 mls/hr IV Q12 [facility] Last Admin: 04/07/17 22:00 Dose: 460 mls/hr Famotidine (Pepcid 20mg/50ml Premix) 20 mg in 50 mls @ 100 mls/hr IVPB Q12 [facility] Last Admin: 04/07/17 21:59 Dose: 100 mls/hr Dexmedetomidine HCl (Precedex 4 Mcg/Ml (100 Ml)) 400 mcg in 100 mls @ 3.175 mls /hr IV .Q24H PRN; Protocol; 0.2 MCG/KG/HR PRN Reason: Sedation Last Admin: 04/07/17 20:20 Dose: 0.2 mcg/kg/hr, 3.175 mls/hr Meropenem 1g/NS 100mL IVPB (Meropenem 1g/Ns 100ml Ivpb) 1 gm in 100 mls @ 100 mls/hr IVPB Q8 [facility] PRN Reason: Protocol Stop: 04/14/17 06:31 Last Admin: 04/08/17 06:03 Dose: 100 mls/hr - Labs Labs: 04/08/17 05:20 04/08/17 05:20 PT 13.1 Seconds (9.9-11.8) H 03/31/17 09:13 INR 1.21 (0.93-1.08) H 03/31/17 09:13 APTT 68.6 Seconds (23.7-30.8) H 03/31/17 09:13 - Constitutional Appears: Unkempt - Head Exam Head Exam: ATRAUMATIC, NORMAL INSPECTION, NORMOCEPHALIC - ENT Exam Additional comments: INtubated - Respiratory Exam Respiratory Exam: Respiratory Distress. absent: NORMAL BREATHING PATTERN - Cardiovascular Exam Cardiovascular Exam: +S1, +S2 - GI/Abdominal Exam GI & Abdominal Exam: Soft. absent: Distended, Firm, Guarding, Tenderness - Extremities Exam Extremities Exam: Normal Inspection - Neurological Exam Neurological Exam: absent: Alert, Awake, Normal Gait, Oriented x3 - Skin Skin Exam: Dry, Intact, Normal Color, Warm Assessment and Plan - Assessment and Plan (Free Text) Assessment: 61 M with respiratory failure, FTT and pneumothorax/pneumomediastinum/ pneumoperitoneum, s/p L sided chest tube: DNR -Chest tube to wall suction: 60cc SS -Daily cxr to monitor -Postpone trach/gtube placement -Management as per ICU -Will AYDEE Helton
[2017-04-08] MEDS: Enoxaparin 40 mg Syringe SC SCH (09:20)
[2017-04-08] MEDS: levETIRAcetam 500mg IVPB 500 MG/100 ML BAG IV SCH (09:20)
[2017-04-08] MEDS: Famotidine 20mg/50ml 20 MG/50 ML BAG IVPB SCH (09:21)
--- NOTE | 2017-04-08 09:28 | RAD ---
HISTORY: intubated, f/u COMPARISON: 04/07/2017 FINDINGS: LUNGS: Extensive opacity throughout lower 2/3 of the left lung with some hazy opacity seen in the left apex as well. The opacity at the bases increased compared to the prior examination. This may be due to consolidation and/or pleural effusion. There is pleural fluid capping the left lung apex. There is no right-sided pleural effusion or consolidation. There is no pneumothorax. PLEURA: As above CARDIOVASCULAR: Normal heart size. ET tube and NG tube unchanged. Left chest tube unchanged extending to upper left giovanni thorax. OSSEOUS STRUCTURES: No significant abnormalities. VISUALIZED UPPER ABDOMEN: Normal. OTHER FINDINGS: None. IMPRESSION: Increasing opacity at left base. Possibly pleural effusion. Other findings unchanged from prior examination.
[2017-04-08 11:08] LABS: INR 1.26 (0.93-1.08); PARTIAL THROMBOPLASTIN TIME 37.5 Seconds (25.1-36.5)
--- NOTE | 2017-04-08 11:19 | CP.PCM.PN ---
Subjective - Date & Time of Evaluation Date of Evaluation: 04/08/17 Time of Evaluation: 09:00 - Subjective Subjective: Unresponsive, intubated, no acute changes Objective - Vital Signs/Intake and Output Vital Signs (last 24 hours): Temp Pulse Resp BP Pulse Ox 98.6 F 80 23 107/64 100 04/08/17 08:00 04/08/17 08:00 04/08/17 06:57 04/08/17 08:00 04/08/17 08:00 Intake and Output: 04/08/17 04/08/17 06:59 18:59 Intake Total 707 Output Total 760 Balance -53 - Medications Medications: Current Medications Aspirin (Aspirin Chewable) 81 mg PO DAILY [facility] Last Admin: 04/08/17 09:20 Dose: 81 mg Chlorhexidine Gluconate (Peridex) 15 ml PO Q4H [facility] Last Admin: 04/08/17 06:03 Dose: 15 analia Clopidogrel Bisulfate (Plavix) 75 mg PO DAILY [facility] Last Admin: 04/08/17 09:20 Dose: 75 mg Enoxaparin Sodium (Lovenox) 40 mg SC DAILY [facility] PRN Reason: Protocol Last Admin: 04/08/17 09:20 Dose: 40 mg Levetiracetam (Keppra 500mg Ivpb) 500 mg in 100 mls @ 460 mls/hr IV Q12 [facility] Last Admin: 04/08/17 09:20 Dose: 460 mls/hr Famotidine (Pepcid 20mg/50ml Premix) 20 mg in 50 mls @ 100 mls/hr IVPB Q12 [facility] Last Admin: 04/08/17 09:21 Dose: 100 mls/hr Dexmedetomidine HCl (Precedex 4 Mcg/Ml (100 Ml)) 400 mcg in 100 mls @ 3.175 mls /hr IV .Q24H PRN; Protocol; 0.2 MCG/KG/HR PRN Reason: Sedation Last Admin: 04/07/17 20:20 Dose: 0.2 mcg/kg/hr, 3.175 mls/hr Meropenem 1g/NS 100mL IVPB (Meropenem 1g/Ns 100ml Ivpb) 1 gm in 100 mls @ 100 mls/hr IVPB Q8 [facility] PRN Reason: Protocol Stop: 04/14/17 06:31 Last Admin: 04/08/17 06:03 Dose: 100 mls/hr - Labs Labs: 04/08/17 05:20 04/08/17 05:20 PT 13.9 SECONDS (9.4-12.5) H 04/08/17 10:52 INR 1.26 (0.93-1.08) H 04/08/17 10:52 APTT 37.5 Seconds (25.1-36.5) H 04/08/17 10:52 - Constitutional Appears: Chronically Ill - Head Exam Head Exam: NORMOCEPHALIC - Eye Exam Eye Exam: PERRL - Neck Exam Neck Exam: Normal Inspection - Respiratory Exam Respiratory Exam: Decreased Breath Sounds Additional comments: chest tube draining serosanguineous fluid - Cardiovascular Exam Cardiovascular Exam: REGULAR RHYTHM, +S1, +S2 - GI/Abdominal Exam GI & Abdominal Exam: Soft, Diminished Bowel Sounds - Neurological Exam Neurological Exam: Altered - Skin Skin Exam: Dry, Warm Assessment and Plan - Assessment and Plan (Free Text) Assessment: 61 year old male with history of substance abuse who is s/p cardiopulmonary arrest, respiratory failure, pneumothroax, SIRS,chest tube, pneumomediastinum, severe anoxic brain injury. Patient and daughters at bedside. Family has decided to move ahead with terminal extubation plan. Family aware that patient will not survive. End of life counseling given. Family waiting for language asst to come before proceeding. Plan: Terminal extubation End of life counseling
--- NOTE | 2017-04-08 13:06 | CP.PCM.PN ---
Subjective - Date & Time of Evaluation Date of Evaluation: 04/08/17 Time of Evaluation: 06:15 - Subjective Subjective: remains unresponsive on vent Objective - Vital Signs/Intake and Output Vital Signs (last 24 hours): Temp Pulse Resp BP Pulse Ox 98.2 F 70 23 99/52 L 100 04/08/17 12:00 04/08/17 12:00 04/08/17 06:57 04/08/17 12:00 04/08/17 12:00 Intake and Output: 04/08/17 04/08/17 06:59 18:59 Intake Total 707 Output Total 760 Balance -53 - Medications Medications: Current Medications Aspirin (Aspirin Chewable) 81 mg PO DAILY [facility] Last Admin: 04/08/17 09:20 Dose: 81 mg Chlorhexidine Gluconate (Peridex) 15 ml PO Q4H [facility] Last Admin: 04/08/17 06:03 Dose: 15 analia Clopidogrel Bisulfate (Plavix) 75 mg PO DAILY [facility] Last Admin: 04/08/17 09:20 Dose: 75 mg Enoxaparin Sodium (Lovenox) 40 mg SC DAILY [facility] PRN Reason: Protocol Last Admin: 04/08/17 09:20 Dose: 40 mg Levetiracetam (Keppra 500mg Ivpb) 500 mg in 100 mls @ 460 mls/hr IV Q12 [facility] Last Admin: 04/08/17 09:20 Dose: 460 mls/hr Famotidine (Pepcid 20mg/50ml Premix) 20 mg in 50 mls @ 100 mls/hr IVPB Q12 [facility] Last Admin: 04/08/17 09:21 Dose: 100 mls/hr Dexmedetomidine HCl (Precedex 4 Mcg/Ml (100 Ml)) 400 mcg in 100 mls @ 3.175 mls /hr IV .Q24H PRN; Protocol; 0.2 MCG/KG/HR PRN Reason: Sedation Last Admin: 04/07/17 20:20 Dose: 0.2 mcg/kg/hr, 3.175 mls/hr Meropenem 1g/NS 100mL IVPB (Meropenem 1g/Ns 100ml Ivpb) 1 gm in 100 mls @ 100 mls/hr IVPB Q8 [facility] PRN Reason: Protocol Stop: 04/14/17 06:31 Last Admin: 04/08/17 06:03 Dose: 100 mls/hr - Labs Labs: 04/08/17 05:20 04/08/17 05:20 PT 13.9 SECONDS (9.4-12.5) H 04/08/17 10:52 INR 1.26 (0.93-1.08) H 04/08/17 10:52 APTT 37.5 Seconds (25.1-36.5) H 04/08/17 10:52 - Respiratory Exam Additional comments: endotracheal tube intact, chest tube intact - Cardiovascular Exam Cardiovascular Exam: REGULAR RHYTHM - GI/Abdominal Exam GI & Abdominal Exam: Soft, Normal Bowel Sounds - Extremities Exam Extremities Exam: Pedal Edema - Neurological Exam Neurological Exam: Alert - Skin Skin Exam: Dry, Warm Assessment and Plan (1) Cardiac arrest Status: Acute (2) Hypoxic ischemic encephalopathy Status: Acute (3) Pneumothorax Status: Acute - Assessment and Plan (Free Text) Plan: supportive care, patient is DNR, prognosis very poor
[2017-04-08] MEDS ORDERED: Morphine 4 mg/ml ISec IVP STA (15:51)
[2017-04-08] MEDS ORDERED: Morphine 2 mg/ml ISec IVP PRN (15:52)
--- NOTE | 2017-04-08 16:04 | CP.CCUPN ---
<Jeremy Alfaro - Last Filed: 04/08/17 15:55> CCU Subjective - Physician Review Subjective (Free Text): 04/08/17 15:55 After discussion again today between ICU team, Palliative team, and family at bedside ( and 2 Daughters), family has determined that the patient would not wish further intervention given his current state with poor chance for meaningful recovery. Consequences of continuing vs withdrawal of care discussed in length, and family expressed understanding, and stated that they would like to withdraw care, in keeping with the patient's wishes. Family requested a delay to allow for a er rn of their acquaintance to arrive and say a prayer, which was accommodated. After the er rn spoke with the family, the family approached the medical team and requested terminal extubation. Pt's (POA) signed the withdrawal of care document, witnessed by nursing, and respiratory therapist was called to extubate. Emotional support provided to family. Morphine 4mg IVP x1 given for comfort and to prevent agonal respirations, and a standing order of 2mg IVP morphine every hour as needed was ordered as well. Will continue to monitor. CCU Objective - Vital Signs / Intake & Output Vital Signs (Last 4 hours): Vital Signs Temp Pulse BP Pulse Ox 04/08/17 12:00 98.1 F 76 99/52 L 100 Intake and Output (Last 8hrs): Intake & Output 04/08/17 04/08/17 04/08/17 06:59 14:59 22:59 Intake Total 630 Output Total 760 Balance -130 Weight 63.503 kg Intake: IV 630 Right Forearm 630 Output: Chest Tube Drainage 60 Left Lateral Chest 60 Urine 700 2-way Urethral 700 - Physical Exam Head: Positive for: Atraumatic, Normocephalic Pupils: Positive for: Non-Reactive, Pinpoint. Negative for: PERRL Extroacular Muscles: Negative for: EOMI Conjunctiva: Negative for: Injected, Icteric Mouth: Positive for: Other (ETT removed) Nose (External): Positive for: Atraumatic, Other (NGT removed). Negative for: Abrasion, Contusion, Laceration Neck: Positive for: Trachea Midline. Negative for: JVD Respiratory/Chest: Positive for: Rales (diffuse rales in all galloway), Other ( Left-sided chest tube in place, set to suction, some bloody drainage in tube). Negative for: Clear to Auscultation, Good Air Exchange (minimal/absent breath sounds in left lower lobe), Respiratory Distress, Wheezes Cardiovascular: Positive for: Regular Rate and Rhythm, Normal S1, S2. Negative for: Murmurs, Tachycardic, Bradycardic Abdomen: Negative for: Distention, Normal Bowel Sounds (faint bowel sounds), Feeding Tubes Upper Extremity: Positive for: NORMAL PULSES. Negative for: Cyanosis, Edema, Normal ROM, Swelling, Erythema, Deformity Lower Extremity: Positive for: NORMAL PULSES. Negative for: Edema, Cyanosis, Normal ROM, Swelling, Erythema, Deformity Neurological: Negative for: GCS=15 (GCS 3 (E1 M1 V1)), CN II-XII Intact, Speech Normal, Motor Func Grossly Intact Skin: Positive for: Warm, Dry, Normal Color. Negative for: Rashes Psychiatric: Positive for: Other (extubated, not sedated, but unresponsive). Negative for: Alert, Oriented x 3, Normal Insight, Normal Concentration, Normal Affect, Normal Mood, Anxious, Agitated - Medications Active Medications: Active Medications Generic Name Dose Route Start Last Admin Trade Name Freq PRN Reason Stop Dose Admin Aspirin 81 mg 03/31/17 10:00 04/08/17 09:20 Aspirin Chewable PO 81 mg DAILY EMA Administration Chlorhexidine Gluconate 15 ml 04/02/17 14:30 04/08/17 13:42 Peridex PO Not Given Q4H EMA Clopidogrel Bisulfate 75 mg 03/31/17 10:00 04/08/17 09:20 Plavix PO 75 mg DAILY EMA Administration Enoxaparin Sodium 40 mg 04/03/17 10:00 04/08/17 09:20 Lovenox SC 40 mg DAILY EMA Administration Protocol Levetiracetam 500 mg in 100 mls @ 460 mls/hr 03/31/17 17:33 04/08/17 09:20 Keppra 500mg Ivpb IV 460 mls/hr Q12 EMA Administration Famotidine 20 mg in 50 mls @ 100 mls/hr 04/03/17 22:00 04/08/17 09:21 Pepcid 20mg/50ml Premix IVPB 100 mls/hr Q12 EMA Administration Dexmedetomidine HCl 400 mcg in 100 mls @ 3.175 mls/hr 04/06/17 13:38 20:20 Precedex 4 Mcg/Ml (100 Ml) IV 0.2 mcg/kg/hr .Q24H PRN 3.175 mls/hr Sedation Administration Protocol 0.2 MCG/KG/HR Meropenem 1g/NS 100mL IVPB 1 gm in 100 mls @ 100 mls/hr 04/07/17 06:30 14:19 Meropenem 1g/Ns 100ml Ivpb IVPB 04/14/17 06:31 100 mls/hr Q8 EMA Administration Protocol Morphine Sulfate 2 mg 04/08/17 15:52 Morphine IVP Q1H PRN agonal breathing - Patient Studies Lab Studies: Microbiology Studies 04/06/17 13:45 Urine Culture - Final Urine,Singh No Growth (<1,000 CFU/ML) 04/06/17 11:30 Blood Culture - Preliminary Blood-Venous NO GROWTH AFTER 48 HOURS 04/06/17 10:40 Blood Culture - Preliminary Blood-Venous NO GROWTH AFTER 48 HOURS 04/06/17 19:48 Gram Stain - Final Trachasp Lab Studies 04/08/17 04/08/17 04/08/17 Range/Units 10:52 05:20 05:20 WBC 15.6 H D (4.5-11.0) 10^3/ul RBC 3.02 L (3.5-6.1) 10^6/uL Hgb 8.5 L (14.0-18.0) g/dL Hct 24.5 L (42.0-52.0) % MCV 81.1 (80.0-105.0) fl MCH 28.1 (25.0-35.0) pg MCHC 34.7 (31.0-37.0) g/dl RDW 15.2 H (11.5-14.5) % Plt Count 361 (120.0-450.0) 10^3/uL MPV 9.3 (7.0-11.0) fl Gran % 74.9 H (50.0-68.0) % Lymph % (Auto) 12.0 L (22.0-35.0) % [place] % (Auto) 10.6 H (1.0-6.0) % Eos % (Auto) 2.4 (1.5-5.0) % Baso % (Auto) 0.1 (0.0-3.0) % Gran # 11.65 H (1.4-6.5) Lymph # 1.9 (1.2-3.4) [place] # 1.7 H (0.1-0.6) Eos # 0.4 (0.0-0.7) Baso # 0.01 (0.0-2.0) K/mm3 PT 13.9 H (9.4-12.5) SECONDS INR 1.26 H (0.93-1.08) APTT 37.5 H (25.1-36.5) Seconds pCO2 (35-45) mm/Hg pO2 (80-100) mm/Hg HCO3 (21-28) mmol/L ABG pH (7.35-7.45) ABG Total CO2 (22-28) mmol.L ABG O2 Saturation (95-98) % ABG O2 Content (15-23) ML/dl ABG Base Excess (-2.0-3.0) mmol/L ABG Hemoglobin (11.7-17.4) g/dL ABG Carboxyhemoglobin (0.5-1.5) % POC ABG HHb (Measured) (0-5) % ABG Methemoglobin (0.0-3.0) % ABG O2 Capacity (16-24) mL/dl Hgb O2 Saturation (95.0-98.0) % FiO2 % Sodium 140 (132-148) mmol/L Potassium 3.9 (3.6-5.0) mmol/L Chloride 107 (98-107) mmol/L Carbon Dioxide 24 (21-33) mmol/L Anion Gap 13 (10-20) BUN 15 (7-21) mg/dL Creatinine 0.9 (0.8-1.5) mg/dL Est GFR ( Amer) > 60 Est GFR (Non-Af Amer) > 60 Random Glucose 90 (70-110) mg/dL Calcium 8.4 (8.4-10.5) mg/dL Phosphorus 2.8 (2.5-4.5) mg/dL Magnesium 2.2 (1.7-2.2) mg/dL Total Bilirubin 0.8 (0.2-1.3) mg/dL AST 67 H (17-59) U/L ALT 105 H (7-56) U/L Alkaline Phosphatase 79 (38-126) U/L Total Protein 5.9 (5.8-8.3) g/dL Albumin 3.0 (3.0-4.8) g/dL Globulin 2.9 gm/dL Albumin/Globulin Ratio 1.0 L (1.1-1.8) 04/08/17 Range/Units 05:20 WBC (4.5-11.0) 10^3/ul RBC (3.5-6.1) 10^6/uL Hgb (14.0-18.0) g/dL Hct (42.0-52.0) % MCV (80.0-105.0) fl MCH (25.0-35.0) pg MCHC (31.0-37.0) g/dl RDW (11.5-14.5) % Plt Count (120.0-450.0) 10^3/uL MPV (7.0-11.0) fl Gran % (50.0-68.0) % Lymph % (Auto) (22.0-35.0) % [place] % (Auto) (1.0-6.0) % Eos % (Auto) (1.5-5.0) % Baso % (Auto) (0.0-3.0) % Gran # (1.4-6.5) Lymph # (1.2-3.4) [place] # (0.1-0.6) Eos # (0.0-0.7) Baso # (0.0-2.0) K/mm3 PT (9.4-12.5) SECONDS INR (0.93-1.08) APTT (25.1-36.5) Seconds pCO2 33 L (35-45) mm/Hg pO2 90.0 (80-100) mm/Hg HCO3 23.5 (21-28) mmol/L ABG pH 7.46 H (7.35-7.45) ABG Total CO2 24.5 (22-28) mmol.L ABG O2 Saturation 98.9 H (95-98) % ABG O2 Content 13.5 L (15-23) ML/dl ABG Base Excess 0.0 (-2.0-3.0) mmol/L ABG Hemoglobin 10.0 L (11.7-17.4) g/dL ABG Carboxyhemoglobin 2.3 H (0.5-1.5) % POC ABG HHb (Measured) 1.1 (0-5) % ABG Methemoglobin 1.3 (0.0-3.0) % ABG O2 Capacity 13.7 L (16-24) mL/dl Hgb O2 Saturation 95.2 (95.0-98.0) % FiO2 35.0 % Sodium (132-148) mmol/L Potassium (3.6-5.0) mmol/L Chloride (98-107) mmol/L Carbon Dioxide (21-33) mmol/L Anion Gap (10-20) BUN (7-21) mg/dL Creatinine (0.8-1.5) mg/dL Est GFR ( Amer) Est GFR (Non-Af Amer) Random Glucose (70-110) mg/dL Calcium (8.4-10.5) mg/dL Phosphorus (2.5-4.5) mg/dL Magnesium (1.7-2.2) mg/dL Total Bilirubin (0.2-1.3) mg/dL AST (17-59) U/L ALT (7-56) U/L Alkaline Phosphatase (38-126) U/L Total Protein (5.8-8.3) g/dL Albumin (3.0-4.8) g/dL Globulin gm/dL Albumin/Globulin Ratio (1.1-1.8) Laboratory Results - last 24 hr 04/08/17 04/08/17 04/08/17 05:20 05:20 05:20 WBC 15.6 H D RBC 3.02 L Hgb 8.5 L Hct 24.5 L MCV 81.1 MCH 28.1 MCHC 34.7 RDW 15.2 H Plt Count 361 MPV 9.3 Gran % 74.9 H Lymph % (Auto) 12.0 L [place] % (Auto) 10.6 H Eos % (Auto) 2.4 Baso % (Auto) 0.1 Gran # 11.65 H Lymph # 1.9 [place] # 1.7 H Eos # 0.4 Baso # 0.01 PT INR APTT pCO2 33 L pO2 90.0 HCO3 23.5 ABG pH 7.46 H ABG Total CO2 24.5 ABG O2 Saturation 98.9 H ABG O2 Content 13.5 L ABG Base Excess 0.0 ABG Hemoglobin 10.0 L ABG Carboxyhemoglobin 2.3 H POC ABG HHb (Measured) 1.1 ABG Methemoglobin 1.3 ABG O2 Capacity 13.7 L Hgb O2 Saturation 95.2 FiO2 35.0 Sodium 140 Potassium 3.9 Chloride 107 Carbon Dioxide 24 Anion Gap 13 BUN 15 Creatinine 0.9 Est GFR ( Amer) > 60 Est GFR (Non-Af Amer) > 60 Random Glucose 90 Calcium 8.4 Phosphorus 2.8 Magnesium 2.2 Total Bilirubin 0.8 AST 67 H ALT 105 H Alkaline Phosphatase 79 Total Protein 5.9 Albumin 3.0 Globulin 2.9 Albumin/Globulin Ratio 1.0 L 04/08/17 10:52 WBC RBC Hgb Hct MCV MCH MCHC RDW Plt Count MPV Gran % Lymph % (Auto) [place] % (Auto) Eos % (Auto) Baso % (Auto) Gran # Lymph # [place] # Eos # Baso # PT 13.9 H INR 1.26 H APTT 37.5 H pCO2 pO2 HCO3 ABG pH ABG Total CO2 ABG O2 Saturation ABG O2 Content ABG Base Excess ABG Hemoglobin ABG Carboxyhemoglobin POC ABG HHb (Measured) ABG Methemoglobin ABG O2 Capacity Hgb O2 Saturation FiO2 Sodium Potassium Chloride Carbon Dioxide Anion Gap BUN Creatinine Est GFR ( Amer) Est GFR (Non-Af Amer) Random Glucose Calcium Phosphorus Magnesium Total Bilirubin AST ALT Alkaline Phosphatase Total Protein Albumin Globulin Albumin/Globulin Ratio Fingerstick Blood Sugar Results: 215 Critical Care Progress Note - Nutrition Nutrition: Nutrition Category Date Time Status NPO Diet [DIET] Diets 04/07/17 Breakfast Ordered <Maryann GUSMAN,Pretty H - Last Filed: 04/08/17 18:31> CCU Objective - Vital Signs / Intake & Output Vital Signs (Last 4 hours): Vital Signs Temp Pulse Resp BP Pulse Ox 04/08/17 17:00 98.6 F 85 18 99 04/08/17 16:00 98.4 F 70 16 98 04/08/17 15:00 98.2 F 78 113/61 100 Intake and Output (Last 8hrs): Intake & Output 10/04/08/17 04/08/17 06:59 14:59 22:59 Intake Total 630 274 Output Total 760 1380 Balance -130 -1106 Weight 140 lb Intake: IV 630 274 Right Forearm 630 meds. 250 precedex 24 Output: Chest Tube Drainage 60 580 Left Lateral Chest 60 580 Urine 700 800 2-way Urethral 700 800 Other: # Bowel Movements 0 - Medications Active Medications: Active Medications Generic Name Dose Route Start Last Admin Trade Name Freq PRN Reason Stop Dose Admin Aspirin 81 mg 03/31/17 10:00 04/08/17 09:20 Aspirin Chewable PO 81 mg DAILY EMA Administration Chlorhexidine Gluconate 15 ml 04/02/17 14:30 04/08/17 17:15 Peridex PO Not Given Q4H EMA Clopidogrel Bisulfate 75 mg 03/31/17 10:00 04/08/17 09:20 Plavix PO 75 mg DAILY EMA Administration Enoxaparin Sodium 40 mg 04/03/17 10:00 04/08/17 09:20 Lovenox SC 40 mg DAILY EMA Administration Protocol Levetiracetam 500 mg in 100 mls @ 460 mls/hr 03/31/17 17:33 04/08/17 09:20 Keppra 500mg Ivpb IV 460 mls/hr Q12 EMA Administration Famotidine 20 mg in 50 mls @ 100 mls/hr 04/03/17 22:00 04/08/17 09:21 Pepcid 20mg/50ml Premix IVPB 100 mls/hr Q12 EMA Administration Dexmedetomidine HCl 400 mcg in 100 mls @ 3.175 mls/hr 04/06/17 13:38 20:20 Precedex 4 Mcg/Ml (100 Ml) IV 0.2 mcg/kg/hr .Q24H PRN 3.175 mls/hr Sedation Administration Protocol 0.2 MCG/KG/HR Meropenem 1g/NS 100mL IVPB 1 gm in 100 mls @ 100 mls/hr 04/07/17 06:30 14:19 Meropenem 1g/Ns 100ml Ivpb IVPB 04/14/17 06:31 100 mls/hr Q8 EMA Administration Protocol Morphine Sulfate 2 mg 04/08/17 15:52 04/08/17 18:28 Morphine IVP 2 mg Q1H PRN Administration agonal breathing - Patient Studies Lab Studies: Microbiology Studies 04/06/17 13:45 Urine Culture - Final Urine,Singh No Growth (<1,000 CFU/ML) 04/06/17 11:30 Blood Culture - Preliminary Blood-Venous NO GROWTH AFTER 48 HOURS 04/06/17 10:40 Blood Culture - Preliminary Blood-Venous NO GROWTH AFTER 48 HOURS 04/06/17 19:48 Gram Stain - Final Trachasp Lab Studies 04/08/17 04/08/17 04/08/17 Range/Units 10:52 05:20 05:20 WBC 15.6 H D (4.5-11.0) 10^3/ul RBC 3.02 L (3.5-6.1) 10^6/uL Hgb 8.5 L (14.0-18.0) g/dL Hct 24.5 L (42.0-52.0) % MCV 81.1 (80.0-105.0) fl MCH 28.1 (25.0-35.0) pg MCHC 34.7 (31.0-37.0) g/dl RDW 15.2 H (11.5-14.5) % Plt Count 361 (120.0-450.0) 10^3/uL MPV 9.3 (7.0-11.0) fl Gran % 74.9 H (50.0-68.0) % Lymph % (Auto) 12.0 L (22.0-35.0) % [place] % (Auto) 10.6 H (1.0-6.0) % Eos % (Auto) 2.4 (1.5-5.0) % Baso % (Auto) 0.1 (0.0-3.0) % Gran # 11.65 H (1.4-6.5) Lymph # 1.9 (1.2-3.4) [place] # 1.7 H (0.1-0.6) Eos # 0.4 (0.0-0.7) Baso # 0.01 (0.0-2.0) K/mm3 PT 13.9 H (9.4-12.5) SECONDS INR 1.26 H (0.93-1.08) APTT 37.5 H (25.1-36.5) Seconds pCO2 (35-45) mm/Hg pO2 (80-100) mm/Hg HCO3 (21-28) mmol/L ABG pH (7.35-7.45) ABG Total CO2 (22-28) mmol.L ABG O2 Saturation (95-98) % ABG O2 Content (15-23) ML/dl ABG Base Excess (-2.0-3.0) mmol/L ABG Hemoglobin (11.7-17.4) g/dL ABG Carboxyhemoglobin (0.5-1.5) % POC ABG HHb (Measured) (0-5) % ABG Methemoglobin (0.0-3.0) % ABG O2 Capacity (16-24) mL/dl Hgb O2 Saturation (95.0-98.0) % FiO2 % Sodium 140 (132-148) mmol/L Potassium 3.9 (3.6-5.0) mmol/L Chloride 107 (98-107) mmol/L Carbon Dioxide 24 (21-33) mmol/L Anion Gap 13 (10-20) BUN 15 (7-21) mg/dL Creatinine 0.9 (0.8-1.5) mg/dL Est GFR ( Amer) > 60 Est GFR (Non-Af Amer) > 60 Random Glucose 90 (70-110) mg/dL Calcium 8.4 (8.4-10.5) mg/dL Phosphorus 2.8 (2.5-4.5) mg/dL Magnesium 2.2 (1.7-2.2) mg/dL Total Bilirubin 0.8 (0.2-1.3) mg/dL AST 67 H (17-59) U/L ALT 105 H (7-56) U/L Alkaline Phosphatase 79 (38-126) U/L Total Protein 5.9 (5.8-8.3) g/dL Albumin 3.0 (3.0-4.8) g/dL Globulin 2.9 gm/dL Albumin/Globulin Ratio 1.0 L (1.1-1.8) 04/08/17 Range/Units 05:20 WBC (4.5-11.0) 10^3/ul RBC (3.5-6.1) 10^6/uL Hgb (14.0-18.0) g/dL Hct (42.0-52.0) % MCV (80.0-105.0) fl MCH (25.0-35.0) pg MCHC (31.0-37.0) g/dl RDW (11.5-14.5) % Plt Count (120.0-450.0) 10^3/uL MPV (7.0-11.0) fl Gran % (50.0-68.0) % Lymph % (Auto) (22.0-35.0) % [place] % (Auto) (1.0-6.0) % Eos % (Auto) (1.5-5.0) % Baso % (Auto) (0.0-3.0) % Gran # (1.4-6.5) Lymph # (1.2-3.4) [place] # (0.1-0.6) Eos # (0.0-0.7) Baso # (0.0-2.0) K/mm3 PT (9.4-12.5) SECONDS INR (0.93-1.08) APTT (25.1-36.5) Seconds pCO2 33 L (35-45) mm/Hg pO2 90.0 (80-100) mm/Hg HCO3 23.5 (21-28) mmol/L ABG pH 7.46 H (7.35-7.45) ABG Total CO2 24.5 (22-28) mmol.L ABG O2 Saturation 98.9 H (95-98) % ABG O2 Content 13.5 L (15-23) ML/dl ABG Base Excess 0.0 (-2.0-3.0) mmol/L ABG Hemoglobin 10.0 L (11.7-17.4) g/dL ABG Carboxyhemoglobin 2.3 H (0.5-1.5) % POC ABG HHb (Measured) 1.1 (0-5) % ABG Methemoglobin 1.3 (0.0-3.0) % ABG O2 Capacity 13.7 L (16-24) mL/dl Hgb O2 Saturation 95.2 (95.0-98.0) % FiO2 35.0 % Sodium (132-148) mmol/L Potassium (3.6-5.0) mmol/L Chloride (98-107) mmol/L Carbon Dioxide (21-33) mmol/L Anion Gap (10-20) BUN (7-21) mg/dL Creatinine (0.8-1.5) mg/dL Est GFR ( Amer) Est GFR (Non-Af Amer) Random Glucose (70-110) mg/dL Calcium (8.4-10.5) mg/dL Phosphorus (2.5-4.5) mg/dL Magnesium (1.7-2.2) mg/dL Total Bilirubin (0.2-1.3) mg/dL AST (17-59) U/L ALT (7-56) U/L Alkaline Phosphatase (38-126) U/L Total Protein (5.8-8.3) g/dL Albumin (3.0-4.8) g/dL Globulin gm/dL Albumin/Globulin Ratio (1.1-1.8) Laboratory Results - last 24 hr 04/08/17 04/08/17 04/08/17 05:20 05:20 05:20 WBC 15.6 H D RBC 3.02 L Hgb 8.5 L Hct 24.5 L MCV 81.1 MCH 28.1 MCHC 34.7 RDW 15.2 H Plt Count 361 MPV 9.3 Gran % 74.9 H Lymph % (Auto) 12.0 L [place] % (Auto) 10.6 H Eos % (Auto) 2.4 Baso % (Auto) 0.1 Gran # 11.65 H Lymph # 1.9 [place] # 1.7 H Eos # 0.4 Baso # 0.01 PT INR APTT pCO2 33 L pO2 90.0 HCO3 23.5 ABG pH 7.46 H ABG Total CO2 24.5 ABG O2 Saturation 98.9 H ABG O2 Content 13.5 L ABG Base Excess 0.0 ABG Hemoglobin 10.0 L ABG Carboxyhemoglobin 2.3 H POC ABG HHb (Measured) 1.1 ABG Methemoglobin 1.3 ABG O2 Capacity 13.7 L Hgb O2 Saturation 95.2 FiO2 35.0 Sodium 140 Potassium 3.9 Chloride 107 Carbon Dioxide 24 Anion Gap 13 BUN 15 Creatinine 0.9 Est GFR ( Amer) > 60 Est GFR (Non-Af Amer) > 60 Random Glucose 90 Calcium 8.4 Phosphorus 2.8 Magnesium 2.2 Total Bilirubin 0.8 AST 67 H ALT 105 H Alkaline Phosphatase 79 Total Protein 5.9 Albumin 3.0 Globulin 2.9 Albumin/Globulin Ratio 1.0 L 04/08/17 10:52 WBC RBC Hgb Hct MCV MCH MCHC RDW Plt Count MPV Gran % Lymph % (Auto) [place] % (Auto) Eos % (Auto) Baso % (Auto) Gran # Lymph # [place] # Eos # Baso # PT 13.9 H INR 1.26 H APTT 37.5 H pCO2 pO2 HCO3 ABG pH ABG Total CO2 ABG O2 Saturation ABG O2 Content ABG Base Excess ABG Hemoglobin ABG Carboxyhemoglobin POC ABG HHb (Measured) ABG Methemoglobin ABG O2 Capacity Hgb O2 Saturation FiO2 Sodium Potassium Chloride Carbon Dioxide Anion Gap BUN Creatinine Est GFR ( Amer) Est GFR (Non-Af Amer) Random Glucose Calcium Phosphorus Magnesium Total Bilirubin AST ALT Alkaline Phosphatase Total Protein Albumin Globulin Albumin/Globulin Ratio Critical Care Progress Note - Nutrition Nutrition: Nutrition Category Date Time Status NPO Diet [DIET] Diets 04/07/17 Breakfast Ordered Attending/Attestation - Attestation I have personally seen and examined this patient.: Yes I have fully participated in the care of the patient.: Yes I have reviewed all pertinent clinical information: Yes Notes (Text): 04/08/17 18:29 61 y/o M w/ anoxic brain injury s/p cardiac arrest Intubated > 6 days without any neurological improvement. S/P L CT for PTX - now resolved . Pneumomediastinum stable Family awaitign comfort care terminal extubation plans. Palliative care following along. PCP aware. cc time 45 min
[2017-04-08 16:12] VITALS: BP 113/61
[2017-04-08 17:18] VITALS: PULSE 85; RESP 18; TEMP 98.6; O2SAT 99
--- NOTE | 2017-04-08 18:42 | CP.PCM.PRO ---
Pronouncement of Note - Clinical Findings Physical Exam: No Response Verbal/Painful Stimuli, Absent Peripheral Pulses{ Carotid & Femoral}, Absent Heart & Breath Sounds, No Pupillary Light Reflex, Pupils Fixed & Dilated, Absence of Vital Signs - Pronouncement Time Time of Pronouncement of : 18:38 - Notifications Pronouncement Notifications: Family Notified, Atending Notified Inter Com Installer Notified: No - Autopsy Autopsy Requested: No [place] [id number] Additional Comments: EDRS form initiated, remainder to be filled by PMD
== END 2017-04-08 18:38 | DRG 584 ==
LOC: ED 18:09 → ERH 19:39 → CCU 21:54
PROVIDERS: ADMIT Internal Medicine; ATTEND Internal Medicine
PROC: 5A1955Z Respiratory Ventilation, Greater than 96 Consecutive Hours (ICD-10-PCS; principal; 2017-03-30)
PROC: 06HM33Z Insertion of Infusion Device into Right Femoral Vein, Percutaneous Approach (ICD-10-PCS; 2017-03-30)
PROC: 0W9B30Z Drainage of Left Pleural Cavity with Drainage Device, Percutaneous Approach (ICD-10-PCS; 2017-04-05)
DX: A41.9 Sepsis, unspecified organism (principal); J96.90 Respiratory failure, unspecified, unspecified whether with hypoxia or hypercapnia; I46.9 Cardiac arrest, cause unspecified; R40.20 Unspecified coma; G93.1 Anoxic brain damage, not elsewhere classified; J18.9 Pneumonia, unspecified organism; Z99.11 Dependence on respirator [ventilator] status; J44.0 Chronic obstructive pulmonary disease with (acute) lower respiratory infection; J93.9 Pneumothorax, unspecified; J98.2 Interstitial emphysema; N39.0 Urinary tract infection, site not specified; F14.10 Cocaine abuse, uncomplicated; E87.1 Hypo-osmolality and hyponatremia; R40.2432 Glasgow coma scale score 3-8, at arrival to emergency department; R65.20 Severe sepsis without septic shock; M51.26 Other intervertebral disc displacement, lumbar region; G89.29 Other chronic pain; G25.81 Restless legs syndrome; I45.81 Long QT syndrome; F17.210 Nicotine dependence, cigarettes, uncomplicated; G40.909 Epilepsy, unspecified, not intractable, without status epilepticus; T70.29XA Other effects of high altitude, initial encounter; Y84.8 Other medical procedures as the cause of abnormal reaction of the patient, or of later complication, without mention of misadventure at the time of the procedure; R62.7 Adult failure to thrive; Z66 Do not resuscitate; Y95 Nosocomial condition